=== PATIENT | female | born 1980 | race Caucasian/White ===

== ENCOUNTER 2017-03-26 21:59 | Emergency (ER) | payer BC ==
[2017-03-26] MEDS ORDERED: SODIUM CHLORIDE 0.9% 1,000 ML IV STA (22:18)
--- NOTE | 2017-03-26 22:37 | ED ---
Chest Pain HPI - General Chief Complaint: Chest Pain Stated Complaint: Chest Pain Time Seen by Provider: 03/26/17 22:15 Source: patient, RN notes reviewed Mode of arrival: ambulatory Limitations: no limitations - History of Present Illness Initial Comments: 36-year-old female presents emergency department with a chief complaint of chest pain or shortness of breath. Patient does admit to a history of DVT when she had a she states that she took them and in for 6 months following her had no problems. She developed this chest pain or shortness of breath today so she became concerned. Patient denies any fever chills. Patient does admit to a dry cough. Patient states she has had some chronic abdominal pain and headache but that is not what is concerning her at this time. Patient states she was concerned due to the continued chest pain or shortness breath with her history so she thought that she should be evaluated.Patient denies any recent fever, chills, back pain, abdominal pain, nausea vomiting, numbness or tingling, dysuria or hematuria, constipation or diarrhea, headaches or visual changes, or any other current symptoms. - Related Data Home Medications Medication Instructions Recorded Confirmed Albuterol Sulfate [Proventil Hfa] 1 - 2 puff INHALATION RT-Q6H PRN 03/26/1710/02 Allergies Allergy/AdvReac Type Severity Reaction Status Date / Time No Known Allergies Allergy Verified 03/26/17 22:22 Review of Systems ROS Statement: Those systems with pertinent positive or pertinent negative responses have been documented in the HPI. ROS Other: All systems not noted in ROS Statement are negative. 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 Eye: Pupils are equal, round. Ears, nose, mouth and throat: There are moist mucous membranes. Neck: The neck is supple, there is no tenderness. Cardiovascular: There is a regular rate and rhythm. No murmur, rub or gallop is appreciated. Respiratory: Lungs are clear to auscultation, respirations are non-labored, breath sounds are equal. No wheezes, stridor, rales, or rhonchi. Gastrointestinal: Soft, non-distended, non-tender abdomen without masses or organomegaly noted. There is no rebound or guarding present. No CVA tenderness. Bowel sounds are unremarkable. Back: There is no tenderness to palpation in the midline. There is no obvious deformity. No rashes noted. Musculoskeletal: Normal ROM, no tenderness, There is no pedal edema. There is no calf tenderness or swelling. Sensation intact. Pulses equal bilaterally 2+. Neurological: CN II-XII intact, There are no obvious motor or sensory deficits. Coordination appears grossly intact. Speech is normal. Skin: Skin is warm and dry and no rashes or lesions are noted. Psychiatric: Cooperative, appropriate mood & affect, normal judgment. Limitations: no limitations Course Vital Signs 03/26/17 03/26/17 03/26/17 22:04 22:52 23:09 Temperature 97.5 F L Pulse Rate 74 60 Pulse Rate [ 80 Chemistry Manager ] Respiratory 18 18 Rate Blood Pressure 123/68 119/79 O2 Sat by Pulse 98 98 Oximetry 03/27/17 00:23 Temperature Pulse Rate 75 Pulse Rate [ Chemistry Manager ] Respiratory 18 Rate Blood Pressure 115/77 O2 Sat by Pulse 98 Oximetry Chest Pain MDM - MDM 36-year-old female presents emergency Department chief complaint of chest pain and shortness of breath.at this time patient's CT angiogram is negative for PE. At this time we discussed patient's chest pain is most likely due to a pleuritic type pain due to the shortness of breath with tightness. We did discuss follow-up with Dr. marii villasenor. We discussed all the patient's questions. She states she understood the plan. She'll be discharged home. Disposition Clinical Impression: Pleuritic chest pain, Cough Disposition: HOME SELF-CARE Condition: Stable Instructions: Pleurisy (ED) Additional Instructions: Please use medication as discussed. Please follow up with family doctor if symptoms have not improved over the next two days. Please return to the emergency room if your symptoms increase or worsen or for any other concerns. Referrals: Holger Farmer MD [Primary Care Provider] - 1-2 days Time of Disposition: 01:24
[2017-03-26 23:06] LABS: Basophils # (A) 0.1 k/uL (0-0.2); Basophils % (A) 1 %; CH 32.9; CHCM 34.9; Eosinophils # (A) 0.3 k/uL (0-0.7); Eosinophils % (A) 5 %; HCT 38.5 % (34.0-46.0); HDW 2.12; HGB 13.3 gm/dL (11.4-16.0); Luc % (Auto) 3; Lymphocytes # (A) 2.4 k/uL (1.0-4.8); Lymphocytes % (A) 35 %; MCH 32.7 pg (25.0-35.0); MCHC 34.7 g/dL (31.0-37.0); MCV 94.4 fL (80.0-100.0); Mean Platelet Volume 7.1; Monocytes # (A) 0.5 k/uL (0-1.0); Monocytes % (A) 7 %; Neutrophils # (A) 3.4 k/uL (1.3-7.7); Neutrophils % (A) 50 %; RBC 4.07 m/uL (3.80-5.40); RDW 12.1 % (11.5-15.5); WBC 6.9 k/uL (3.8-10.6); WBC (Perox) 6.63
[2017-03-26 23:16] LABS: ALT 25 U/L (9-52); AST 23 U/L (14-36); Alkaline Phosphatase 57 U/L (38-126); Anion Gap 7 mmol/L; Blood Urea Nitrogen 19 mg/dL (7-17); Calcium 8.7 mg/dL (8.4-10.2); Carbon Dioxide 23 mmol/L (22-30); Chloride 106 mmol/L (98-107); Glucose 87 mg/dL (74-99); Non-African American GFR(MDRD) >60 (>60 ml/min/1.73 sqM); Potassium 4.1 mmol/L (3.5-5.1); Sodium 136 mmol/L (137-145); Total Bilirubin 0.7 mg/dL (0.2-1.3); Total Protein 6.6 g/dL (6.3-8.2)
[2017-03-26 23:18] LABS: INR 1.1 (<1.1); Partial Thromboplastin Time 25.4 sec (22.0-30.0)
[2017-03-26 23:28] LABS: Creatine Kinase 230 U/L (30-135)
[2017-03-26 23:41] LABS: Creatine Kinase MB 1.5 ng/mL (0.0-2.4); Troponin I <0.012 ng/mL (0.000-0.034)
--- NOTE | 2017-03-26 23:48 | XR ---
EXAM: XR Chest, 2 Views CLINICAL HISTORY: Chest pain. TECHNIQUE: Frontal and lateral views of the chest. COMPARISON: No relevant prior studies available. FINDINGS: Lungs: No focal consolidation. No evidence of pulmonary edema. Pleural space: No pleural effusion. No pneumothorax. Heart: Unremarkable. No cardiomegaly. Mediastinum: Unremarkable. Bones/joints: Unremarkable. IMPRESSION: No radiographic evidence of acute cardiopulmonary process.
[2017-03-27] MEDS ORDERED: RX INFO: IV CONTRAST WAS GIVEN 1 EACH MISC MISCELLANE PRN (00:17)
--- NOTE | 2017-03-27 01:21 | CT ---
EXAM: CT Angiography Chest With Intravenous Contrast CLINICAL HISTORY: Chest pain, tightness and pressure. TECHNIQUE: Axial computed tomographic angiography images of the chest with intravenous contrast using pulmonary embolism protocol. MIP reconstructed images were created and reviewed. Coronal and sagittal reformatted images were created and reviewed. DOSE INFORMATION: CTDI is 3.00, 47.90, 4.20 mGy and DLP is 165.40 mGy-cm. This CT exam was performed using one or more of the following dose reduction techniques: automated exposure control, adjustment of the mA and/or kV according to patient size, and/or use of iterative reconstruction technique. CONTRAST: 71 mL of Omnipaque 350 administered intravenously. COMPARISON: No prior CT available for comparison. FINDINGS: Pulmonary arteries: Unremarkable. No pulmonary embolism. Aorta: No acute findings. No thoracic aortic aneurysm or dissection. Lungs: No focal consolidation. No pulmonary edema. Triangular-shaped 3 mm nodular density at the left lung apex, possibly small pulmonary lymph node. Mild peripheral irregularity at the lung apices may represent mild scarring. Pleural space: No pleural effusion. No pneumothorax. Heart: Unremarkable. Normal cardiac size. No pericardial effusion. No evidence of RV dysfunction. Bones/joints: No acute fracture. No dislocation. Soft tissues: No significant soft tissue abnormality. Residual thymus in the anterosuperior mediastinum. Lymph nodes: Unremarkable. No enlarged lymph nodes. IMPRESSION: No evidence of pulmonary embolism or other acute chest abnormality to account for symptoms.
[2017-03-27 01:35] VITALS: BP 116/63; PULSE 76; RESP 16; TEMP 97.4
== END 2017-03-27 01:35 | disposition home or self-care (01) ==
LOC: EC 21:59
DX: R07.81 Pleurodynia (principal); R05 Cough; R51 Headache; R10.9 Unspecified abdominal pain; G89.29 Other chronic pain; Z87.891 Personal history of nicotine dependence
CPT/HCPCS: 36415; 93005; 85379; 80053; 82550; 82553; 83735; 84484; 85025; 85610; 85730; 71020; 71275; 99285; 96360; Q9967

== ENCOUNTER → 2017-12-29 | Outpatient (CLI) | payer BC ==
[2017-12-29 15:16] LABS: Basophils # (A) 0.1 k/uL (0-0.2); Basophils % (A) 1 %; Eosinophils # (A) 0.4 k/uL (0-0.7); Eosinophils % (A) 4 %; HCT 39.8 % (34.0-46.0); HGB 12.7 gm/dL (11.4-16.0); Lymphocytes # (A) 2.1 k/uL (1.0-4.8); Lymphocytes % (A) 26 %; MCH 31.3 pg (25.0-35.0); MCHC 31.8 g/dL (31.0-37.0); MCV 98.4 fL (80.0-100.0); Mean Platelet Volume 7.1; Monocytes # (A) 0.5 k/uL (0-1.0); Monocytes % (A) 6 %; Neutrophils % (A) 61 %; Platelet Count 257 k/uL (150-450); RBC 4.04 m/uL (3.80-5.40); WBC 8.1 k/uL (3.8-10.6)
== END | disposition home or self-care (01) ==
LOC: LABPAT 14:49
PROVIDERS: ATTEND Obstetrics & Gynecology
DX: Z01.812 Encounter for preprocedural laboratory examination (principal)
CPT/HCPCS: 36415; 85025

== ENCOUNTER 2018-01-18 07:36 | Day surgery (SDC) | payer BC ==
[2018-01-07 14:06] VITALS: BMI 25.0
--- NOTE | 2018-01-15 10:35 | HP ---
HISTORY AND PHYSICAL DATE OF PROCEDURE: 01/18/2018 HISTORY: This is a 37-year-old 1, para 0 woman who desires surgical sterility. She is going to be admitted for a laparoscopic bilateral tubal occlusion with Filshie clips. She also has a symptomatic abdominal wall diastasis and will be undergoing surgical repair at the same time. She and her partner desire no further pregnancies. She has been extensively counseled on options for contraception and she has considered these and decided to proceed with bilateral tubal ligation. Specifically, she did decline arrangements for vasectomy, intrauterine device or other hormonal contraception. ALLERGIES: None. MEDICATIONS: None. PAST MEDICAL HISTORY: Asthma, history of DVT postoperatively from section in 2014, rectus diastasis, HPV. PAST SURGICAL HISTORY: section x1 in 2014. SOCIAL HISTORY: She is . Negative for tobacco, alcohol, and drug use. FAMILY HISTORY: Maternal grandmother with blood clots and diabetes and hypertension. REVIEW OF SYSTEMS: Denies fevers, chills, recent weight gain or weight loss, nausea, vomiting, diarrhea, constipation, irregular vaginal bleeding, pelvic or abdominal pain, headaches or other neurologic signs. PHYSICAL EXAM: Blood pressure 122/68, height 5, 4. Weight 155 pounds. Pulse 68. HEENT exam is unremarkable with no palpable lymphadenopathy or thyromegaly. Lungs are clear to auscultation bilaterally and the heart is of regular rate and rhythm with no detectable murmur. On abdominal exam, she does have a notable rectus diastasis that is tender to deep palpation. The abdomen is otherwise slim and soft. On pelvic examination, she has normal female external genitalia without lesions or irritation. On bimanual examination, the uterus and adnexa are free of any gross abnormalities or masses. Neurologically, the patient is grossly intact and there are no obvious skin lesions or rashes. ASSESSMENT: This is a 37-year-old 1, para 1 woman who desires definitive surgical sterilization in the form of bilateral tubal ligation with Filshie clips. Medical history is significant for postoperative deep venous thromboses after section. Anticoagulation in the postoperative period is recommended. She will also be undergoing a rectus diastasis repair by Dr. Posadas at the same time. Please see his documentation for further details. The risks of this procedure have been reviewed with the patient in detail including bleeding, infection, laparotomy, damage to bowel, bladder, ureters and/or other pelvic or abdominal structures. She is at higher risk for postoperative deep venous thrombosis. She understands the possible risk of tubal failure which may result in ectopic or intrauterine . The patient understands all these risks and consent has been obtained and signed after all of her questions were answered. She is scheduled to undergo the above-named procedure on 01/18/2018. MMODL / IJN: [id number] /
[~2018-01-18 07:36] MED LIST: DEXAMETHASONE SOD PHOSPHATE 10 MG/ML 1 ML VIAL IV ONE; HEPARIN SODIUM,PORCINE 5,000 UNIT/ML 1 ML VIAL SQ ONE; LACTATED RINGERS 1,000 ML IV SCH; LIDOCAINE 1% 20 ML VIAL (10MG/ML) FOR IV START INTRADERMA PRN; MORPHINE SULFATE 2 MG/ML SYRINGE IV PRN; ONDANSETRON 4 MG/2 ML VIAL IVP ONE; SCOPOLAMINE 1.5MG/72HR PATCH TRANSDERM ONE; ceFAZolin IN SWFI 2 GM/20 ML SYRINGE IVP ONE; cefOXitin IN SWFI 2 GM/10 ML SYRINGE IVP ONE
[2018-01-18] MEDS ORDERED: HEPARIN SODIUM,PORCINE 5,000 UNIT/ML 1 ML VIAL SQ SCH (08:00)
[2018-01-18] MEDS ORDERED: LACTATED RINGERS 1,000 ML IV ONE ×4 (08:14→11:45)
[2018-01-18] MEDS ORDERED: ALBUTEROL INHALER 60 PUFF/8 GM INHALER INHALATION ONE (08:51)
[2018-01-18] MEDS ORDERED: ROCURONIUM BROMIDE 10 MG/ML 10 ML VIAL IV ONE (08:56)
[2018-01-18] MEDS ORDERED: LIDOCAINE 1% INJ 10MG/ML (20 ML MDV) ONE (08:56)
[2018-01-18] MEDS ORDERED: MIDAZOLAM 2 MG/2 ML VIAL ONE (08:56)
[2018-01-18] MEDS ORDERED: SUCCINYLCHOLINE CHLORIDE 100 MG/5 ML SYR IV ONE (08:56)
[2018-01-18] MEDS ORDERED: PROPOFOL 10 MG/ML 20 ML VIAL IV ONE (08:56)
[2018-01-18] MEDS ORDERED: fentaNYL (PF) 50 MCG/ML 2 ML AMP ONE (08:56)
[2018-01-18] MEDS ORDERED: BUPIVACAINE (PF) 0.5% 30 ML VIAL SQ ONE ×2 (09:40)
--- NOTE | 2018-01-18 09:41 | P.OP ---
Date of Procedure: 01/18/18 Preoperative Diagnosis: Desires surgical sterilization Postoperative Diagnosis: Same Procedure(s) Performed: Laparoscopic bilateral tubal occlusion with Filshie clips Anesthesia: AMANDA Surgeon: Marguerite Benson Control Clerk Auditing #1: Mari Posadas Estimated Blood Loss (ml): 0 Urine output (ml): 50 Pathology: none sent Condition: stable Indications for Procedure: Patient desires definitive contraception in the form of surgical tubal ligation. Operative Findings: Scarring of the lower uterine segment consistent with previous low transverse section. Normal-appearing bilateral fallopian tubes and ovaries. Umbilical hernia. Description of Procedure: After the patient and her family were met in the preoperative holding area and all questions were answered, she was taken to the operating room where anesthetic incident. She was in positioned, prepped and draped in the low lithotomy position. Bladder was drained for approximately 50 mL of clear urine. Speculum was placed in the vagina and an acorn uterine manipulator was placed. Attention was then turned to the abdomen. A 5 mm intraumbilical incision was made. The anterior abdominal wall was grasped and elevated and the Veress needle was inserted without difficulty. Saline drop test indicated intraperitoneal placement. The abdomen was insufflated to a total filling pressure of 12 mm of CO2 gas. The Veress needle was removed and the blade less optical trocar was utilized to introduce the 5 mm laparoscope. After abdominal placement was noted. The patient was placed in Trendelenburg. Under direct visualization and 8 mm suprapubic port was placed. Of note there was significant firm scarring of the anterior lower abdominal wall. Once this port was placed the bowel was swept out of the pelvis and the uterus was elevated. The right and left fallopian tubes were positively identified. The right fallopian tube was grasped in the mid ampullary portion and a Filshie clip applied completely transecting the fallopian tube. Similarly the left fallopian tube was grasped in the mid ampullary portion and a Filshie clip was applied completely transecting the tube. Bilateral ovaries appeared grossly normal. At this point the procedure was turned over to Dr. Posadas from general surgery for repair of the umbilical hernia. All counts were reported to me as correct at this point in the procedure. The instruments were removed from the vagina.
[2018-01-18 10:23] VITALS: TEMP 98.9
--- NOTE | 2018-01-18 10:27 | P.OP ---
Date of Procedure: 01/18/18 Preoperative Diagnosis: Umbilical hernia Postoperative Diagnosis: Umbilical hernia Procedure(s) Performed: Laparoscopic umbilical hernia repair with mesh Anesthesia: AMANDA Surgeon: Mari Posadas Pathology: none sent Condition: stable Disposition: floor Indications for Procedure: Umbilical hernia Operative Findings: Umbilical hernia approximately 2 cm Description of Procedure: This portion of the procedure was completed after tubal ligation was performed. The patient had a umbilical and suprapubic incision with ports in place. Additional ports were placed in the left upper quadrant and left lower quadrant. The umbilical hernia defect was clearly noted. No incarcerated material was noted. A [place] [employer] Ventralight mesh was placed within the abdomen. A Carson Guzman device was used to grab the catheter and elevate the mesh towards the abdominal wall. The balloon was then inflated. Tacking device was used and a 360 fashion to secure the mesh to the abdominal wall. Once the mesh was completely secured, the balloon was removed from the abdomen. The mesh was noted to remain in place. Pneumoperitoneum was then relieved. All incision sites were closed with 4-0 Vicryl subcuticular sutures. Skin glue was applied. The patient was awakened in the operating suite and taken to postanesthesia care unit in stable condition.
[2018-01-18] MEDS ORDERED: HYDROmorphone 0.5 MG/0.5 ML SYRINGE IVP ONE (10:33)
[2018-01-18] MEDS ORDERED: diphenhydrAMINE 50 MG/ML 1 ML VIAL IVP ONE (10:36)
[2018-01-18 11:03] VITALS: RESP 16
[2018-01-18] MEDS ORDERED: HYDROcodone/APAP 5-325MG 1 EACH TAB PO ONE ×2 (12:33→13:42)
[2018-01-18 12:58] VITALS: BP 102/65; PULSE 82
== END 2018-01-18 14:54 | disposition home or self-care (01) ==
LOC: OR 07:36
PROVIDERS: ATTEND Obstetrics & Gynecology
DX: Z30.2 Encounter for sterilization (principal); K42.9 Umbilical hernia without obstruction or gangrene; N85.8 Other specified noninflammatory disorders of uterus; J45.909 Unspecified asthma, uncomplicated; D68.51 Activated protein C resistance; Z79.899 Other long term (current) drug therapy; Z86.718 Personal history of other venous thrombosis and embolism; Z87.891 Personal history of nicotine dependence
CPT/HCPCS: 81025; 49652; 58671; C1781; J2250; J1200; J1644; J1100; J2405; J2001; J3010; J0330; J2704; J1170; J0690

== ENCOUNTER 2018-01-21 20:36 | Emergency (ER) | payer BC ==
[2018-01-21 20:43] VITALS: RESP 18
--- NOTE | 2018-01-21 21:00 | ED ---
General Adult HPI - General Chief complaint: Recheck/Abnormal Lab/Rx Stated complaint: head pain/cancer pt Time Seen by Provider: 01/21/18 20:47 Source: patient Mode of arrival: wheelchair Limitations: no limitations - History of Present Illness Initial comments: 37-year-old female with past medical history factor V Leiden, POD 3 tubal ligation and umbilical hernia repair, presenting after right arm burning and right facial paresthesias, both of which resolved. Patient states she had received an injection of Lovenox in the arm directly prior to the symptoms. Patient states her injected into her tricep area. She states she called her doctor's office and spoke with an BLANKET WINDER OPERATOR who instructed her to come to the ED to r/o RUE DVT and intracranial pathology. The symptoms resolved prior to arrival. Patient denies being on chronic anticoagulation prior to the surgeries. She states she has a history of multiple DVTs 3 years prior after the of her daughter. - Related Data Home Medications Medication Instructions Recorded Confirmed Albuterol Sulfate [Proventil Hfa] 1 - 2 puff INHALATION RT-Q6H PRN 03/26/1707/03 Previous Rx's Medication Instructions Recorded HYDROcodone/APAP 5-325MG [[place] 1 tab PO Q6HR PRN #14 tab 01/18/18 5-325] traMADol HCL/ACETAMINOPHEN 2 tab PO Q6HR PRN #30 tab 01/18/18 [Ultracet 37.5-325] Allergies Allergy/AdvReac Type Severity Reaction Status Date / Time No Known Allergies Allergy Verified 01/21/18 20:53 Review of Systems ROS Statement: Those systems with pertinent positive or pertinent negative responses have been documented in the HPI. Review of Systems Constitutional: Denies fever, chills Eyes: Denies change in vision, Denies pain Ears, nose, mouth, throat: Denies headaches, Denies sore throat Cardiovascular: Denies chest pain. Denies palpitations Respiratory: Denies shortness of breath, Denies cough Gastrointestinal: Denies abdominal pain. Denies nausea, vomiting, diarrhea. Genitourinary: Denies hematuria, Denies infections Musculoskeletal: Denies pain. Arm paresthesias. Integumentary: Denies rash Neurological: Denies headache, focal weakness. Positive facial paresthesias. Psychiatric: Denies anxiety, Denies depression Hematologic/Lymphatic: History of easy clotting ROS Other: All systems not noted in ROS Statement are negative. 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 Atraumatic Eyes: PERRL. EOMI. No scleral icterus. No injected conjunctiva Neck: Full ROM Chest/Lungs: Clear to auscultation bilaterally. No wheezing, rhonchi, or rales Cardiac: Regular rate, rhythm. No murmurs or rubs Abdomen/GI: Soft. Tender. Non-distended. Laprascopic surgical incisions C/D/I No rebound, guarding, or rigidity. Musculoskeletal: Full ROM Skin: Warm, dry, intact Neurologic: A/Ox3, no weakness, no sensory deficit, no abdnormal gait, no coordination deficit. Limitations: no limitations Course Vital Signs 01/21/18 20:38 Temperature 97.5 F L Pulse Rate 95 Respiratory 18 Rate Blood Pressure 122/74 O2 Sat by Pulse 98 Oximetry Medical Decision Making - Medical Decision Making 37 yoF presenting with concern for RUE DVT or intracranial pathology. On initial exam the patient is awake, alert, and in NAD. VSS. Spoke with patient regarding patient's giving her Lovenox injections in her arm versus her abdomen. They stated there was no contraindication to injecting in that area. Patient's CT head was negative for bleed. The patient was instructed to return if her symptoms return or she has new neurological symptoms as contrast was not used to evaluate for central venous thrombosis. Patient's sypmptoms most likely secondary to nerve irritation from where the injection was placed. Instructed patient how to give injections in the deltoid and gluteal areas. Instructed her to alternate sites as well. The patient verbalized understanding and was agreeable to follow up outpatient with her surgeon and PCP. No further emergent workup indicated. The patient was given return to ED instructions. They were instructed to follow up with their primary care provider. Stable for discharge at this time. Disposition Clinical Impression: Injection site reaction, Arm paresthesia, right, Facial paresthesia Disposition: HOME SELF-CARE Condition: Good Instructions: Enoxaparin (By injection) Additional Instructions: Return to ED if any focal weakness or numbness, headache that does not resolve with motrin or tylenol, inability to eat or drink secondary to nausea and vomiting, fever. Referrals: Holger Farmer MD [Primary Care Provider] - 1-2 days
--- NOTE | 2018-01-21 22:24 | CT ---
EXAMINATION TYPE: CT brain wo con DATE OF EXAM: 01/21/2018 COMPARISON: NONE HISTORY: Right side facial numbness CT DLP: 940.6 mGycm. Automated Exposure Control for Dose Reduction was Utilized. TECHNIQUE: CT scan of the head is performed without contrast. FINDINGS: Ventricles and sulci appear normal. There is no mass effect nor midline shift. There is n o sign of intracranial hemorrhage. The calvarium appears intact. CONCLUSION: Normal CT scan of the brain.
--- NOTE | 2018-01-21 22:34 | US ---
EXAMINATION TYPE: US venous doppler duplex UE RT DATE OF EXAM: 01/21/2018 COMPARISON: NONE CLINICAL HISTORY: Pain. Right arm pain SIDE PERFORMED: Right Right Arm: Negative for DVT No evidence of DVT right arm. IMPRESSION: There is no evidence of deep venous thrombosis in the right arm.
[2018-01-21 22:44] VITALS: BP 130/61; PULSE 71; TEMP 97.8
== END 2018-01-21 23:09 | disposition home or self-care (01) ==
LOC: EC 20:36
DX: R20.2 Paresthesia of skin (principal); Z87.891 Personal history of nicotine dependence
CPT/HCPCS: 70450; 99284

== ENCOUNTER 2018-01-24 15:58 | Emergency (ER) | payer BC ==
[2018-01-24 16:04] VITALS: BP 122/70; PULSE 102; RESP 18; TEMP 98.1
[2018-01-24] MEDS ORDERED: SODIUM CHLORIDE 0.9% 1,000 ML IV STA (16:15)
--- NOTE | 2018-01-24 16:26 | ED ---
General Adult HPI - General Chief complaint: Recheck/Abnormal Lab/Rx Stated complaint: muscle weakness/poss med reaction Time Seen by Provider: 01/24/18 16:07 Source: patient Mode of arrival: ambulatory Limitations: no limitations - History of Present Illness Initial comments: Patient presents with mild bilateral lower extremity weakness. Patient states symptoms are worse when she first stands up, after states walking and moving legs return to normal. Patient states she recently had surgery to repair umbilical hernia and tubal ligation. She denies competitions following surgery. Patient states she has a history of factor V Leiden, therefore her certified endoscopy technician placed her on Lovenox after the procedure. Patient states she had 3 DVTs after in past. Patient denies any pain or swelling of the legs at this time. Patient denies any back pain. Denies saddle anesthesia or numbness of the legs. Patient states she is still able to walk and ambulate, her legs just feel weak when she first stands up. Denies fevers, chills, nausea , vomiting. Patient denies any bleeding anywhere. Patient states she spoke with her certified endoscopy technician today regarding symptoms who told her to come to the ER to have her potassium level checked. - Related Data Home Medications Medication Instructions Recorded Confirmed Albuterol Sulfate [Proventil Hfa] 1 - 2 puff INHALATION RT-Q6H PRN 03/26/1710/03 Docusate [Colace] 100 mg PO DAILY PRN 01/24/18 01/24/18 Lovenox(Unknown Dose) 1 dose SQ DAILY 01/24/18 01/24/18 Simethicone [Gas-X] 125 mg PO DAILY PRN 01/24/18 01/24/18 Allergies Allergy/AdvReac Type Severity Reaction Status Date / Time No Known Allergies Allergy Verified 01/24/18 16:09 Review of Systems ROS Statement: Those systems with pertinent positive or pertinent negative responses have been documented in the HPI. ROS Other: All systems not noted in ROS Statement are negative. Constitutional: Reports: weakness (legs). Denies: fever, chills Eyes: Denies: vision change Respiratory: Denies: dyspnea Cardiovascular: Denies: chest pain, palpitations Endocrine: Denies: fatigue Gastrointestinal: Denies: abdominal pain, nausea, vomiting Genitourinary: Denies: urgency, dysuria, frequency, hematuria, discharge Musculoskeletal: Denies: back pain, joint swelling, arthralgia, myalgia Skin: Denies: rash, lesions, change in color Neurological: Reports: weakness. 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 No acute distress. Conversing normally. Calm, pleasant, well-appearing. Limitations: no limitations General appearance: alert, in no apparent distress Head exam: Present: atraumatic, normocephalic Eye exam: Present: normal appearance, PERRL, EOMI ENT exam: Present: mucous membranes moist Neck exam: Present: normal inspection Respiratory exam: Present: normal lung sounds bilaterally. Absent: respiratory distress, wheezes, rales, rhonchi Cardiovascular Exam: Present: regular rate, normal rhythm GI/Abdominal exam: Present: soft, distended (Mild distention), tenderness ( Appropriate TTP at surgicl port site. Port sites appear to be healing well, no erythema or drainage.), normal bowel sounds. Absent: guarding, rebound, rigid, hernia Extremities exam: Present: normal inspection, full ROM, normal capillary refill , other (Full range of motion extremities bilaterally. No edema lower extremities. Cap refill less than 2 seconds in all toes. Temperature equal Lotrimin bilaterally. DP pulses +2 out of 4 bilaterally. No deformities or bony tenderness of the lower extremities.). Absent: tenderness, pedal edema, joint swelling, calf tenderness Back exam: Present: normal inspection, full ROM. Absent: tenderness, paraspinal tenderness, vertebral tenderness Neurological exam: Present: alert, oriented X3, normal gait, other (Cranial nerves grossly intact. Muscle strength 5 out of 5 in lower extremities bilaterally. Sensation intact in lower extremities bilaterally. Patient ambulatory in the ER without difficulty.). Absent: motor sensory deficit Psychiatric exam: Present: normal affect, normal mood Skin exam: Present: warm, dry, intact, normal color. Absent: rash, cyanosis, diaphoretic, erythema Course Vital Signs 01/24/18 16:00 Temperature 98.1 F Pulse Rate 102 H Respiratory 18 Rate Blood Pressure 122/70 O2 Sat by Pulse 99 Oximetry Medical Decision Making - Medical Decision Making Patient with no focal neuro deficits on examination. US Doppler lower extremities negative for DVT bilaterally. No electrolyte other significant lab abnormalities appreciated. Patient and determine ER without difficulty. Patient updated with all results, patient sitting up in chair. Weakness of legs improved at this time. Patient feels comfortable being discharged home. Agrees to follow up with her primary care physician certified endoscopy technician tomorrow. Return to ER for new or worsening symptoms including groin numbness, increased weakness, urinary retention, loose bowel movements, back pain. All questions answered. We'll discharge home at this time. - Lab Data Result diagrams: 01/24/18 16:30 01/24/18 16:30 Lab Results 01/24/18 01/24/18 01/24/18 Range/Units 16:30 16:30 17:30 WBC 7.4 (3.8-10.6) k/uL RBC 4.34 (3.80-5.40) m/uL Hgb 13.8 (11.4-16.0) gm/dL Hct 40.9 (34.0-46.0) % MCV 94.2 (80.0-100.0) fL MCH 31.9 (25.0-35.0) pg MCHC 33.8 (31.0-37.0) g/dL RDW 12.2 (11.5-15.5) % Plt Count 309 (150-450) k/uL Neutrophils % 71 % Lymphocytes % 14 % Monocytes % 7 % Eosinophils % 6 % Basophils % 1 % Neutrophils # 5.2 (1.3-7.7) k/uL Lymphocytes # 1.1 (1.0-4.8) k/uL Monocytes # 0.6 (0-1.0) k/uL Eosinophils # 0.4 (0-0.7) k/uL Basophils # 0.0 (0-0.2) k/uL Sodium 141 (137-145) mmol/L Potassium 4.1 (3.5-5.1) mmol/L Chloride 102 (98-107) mmol/L Carbon Dioxide 27 (22-30) mmol/L Anion Gap 12 mmol/L BUN 14 (7-17) mg/dL Creatinine 0.75 (0.52-1.04) mg/dL Est GFR (CKD-EPI)AfAm >90 (>60 ml/min/1.73 sqM) Est GFR (CKD-EPI)NonAf >90 (>60 ml/min/1.73 sqM) Glucose 99 (74-99) mg/dL Calcium 8.9 (8.4-10.2) mg/dL Magnesium 2.1 (1.6-2.3) mg/dL Urine Color Yellow Urine Appearance Cloudy H (Clear) Urine pH 7.0 (5.0-8.0) Ur Specific [place] 1.021 (1.001-1.035) Urine Protein Trace H (Negative) Urine Glucose (UA) Negative (Negative) Urine Ketones Negative (Negative) Urine Blood Negative (Negative) Urine Nitrite Negative (Negative) Urine Bilirubin Negative (Negative) Urine Urobilinogen <2.0 (<2.0) mg/dL Ur Leukocyte Esterase Negative (Negative) Urine WBC 1 (0-5) /hpf Ur Squamous Epith Cells 10 H (0-4) /hpf Urine Bacteria Rare H (None) /hpf Urine Mucus Occasional H (None) /hpf Disposition Clinical Impression: Lower extremity weakness Disposition: HOME SELF-CARE Condition: Good Instructions: Weakness (ED) Additional Instructions: Called her primary care physician certified endoscopy technician tomorrow. Return to ER for new or worsening symptoms, including groin numbness, lower extremity numbness, urinary retention, bowel incontinence. Referrals: Holger Farmer MD [Primary Care Provider] - 1-2 days
[2018-01-24 16:49] LABS: Anion Gap 12 mmol/L; Blood Urea Nitrogen 14 mg/dL (7-17); Calcium 8.9 mg/dL (8.4-10.2); Carbon Dioxide 27 mmol/L (22-30); Chloride 102 mmol/L (98-107); Glucose 99 mg/dL (74-99); Magnesium 2.1 mg/dL (1.6-2.3); Potassium 4.1 mmol/L (3.5-5.1); Sodium 141 mmol/L (137-145)
[2018-01-24 16:53] LABS: Basophils % (A) 1 %; Eosinophils # (A) 0.4 k/uL (0-0.7); Eosinophils % (A) 6 %; HCT 40.9 % (34.0-46.0); HGB 13.8 gm/dL (11.4-16.0); Lymphocytes # (A) 1.1 k/uL (1.0-4.8); Lymphocytes % (A) 14 %; MCH 31.9 pg (25.0-35.0); MCHC 33.8 g/dL (31.0-37.0); MCV 94.2 fL (80.0-100.0); Mean Platelet Volume 7.3; Monocytes # (A) 0.6 k/uL (0-1.0); Monocytes % (A) 7 %; Neutrophils # (A) 5.2 k/uL (1.3-7.7); Neutrophils % (A) 71 %; Platelet Count 309 k/uL (150-450); RBC 4.34 m/uL (3.80-5.40); RDW 12.2 % (11.5-15.5); WBC 7.4 k/uL (3.8-10.6)
--- NOTE | 2018-01-24 17:46 | US ---
EXAMINATION TYPE: US venous doppler duplex LE DATE OF EXAM: 01/24/2018 5:37 PM COMPARISON: 01/31/2016 CLINICAL HISTORY: weakness, h/o DVTs. HX of bilateral dvt in legs. On blood thinners. No swelling o r redness. Leg weakness. SIDE PERFORMED: Bilateral TECHNIQUE: The lower extremity deep venous system is examined utilizing real time linear array sonog irais with graded compression, doppler sonography and color-flow sonography. VESSELS IMAGED: External Iliac Vein (EIV) Common Femoral Vein Deep Femoral Vein Greater Saphenous Vein * Femoral Vein Popliteal Vein Small Saphenous Vein * Proximal Calf Veins (* superficial vessels) Right Leg: Appears negative for DVT. CFV appears small. Left Leg: Appears negative for DVT. Internal echos and thready flow seen in GSV. IMPRESSION: 1. No evidence of deep venous thrombosis within the bilateral lower extremities. 2. Eccentric partially occlusive chronic thrombosis within the left greater saphenous vein.
[2018-01-24 17:53] LABS: Appearance,Urine Cloudy (Clear); Bacteria,Urine Rare /hpf; Bilirubin,Urine Negative (Negative); Blood,Urine Negative (Negative); Color,Urine Yellow; Glucose,Urine (UA) Negative (Negative); Ketones,Urine Negative (Negative); Leukocyte Esterase,Urine Negative (Negative); Mucus,Urine Occasional /hpf; Nitrite,Urine Negative (Negative); Protein,Urine Trace (Negative); Specific Gravity,Urine 1.021 (1.001-1.035); Squamous Epithelial Cell,Urine 10 /hpf (0-4); Urobilinogen,Urine <2.0 mg/dL (<2.0); WBC,Urine 1 /hpf (0-5)
== END 2018-01-24 19:10 | disposition home or self-care (01) ==
LOC: EC 15:58
DX: R29.898 Other symptoms and signs involving the musculoskeletal system (principal); D68.51 Activated protein C resistance; Z87.891 Personal history of nicotine dependence; Z86.718 Personal history of other venous thrombosis and embolism; Z79.01 Long term (current) use of anticoagulants
CPT/HCPCS: 36415; 80048; 81001; 83735; 85025; 93970; 96360; 99284

== ENCOUNTER → 2018-02-22 | Outpatient (CLI) | payer BC ==
[2018-02-22 11:32] LABS: Basophils % (A) 1 %; Eosinophils # (A) 0.4 k/uL (0-0.7); Eosinophils % (A) 6 %; HCT 42.6 % (34.0-46.0); HGB 14.1 gm/dL (11.4-16.0); Lymphocytes # (A) 2.1 k/uL (1.0-4.8); Lymphocytes % (A) 32 %; MCH 31.1 pg (25.0-35.0); MCHC 33.1 g/dL (31.0-37.0); MCV 93.8 fL (80.0-100.0); Mean Platelet Volume 7.4; Monocytes # (A) 0.5 k/uL (0-1.0); Monocytes % (A) 7 %; Neutrophils # (A) 3.4 k/uL (1.3-7.7); Neutrophils % (A) 52 %; Platelet Count 274 k/uL (150-450); RBC 4.54 m/uL (3.80-5.40); RDW 12.2 % (11.5-15.5); WBC 6.6 k/uL (3.8-10.6)
[2018-02-22 12:16] LABS: ALT 20 U/L (9-52); AST 16 U/L (14-36); Albumin 4.1 g/dL (3.5-5.0); Alkaline Phosphatase 59 U/L (38-126); Anion Gap 12 mmol/L; Blood Urea Nitrogen 16 mg/dL (7-17); Calcium 9.1 mg/dL (8.4-10.2); Carbon Dioxide 25 mmol/L (22-30); Chloride 103 mmol/L (98-107); Glucose 86 mg/dL (74-99); Potassium 4.3 mmol/L (3.5-5.1); Sodium 140 mmol/L (137-145); Total Bilirubin 0.6 mg/dL (0.2-1.3); Total Protein 6.5 g/dL (6.3-8.2)
== END | disposition home or self-care (01) ==
LOC: LABWHC1 10:50
PROVIDERS: ATTEND Surgery
DX: R10.9 Unspecified abdominal pain (principal)
CPT/HCPCS: 36415; 80053; 85025

== ENCOUNTER 2018-04-15 20:15 | Emergency (ER) | payer BC ==
[2018-04-15 21:02] VITALS: RESP 18; TEMP 98.2
[2018-04-15 22:27] LABS: Basophils % (A) 0 %; Eosinophils # (A) 0.5 k/uL (0-0.7); Eosinophils % (A) 5 %; HCT 41.8 % (34.0-46.0); Lymphocytes # (A) 2.2 k/uL (1.0-4.8); Lymphocytes % (A) 25 %; MCH 31.6 pg (25.0-35.0); MCHC 33.6 g/dL (31.0-37.0); Mean Platelet Volume 6.8; Monocytes # (A) 0.5 k/uL (0-1.0); Monocytes % (A) 5 %; Neutrophils # (A) 5.7 k/uL (1.3-7.7); Neutrophils % (A) 63 %; Platelet Count 284 k/uL (150-450); RBC 4.44 m/uL (3.80-5.40); RDW 12.7 % (11.5-15.5); WBC 9.1 k/uL (3.8-10.6)
[2018-04-15 22:35] LABS: Appearance,Urine Clear (Clear); Bacteria,Urine Rare /hpf; Bilirubin,Urine Negative (Negative); Blood,Urine Negative (Negative); Color,Urine Light Yellow; Glucose,Urine (UA) Negative (Negative); Ketones,Urine Negative (Negative); Leukocyte Esterase,Urine Trace (Negative); Mucus,Urine Rare /hpf; Nitrite,Urine Negative (Negative); PH, Urine 5.5 (5.0-8.0); Protein,Urine Negative (Negative); RBC,Urine 1 /hpf (0-5); Specific Gravity,Urine 1.018 (1.001-1.035); Squamous Epithelial Cell,Urine 1 /hpf (0-4); Urobilinogen,Urine <2.0 mg/dL (<2.0); WBC,Urine 3 /hpf (0-5)
[2018-04-15 22:44] LABS: ALT 29 U/L (9-52); AST 22 U/L (14-36); Albumin 4.1 g/dL (3.5-5.0); Alkaline Phosphatase 58 U/L (38-126); Amylase 41 U/L (30-110); Anion Gap 13 mmol/L; Blood Urea Nitrogen 17 mg/dL (7-17); Calcium 8.9 mg/dL (8.4-10.2); Carbon Dioxide 21 mmol/L (22-30); Chloride 105 mmol/L (98-107); Glucose 89 mg/dL (74-99); Lipase 111 U/L (23-300); Potassium 4.1 mmol/L (3.5-5.1); Sodium 139 mmol/L (137-145); Total Bilirubin 0.4 mg/dL (0.2-1.3); Total Protein 6.3 g/dL (6.3-8.2)
--- NOTE | 2018-04-16 00:30 | XR ---
EXAMINATION TYPE: XR chest 2V DATE OF EXAM: 04/16/2018 COMPARISON: 03/26/2017 HISTORY: Chest pain TECHNIQUE: Frontal and lateral views of the chest are obtained. FINDINGS: Heart and mediastinum are normal. Lungs are clear. Diaphragm is normal. Bony thorax is int act. IMPRESSION: Normal chest. No change.
--- NOTE | 2018-04-16 00:31 | XR ---
EXAMINATION TYPE: XR KUB DATE OF EXAM: 04/16/2018 COMPARISON: NONE HISTORY: Left side pain TECHNIQUE: 2 views FINDINGS: There is no sign of intestinal obstruction or pneumoperitoneum. Fecal pattern is normal. Th ere are clips from tubal ligation. There are no pathologic calcifications over the kidneys. Lung base s are clear. IMPRESSION: Nonacute abdomen.
--- NOTE | 2018-04-16 01:27 | ED ---
Abdominal Pain HPI - General Chief Complaint: Abdominal Pain Stated Complaint: abdominal & chest pain Time Seen by Provider: 04/15/18 22:45 Source: patient, RN notes reviewed, old records reviewed Mode of arrival: ambulatory Limitations: no limitations - History of Present Illness Initial Comments: This patient is a 38 year old female with CC of abdominal pain and chest pain for one day. She has had mesh placed for umbilical hernia on january 18, but has been having problems with abdominal pain since that time. Patient is supposed to have mesh removed on April 22. Patient reports that her pain is located on the left. She has a history of factor 5, and she is also concerned about blood clots. l - Related Data Home Medications Medication Instructions Recorded Confirmed Albuterol Sulfate [Proventil Hfa] 1 - 2 puff INHALATION RT-Q6H PRN 03/26/17 [id number]-Cpol [id number] 1 tab PO Q4HR PRN 04/15/18 04/15/18 [Excedrin] Previous Rx's Medication Instructions Recorded Acetaminophen with Codeine 1 tab PO Q6H PRN 3 Days #10 tab 04/16/18 [Tylenol w/codeine #3] Allergies Allergy/AdvReac Type Severity Reaction Status Date / Time No Known Allergies Allergy Verified 04/15/18 22:54 Review of Systems ROS Statement: Those systems with pertinent positive or pertinent negative responses have been documented in the HPI. ROS Other: All systems not noted in ROS Statement are negative. 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 Limitations: no limitations General appearance: alert, in no apparent distress Head exam: Present: atraumatic, normocephalic, normal inspection Eye exam: Present: normal appearance, PERRL, EOMI. Absent: scleral icterus, conjunctival injection, periorbital swelling ENT exam: Present: normal exam, mucous membranes moist Neck exam: Present: normal inspection. Absent: tenderness, meningismus, lymphadenopathy Respiratory exam: Present: normal lung sounds bilaterally. Absent: respiratory distress, wheezes, rales, rhonchi, stridor GI/Abdominal exam: Present: soft, tenderness (left sided and epigastric tenderness), normal bowel sounds. Absent: distended, guarding, rebound, rigid Extremities exam: Present: normal inspection, full ROM, normal capillary refill. Absent: tenderness, pedal edema, joint swelling, calf tenderness Back exam: Present: normal inspection Course Vital Signs 04/15/18 04/16/18 20:59 01:35 Temperature 98.2 F 98.2 F Pulse Rate 81 66 Respiratory 18 18 Rate Blood Pressure 127/85 111/68 O2 Sat by Pulse 100 100 Oximetry Medical Decision Making - Medical Decision Making Patient is a 38 year old female with chest and abdominal pain for one day. She is concerned for issue with hernia mesh which is scheduled for removal in one week. She has had no fever or chills, no cough or shortness of breath. Patient also concerned of blood clot due to blood disorder. She has minimal tenderness, incision sites appear well. No erythema or drainage from abdomen. Lungs are clear. At this time discussed labs are unremarkable, and negative DDimer. Do not want to proceed with CT as patient has had many cT scans. Discussed she can follow up with her surgeon. REturn parameters discussed. - Lab Data Result diagrams: 04/15/18 22:13 04/15/18 22:13 Lab Results 04/15/18 04/15/18 04/15/18 Range/Units 22:13 22:13 22:13 WBC 9.1 (3.8-10.6) k/uL RBC 4.44 (3.80-5.40) m/uL Hgb 14.0 (11.4-16.0) gm/dL Hct 41.8 (34.0-46.0) % MCV 94.0 (80.0-100.0) fL MCH 31.6 (25.0-35.0) pg MCHC 33.6 (31.0-37.0) g/dL RDW 12.7 (11.5-15.5) % Plt Count 284 (150-450) k/uL Neutrophils % 63 % Lymphocytes % 25 % Monocytes % 5 % Eosinophils % 5 % Basophils % 0 % Neutrophils # 5.7 (1.3-7.7) k/uL Lymphocytes # 2.2 (1.0-4.8) k/uL Monocytes # 0.5 (0-1.0) k/uL Eosinophils # 0.5 (0-0.7) k/uL Basophils # 0.0 (0-0.2) k/uL D-Dimer (<0.60) mg/L FEU Sodium 139 (137-145) mmol/L Potassium 4.1 (3.5-5.1) mmol/L Chloride 105 (98-107) mmol/L Carbon Dioxide 21 L (22-30) mmol/L Anion Gap 13 mmol/L BUN 17 (7-17) mg/dL Creatinine 0.70 (0.52-1.04) mg/dL Est GFR (CKD-EPI)AfAm >90 (>60 ml/min/1.73 sqM) Est GFR (CKD-EPI)NonAf >90 (>60 ml/min/1.73 sqM) Glucose 89 (74-99) mg/dL Calcium 8.9 (8.4-10.2) mg/dL Total Bilirubin 0.4 (0.2-1.3) mg/dL AST 22 (14-36) U/L ALT 29 (9-52) U/L Alkaline Phosphatase 58 (38-126) U/L Total Protein 6.3 (6.3-8.2) g/dL Albumin 4.1 (3.5-5.0) g/dL Amylase 41 (30-110) U/L Lipase 111 (23-300) U/L Urine Color Light Yellow Urine Appearance Clear (Clear) Urine pH 5.5 (5.0-8.0) Ur Specific [place] 1.018 (1.001-1.035) Urine Protein Negative (Negative) Urine Glucose (UA) Negative (Negative) Urine Ketones Negative (Negative) Urine Blood Negative (Negative) Urine Nitrite Negative (Negative) Urine Bilirubin Negative (Negative) Urine Urobilinogen <2.0 (<2.0) mg/dL Ur Leukocyte Esterase Trace H (Negative) Urine RBC 1 (0-5) /hpf Urine WBC 3 (0-5) /hpf Ur Squamous Epith Cells 1 (0-4) /hpf Urine Bacteria Rare H (None) /hpf Urine Mucus Rare H (None) /hpf Urine HCG, Qual (Not Detectd) 04/15/18 04/15/18 Range/Units 22:13 22:13 WBC (3.8-10.6) k/uL RBC (3.80-5.40) m/uL Hgb (11.4-16.0) gm/dL Hct (34.0-46.0) % MCV (80.0-100.0) fL MCH (25.0-35.0) pg MCHC (31.0-37.0) g/dL RDW (11.5-15.5) % Plt Count (150-450) k/uL Neutrophils % % Lymphocytes % % Monocytes % % Eosinophils % % Basophils % % Neutrophils # (1.3-7.7) k/uL Lymphocytes # (1.0-4.8) k/uL Monocytes # (0-1.0) k/uL Eosinophils # (0-0.7) k/uL Basophils # (0-0.2) k/uL D-Dimer 0.24 (<0.60) mg/L FEU Sodium (137-145) mmol/L Potassium (3.5-5.1) mmol/L Chloride (98-107) mmol/L Carbon Dioxide (22-30) mmol/L Anion Gap mmol/L BUN (7-17) mg/dL Creatinine (0.52-1.04) mg/dL Est GFR (CKD-EPI)AfAm (>60 ml/min/1.73 sqM) Est GFR (CKD-EPI)NonAf (>60 ml/min/1.73 sqM) Glucose (74-99) mg/dL Calcium (8.4-10.2) mg/dL Total Bilirubin (0.2-1.3) mg/dL AST (14-36) U/L ALT (9-52) U/L Alkaline Phosphatase (38-126) U/L Total Protein (6.3-8.2) g/dL Albumin (3.5-5.0) g/dL Amylase (30-110) U/L Lipase (23-300) U/L Urine Color Urine Appearance (Clear) Urine pH (5.0-8.0) Ur Specific [place] (1.001-1.035) Urine Protein (Negative) Urine Glucose (UA) (Negative) Urine Ketones (Negative) Urine Blood (Negative) Urine Nitrite (Negative) Urine Bilirubin (Negative) Urine Urobilinogen (<2.0) mg/dL Ur Leukocyte Esterase (Negative) Urine RBC (0-5) /hpf Urine WBC (0-5) /hpf Ur Squamous Epith Cells (0-4) /hpf Urine Bacteria (None) /hpf Urine Mucus (None) /hpf Urine HCG, Qual Not Detected (Not Detectd) When compared to previous EKG there are: no significant change Interpretation: no acute changes, normal EKG - Radiology Data Radiology results: report reviewed CXR and KUB are negative for any acute process. Disposition Clinical Impression: Intermittent abdominal pain, Breast tenderness in female Disposition: HOME SELF-CARE Condition: Good Instructions: Abdominal Pain (ED) Additional Instructions: Does follow up with her surgeon on . Return to emergency department if any alarming signs or symptoms occur. Take a stool softener to taking the pain medicine. Prescriptions: Acetaminophen with Codeine [Tylenol w/codeine #3] 1 tab PO Q6H PRN 3 Days #10 tab PRN Reason: Pain Is patient prescribed a controlled substance at d/c from ED?: Yes When asked, does pt state using other controlled substances?: No If prescribed controlled substance>3 days was MAPS reviewed?: Prescribed <3 Days If opioid is for acute pain is fill amount 7 days or less?: No If Rx opioid, was Start Talking consent form obtained?: No Referrals: Holger Farmer MD [Primary Care Provider] - 1-2 days Time of Disposition: 01:26
[2018-04-16 01:37] VITALS: BP 111/68; PULSE 66
== END 2018-04-16 01:37 | disposition home or self-care (01) ==
LOC: EC 20:15
DX: R10.9 Unspecified abdominal pain (principal); N64.59 Other signs and symptoms in breast; R07.9 Chest pain, unspecified; Z98.890 Other specified postprocedural states; Z87.891 Personal history of nicotine dependence
CPT/HCPCS: 36415; 71046; 74018; 80053; 81001; 81025; 82150; 83690; 85025; 85379; 93005; 99284

== ENCOUNTER 2019-01-21 11:20 | Day surgery (SDC) | payer BC ==
[2019-01-20 11:18] VITALS: BMI 25.0
[~2019-01-21 11:20] MED LIST changes: -DEXAMETHASONE SOD PHOSPHATE 10 MG/ML 1 ML VIAL IV ONE; -HEPARIN SODIUM,PORCINE 5,000 UNIT/ML 1 ML VIAL SQ ONE; -LIDOCAINE 1% 20 ML VIAL (10MG/ML) FOR IV START INTRADERMA PRN; -MORPHINE SULFATE 2 MG/ML SYRINGE IV PRN; -ONDANSETRON 4 MG/2 ML VIAL IVP ONE; -SCOPOLAMINE 1.5MG/72HR PATCH TRANSDERM ONE; -ceFAZolin IN SWFI 2 GM/20 ML SYRINGE IVP ONE; -cefOXitin IN SWFI 2 GM/10 ML SYRINGE IVP ONE
[2019-01-21 12:01] VITALS: RESP 16; TEMP 97.3
[2019-01-21] MEDS ORDERED: LIDOCAINE 1% 20 ML VIAL (10MG/ML) FOR IV START INTRADERMA ONE (12:08)
[2019-01-21] MEDS ORDERED: PROPOFOL 10 MG/ML 20 ML VIAL IV ONE (13:01)
[2019-01-21] MEDS ORDERED: LIDOCAINE 1% INJ 10MG/ML (20 ML MDV) ONE (13:01)
--- NOTE | 2019-01-21 13:10 | P.PCN ---
Date of Procedure: 01/21/19 Procedure(s) Performed: BRIEF HISTORY: Patient is a 38-year-old, pleasant, female, scheduled for an upper endoscopy as a part of evaluation of epigastric pain and abdominal bloating for the last 1 week duration. His abdominal x-rays done and was told that showed a distended stomach. She denies any recent NSAID use other than occasional Excedrin. Does have prior history of peptic ulcer disease diagnosed 30 years ago. PROCEDURE PERFORMED: Esophagogastroduodenoscopy with biopsy. PREOPERATIVE DIAGNOSIS: Epigastric pain, nausea and vomiting with abdominal distention for 1 week duration. IV sedation per anesthesia. PROCEDURE: After informed consent was obtained, the patient was brought into the endoscopy unit. IV sedation was administered by Anesthesia under continuous monitoring. Initially the Olympus GIF-140 video endoscope was inserted into the mouth. Esophagus intubated without any difficulty. It was gradually advanced into the stomach and duodenum and carefully examined. The second part of the duodenum appeared normal. Biopsies were done in the duodenum to rule out celiac disease. In the duodenal bulb there was a 1 cm clean-based duodenal ulcer identified with no active bleeding. The scope at this time was withdrawn to the stomach, adequately insufflated with air, and upon careful examination, mucosa of the antrum, body, cardia and the fundus appeared normal. Labs were done from the antrum to rule out H. pylori infection. The scope was then withdrawn into the esophagus. The GE junction was located at 39 cm from the incisors. The esophagus appeared normal. There were no erosions or ulcerations seen and the patient tolerated the procedure well. IMPRESSION: 1. 1 cm clean based duodenal bulbar ulcer with no evidence of active bleeding.. 2. No evidence of gastric outlet obstruction. RECOMMENDATIONS: The findings of this examination were discussed with the zelalem ent as well as a family. She was advised to follow with the biopsy results. In the meantime she was given a Prilosec 20 mg daily for 12 weeks. She was advised to avoid NSAIDs..
[2019-01-21 13:25] VITALS: BP 109/69; PULSE 87
== END 2019-01-21 13:50 | disposition home or self-care (01) ==
LOC: ORWHC2ENDO 11:20
PROVIDERS: ATTEND Internal Medicine Gastroenterology
DX: K29.50 Unspecified chronic gastritis without bleeding (principal); K26.9 Duodenal ulcer, unspecified as acute or chronic, without hemorrhage or perforation; J45.909 Unspecified asthma, uncomplicated; Z87.11 Personal history of peptic ulcer disease; Z79.899 Other long term (current) drug therapy
CPT/HCPCS: 81025; 88305; 43239; J2001; J2704

== ENCOUNTER 2019-02-26 07:39 | Emergency (ER) | payer BC ==
[2019-02-26 07:44] VITALS: BP 124/68; PULSE 82; RESP 18; TEMP 97.9
--- NOTE | 2019-02-26 08:59 | US ---
EXAMINATION TYPE: US venous doppler duplex LE RT DATE OF EXAM: 02/26/2019 8:29 AM COMPARISON: Previous study dated 01/24/2018 CLINICAL HISTORY: Pain. mild right calf swelling and pain, no injury, Factor 5 disorder, h/o dvt bila terally, not on thinners now SIDE PERFORMED: right TECHNIQUE: The lower extremity deep venous system is examined utilizing real time linear array sonog irais with graded compression, doppler sonography and color-flow sonography. VESSELS IMAGED: External Iliac Vein (EIV) Common Femoral Vein Deep Femoral Vein Greater Saphenous Vein * Femoral Vein Popliteal Vein Small Saphenous Vein * Proximal Calf Veins (* superficial vessels) Right Leg: Probable chronic process seen within mid and dist femoral vein, internal echoes with thre claudia flow and vein was mostly compressible. Calf vein and popiteal veins appear negative for any acute process. No popliteal fossa lesion is seen. IMPRESSION: 1. NO ACUTE OCCLUSIVE THROMBUS. 2. EVIDENCE OF CHRONIC THROMBUS WITHIN THE DEEP VENOUS SYSTEM OF THE RIGHT LEG.
--- NOTE | 2019-02-26 09:06 | ED ---
General Adult HPI - General Chief complaint: Extremity Problem,Nontraumatic Stated complaint: Leg pain Time Seen by Provider: 02/26/19 07:40 Source: patient, RN notes reviewed Mode of arrival: ambulatory Limitations: no limitations - History of Present Illness Initial comments: This is a 38-year-old female who presents emergency Department complaining of pain in her right calf and his been ongoing for a few days now. Patient states she has a clotting disorder and has had a DVT in the past. 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 Patient denies any swelling or redness to light. Patient denies any injury to light. Patient states it hurts when she walks. Patient states the last time she had a DVT and her thigh today she has no thigh pain. Patient denies any difficulty breathing or chest pain. Patient denies any fever chills. - Related Data Home Medications Medication Instructions Recorded Confirmed Albuterol Sulfate [Proventil Hfa] 1 - 2 puff INHALATION RT-Q6H PRN 03/26/17 01/21/19 Allergies Allergy/AdvReac Type Severity Reaction Status Date / Time No Known Allergies Allergy Verified 02/26/19 07:44 Review of Systems ROS Statement: Those systems with pertinent positive or pertinent negative responses have been documented in the HPI. ROS Other: All systems not noted in ROS Statement are negative. 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 Patient is in no acute distress. EYES Patient's pupils are equal and round. Extraocular motion is intact SKIN Unremarkable NEURO The patient is alert and oriented 3 PYSCH Patient has normal interpersonal interactions. MUSCULOSKELETAL Calf is mildly tender to palpation there is no redness or swelling. Limitations: no limitations Course Vital Signs 02/26/19 07:40 Temperature 97.9 F Pulse Rate 82 Respiratory 18 Rate Blood Pressure 124/68 O2 Sat by Pulse 100 Oximetry Medical Decision Making - Medical Decision Making Ultrasound showed no DVT. Disposition Clinical Impression: Strain of calf muscle Disposition: HOME SELF-CARE Instructions (If sedation given, give patient instructions): Muscle Strain (ED) Is patient prescribed a controlled substance at d/c from ED?: No Referrals: Holger Farmer MD [Primary Care Provider] - 1-2 days Time of Disposition: 09:07
== END 2019-02-26 09:19 | disposition home or self-care (01) ==
LOC: EC 07:39
DX: S86.911A Strain of unspecified muscle(s) and tendon(s) at lower leg level, right leg, initial encounter (principal); Z87.891 Personal history of nicotine dependence; Z86.718 Personal history of other venous thrombosis and embolism; X58.XXXA Exposure to other specified factors, initial encounter
CPT/HCPCS: 99283

== ENCOUNTER 2019-03-01 23:56 | Inpatient (IN) | payer BC ==
[2019-03-02] MEDS ORDERED: SODIUM CHLORIDE 0.9% 500 ML 500 ML IV STA (00:40)
[2019-03-02] MEDS ORDERED: KETOROLAC 30 MG/ML 1 ML VIAL IVP STA (00:42)
[2019-03-02 00:55] LABS: Basophils % (A) 0 %; Eosinophils # (A) 0.4 k/uL (0-0.7); Eosinophils % (A) 4 %; HCT 40.6 % (34.0-46.0); HGB 13.2 gm/dL (11.4-16.0); Lymphocytes # (A) 1.8 k/uL (1.0-4.8); Lymphocytes % (A) 17 %; MCH 30.5 pg (25.0-35.0); MCHC 32.4 g/dL (31.0-37.0); Mean Platelet Volume 6.9; Monocytes # (A) 0.5 k/uL (0-1.0); Monocytes % (A) 5 %; Neutrophils # (A) 7.5 k/uL (1.3-7.7); Neutrophils % (A) 72 %; Platelet Count 253 k/uL (150-450); RBC 4.32 m/uL (3.80-5.40); RDW 12.2 % (11.5-15.5); WBC 10.5 k/uL (3.8-10.6)
[2019-03-02 01:08] LABS: Prothrombin Time 10.4 sec (9.0-12.0)
[2019-03-02 01:10] LABS: ALT 17 U/L (9-52); AST 15 U/L (14-36); Albumin 4.1 g/dL (3.5-5.0); Alkaline Phosphatase 63 U/L (38-126); Anion Gap 8 mmol/L; Blood Urea Nitrogen 13 mg/dL (7-17); Calcium 9.1 mg/dL (8.4-10.2); Carbon Dioxide 26 mmol/L (22-30); Chloride 105 mmol/L (98-107); Glucose 110 mg/dL (74-99); Magnesium 1.9 mg/dL (1.6-2.3); Potassium 3.9 mmol/L (3.5-5.1); Sodium 139 mmol/L (137-145); Total Bilirubin 0.5 mg/dL (0.2-1.3); Total Protein 6.4 g/dL (6.3-8.2)
[2019-03-02 01:35] LABS: D-Dimer 2.03 mg/L FEU (<0.60)
--- NOTE | 2019-03-02 02:01 | ED ---
Chest Pain HPI - General Chief Complaint: Chest Pain Stated Complaint: Chest Pain ARIE Hx Blood clots Time Seen by Provider: 03/02/19 00:23 Source: patient Mode of arrival: wheelchair Limitations: no limitations - History of Present Illness Initial Comments: 38-year-old female patient with past medical history significant for factor V leiden and multiple DVTs, presents to the emergency department today for evaluation of chest pain and shortness of breath. She states symptoms started this afternoon with mild shortness of breath and chest discomfort. Patient states that as the day progressed her pain and shortness of breath worsened. States the pain is located in the left side of her chest and radiates through to her back. She states it hurts worse and she takes of breath. Patient denies any cough or hemoptysis. Denies any history of similar pain. Denies any fever or chills with this. She is not currently taking any anticoagulants or ant iplatelet medications. Patient denies any recent rash, abdominal pain, nausea, vomiting, diarrhea, constipation, back pain, numbness, tingling, dizziness, weakness, hematuria, dysuria, urinary urgency, urinary frequency, headache, visual changes, or any other complaints. Denies leg pain, redness, or swelling. - Related Data Home Medications Medication Instructions Recorded Confirmed Albuterol Sulfate [Proventil Hfa] 1 - 2 puff INHALATION RT-Q6H PRN 03/26/17 03/02/19 Allergies Allergy/AdvReac Type Severity Reaction Status Date / Time No Known Allergies Allergy Verified 02/26/19 07:44 Review of Systems ROS Statement: Those systems with pertinent positive or pertinent negative responses have been documented in the HPI. ROS Other: All systems not noted in ROS Statement are negative. EKG Findings - EKG Comments: EKG Findings:: EKG obtained at 00 28 shows normal sinus rhythm with an incomplete right bundle branch block. Ventricular rate is 89, TN interval 142, QRS duration 92, QT 372, QTc 452. No evidence of ST elevation or depression. 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, factor 5 Leiden blood disorder, Ulcer History of Any Multi-Drug Resistant Organisms: None Reported Past Surgical History: Breast Surgery, Section, Hernia Repair, Tonsillectomy Additional Past Surgical History / Comment(s): umbilical hernia with mesh, and then mesh removed, D&C; Lasik, benign breast lumpectomy Past Anesthesia/Blood Transfusion Reactions: Postoperative Nausea & Vomiting (PONV) Past Psychological History: No Psychological Hx Reported Smoking Status: Former smoker General Exam Limitations: no limitations General appearance: alert, in no apparent distress, other (This is a well- developed, well-nourished adult female patient in no acute distress. Vital signs upon presentation are temperature 98.2F, pulse 84, respirations 22, blood pressure 112/74, pulse ox 100% on room air.) Eye exam: Present: normal appearance, PERRL, EOMI. Absent: scleral icterus, conjunctival injection, periorbital swelling ENT exam: Present: normal exam, normal oropharynx, mucous membranes moist Respiratory exam: Present: normal lung sounds bilaterally. Absent: respiratory distress, wheezes, rales, rhonchi, stridor, chest wall tenderness Cardiovascular Exam: Present: regular rate, normal rhythm, normal heart sounds. Absent: systolic murmur, diastolic murmur, rubs, gallop, clicks GI/Abdominal exam: Present: soft, normal bowel sounds. Absent: distended, tenderness, guarding, rebound, rigid Neurological exam: Present: alert, oriented X3, CN II-XII intact Psychiatric exam: Present: normal affect, normal mood Skin exam: Present: warm, dry, intact, normal color. Absent: rash Course Vital Signs 03/02/19 03/02/19 00:17 01:41 Temperature 98.2 F Pulse Rate 84 100 Respiratory 22 16 Rate Blood Pressure 112/74 105/67 O2 Sat by Pulse 100 97 Oximetry Chest Pain MDM - [facility]:CT angiography of the chest with IV contrast was obtained. Report was reviewed in its entirety. Impression by Dr. Dong stated shows bilateral segmental and subsegmental pulmonary emboli. No saddle embolus. No right heart strain. MDM: 38 year-old female patient with past medical history significant for factor V deficiency and DVT presented to the emergency department today for evaluation of shortness of breath or chest pain. Physical exam does reveal clear equal lung sounds. Pain was not reproducible upon palpation. Labs reviewed and did reveal elevated d-dimer at 2.0. CT angiography of the chest was obtained and did show bilateral segmental and subsegmental pulmonary emboli. Patient was started on high-dose heparin. She will be admitted to the hospital for further evaluation of the clavicular. Discussed findings, results, and plan with the patient, she is agreeable. Disposition Clinical Impression: Bilateral pulmonary embolism Disposition: ADMITTED IP TO THIS [facility] Condition: Serious Referrals: Joe Farmer MD [Primary Care Provider] - 1-2 days Decision to Admit Reason: Admit from EC Decision Date: 03/02/19 Decision Time: 02:40
--- NOTE | 2019-03-02 02:20 | CT ---
EXAM: CT Angiography Chest With Intravenous Contrast CLINICAL HISTORY: Pain TECHNIQUE: Axial computed tomographic angiography images of the chest with intravenous contrast using pulmonary embolism protocol. CTDI is 0.085, 0. 085, 1.5, 1.5, 1.5, 5.1 mGy and DLP is 221.6 mGy-cm. This CT exam was performed using one or more of the following dose reduction techniques: automated exposure control, adjustment of the mA and/or kV according to patient size, and/or use of iterative reconstruction technique. MIP reconstructed images were created and reviewed. COMPARISON: No relevant prior studies available. FINDINGS: Pulmonary arteries: Bilateral segmental and subsegmental pulmonary emboli. No saddle embolus. Aorta: No acute findings. No thoracic aortic aneurysm. Lungs: Biapical pleural-parenchymal scarring. No mass. Pleural space: Unremarkable. No significant effusion. No pneumothorax. Heart: Unremarkable. No cardiomegaly. No significant pericardial effusion. Bones/joints: No acute fracture. No dislocation. Soft tissues: Unremarkable. Lymph nodes: Unremarkable. No enlarged lymph nodes. IMPRESSION: Bilateral segmental and subsegmental pulmonary emboli. No saddle embolus. No right heart strain. <MYCVCSECTION> [employer] 03/02/19 02:22 Call Doctor Regarding Above results, called DELORIS Brooks on 03/02 02:21 (-04:00)
[2019-03-02] MEDS ORDERED: HEPARIN SODIUM,PORCINE 5,000 UNIT/ML 1 ML VIAL IV PRN (02:32)
[2019-03-02] MEDS ORDERED: HEPARIN SODIUM,PORCINE 10,000 UNIT/ML 1 ML VIAL IV ONE (02:32)
[2019-03-02] MEDS ORDERED: ONDANSETRON 4 MG/2 ML VIAL IVP PRN (02:34)
[2019-03-02] MEDS ORDERED: MORPHINE SULFATE 4 MG/ML SYRINGE IV PRN (02:34)
[2019-03-02] MEDS ORDERED: NALOXONE 0.4 MG/ML 1 ML VIAL IV PRN (02:34)
[2019-03-02] MEDS: HEPARIN SOD,PORK IN 0.45% NACL 25,000 UNIT in 0.45% NACL 1 250ML.BAG IV SCH (02:58)
[2019-03-02 04:34] VITALS: BMI 25.0
[2019-03-02] MEDS: SODIUM CHLORIDE 0.9% 1,000 ML IV SCH (04:54)
[2019-03-02] MEDS: KETOROLAC 30 MG/ML 1 ML VIAL IVP SCH ×3 (06:22→17:47)
[2019-03-02 09:16] LABS: Anion Gap 8 mmol/L; Blood Urea Nitrogen 11 mg/dL (7-17); Calcium 8.6 mg/dL (8.4-10.2); Carbon Dioxide 24 mmol/L (22-30); Chloride 108 mmol/L (98-107); Glucose 84 mg/dL (74-99); Potassium 3.9 mmol/L (3.5-5.1); Sodium 140 mmol/L (137-145)
--- NOTE | 2019-03-02 09:25 | US ---
EXAMINATION TYPE: US venous doppler duplex LE DATE OF EXAM: 03/02/2019 8:45 AM COMPARISON: NONE CLINICAL HISTORY: Pulmonary Embolism. current PE's, Factor 5 disorder, mild right leg swelling, h/o b ilateral leg DVT's SIDE PERFORMED: bilateral TECHNIQUE: The lower extremity deep venous system is examined utilizing real time linear array sonog irais with graded compression, doppler sonography and color-flow sonography. VESSELS IMAGED: External Iliac Vein (EIV) Common Femoral Vein Deep Femoral Vein Greater Saphenous Vein * Femoral Vein Popliteal Vein Small Saphenous Vein * Proximal Calf Veins (* superficial vessels) Right Leg: Thready flow with echogenic debris still seen within dist femoral vein. When compared to venous study done 4 days ago, possible increase in debris noted within vein which may mean acute proc ess had developed within dist femoral vein. Vein does not fully compress either. No other evidence of chronic or acute thrombus seen throughout the rest of the leg. Left Leg: Appears negative for DVT IMPRESSION: 1. Right lower extremity deep venous thrombosis.
[2019-03-02] MEDS: PANTOPRAZOLE 40 MG TABLET PO SCH (09:30)
[2019-03-02] MEDS: HYDROmorphone 0.5 MG/0.5 ML SYRINGE IVP PRN (10:57)
--- NOTE | 2019-03-02 14:18 | P.HPIM ---
History of Present Illness H&P Date: 03/02/19 This is a 38-year-old female patient of Dr. Holger Farmer with past history of factor V Leyden and history of bilateral DVTs during 4 years ago. She was followed by Dr. Ravi at this time and was treated with Coumadin for 6 months course and then this was discontinued. Patient came into [facility] emergency center complaining of left-sided chest pain that was severe with some mild shortness of breath. Pain and shortness of breath continued to worsen. She denies having any cough, fever, chills. She denies having history of miscarriages. She is not on control and no recent travel. She is active at work as well as at home. CTA of the chest revealed bi lateral segmental and subsegmental pulmonary emboli. No saddle embolus. No right heart strain. Venous Doppler study was positive on the right lower extremity. Patient was started on heparin drip and admitted to the selective care unit and consult requested with oncology. Echocardiogram has been ordered to evaluate right heart strain. Patient also has history of a duodenal ulcer as she had endoscopy done in January of this year with Dr. Scott. Review of Systems All systems: negative Constitutional: Denies chills, Denies fatigue, Denies fever, Denies malaise, Denies poor appetite, Denies weakness, Denies weight loss Eyes: denies blurred vision, denies pain Ears, nose, mouth and throat: Denies headache, Denies nasal congestion, Denies nasal discharge, Denies sore throat Cardiovascular: Reports chest pain, Reports shortness of breath, Denies decrea sed exercise tolerance, Denies dyspnea on exertion, Denies edema, Denies leg edema, Denies lightheadedness, Denies syncope Respiratory: Reports dyspnea, Denies cough, Denies excessive sputum, Denies hemoptysis, Denies home oxygen, Denies respiratory infections, Denies wheezing Gastrointestinal: Denies abdominal pain, Denies diarrhea, Denies loss of appetite, Denies nausea, Denies vomiting Genitourinary: Denies dysuria, Denies hematuria, Denies urgency Musculoskeletal: Denies frequent falls, Denies gait dysfunction, Denies muscle weakness, Denies myalgias Integumentary: Denies color changes, Denies pruritus, Denies rash, Denies wounds Neurological: Denies aphasia, Denies change in mentation, Denies change in speech, Denies confusion, Denies gait dysfunction, Denies numbness, Denies seizures, Denies weakness Psychiatric: Denies anxiety, Denies depression Endocrine: Denies fatigue, Denies weight change 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 She works for [employer]. No recent travel. - Past Family History Father Family Medical History: Cancer Additional Family Medical History / Comment(s): The patient does not know any medical history on her father's side. Mother Additional Family Medical History / Comment(s): hip/knee replacement Medications and Allergies Home Medications Medication Instructions Recorded Confirmed Type Albuterol Sulfate [Proventil Hfa] 1 - 2 puff INHALATION RT-Q6H PRN 03/26/17 03/02/19 History Omeprazole 20 mg PO AC-BRKFST 03/02/19 03/02/19 History Allergies Allergy/AdvReac Type Severity Reaction Status Date / Time No Known Allergies Allergy Verified 03/02/19 07:56 Physical Exam Vitals: Vital Signs Temp Pulse Pulse Resp BP BP Pulse Ox 03/02/19 04:28 98.3 F 72 17 119/71 99 03/02/19 04:00 72 17 03/02/19 03:00 86 20 111/76 97 03/02/19 01:41 100 16 105/67 97 03/02/19 00:17 98.2 F 84 22 112/74 100 Intake and Output 03/01/19 03/02/19 03/02/19 22:59 06:59 14:59 Intake Total 400 Balance 400 Intake: Oral 400 Other: Voiding Method Toilet Bedpan # Voids 1 Weight 68.1 kg Gen: This is a 38-year-old female. She is in bed and appears to be uncomfortable secondary to left-sided chest pain. No respiratory distress is noted. HEENT: Head is atraumatic, normocephalic. Pupils equal, round. Sclerae is anicteric. NECK: Supple. No JVD. No lymphadenopathy. No thyromegaly. LUNGS: Clear to auscultation. No wheezes or rhonchi. No intercostal retractions. Positive tenderness to left chest wall. No rashes noted. HEART: Regular rate and rhythm. No murmur. ABDOMEN: Soft. Bowel sounds are present. No masses. No tenderness. EXTREMITIES: No pedal edema. No calf tenderness. Dorsalis pedis +2 bilaterally. NEUROLOGICAL: Patient is awake, alert and oriented x3. Cranial nerves 2 through 12 are grossly intact. Results CBC & Chem 7: 03/02/19 00:40 03/02/19 07:43 Labs: Abnormal Lab Results - Last 24 Hours (Table) 03/02/19 03/02/19 03/02/19 Range/Units 00:40 00:40 07:43 APTT 160.0 H* (22.0-30.0) sec D-Dimer 2.03 H (<0.60) mg/L FEU Chloride (98-107) mmol/L Glucose 110 H (74-99) mg/dL 03/02/19 Range/Units 07:43 APTT (22.0-30.0) sec D-Dimer (<0.60) mg/L FEU Chloride 108 H (98-107) mmol/L Glucose (74-99) mg/dL Thrombosis Risk Factor Assmnt - DVT/VTE Prophylaxis DVT/VTE Prophylaxis: Pharmacologic Prophylaxis ordered - Choose All That Apply Any of the Below Risk Factors Present?: No Each Risk Factor Represents 3 Points: Positive Factor V Leiden Other congenital or acquired thrombophilia - If yes, enter type in comment: No Thrombosis Risk Factor Assessment Total Risk Factor Score: 3 Thrombosis Risk Factor Assessment Level: Moderate Risk Assessment and Plan Plan: 1. Bilateral pulmonary embolism and right lower extremity DVT with history of factor V bleeding with previous DVTs in the past. Patient was previously under the care of Dr. Atwood. Patient is on heparin drip. Consult with oncology. Echocardiogram ordered to evaluate for right heart strain. 2. Duodenal ulcer. Continue Protonix. Patient will be admitted to the hospital for a minimum of 2 night stay. Discharge plan: Return home. Impression and plan of care have been directed as dictated by the signing physician. Heather Marinelli nurse practitioner acting as scribe for signing physician.
--- NOTE | 2019-03-02 15:41 | P.CONS ---
History of Present Illness - Reason for Consult Consult date: 03/02/19 Hx: Thrombus, Now with Bilateral PE Requesting physician: Sarah Brooks - Chief Complaint Chest Pain - History of Present Illness This is a very nice lady who developed swollen legs a week after a C- section,first ,venous doppler done 02/15/2015 revealed evidence of bilateral lower extremities DVT,above the knees. No prior history of DVT/PE,no miscarriage She was anticoagulated with warfarin since until early ,after she went for a second opinion at [facility] and they agreed with stopping it. Hypercoaguability work up revealed that she is heterzygous for factor V leiden mutation. Patient also has history of a duodenal ulcer as she had endoscopy done in January of this year with Dr. Scott. Since the initial thrombosis was considered provoked with she was taken off anticoagulation. She presented with complaints of left-sided chest pain that was severe with some mild shortness of breath. She is not on control and no recent travel. She is active at work as well as at home. CTA of the chest revealed bilateral segmental and subsegmental pulmonary emboli. No saddle embolus. No right heart strain. Venous Doppler study was positive on the right lower extremity DVT. Patient was started on heparin drip and admitted to the selective care unit and consult requested with hematology. Echocardiogram completed. 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 She works for [employer] services. No recent travel. - Past Family History Father Family Medical History: Cancer Additional Family Medical History / Comment(s): The patient does not know any medical history on her father's side. Mother Additional Family Medical History / Comment(s): hip/knee replacement Medications and Allergies Home Medications Medication Instructions Recorded Confirmed Type Albuterol Sulfate [Proventil Hfa] 1 - 2 puff INHALATION RT-Q6H PRN 03/26/17 03/02/19 History Omeprazole 20 mg PO AC-BRKFST 03/02/19 03/02/19 History Rivaroxaban [Xarelto Starter Pack] 1 each PO DIRECTED #1 pack 03/03/19 Rx Allergies Allergy/AdvReac Type Severity Reaction Status Date / Time No Known Allergies Allergy Verified 03/02/19 07:56 Physical Exam Vitals: Vital Signs Temp Pulse Pulse Resp BP BP Pulse Ox 03/02/19 12:00 98.1 F 71 22 109/69 96 03/02/19 08:00 98.5 F 86 18 120/65 98 03/02/19 04:28 98.3 F 72 17 119/71 99 03/02/19 04:00 72 17 03/02/19 03:00 86 20 111/76 97 03/02/19 01:41 100 16 105/67 97 03/02/19 00:17 98.2 F 84 22 112/74 100 Intake and Output 03/02/19 03/02/19 03/02/19 06:59 14:59 22:59 Intake Total 400 97.075 Balance 400 97.075 Intake: Intake, IV Titration 97.075 Amount Heparin Sod,Pork in 0.45% 97.075 NaCl 25,000 unit In 0.45 % NaCl 1 250ml.bag @ 18 UNITS/KG/HR 12.084 mls/hr IV [id number] Rx#: [id number] Oral 400 Other: Voiding Method Toilet Bedpan # Voids 1 Weight 68.1 kg Gen: ALert and Oriented Head: NCNT Neck: Supple Lungs: DIminished, no increased effort Heart: RRR, S1, S2 Abdomen: S/ND/NT Ext: RLE>LLE, No rash or discolorization Neuro: No motor or sensory deficits Results CBC & Chem 7: 03/03/19 06:31 03/03/19 06:31 Labs: Abnormal Lab Results - Last 24 Hours (Table) 03/02/19 03/02/19 03/02/19 Range/Units 00:40 00:40 07:43 APTT 160.0 H* (22.0-30.0) sec D-Dimer 2.03 H (<0.60) mg/L FEU Chloride (98-107) mmol/L Glucose 110 H (74-99) mg/dL 03/02/19 Range/Units 07:43 APTT (22.0-30.0) sec D-Dimer (<0.60) mg/L FEU Chloride 108 H (98-107) mmol/L Glucose (74-99) mg/dL CT scan - chest: report reviewed Assessment and Plan Plan: Assessment and Recommendations: Recurrent Thrombolic Event: - Life Long Anticoagulation - Continue on Heparin Drip 24-48 hours, will check for coverage of PO DOAC in am - Discussed in detail with patient and she will follow back with Dr. Atwood at discharge Physician Attest: I have completed the full history and physical and agree with above dictation dictated as ascribe.
[2019-03-03] MEDS: HEPARIN SOD,PORK IN 0.45% NACL 25,000 UNIT in 0.45% NACL 1 250ML.BAG IV SCH (00:25)
[2019-03-03] MEDS: KETOROLAC 30 MG/ML 1 ML VIAL IVP SCH ×6 (00:26→23:58)
[2019-03-03] MEDS: SODIUM CHLORIDE 0.9% 1,000 ML IV SCH (03:25)
[2019-03-03] MEDS: PANTOPRAZOLE 40 MG TABLET PO SCH (06:43)
--- NOTE | 2019-03-03 07:09 | ECHOF ---
Referral Reason:rt heart strain MEASUREMENTS -------- HEIGHT: 165.1 cm WEIGHT: 68.0 kg BP: RVIDd: 2.4 cm (< 3.3) IVSd: 1.1 cm (0.6 - 1.1) LVIDd: 3.6 cm (3.9 - 5.3) LVPWd: 1.2 cm (0.6 - 1.1) IVSs: 1.1 cm LVIDs: 3.2 cm LVPWs: 1.3 cm LA Diam: 2.5 cm (2.7 - 3.8) Ao Diam: 2.6 cm (2.0 - 3.7) AV Cusp: 1.6 cm (1.5 - 2.6) LA Diam: 2.6 cm (2.7 - 3.8) MV EXCURSION: 17.614 mm (> 18.000) MV EF SLOPE: 119 mm/s (70 - 150) EPSS: 0.2 cm MV E Ulises: 0.69 m/s MV DecT: 161 ms MV A Ulises: 0.63 m/s MV E/A Ratio: 1.09 RAP: 5.00 mmHg RVSP: 14.88 mmHg FINDINGS -------- Sinus rhythm. This was a technically adequate study. LV size, wall thickness and systolic function are normal, with an EF greater than 55%. The left [place] tricular size is normal. The right ventricle is normal in size. The left atrial size is normal. The right atrial size is normal. The aortic valve is trileaflet, and appears structurally normal. No aortic stenosis or regurgitation. Mild mitral annular calcification present. Mild mitral regurgitation is present. Mild tricuspid regurgitation present. There is no evidence of pulmonary hypertension. The right v entricular systolic pressure, as measured by Doppler, is 14.88mmHg. There is no pulmonic regurgitation present. The aortic root size is normal. Echo free space represents a pericardial fat pad. CONCLUSIONS -------- 1. LV size, wall thickness and systolic function are normal, with an EF greater than 55%. 2. The left ventricular size is normal. 3. The right ventricle is normal in size. 4. The left atrial size is normal. 5. The right atrial size is normal. 6. The aortic valve is trileaflet, and appears structurally normal. No aortic stenosis or regurgitati on. 7. Mild mitral annular calcification present. 8. Mild mitral regurgitation is present. 9. Mild tricuspid regurgitation present. 10. There is no evidence of pulmonary hypertension. 11. The right ventricular systolic pressure, as measured by Doppler, is 14.88mmHg. 12. There is no pulmonic regurgitation present. 13. The aortic root size is normal. 14. Echo free space represents a pericardial fat pad. CASE PACKER: Tara Mata RDCS
[2019-03-03 07:14] LABS: Basophils % (A) 1 %; Eosinophils # (A) 0.3 k/uL (0-0.7); Eosinophils % (A) 5 %; HCT 37.8 % (34.0-46.0); HGB 12.4 gm/dL (11.4-16.0); Lymphocytes # (A) 1.6 k/uL (1.0-4.8); Lymphocytes % (A) 28 %; MCH 30.8 pg (25.0-35.0); MCHC 32.7 g/dL (31.0-37.0); Mean Platelet Volume 6.9; Monocytes # (A) 0.4 k/uL (0-1.0); Monocytes % (A) 7 %; Neutrophils # (A) 3.3 k/uL (1.3-7.7); Neutrophils % (A) 59 %; Platelet Count 270 k/uL (150-450); RBC 4.02 m/uL (3.80-5.40); RDW 12.2 % (11.5-15.5); WBC 5.6 k/uL (3.8-10.6)
[2019-03-03 07:36] LABS: Anion Gap 5 mmol/L; Blood Urea Nitrogen 8 mg/dL (7-17); Calcium 8.3 mg/dL (8.4-10.2); Carbon Dioxide 26 mmol/L (22-30); Chloride 107 mmol/L (98-107); Glucose 85 mg/dL (74-99); Potassium 4.1 mmol/L (3.5-5.1); Sodium 138 mmol/L (137-145)
--- NOTE | 2019-03-03 14:39 | P.PN ---
Subjective Progress Note Date: 03/03/19 This is a 38-year-old female patient of Dr. Holger Farmer with past history of factor V Leyden and history of bilateral DVTs during 4 years ago. She was followed by Dr. Ravi at this time and was treated with Coumadin for 6 months course and then this was discontinued. Patient came into [facility] emergency center complaining of left-sided chest pain that was severe with some mild shortness of breath. Pain and shortness of breath continued to worsen. She denies having any cough, fever, chills. She denies having history of miscarriages. She is not on control and no recent travel. She is active at work as well as at home. CTA of the chest revealed bilateral segmental and subsegmental pulmonary emboli. No saddle embolus. No right heart strain. Venous Doppler study was positive on the right lower extremity. Patient was started on heparin drip and admitted to the selective care unit and consult requested with oncology. Echocardiogram has been ordered to evaluate right heart strain. Patient also has history of a duodenal ulcer as she had endoscopy done in January of this year with Dr. Scott. 03/03: Left-sided chest pain is much improved today. She denies any shortness of breath. She did have a two-minute nosebleed this morning and PTT was the rapeutic at that time. She remains on heparin drip. Echocardiogram did not show any right-sided heart strain. EF is 55%, mild mitral regurgitation and mild tricuspid regurgitation. Patient has been seen by oncology with recommendations for heparin drip 24-48 hours and then dose back. Patient to follow-up with Dr. Ravi as an outpatient. Case management has evaluated coverage for Xarelto and patient will be provided 1 month free and copious then $10 per month. Xarelto will be started this afternoon and heparin drip discontinued. Patient will be discharged home tomorrow pending progress. Review of Systems Constitutional: Denies chills, Denies fatigue, Denies fever, Denies malaise, Denies poor appetite, Denies weakness, Denies weight loss Ears, nose, mouth and throat: Denies headache, Denies nasal congestion, Denies nasal discharge, Denies sore throat Cardiovascular: Reports chest pain, Reports shortness of breath, Denies decreased exercise tolerance, Denies dyspnea on exertion, Denies edema, Denies leg edema, Denies lightheadedness, Denies syncope Respiratory: Reports dyspnea, Denies cough, Denies excessive sputum, Denies hemoptysis, Denies home oxygen, Denies respiratory infections, Denies wheezing Gastrointestinal: Denies abdominal pain, Denies diarrhea, Denies loss of appetite, Denies nausea, Denies vomiting Genitourinary: Denies dysuria, Denies hematuria, Denies urgency Musculoskeletal: Denies frequent falls, Denies gait dysfunction, Denies muscle weakness, Denies myalgias Integumentary: Denies color changes, Denies pruritus, Denies rash, Denies wounds Neurological: Denies aphasia, Denies change in mentation, Denies change in speech, Denies confusion, Denies gait dysfunction, Denies numbness, Denies seizures, Denies weakness Psychiatric: Denies anxiety, Denies depression Endocrine: Denies fatigue, Denies weight change Objective - Vital Signs Vital signs: Vital Signs Temp 98 F 03/03/19 04:00 Pulse 75 03/03/19 04:00 Resp 18 03/03/19 04:00 BP 98/60 03/03/19 04:00 Pulse Ox 95 03/03/19 04:00 Intake & Output 03/02/19 03/03/19 03/03/19 18:59 06:59 18:59 Intake Total 689.057 2869.365 0 Output Total 600 Balance 978.295 4531.365 0 Weight 66.6 kg Intake: Intake, IV Titration 97.075 416.365 0 Amount Heparin Sod,Pork in 0.45% 97.075 196.365 0 NaCl 25,000 unit In 0.45 % NaCl 1 250ml.bag @ 18 UNITS/KG/HR 12.084 mls/hr IV .[id number] MICAELA Rx#: [id number] Sodium Chloride 0.9% 1, 220 000 ml @ 20 mls/hr IV . Q24H MICAELA Rx#:[id number] Oral 720 900 Output: Urine 600 Other: Voiding Method Toilet Bedpan # Voids 1 - Exam Gen: This is a 38-year-old female. She is in bed and appears to be comfortable and in no acute distress. No respiratory distress is noted. HEENT: Head is atraumatic, normocephalic. Pupils equal, round. Sclerae is anicteric. NECK: Supple. No JVD. No lymphadenopathy. No thyromegaly. LUNGS: Clear to auscultation. No wheezes or rhonchi. No intercostal retractions. HEART: Regular rate and rhythm. No murmur. ABDOMEN: Soft. Bowel sounds are present. No masses. No tenderness. EXTREMITIES: No pedal edema. No calf tenderness. Dorsalis pedis +2 bilaterally. NEUROLOGICAL: Patient is awake, alert and oriented x3. Cranial nerves 2 through 12 are grossly intact. - Labs CBC & Chem 7: 03/03/19 06:31 03/03/19 06:31 Labs: Abnormal Lab Results - Last 24 Hours (Table) 03/02/19 03/02/19 03/02/19 Range/Units 07:43 07:43 16:32 APTT 160.0 H* 63.0 H (22.0-30.0) sec Chloride 108 H (98-107) mmol/L Calcium (8.4-10.2) mg/dL 03/03/19 03/03/19 Range/Units 06:31 06:31 APTT 67.2 H (22.0-30.0) sec Chloride (98-107) mmol/L Calcium 8.3 L (8.4-10.2) mg/dL Assessment and Plan Plan: 1. Bilateral pulmonary embolism and right lower extremity DVT with history of factor V bleeding with previous DVTs in the past. Patient was previously under the care of Dr. Atwood. Patient is on heparin drip which will be discontinued this afternoon and patient started on Xarelto. Prescription has been provided and patient will have one month free and $10 co-pay. Oncology consult appreciated. Patient will follow-up with Dr. Atwood. Echocardiogram as above. No right heart strain noted on echocardiogram. 2. Duodenal ulcer. Continue Protonix. Discharge plan: Return home tomorrow. Impression and plan of care have been directed as dictated by the signing physician. Heather Marinelli nurse practitioner acting as scribe for signing physician.
[2019-03-03] MEDS: HYDROmorphone 0.5 MG/0.5 ML SYRINGE IVP PRN (14:57)
[2019-03-03] MEDS: RIVAROXABAN 15 MG TAB PO SCH (17:02)
[2019-03-03] MEDS ORDERED: POLYETHYLENE GLYCOL 3350 17 GM POWD.PACK PO PRN (17:05)
[2019-03-03] MEDS: DOCUSATE 100 MG CAP PO SCH (21:27)
--- NOTE | 2019-03-03 22:42 | P.PN ---
Subjective Progress Note Date: 03/03/19 Principal diagnosis: Pulmonary Embolism and DVT Cecy is having significant chest pain still in her left chest wall and side, this is improved with pain medication. She was started on Xarelto tonght, she did have episode of epistaxis that did resolve this am. She also recently underwent EGD and treated for ulcer. Will need to monitor closely for s/s bleeding. CBC in am and re-evaluate pain Objective - Vital Signs Vital signs: Vital Signs Temp 98.0 F 03/03/19 20:09 Pulse 71 03/03/19 20:09 Resp 18 03/03/19 20:09 BP 105/67 03/03/19 20:09 Pulse Ox 97 03/03/19 20:09 Intake & Output 03/03/19 03/03/19 03/04/19 06:59 18:59 06:59 Intake Total 9423.828 0220 Balance 8932.945 9432 Weight 66.6 kg Intake: Intake, IV Titration 416.365 0 Amount Heparin Sod,Pork in 0.45% 196.365 0 NaCl 25,000 unit In 0.45 % NaCl 1 250ml.bag @ 18 UNITS/KG/HR 12.084 mls/hr IV .[id number] MICAELA Rx#: [id number] Sodium Chloride 0.9% 1, 220 000 ml @ 20 mls/hr IV . Q24H MICAELA Rx#:[id number] Oral 900 1080 Other: Voiding Method Toilet Toilet Bedpan # Voids 1 2 - Exam Gen" Alert and oriented no acute distress Head: NCNT NEck: Supple No adenopathy Lungs: RLL diminished otherwise noted difficult to take deep breath Heart: Tachy reg Abdomen: Soft, Evidence of hernia Ext: RLE Edema mild Neuro: No sensory or motor deficits - Labs CBC & Chem 7: 03/03/19 06:31 03/03/19 06:31 Labs: Abnormal Lab Results - Last 24 Hours (Table) 03/03/19 03/03/19 03/03/19 Range/Units 06:31 06:31 13:59 APTT 67.2 H 47.2 H (22.0-30.0) sec Calcium 8.3 L (8.4-10.2) mg/dL Assessment and Plan Plan: Assessment and Recommendations: Recurrent Thrombolic Event: - Life Long Anticoagulation - Continue on Heparin Drip 24-48 hours, will check for coverage of PO DOAC in am - Discussed in detail with patient and she will follow back with Dr. Atwood at discharge Left Wall Chest Pain, inability to take full inspiration: - Not improving without pain medication - Re-evaluate in am and would confirm improvement prior to discharge, - Initiated Bowel regimen with pain meds PLan: - CBC in am - Re-evaluate pain in am - If pain improved and no recurrent episodes of bleeding and cbc stable ok to discharge and follow-up in office within 3 weeks Physician Attest: I have completed the full history and physical and agree with above dictation dictated as ascribe.
[2019-03-04] MEDS: PANTOPRAZOLE 40 MG TABLET PO SCH (06:37)
[2019-03-04] MEDS: KETOROLAC 30 MG/ML 1 ML VIAL IVP SCH (07:14)
[2019-03-04] MEDS: RIVAROXABAN 15 MG TAB PO SCH (07:16)
[2019-03-04 07:35] LABS: Basophils % (A) 1 %; Eosinophils # (A) 0.3 k/uL (0-0.7); Eosinophils % (A) 7 %; HCT 36.8 % (34.0-46.0); Lymphocytes # (A) 1.3 k/uL (1.0-4.8); Lymphocytes % (A) 27 %; MCH 30.8 pg (25.0-35.0); MCHC 32.7 g/dL (31.0-37.0); MCV 94.1 fL (80.0-100.0); Mean Platelet Volume 7.3; Monocytes # (A) 0.3 k/uL (0-1.0); Monocytes % (A) 6 %; Neutrophils # (A) 2.6 k/uL (1.3-7.7); Neutrophils % (A) 56 %; Platelet Count 299 k/uL (150-450); RBC 3.91 m/uL (3.80-5.40); RDW 12.5 % (11.5-15.5); WBC 4.6 k/uL (3.8-10.6)
[2019-03-04 08:11] VITALS: BP 106/65; PULSE 70; RESP 16; TEMP 98.1
[2019-03-04] MEDS: DOCUSATE 100 MG CAP PO SCH (08:23)
--- NOTE | 2019-03-04 10:09 | P.DS ---
Providers Date of admission: 03/02/19 03:25 Expected date of discharge: 03/04/19 Attending physician: Ara Vega Consults: 03/02/19 04:02 Consult Physician Routine Consulting Provider: Ovidio Ball Consult Reason/Comments: Factor V deficiency; PE Do you want consulting provider notified?: Yes Primary care physician: Holger Farmer [facility] Course: This is a 38-year-old female patient of Dr. Holger Farmer with past history of factor V Leyden and history of bilateral DVTs during 4 years ago. She was followed by Dr. Ravi at this time and was treated with Coumadin for 6 months course and then this was discontinued. Patient came into [facility] emergency center complaining of left-sided chest pain that was severe with some mild shortness of breath. Pain and shortness of breath continued to worsen. She denies having any cough, fever, chills. She denies having history of miscarriages. She is not on control and no recent travel. She is active at work as well as at home. CTA of the chest revealed bilateral segmental and subsegmental pulmonary emboli. No saddle embolus. No right heart strain. Venous Doppler study was positive on the right lower extremity. Patient was started on heparin drip and admitted to the selective care unit and consult requested with oncology. Echocardiogram has been ordered to evaluate right heart strain. Patient also has history of a duodenal ulcer as she had endoscopy done in January of this year with Dr. Scott. 03/03: Left-sided chest pain is much improved today. She denies any shortness of breath. She did have a two-minute nosebleed this morning and PTT was therapeutic at that time. She remains on heparin drip. Echocardiogram did not show any right-sided heart strain. EF is 55%, mild mitral regurgitation and mild tricuspid regurgitation. Patient has been seen by oncology with recommendations for heparin drip 24-48 hours and then dose back. Patient to follow-up with Dr. Ravi as an outpatient. Case management has evaluated coverage for Xarelto and patient will be provided 1 month free and copious then $10 per month. Xarelto will be started this afternoon and heparin drip discontinued. Patient will be discharged home tomorrow pending progress. 03/04: Patient continues to have some discomfort in her chest but it is tremendously better from admission. We will plan to send her home on tramadol for pain control. The patient will be provided a 3 day course. Patient has been tolerating Xarelto and prescription is Tyrone been sent to her pharmacy. Patient will be discharged home today in stable condition. Discharge diagnoses: 1. Acute bilateral pulmonary embolism and right lower extremity DVT in the distal femoral vein with history of factor V bleeding with previous DVTs in the past. 2. Duodenal ulcer. Discharge plan: Return home Impression and plan of care have been directed as dictated by the signing physician. Heather Marinelli nurse practitioner acting as scribe for signing physician. Patient Condition at Discharge: Good Plan - Discharge Summary Discharge Rx Participant: No New Discharge Prescriptions: New Rivaroxaban [Xarelto Starter Pack] 1 each PO DIRECTED #1 pack traMADol HCL [Ultram] 50 mg PO Q4HR PRN 3 Days #18 tab PRN Reason: Pain Continue Albuterol Sulfate [Proventil Hfa] 1 - 2 puff INHALATION RT-Q6H PRN PRN Reason: Shortness Of Breath Omeprazole 20 mg PO AC-BRKFST Discharge Medication List Albuterol Sulfate [Proventil Hfa] 1 - 2 puff INHALATION RT-Q6H PRN 03/26/17 [History] Omeprazole 20 mg PO AC-BRKFST 03/02/19 [History] Rivaroxaban [Xarelto Starter Pack] 1 each PO DIRECTED #1 pack 03/03/19 [Rx] traMADol HCL [Ultram] 50 mg PO Q4HR PRN 3 Days #18 tab 03/04/19 [Rx] Follow up Appointment(s)/Referral(s): Meghan Amaral NPC [Nurse Practitioner] - 03/08/19 2:45 pm (Thursday) Holger Farmer MD [Primary Care Provider] - 03/10/19 9:00 am () Patient Instructions/Handouts: Pulmonary Embolism (DC), Safe Use of Anticoagulants (DC) Activity/Diet/Wound Care/Special Instructions: IS at home. Off work until 03/14. Discharge Disposition: HOME WITH HOME HEALTH SERVICES
== END 2019-03-04 11:46 | disposition home or self-care (01) | DRG 176 ==
LOC: EC 23:56 → 3SCARD 03-02 03:25
PROVIDERS: ADMIT Internal Medicine; ATTEND Internal Medicine
DX: I26.99 Other pulmonary embolism without acute cor pulmonale (principal); D68.51 Activated protein C resistance; I82.401 Acute embolism and thrombosis of unspecified deep veins of right lower extremity; I08.1 Rheumatic disorders of both mitral and tricuspid valves; R04.0 Epistaxis; Z79.899 Other long term (current) drug therapy; Z86.718 Personal history of other venous thrombosis and embolism; Z87.11 Personal history of peptic ulcer disease; Z98.891 History of uterine scar from previous surgery; Z87.891 Personal history of nicotine dependence; Z80.9 Family history of malignant neoplasm, unspecified; Z84.89 Family history of other specified conditions
CPT/HCPCS: 36415; 71275; 80048; 80053; 83735; 84484; 85025; 85379; 85610; 85730; 93005; 93306; 93970; 96361; 96365; 96375; 96376; 99285

== ENCOUNTER 2019-03-06 02:33 | Emergency (ER) | payer BC ==
--- NOTE | 2019-03-06 03:49 | ED ---
SOB HPI - General Source: EMS Mode of arrival: EMS Limitations: no limitations <Sarah Brooks - Last Filed: 03/06/19 06:11> <Valentina Coburn - Last Filed: 03/07/19 01:51> - General Chief Complaint: Shortness of Breath Stated Complaint: ARIE Time Seen by Provider: 03/06/19 02:45 - History of Present Illness Initial Comments: 38 year-old female patient presents to the emergency department today for evaluation of shortness of breath. Patient was discharged on 03/04/19 for bilateral pulmonary embolisms and right leg DVT. Patient states that she was started on Xarelto, and has been taking it as directed. Patient states today she started developing worsening shortness of breath. Patient states she is chavez ving sharp chest pain with deep breathing which she has had since symptom onset before her previous admission. Patient denies any cough or congestion. Denies any fever or chills. Denies any swelling to the lower extremities. Patient denies any recent rash, abdominal pain, nausea, vomiting, diarrhea, constipation, back pain, numbness, tingling, dizziness, weakness, hematuria, dysuria, urinary urgency, urinary frequency, headache, visual changes, or any other complaints. (Sarah Brooks) - Related Data Home Medications Medication Instructions Recorded Confirmed Albuterol Sulfate [Proventil Hfa] 1 - 2 puff INHALATION RT-Q6H PRN 03/26/17 03/06/19 Omeprazole 20 mg PO AC-BRKFST 03/02/19 03/06/19 Previous Rx's Medication Instructions Recorded Rivaroxaban [Xarelto Starter Pack] 1 each PO DIRECTED #1 pack 03/03/19 traMADol HCL [Ultram] 50 mg PO Q4HR PRN 3 Days #18 tab 03/04/19 Allergies Allergy/AdvReac Type Severity Reaction Status Date / Time No Known Allergies Allergy Verified 03/06/19 03:03 Review of Systems ROS Other: All systems not noted in ROS Statement are negative. <Sarah Brooks - Last Filed: 03/06/19 06:11> ROS Other: All systems not noted in ROS Statement are negative. <Valentina Coburn - Last Filed: 03/07/19 01:51> ROS Statement: Those systems with pertinent positive or pertinent negative responses have been documented in the HPI. 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, factor 5 Leiden blood disorder, Ulcer History of Any Multi-Drug Resistant Organisms: None Reported Past Surgical History: Breast Surgery, Section, Hernia Repair, Tonsillectomy Additional Past Surgical History / Comment(s): umbilical hernia with mesh, and then mesh removed, D&C; Lasik, benign breast lumpectomy Past Anesthesia/Blood Transfusion Reactions: Postoperative Nausea & Vomiting (PONV) Past Psychological History: No Psychological Hx Reported Smoking Status: Former smoker Past Alcohol Use History: None Reported Past Drug Use History: None Reported - Past Family History Father Family Medical History: Cancer Additional Family Medical History / Comment(s): The patient does not know any medical history on her father's side. Mother Additional Family Medical History / Comment(s): hip/knee replacement <Sarah Brooks M - Last Filed: 03/06/19 06:11> General Exam Limitations: no limitations General appearance: alert, in no apparent distress, other (Physical well- developed, well-nourished adult female patient in no acute distress. Vital signs upon presentation are temperature 97.7F, pulse 76, respirations 16, blood pressure 115/78, pulse ox 98% on room air.) Eye exam: Present: normal appearance, PERRL, EOMI. Absent: scleral icterus, conjunctival injection, periorbital swelling ENT exam: Present: normal exam, normal oropharynx, mucous membranes moist Respiratory exam: Present: normal lung sounds bilaterally. Absent: respiratory distress, wheezes, rales, rhonchi, stridor Cardiovascular Exam: Present: regular rate, normal rhythm, normal heart sounds. Absent: systolic murmur, diastolic murmur, rubs, gallop, clicks GI/Abdominal exam: Present: soft, normal bowel sounds. Absent: distended, tenderness, guarding, rebound, rigid Neurological exam: Present: alert, oriented X3, CN II-XII intact Psychiatric exam: Present: normal affect, normal mood Skin exam: Present: warm, dry, intact, normal color. Absent: rash <Sarah Brooks - Last Filed: 03/06/19 06:11> Course Vital Signs 03/06/19 03/06/19 03/06/19 02:59 05:37 05:59 Temperature 97.7 F 97.8 F Pulse Rate 76 73 70 Respiratory 16 15 15 Rate Blood Pressure 115/78 99/63 103/69 O2 Sat by Pulse 98 98 100 Oximetry Medical Decision Making - Lab Data Result diagrams: 03/06/19 04:00 03/06/19 04:00 - EKG Data -: EKG Interpreted by Me - Radiology Data Radiology results: report reviewed, image reviewed <Sarah Brooks - Last Filed: 03/06/19 06:11> - Lab Data Result diagrams: 03/06/19 04:00 03/06/19 04:00 <Valentina Coburn - Last Filed: 03/07/19 01:51> - Medical Decision Making 38-year-old female patient presents to the emergency department today for evaluation of shortness of breath. Patient was discharged from the hospital on 03/04/2019 after being admitted for bilateral pulmonary embolisms and evidence of right lower extremity DVT. Patient states over the last 24 hours she has had worsening shortness of breath. She denies any cough congestion or fever. Physical examination reveals clear equal lung sounds. She is not tachypneic and exhibits no accessory muscle use. Vital signs are stable with good oxygen saturation. Chest x-ray shows no acute cardio pulmonary process. Labs reviewed and are unremarkable. Normal BNP. Did discuss findings and results with the patient. She did discuss symptoms of anxiety however does not want any medication for this currently. She will be discharged at this time she is ins tructed to follow-up with her primary care physician for recheck in 1-2 days. She does have an appointment with her train braker on Thursday. Return parameters were discussed in detail. She verbalizes understanding and agrees with this plan. (Sarah Brooks) I was available for consultation in the emergency department. The history and physical exam were done by the midlevel provider. I was consulted for this patient's care. I reviewed the case with the midlevel provider and based on their presentation of the patient, I agree with the assessment, medical decision making and plan of care as documented. (Valentina Coburn) - Lab Data Lab Results 04/21/19 04/21/19 04/21/19 Range/Units 04:00 04:00 04:00 WBC 5.2 (3.8-10.6) k/uL RBC 4.04 (3.80-5.40) m/uL Hgb 12.7 (11.4-16.0) gm/dL Hct 38.0 (34.0-46.0) % MCV 94.1 (80.0-100.0) fL MCH 31.3 (25.0-35.0) pg MCHC 33.3 (31.0-37.0) g/dL RDW 12.0 (11.5-15.5) % Plt Count 348 (150-450) k/uL Neutrophils % 57 % Lymphocytes % 29 % Monocytes % 6 % Eosinophils % 6 % Basophils % 1 % Neutrophils # 2.9 (1.3-7.7) k/uL Lymphocytes # 1.5 (1.0-4.8) k/uL Monocytes # 0.3 (0-1.0) k/uL Eosinophils # 0.3 (0-0.7) k/uL Basophils # 0.0 (0-0.2) k/uL PT (9.0-12.0) sec INR (<1.2) APTT (22.0-30.0) sec Sodium 140 (137-145) mmol/L Potassium 3.7 (3.5-5.1) mmol/L Chloride 103 (98-107) mmol/L Carbon Dioxide 29 (22-30) mmol/L Anion Gap 8 mmol/L BUN 13 (7-17) mg/dL Creatinine 0.79 (0.52-1.04) mg/dL Est GFR (CKD-EPI)AfAm >90 (>60 ml/min/1.73 sqM) Est GFR (CKD-EPI)NonAf >90 (>60 ml/min/1.73 sqM) Glucose 92 (74-99) mg/dL Calcium 9.0 (8.4-10.2) mg/dL Magnesium 2.0 (1.6-2.3) mg/dL Total Bilirubin 0.5 (0.2-1.3) mg/dL AST 26 (14-36) U/L ALT 22 (9-52) U/L Alkaline Phosphatase 65 (38-126) U/L Troponin I (0.000-0.034) ng/mL NT-Pro-B Natriuret Pep 108 pg/mL Total Protein 6.9 (6.3-8.2) g/dL Albumin 4.3 (3.5-5.0) g/dL 03/06/19 03/06/19 Range/Units 04:00 04:00 WBC (3.8-10.6) k/uL RBC (3.80-5.40) m/uL Hgb (11.4-16.0) gm/dL Hct (34.0-46.0) % MCV (80.0-100.0) fL MCH (25.0-35.0) pg MCHC (31.0-37.0) g/dL RDW (11.5-15.5) % Plt Count (150-450) k/uL Neutrophils % % Lymphocytes % % Monocytes % % Eosinophils % % Basophils % % Neutrophils # (1.3-7.7) k/uL Lymphocytes # (1.0-4.8) k/uL Monocytes # (0-1.0) k/uL Eosinophils # (0-0.7) k/uL Basophils # (0-0.2) k/uL PT 11.4 (9.0-12.0) sec INR 1.1 (<1.2) APTT 31.3 H (22.0-30.0) sec Sodium (137-145) mmol/L Potassium (3.5-5.1) mmol/L Chloride (98-107) mmol/L Carbon Dioxide (22-30) mmol/L Anion Gap mmol/L BUN (7-17) mg/dL Creatinine (0.52-1.04) mg/dL Est GFR (CKD-EPI)AfAm (>60 ml/min/1.73 sqM) Est GFR (CKD-EPI)NonAf (>60 ml/min/1.73 sqM) Glucose (74-99) mg/dL Calcium (8.4-10.2) mg/dL Magnesium (1.6-2.3) mg/dL Total Bilirubin (0.2-1.3) mg/dL AST (14-36) U/L ALT (9-52) U/L Alkaline Phosphatase (38-126) U/L Troponin I <0.012 (0.000-0.034) ng/mL NT-Pro-B Natriuret Pep pg/mL Total Protein (6.3-8.2) g/dL Albumin (3.5-5.0) g/dL - EKG Data EKG Comments: EKG obtained at 16 shows normal sinus rhythm with a ventricular rate of 66, FL interval 152, QRS duration 92, QT 418, QTC 438. No evidence of ST elevation or depression. (Sarah Brooks) - Radiology Data Two-view x-ray of the chest is obtained. Report was reviewed in its entirety. Impression by Dr. Pascal shows normal chest x-ray. (Sarah Brooks) Disposition Is patient prescribed a controlled substance at d/c from ED?: No Time of Disposition: 05:44 <Sarah Brooks - Last Filed: 03/06/19 06:11> <Valentina Coburn - Last Filed: 03/07/19 01:51> Clinical Impression: Shortness of breath, Pulmonary embolism Disposition: HOME SELF-CARE Condition: Good Instructions (If sedation given, give patient instructions): Pulmonary Embolism (ED), Shortness of Breath (ED) Additional Instructions: Follow-up with your primary care physician Thursday for recheck. Return to the em ergency department immediately for any new, worsening, or concerning symptoms. Referrals: Holger Farmer MD [Primary Care Provider] - 1-2 days
[2019-03-06 04:16] LABS: Basophils % (A) 1 %; Eosinophils # (A) 0.3 k/uL (0-0.7); Eosinophils % (A) 6 %; HGB 12.7 gm/dL (11.4-16.0); Lymphocytes # (A) 1.5 k/uL (1.0-4.8); Lymphocytes % (A) 29 %; MCH 31.3 pg (25.0-35.0); MCHC 33.3 g/dL (31.0-37.0); MCV 94.1 fL (80.0-100.0); Mean Platelet Volume 6.9; Monocytes # (A) 0.3 k/uL (0-1.0); Monocytes % (A) 6 %; Neutrophils # (A) 2.9 k/uL (1.3-7.7); Neutrophils % (A) 57 %; Platelet Count 348 k/uL (150-450); RBC 4.04 m/uL (3.80-5.40); WBC 5.2 k/uL (3.8-10.6)
[2019-03-06 04:24] LABS: Potassium 3.7 mmol/L (3.5-5.1)
[2019-03-06 04:27] LABS: ALT 22 U/L (9-52); AST 26 U/L (14-36); Albumin 4.3 g/dL (3.5-5.0); Alkaline Phosphatase 65 U/L (38-126); Anion Gap 8 mmol/L; Blood Urea Nitrogen 13 mg/dL (7-17); Carbon Dioxide 29 mmol/L (22-30); Chloride 103 mmol/L (98-107); Glucose 92 mg/dL (74-99); Sodium 140 mmol/L (137-145); Total Bilirubin 0.5 mg/dL (0.2-1.3); Total Protein 6.9 g/dL (6.3-8.2)
[2019-03-06 04:33] LABS: INR 1.1 (<1.2); Partial Thromboplastin Time 31.3 sec (22.0-30.0); Prothrombin Time 11.4 sec (9.0-12.0)
--- NOTE | 2019-03-06 05:08 | XR ---
EXAM: XR Chest, 2 Views CLINICAL HISTORY: difficulty breathing TECHNIQUE: Frontal and lateral views of the chest. COMPARISON: No relevant prior studies available. FINDINGS: Lungs: Unremarkable. No consolidation. Pleural space: Unremarkable. No pneumothorax. Heart: Unremarkable. No cardiomegaly. Mediastinum: Unremarkable. Bones/joints: Unremarkable. IMPRESSION: Normal chest x-rays.
[2019-03-06 05:38] VITALS: RESP 15
[2019-03-06 06:00] VITALS: BP 103/69; PULSE 70; TEMP 97.8
== END 2019-03-06 05:55 | disposition home or self-care (01) ==
LOC: EC 02:33
DX: I26.99 Other pulmonary embolism without acute cor pulmonale (principal); Z79.01 Long term (current) use of anticoagulants; Z79.899 Other long term (current) drug therapy; Z86.718 Personal history of other venous thrombosis and embolism; Z87.891 Personal history of nicotine dependence
CPT/HCPCS: 36415; 71046; 80053; 83735; 83880; 84484; 85025; 85610; 85730; 93005; 99285

== ENCOUNTER 2019-09-15 11:37 | Day surgery (SDC) | payer BC ==
[2019-09-12 15:22] VITALS: BMI 23.9
[2019-09-15 12:32] VITALS: TEMP 97.9
[2019-09-15] MEDS ORDERED: LACTATED RINGERS 1,000 ML IV ONE (12:41)
[2019-09-15] MEDS ORDERED: LIDOCAINE 1% INJ 10MG/ML (20 ML MDV) ONE (13:12)
[2019-09-15] MEDS ORDERED: PROPOFOL 10 MG/ML 20 ML VIAL IV ONE (13:12)
--- NOTE | 2019-09-15 13:23 | P.PCN ---
Date of Procedure: 09/15/19 Procedure(s) Performed: BRIEF HISTORY: Patient is a 39-year-old, pleasant, white female, scheduled for an upper endoscopy as a part of evaluation of epigastric pain for the last 3 weeks' duration. She was diagnosed with duodenal ulcer in November of this year and was treated with the as well as it for 3 months and did well. She denies any NSAID use. Because of the persistent epigastric pain she is scheduled for an upper endoscopy to rule out recurrent peptic ulcer disease PROCEDURE PERFORMED: Esophagogastroduodenoscopy with biopsy. PREOPERATIVE DIAGNOSIS: Epigastric pain of 3 weeks' duration. IV sedation per anesthesia. PROCEDURE: After informed consent was obtained, the patient was brought into the endoscopy unit. IV sedation was administered by Anesthesia under continuous monitoring. Initially the Olympus GIF-140 video endoscope was inserted into the mouth. Esophagus intubated without any difficulty. It was gradually advanced into the stomach and duodenum and carefully examined. The bulb and the second part of the duodenum appeared normal. The scope at this time was withdrawn to t he stomach, adequately insufflated with air, and upon careful examination, mucosa of the antrum, body, cardia and the fundus appeared normal. Small gastric polyps were noted in the proximal body the stomach which were biopsied. The scope was then withdrawn into the esophagus. The GE junction was located at 39 cm from the incisors. There were 2 separate erosions at the GE junction consistent with LA grade B reflux esophagitis. The rest of the esophagus appeared normal. There were no erosions or ulcerations seen and the patient tolerated the procedure well. IMPRESSION: 1. No evidence of peptic ulcer disease. 2. Small gastric polyps status post biopsy. 3. LA grade B reflux esophagitis RECOMMENDATIONS: The findings of this examination were discussed with the patient as well as her family. Her symptoms are most suggestive of gastroesophageal reflux disease. She was advised to start on Pepcid 20 mg twice daily and follow antireflux measures..
[2019-09-15] MEDS ORDERED: LACTATED RINGERS 1,000 ML IV SCH (13:32)
[2019-09-15 14:18] VITALS: BP 116/76; PULSE 67; RESP 18
== END 2019-09-15 14:18 | disposition home or self-care (01) ==
LOC: ORWHC2ENDO 11:37
PROVIDERS: ATTEND Internal Medicine Gastroenterology
DX: K21.0 Gastro-esophageal reflux disease with esophagitis (principal); K31.7 Polyp of stomach and duodenum; Z86.718 Personal history of other venous thrombosis and embolism; Z79.01 Long term (current) use of anticoagulants; Z86.711 Personal history of pulmonary embolism
CPT/HCPCS: 81025; 88305; 43239; J2001; J2704

== ENCOUNTER → 2020-03-23 | Outpatient (CLI) | payer BC ==
[2020-03-23 12:43] LABS: INR 1.1 (<1.2); Partial Thromboplastin Time 23.3 sec (22.0-30.0); Prothrombin Time 10.8 sec (9.0-12.0)
[2020-03-23 19:01] LABS: % Iron Saturation 44.03 (12.00-45.00); ALT 19 U/L (8-44); AST 22 U/L (13-35); African American GFR (CKD) 94.7 (60.0-200.0); Albumin/Globulin Ratio 2.04 (1.60-3.17); Alkaline Phosphatase 64 U/L (41-126); BUN/Creat Ratio 15.56 Ratio (12.00-20.00); Calcium 9.4 mg/dL (8.7-10.3); Carbon Dioxide 24.3 mmol/L (21.6-31.8); Chloride 106 mmol/L (96-109); Globulin 2.3 g/dL (1.6-3.3); Glucose 107 mg/dL (70-110); Iron 140 ug/dL (50-170); Non-African American GFR(CKD) 81.7 (60.0-200.0); Potassium 4.5 mmol/L (3.5-5.5); Sodium 144 mmol/L (135-145); Total Bilirubin 0.7 mg/dL (0.3-1.2); Total Iron Binding Capacity 318 ug/dL (228-460)
[2020-03-23 19:10] LABS: Ferritin 75.4 ng/mL (10.0-291.0)
[2020-03-23 19:36] LABS: HCG,Quantitative Serum <2.0 mIU/mL
== END | disposition home or self-care (01) ==
LOC: LABWHC1 12:04
PROVIDERS: ATTEND Nurse Practitioner Adult Health
DX: D68.8 Other specified coagulation defects (principal); K27.9 Peptic ulcer, site unspecified, unspecified as acute or chronic, without hemorrhage or perforation; O87.1 Deep phlebothrombosis in the puerperium; I26.99 Other pulmonary embolism without acute cor pulmonale
CPT/HCPCS: 36415; 80053; 82728; 83540; 83550; 84702; 85610; 85730

== ENCOUNTER 2020-04-27 20:46 | Inpatient (IN) | payer BC ==
[2020-04-27 21:41] LABS: Basophils # (A) 0.1 k/uL (0-0.2); Basophils % (A) 1 %; Eosinophils # (A) 0.3 k/uL (0-0.7); Eosinophils % (A) 4 %; HCT 42.5 % (34.0-46.0); HGB 13.9 gm/dL (11.4-16.0); Lymphocytes % (A) 24 %; MCHC 32.6 g/dL (31.0-37.0); MCV 95.1 fL (80.0-100.0); Mean Platelet Volume 7.3; Monocytes # (A) 0.5 k/uL (0-1.0); Monocytes % (A) 5 %; Neutrophils # (A) 5.3 k/uL (1.3-7.7); Neutrophils % (A) 64 %; Platelet Count 303 k/uL (150-450); RBC 4.47 m/uL (3.80-5.40); RDW 12.6 % (11.5-15.5); WBC 8.4 k/uL (3.8-10.6)
[2020-04-27 21:57] LABS: African American GFR (CKD) >90 (>60 ml/min/1.73 sqM); Anion Gap 8 mmol/L; Blood Urea Nitrogen 14 mg/dL (7-17); Calcium 8.8 mg/dL (8.4-10.2); Carbon Dioxide 26 mmol/L (22-30); Chloride 102 mmol/L (98-107); Glucose 138 mg/dL (74-99); Non-African American GFR(CKD) >90 (>60 ml/min/1.73 sqM); Potassium 3.8 mmol/L (3.5-5.1); Sodium 136 mmol/L (137-145)
--- NOTE | 2020-04-27 22:33 | US ---
EXAMINATION TYPE: US venous doppler duplex LE RT DATE OF EXAM: 04/27/2020 9:59 PM COMPARISON: NONE CLINICAL HISTORY: pain, hx of clots. Pain right leg, history of DVT, patient currently on Xarelto SIDE PERFORMED: Right TECHNIQUE: The lower extremity deep venous system is examined utilizing real time linear array sonog irais with graded compression, doppler sonography and color-flow sonography. VESSELS IMAGED: External Iliac Vein (EIV) Common Femoral Vein Deep Femoral Vein Greater Saphenous Vein * Femoral Vein Popliteal Vein Small Saphenous Vein * Proximal Calf Veins (* superficial vessels) Right Leg: *Positive for DVT right femoral vein distal IMPRESSION: There is evidence of acute deep vein thrombosis in the right femoral vein.
--- NOTE | 2020-04-27 23:07 | ED ---
Extremity Problem HPI - General Source: patient Mode of arrival: ambulatory Limitations: no limitations <Darling Guajardo - Last Filed: 04/27/20 23:20> <Brad Izaguirre - Last Filed: 04/27/20 23:30> - General Chief complaint: Extremity Problem,Nontraumatic Stated complaint: Rt leg pain Time Seen by Provider: 04/27/20 21:13 - History of Present Illness Initial comments: Patient is a 40-year-old female, with history of factor V Leiden, DVT, PEs, presenting to the emergency Department with complaints of right upper leg pain since yesterday. Patient denies any trauma or injury to the area. She states she called her doctor today who recommended she come into the ER for evaluation. She denies any chest pain, shortness of breath, cough, fever, chills. She denies any other complaints at this time. Upon arrival to the ER, her vitals are stable. (Darling Guajardo) - Related Data Home Medications Medication Instructions Recorded Confirmed Rivaroxaban [Xarelto] 20 mg PO DAILY 09/12/19 09/15/19 Allergies Allergy/AdvReac Type Severity Reaction Status Date / Time No Known Allergies Allergy Verified 04/27/20 20:55 Review of Systems ROS Other: All systems not noted in ROS Statement are negative. <Darling Guajardo - Last Filed: 04/27/20 23:20> ROS Other: All systems not noted in ROS Statement are negative. <Brad Izaguirre - Last Filed: 04/27/20 23:30> ROS Statement: Those systems with pertinent positive or pertinent negative responses have been documented in the HPI. Past Medical History Past Medical History: Blood Disorder, Deep Vein Thrombosis (DVT), Pulmonary Embolus (PE) Additional Past Medical History / Comment(s): factor 5 Leiden blood disorder,Stomach Ulcer History of Any Multi-Drug Resistant Organisms: None Reported Past Surgical History: Breast Surgery, Section, Hernia Repair, Tonsillectomy, Tubal Ligation Additional Past Surgical History / Comment(s): umbilical hernia with mesh, and then mesh removed, D&C, Lasik, benign breast lumpectomy Past Anesthesia/Blood Transfusion Reactions: Postoperative Nausea & Vomiting (PONV) Past Psychological History: No Psychological Hx Reported Smoking Status: Never smoker Past Alcohol Use History: None Reported Past Drug Use History: None Reported - Past Family History Father Family Medical History: Cancer Additional Family Medical History / Comment(s): The patient does not know any medical history on her father's side. Mother Family Medical History: No Reported History Additional Family Medical History / Comment(s): hip/knee replacement <Darling Guajardo - Last Filed: 04/27/20 23:20> General Exam Limitations: no limitations <Darling Guajardo - Last Filed: 04/27/20 23:20> - General Exam Comments Initial Comments: GENERAL: Well-appearing, well-nourished and in no acute distress. HEAD: Atraumatic, normocephalic. EYES: Pupils equal round and reactive to light, extraocular movements intact, sclera anicteric, conjunctiva are normal. ENT: TMs normal, nares patent, oropharynx clear without exudates. Moist mucous membranes. NECK: Normal range of motion, supple without lymphadenopathy or JVD. LUNGS: Breath sounds clear to auscultation bilaterally and equal. No wheezes rales or rhonchi. HEART: Regular rate and rhythm without murmurs, rubs or gallops. ABDOMEN: Soft, nontender, normoactive bowel sounds. No guarding, no rebound. No masses appreciated. : Deferred EXTREMITIES: Normal range of motion, no pitting or edema. No clubbing or cyanosis. No overlying erythema. NEUROLOGICAL: Normal speech, normal gait. PSYCH: Normal mood, normal affect. SKIN: Warm, Dry, normal turgor, no rashes or lesions noted. (Darling Guajardo) Course <Brda Izaguirre - Last Filed: 04/27/20 23:30> Vital Signs 04/27/20 20:50 Temperature 97.8 F Pulse Rate 64 Respiratory 18 Rate Blood Pressure 114/77 O2 Sat by Pulse 98 Oximetry - Reevaluation(s) Reevaluation #1: 04/27/20 23:30 PA supervision: Patient present with a history of PE and evidence of new DVT. Patient will be admitted this and IV heparin. I do agree with the assessment and plan (Brad Izaguirre) Medical Decision Making - Lab Data Result diagrams: 04/27/20 21:30 04/27/20 21:30 <Darling Gaujardo - Last Filed: 04/27/20 23:20> - Lab Data Result diagrams: 04/27/20 21:30 04/27/20 21:30 <Brad Izaguirre - Last Filed: 04/27/20 23:30> - Medical Decision Making Patient is a 40-year-old female presenting for pain in her upper right leg. She does have history of factor V Leiden, DVT, PE, is Xarelto. Patient denies any respiratory complaints. Her vitals are stable. Her exam is unremarkable. Her d-dimer today is negative, however her ultrasound of the right lower extremity reveals an acute DVT of the distal end of the femoral vein. I did discuss the case with Dr. Morgan and Dr. Dougherty who did recommend admission and started on high-dose heparin. Patient is agreement with this plan of care. Case discussed with Dr. Izaguirre. (Darling Guajardo) - Lab Data Lab Results 04/27/20 04/27/20 04/27/20 Range/Units 21:30 21:30 21:30 WBC 8.4 (3.8-10.6) k/uL RBC 4.47 (3.80-5.40) m/uL Hgb 13.9 (11.4-16.0) gm/dL Hct 42.5 (34.0-46.0) % MCV 95.1 (80.0-100.0) fL MCH 31.0 (25.0-35.0) pg MCHC 32.6 (31.0-37.0) g/dL RDW 12.6 (11.5-15.5) % Plt Count 303 (150-450) k/uL Neutrophils % 64 % Lymphocytes % 24 % Monocytes % 5 % Eosinophils % 4 % Basophils % 1 % Neutrophils # 5.3 (1.3-7.7) k/uL Lymphocytes # 2.0 (1.0-4.8) k/uL Monocytes # 0.5 (0-1.0) k/uL Eosinophils # 0.3 (0-0.7) k/uL Basophils # 0.1 (0-0.2) k/uL D-Dimer <0.17 (<0.60) mg/L FEU Sodium 136 L (137-145) mmol/L Potassium 3.8 (3.5-5.1) mmol/L Chloride 102 (98-107) mmol/L Carbon Dioxide 26 (22-30) mmol/L Anion Gap 8 mmol/L BUN 14 (7-17) mg/dL Creatinine 0.77 (0.52-1.04) mg/dL Est GFR (CKD-EPI)AfAm >90 (>60 ml/min/1.73 sqM) Est GFR (CKD-EPI)NonAf >90 (>60 ml/min/1.73 sqM) Glucose 138 H (74-99) mg/dL Calcium 8.8 (8.4-10.2) mg/dL Disposition Decision Date: 04/27/20 Decision Time: 23:16 <Darling Guajardo - Last Filed: 04/27/20 23:20> <Brad Izaguirre - Last Filed: 04/27/20 23:30> Clinical Impression: Acute deep vein thrombosis (DVT) of femoral vein of right lower extremity, Factor V Leiden Disposition: ADMITTED IP TO THIS HOSP Condition: Stable Referrals: Holger Farmer MD [Primary Care Provider] - 1-2 days
[2020-04-27] MEDS ORDERED: NALOXONE 0.4 MG/ML 1 ML VIAL IV PRN (23:12)
[2020-04-27] MEDS ORDERED: ONDANSETRON 4 MG/2 ML VIAL IVP PRN (23:12)
[2020-04-27] MEDS ORDERED: ACETAMINOPHEN TAB 325 MG TAB PO PRN (23:12)
[2020-04-27] MEDS ORDERED: HEPARIN SODIUM,PORCINE 5,000 UNIT/ML 1 ML VIAL IV PRN (23:14)
[2020-04-27] MEDS ORDERED: HEPARIN SODIUM,PORCINE 10,000 UNIT/ML 1 ML VIAL IV ONE (23:14)
[2020-04-27] MEDS: HEPARIN SOD,PORK IN 0.45% NACL 25,000 UNIT in 0.45% NACL 1 250ML.BAG IV SCH (23:36)
[2020-04-28 01:45] LABS: INR 1.1 (<1.2); Prothrombin Time 11.3 sec (9.0-12.0)
[2020-04-28 01:49] LABS: Partial Thromboplastin Time >200.0 sec (22.0-30.0)
[2020-04-28 06:29] LABS: Basophils % (A) 1 %; Eosinophils # (A) 0.3 k/uL (0-0.7); Eosinophils % (A) 4 %; HCT 40.1 % (34.0-46.0); Lymphocytes % (A) 29 %; MCH 31.2 pg (25.0-35.0); MCHC 32.4 g/dL (31.0-37.0); MCV 96.3 fL (80.0-100.0); Mean Platelet Volume 7.1; Monocytes # (A) 0.4 k/uL (0-1.0); Monocytes % (A) 6 %; Neutrophils # (A) 4.1 k/uL (1.3-7.7); Neutrophils % (A) 59 %; Platelet Count 272 k/uL (150-450); RBC 4.16 m/uL (3.80-5.40); RDW 12.4 % (11.5-15.5); WBC 6.9 k/uL (3.8-10.6)
--- NOTE | 2020-04-28 09:18 | US ---
EXAMINATION TYPE: US venous doppler duplex LE LT DATE OF EXAM: 04/28/2020 9:10 AM COMPARISON: NONE CLINICAL HISTORY: assess for DVT in left leg . SIDE PERFORMED: Left TECHNIQUE: The lower extremity deep venous system is examined utilizing real time linear array sonog irais with graded compression, doppler sonography and color-flow sonography. VESSELS IMAGED: External Iliac Vein (EIV) Common Femoral Vein Deep Femoral Vein Greater Saphenous Vein * Femoral Vein Popliteal Vein Small Saphenous Vein * Proximal Calf Veins (* superficial vessels) Left Leg: Negative for DVT No popliteal fossa lesion is seen. IMPRESSION: THIS EXAMINATION IS NEGATIVE FOR DVT WITHIN THE LEFT LEG.
--- NOTE | 2020-04-28 09:22 | P.CONS ---
History of Present Illness - Reason for Consult Consult date: 04/28/20 Recurrent DVT on Xarelto Requesting physician: Darling Guajardo - Chief Complaint Right leg pain - History of Present Illness This is a very nice lady who developed swollen legs a week after a C- section,first ,venous doppler done 02/15/2015 revealed evidence of bilateral lower extremities DVT,above the knees. No prior history of DVT/PE,no miscarriage She was anticoagulated with warfarin since until early ,after she went for a second opinion at [facility] and they agreed with stopping it. Hypercoaguability work up revealed that she is heterzygous for factor V leiden mutation. Patient also has history of a duodenal ulcer as she had endoscopy done in January of this year with Dr. Scott. Since the initial thrombosis was considered provoked with she was taken off anticoagulation. She presented with complaints of left-sided chest pain that was severe with some mild shortness of breath. She is not on control and no recent travel. She is active at work as well as at home. CTA of the chest revealed bilateral segmental and subsegmental pulmonary emboli. She was started on Xarelto and did well for a while until our recent COVID pandemic. Prior to COVID she was decreased to 10mg Xarelto (from the normal therapeutic dose of 20mg daily). Unfortunetly with working from home, not moving around, combined with lower dose she now presents with a new Right femoral DVT. She denies any Shortness of breath, CHest pain or any symptoms to suggest Pulmonary embolism. Her only symptom was Right leg pain, patient denies noticing swelling. She will need lifelong full dose anticoagulation. We will ask Case management to check into coverage. She DOES NOT meet criteria for IVC Filter. Review of Systems A 14 point review of systems assessed and completed and all negative except HPI Past Medical History Past Medical History: Blood Disorder, Deep Vein Thrombosis (DVT), Pulmonary Embolus (PE) Additional Past Medical History / Comment(s): factor 5 Leiden blood disorder,Stomach Ulcer History of Any Multi-Drug Resistant Organisms: None Reported Past Surgical History: Breast Surgery, Section, Hernia Repair, Tonsillectomy, Tubal Ligation Additional Past Surgical History / Comment(s): umbilical hernia with mesh, and then mesh removed, D&C, Lasik, benign breast lumpectomy Past Anesthesia/Blood Transfusion Reactions: Postoperative Nausea & Vomiting (PONV) Past Psychological History: No Psychological Hx Reported Smoking Status: Former smoker Past Alcohol Use History: None Reported Additional Past Alcohol Use History / Comment(s): Patient is a nonsmoker, she denies any marijuana, illicit drug use or alcohol use. She works for [employer] services. No recent travel. Past Drug Use History: None Reported - Past Family History Father Family Medical History: Cancer Additional Family Medical History / Comment(s): The patient does not know any medical history on her father's side. Mother Family Medical History: No Reported History Additional Family Medical History / Comment(s): hip/knee replacement Medications and Allergies Home Medications Medication Instructions Recorded Confirmed Type Dabigatran [Pradaxa] 150 mg PO BID #60 capsule 04/28/20 Rx Allergies Allergy/AdvReac Type Severity Reaction Status Date / Time No Known Allergies Allergy Verified 04/28/20 09:38 Physical Exam Vitals: Vital Signs Temp Pulse Pulse Resp BP BP Pulse Ox 04/28/20 05:12 97.9 F 75 16 135/79 97 04/28/20 00:52 97.5 F L 80 17 128/83 97 04/27/20 23:39 98.6 F 74 17 130/80 98 04/27/20 20:50 97.8 F 64 18 114/77 98 Intake and Output 04/27/20 04/28/20 04/28/20 22:59 06:59 14:59 Intake Total 478.78 Balance 478.78 Intake: Intake, IV Titration 28.78 Amount Heparin Sod,Pork in 0.45% 28.78 NaCl 25,000 unit In 0.45 % NaCl 1 250ml.bag @ 18 UNITS/KG/HR 12.247 mls/hr IV .[id number] [facility] Rx#: [id number] Oral 450 Other: Weight 68.039 kg 68.039 kg Right leg edema - Constitutional General appearance: average body habitus, cooperative, no acute distress - EENT Eyes: EOMI, PERRLA, dentition normal ENT: hearing grossly normal, NA/AT, normal oropharynx Ears: negative: other - Neck Neck: normal ROM - Respiratory Respiratory: bilateral: CTA - Cardiovascular Rhythm: regular Heart sounds: normal: S1, S2 - Gastrointestinal General gastrointestinal: normal bowel sounds, soft - Integumentary Integumentary: normal - Neurologic Neurologic: CNII-XII intact - Musculoskeletal Musculoskeletal: gait normal, strength equal bilaterally - Psychiatric Psychiatric: A&O x's 3, appropriate affect, intact judgment & insight Results CBC & Chem 7: 04/28/20 06:06 04/27/20 21:30 Labs: Abnormal Lab Results - Last 24 Hours (Table) 04/27/20 04/28/20 04/28/20 Range/Units 21:30 00:55 06:06 APTT >200.0 H* 69.1 H (22.0-30.0) sec Sodium 136 L (137-145) mmol/L Glucose 138 H (74-99) mg/dL Venous US: image reviewed Assessment and Plan (1) Acute deep vein thrombosis (DVT) of femoral vein of right lower extremity Current Visit: Yes Status: Acute Code(s): I82.411 - ACUTE EMBOLISM AND THROMBOSIS OF RIGHT FEMORAL VEIN SNOMED Code(s): 605065455493610 (2) Factor V Leiden Current Visit: Yes Status: Acute Code(s): D68.51 - ACTIVATED PROTEIN C RESISTANCE SNOMED Code(s): 060827002 Plan: Assessment and Recommendations: 1. Recurrent DVT: Fourth Lifelong Event: - Her prior events have been considered provoked, although with increased risk from genetic predisoposition and 4th lifelong event she will requir lifelong FULL DOSE anticoagulation. - Recently she was lowered to Xarelto 10mg daily. with the recent pandemic and working from home she was not as active as normal. - Ok for heparin drip at this time until we can determine choice of lifelong anticoagulation. - Pradaxa 150mg po BID sent to case management. - We do NOT recommend IVC filter as she does not meet criteria. Overall difficult to say she has failed xarelto since provoked with immobility and decreased dosage. To confirm coverage pradaxa is planned and will see Dr. griffin 05/28 in office. Ok for discharge as long as no s/s PE and pradaxa's first pill given in hospital. Pain in leg keeping her from moving around, norco prn discussed in detail for severe only and stool softeners ordered Thank you for consultation
--- NOTE | 2020-04-28 10:10 | P.HPIM ---
History of Present Illness H&P Date: 04/28/20 This is a 38-year-old female patient of Dr. Holger Farmer with past history of heterozygous factor V Leyden mutation and history of bilateral DVTs 2014 followed by bilateral segmental and subsegmental pulmonary emboli with DVT in the right lower extremity in 2018. Patient's initial coagulation was considered to be provoked with and was taken off anticoagulation but since patient's pulmonary embolism and repeat DVT patient was on xarelto. Patient follows Dr. Atwood regularly and will switch to 10 mg of xarelto recently. Patient's come into the emergency room with the pain in the right upper leg for the past 2 day. She called her physician and was asked to come to the ER. Patient denies having history of miscarriages, not on control and no recent travel. Patient has been working from home over it and has not been as active patient denies any shortness of breath cough or chest pain. Vitals suggestive of 97.9 heart rate 75 blood pressure 135/79 and saturating at 97% on room air. Labs this is a WBC of 6.9 hemoglobin hemoglobin 13 platelet 272 normal d-dimer. CMP was normal with a glucose of 138. Venous Doppler was positive for right femoral vein distal DVT. Patient was started on heparin drip and admitted to the selective care unit and consult requested with oncology. Patient also has history of a duodenal ulcer as she had endoscopy done in January of this year with Dr. Scott. Review of Systems Constitutional: Denies chills, Denies fever, Denies lethargy, Denies malaise, Denies poor appetite, Denies weakness, Denies weight loss Eyes: denies decreased vision, denies diplopia, denies discharge, denies pain Ears: deny: decreased hearing Ears, nose, mouth and throat: Denies dental pain, Denies headache, Denies nasal discharge, Denies nose pain Cardiovascular: Denies chest pain, Denies decreased exercise tolerance, Denies edema, Denies high blood pressure, Denies irregular heart beat, Denies palpitations, Denies paroxysmal nocturnal dyspnea, Denies rapid heart beat, Denies shortness of breath Respiratory: Denies congestion, Denies cough, Denies cough with sputum, Denies dyspnea, Denies home oxygen, Denies wheezing Gastrointestinal: Denies abdominal pain, Denies change in bowel habits, Denies coffee ground emesis, Denies early satiety, Denies excessive gas, Denies heartburn, Denies hematemesis, Denies hematochezia, Denies loss of appetite, Denies nausea, Denies vomiting Genitourinary: Denies dysuria, Denies flank pain, Denies kidney stones, Denies menorrhagia, Denies urgency, Denies urinary frequency Musculoskeletal: Right leg pain and swelling Integumentary: Denies rash, Denies wounds, Denies brittle nails, Denies change in hair/nails, Denies darkening of skin Neurological: Denies balance difficulties, Denies change in speech, Denies double vision, Denies gait dysfunction, Denies loss of vision, Denies motor disturbance, Denies numbness, Denies paralysis, Denies paresthesias, Denies seiz ures Psychiatric: Denies anxiety, Denies depression Endocrine: Denies excessive sweating, Denies excessive thirst, Denies high blood sugars, Denies palpitations Hematologic/Lymphatic: Denies easy bruising, Denies lymphadenopathy Past Medical History Past Medical History: Blood Disorder, Deep Vein Thrombosis (DVT), Pulmonary Embolus (PE) Additional Past Medical History / Comment(s): factor 5 Leiden blood disorder,Stomach Ulcer History of Any Multi-Drug Resistant Organisms: None Reported Past Surgical History: Breast Surgery, Section, Hernia Repair, Tonsillectomy, Tubal Ligation Additional Past Surgical History / Comment(s): umbilical hernia with mesh, and then mesh removed, D&C, Lasik, benign breast lumpectomy Past Anesthesia/Blood Transfusion Reactions: Postoperative Nausea & Vomiting (PONV) Past Psychological History: No Psychological Hx Reported Smoking Status: Former smoker Past Alcohol Use History: None Reported Additional Past Alcohol Use History / Comment(s): Patient is a nonsmoker, she denies any marijuana, illicit drug use or alcohol use. 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 No recent travel. Past Drug Use History: None Reported - Past Family History Father Family Medical History: Cancer Additional Family Medical History / Comment(s): The patient does not know any medical history on her father's side. Mother Family Medical History: No Reported History Additional Family Medical History / Comment(s): hip/knee replacement Medications and Allergies Home Medications Medication Instructions Recorded Confirmed Type Rivaroxaban [Xarelto] 10 mg PO DAILY@1200 04/28/20 04/28/20 History Allergies Allergy/AdvReac Type Severity Reaction Status Date / Time No Known Allergies Allergy Verified 04/28/20 09:38 Physical Exam Vitals: Vital Signs Temp Pulse Pulse Resp BP BP Pulse Ox 04/28/20 05:12 97.9 F 75 16 135/79 97 04/28/20 00:52 97.5 F L 80 17 128/83 97 04/27/20 23:39 98.6 F 74 17 130/80 98 04/27/20 20:50 97.8 F 64 18 114/77 98 Intake and Output 04/27/20 04/28/20 04/28/20 22:59 06:59 14:59 Intake Total 478.78 Balance 478.78 Intake: Intake, IV Titration 28.78 Amount Heparin Sod,Pork in 0.45% 28.78 NaCl 25,000 unit In 0.45 % NaCl 1 250ml.bag @ 18 UNITS/KG/HR 12.247 mls/hr IV .[id number] [facility] Rx#: [id number] Oral 450 Other: Weight 68.039 kg 68.039 kg - Constitutional General appearance: cooperative, no acute distress, obese - EENT Eyes: anicteric sclerae, PERRLA, normal appearance ENT: hearing grossly normal - Neck Neck: no lymphadenopathy, normal ROM, no other, no rigidity, no stridor, no thyromegaly - Respiratory Respiratory: bilateral: CTA, negative: diminished, dullness, rales, rhonchi - Cardiovascular Rhythm: regular Heart sounds: normal: S1, S2 Abnormal Heart Sounds: no systolic murmur, no diastolic murmur, no rub, no S3 Gallop, no S4 Gallop, no click, no other - Gastrointestinal General gastrointestinal: normal bowel sounds, soft - Integumentary Integumentary: no rash - Neurologic Neurologic: CNII-XII intact - Musculoskeletal Musculoskeletal: gait normal, strength equal bilaterally - Psychiatric Psychiatric: A&O x's 3, appropriate affect Results CBC & Chem 7: 04/28/20 06:06 04/27/20 21:30 Labs: Abnormal Lab Results - Last 24 Hours (Table) 04/27/20 04/28/20 04/28/20 Range/Units 21:30 00:55 06:06 APTT >200.0 H* 69.1 H (22.0-30.0) sec Sodium 136 L (137-145) mmol/L Glucose 138 H (74-99) mg/dL Thrombosis Risk Factor Assmnt - DVT/VTE Prophylaxis DVT/VTE Prophylaxis: Pharmacologic Prophylaxis ordered - Choose All That Apply Each Risk Factor Represents 3 Points: Positive Factor V Leiden, History of DVT/PE Thrombosis Risk Factor Assessment Total Risk Factor Score: 6 Thrombosis Risk Factor Assessment Level: High Risk Assessment and Plan Plan: #1 Recurrent DVT in the right lower extremity with history of hypercoagulability secondary to heterozygous factor V Leyden mutation venous Doppler positive for distal femoral acute DVT. Initiated on heparin drip. Oncology consult placed. Patient is currently off xarelto, venous Doppler of the left lower extremity also ordered. We'll discuss with oncology for treatment of plan. #2 history of duodenal ulcer continue Pepcid 20 mg by mouth daily #3 discharge plan patient needs one to 2 days for stabilization with plan to switch anticoagulation #4 CODE STATUS full code
[2020-04-28] MEDS ORDERED: HYDROcodone/APAP 7.5-325MG 1 EACH TAB PO ONE (15:16)
[2020-04-28] MEDS ORDERED: HYDROcodone/APAP 7.5-325MG 1 EACH TAB PO PRN (15:58)
[2020-04-28] MEDS: SENNOSIDES-DOCUSATE SODIUM 1 EACH TAB PO SCH (20:49)
[2020-04-28] MEDS: HEPARIN SOD,PORK IN 0.45% NACL 25,000 UNIT in 0.45% NACL 1 250ML.BAG IV SCH (22:15)
[2020-04-29 06:47] LABS: Basophils % (A) 1 %; Eosinophils # (A) 0.3 k/uL (0-0.7); Eosinophils % (A) 5 %; HCT 39.3 % (34.0-46.0); HGB 13.1 gm/dL (11.4-16.0); Lymphocytes # (A) 2.5 k/uL (1.0-4.8); Lymphocytes % (A) 45 %; MCH 32.6 pg (25.0-35.0); MCHC 33.3 g/dL (31.0-37.0); MCV 97.8 fL (80.0-100.0); Mean Platelet Volume 7.4; Monocytes # (A) 0.4 k/uL (0-1.0); Monocytes % (A) 7 %; Neutrophils # (A) 2.3 k/uL (1.3-7.7); Neutrophils % (A) 41 %; Platelet Count 266 k/uL (150-450); RBC 4.02 m/uL (3.80-5.40); RDW 12.6 % (11.5-15.5); WBC 5.6 k/uL (3.8-10.6)
[2020-04-29] MEDS: SENNOSIDES-DOCUSATE SODIUM 1 EACH TAB PO SCH (07:41)
[2020-04-29] MEDS ORDERED: DABIGATRAN 150 MG CAP PO STA (08:04)
--- NOTE | 2020-04-29 08:06 | P.DS ---
Providers Date of admission: 04/27/20 23:29 Attending physician: Ishmael Morgan MD Consults: 04/27/20 23:12 Consult Physician Stat Consulting Provider: David Dougherty Consult Reason/Comments: Acute DVT Do you want consulting provider notified?: Already Contacted Primary care physician: Holger Farmer [facility] Course: This is a 38-year-old female patient of Dr. Holger Farmer with past history of heterozygous factor V Leyden mutation and history of bilateral DVTs 2014 followed by bilateral segmental and subsegmental pulmonary emboli with DVT in the right lower extremity in 2018. Patient's initial coagulation was considered to be provoked with and was taken off anticoagulation but since patient's pulmonary embolism and repeat DVT patient was on xarelto. Patient follows Dr. Atwood regularly and will switch to 10 mg of xarelto recently. Patient's come into the emergency room with the pain in the right upper leg for the past 2 day. She called her physician and was asked to come to the ER. Patient denies having history of miscarriages, not on control and no recent travel. Patient has been working from home over it and has not been as active patient denies any shortness of breath cough or chest pain. Vitals suggestive of 97.9 heart rate 75 blood pressure 135/79 and saturating at 97% on room air. Labs this is a WBC of 6.9 hemoglobin hemoglobin 13 platelet 272 normal d-dimer. CMP was normal with a glucose of 138. Venous Doppler was positive for right femoral vein distal DVT. Patient was started on heparin drip and admitted to the selective care unit and consult requested with oncology. Patient also has history of a duodenal ulcer as she had endoscopy done in January of this year with Dr. Scott. patient doing well today denies any symptoms. Will switch to Pradaxa 150 mg twice a day. Heparin will be discontinued and Pradaxa one dose given in the hospital before discharge. Patient has a follow-up appointment on 05/[address] Cordova 9 the clinic. It is unclear if patient feels around as patient had decreased mobility and was on the lower dose of xarelto when she had a blood clot. - Constitutional General appearance: cooperative, no acute distress, obese - Neck Neck: no lymphadenopathy, normal ROM, no other, no rigidity, no stridor, no thyromegaly - Respiratory Respiratory: bilateral: CTA, negative: diminished, dullness, rales, rhonchi - Cardiovascular Rhythm: regular Heart sounds: normal: S1, S2 Abnormal Heart Sounds: no systolic murmur, no diastolic murmur, no rub, no S3 Gallop, no S4 Gallop, no click, no other - Gastrointestinal General gastrointestinal: normal bowel sounds, soft - Integumentary Integumentary: no rash - Musculoskeletal Musculoskeletal: gait normal, strength equal bilaterally - Psychiatric Psychiatric: A&O x's 3, appropriate affect Discharge diagnosis #1 Acute DVT distal femoral vein on the right with h/o 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 Osuna Patient Condition at Discharge: Stable Plan - Discharge Summary New Discharge Prescriptions: New Dabigatran [Pradaxa] 150 mg PO BID #60 capsule Discontinued Rivaroxaban [Xarelto] 10 mg PO DAILY@1200 Discharge Medication List Dabigatran [Pradaxa] 150 mg PO BID #60 capsule 04/28/20 [Rx] Follow up Appointment(s)/Referral(s): Holger Farmer MD [Primary Care Provider] - 1-2 days Patient Instructions/Handouts: Deep Vein Thrombosis (DC) Activity/Diet/Wound Care/Special Instructions: pts pradaxa prescription is filled at [facility] on [address] her copay is $30/mo, pt was provided a discount coupon Discharge Disposition: HOME SELF-CARE
[2020-04-29 11:48] VITALS: BP 110/74; PULSE 63; RESP 16; TEMP 97.4
--- NOTE | 2020-04-29 21:55 | P.PN ---
Subjective Progress Note Date: 04/29/20 Principal diagnosis: Recurrent DVT Pressure in RLE no pain just pressure which is causing her some anxiety to be discharged. Objective - Vital Signs Vital signs: Vital Signs Temp 97.4 F L 04/29/20 11:34 Pulse 63 04/29/20 11:34 Resp 16 04/29/20 11:34 BP 110/74 04/29/20 11:34 Pulse Ox 100 04/29/20 11:34 Intake & Output 04/28/20 04/29/20 04/29/20 18:59 06:59 18:59 Intake Total 1167.108 3369.711 83.438 Balance 5268.766 0804.711 83.438 Intake: IV 160 NS @20 160 Intake, IV Titration 138.664 50.711 83.438 Amount Heparin Sod,Pork in 0.45% 138.664 50.711 83.438 NaCl 25,000 unit In 0.45 % NaCl 1 250ml.bag @ 18 UNITS/KG/HR 12.247 mls/hr IV .[id number] [facility] Rx#: [id number] Oral 1200 1200 Other: Voiding Method Toilet Toilet # Voids 2 1 # Bowel Movements 2 - Exam Right leg edema - Constitutional General appearance: average body habitus, cooperative, no acute distress - EENT Eyes: EOMI, PERRLA, dentition normal ENT: hearing grossly normal, NA/AT, normal oropharynx Ears: negative: other - Neck Neck: normal ROM - Respiratory Respiratory: bilateral: CTA - Cardiovascular Rhythm: regular Heart sounds: normal: S1, S2 - Gastrointestinal General gastrointestinal: normal bowel sounds, soft - Integumentary Integumentary: normal - Neurologic Neurologic: CNII-XII intact - Musculoskeletal Musculoskeletal: gait normal, strength equal bilaterally - Psychiatric Psychiatric: A&O x's 3, appropriate affect, intact judgment & insight - Labs CBC & Chem 7: 04/29/20 06:02 04/27/20 21:30 Labs: Abnormal Lab Results - Last 24 Hours (Table) 04/28/20 04/29/20 Range/Units 15:33 06:02 APTT 51.8 H 54.5 H (22.0-30.0) sec Assessment and Plan (1) Acute deep vein thrombosis (DVT) of femoral vein of right lower extremity Status: Acute Code(s): I82.411 - ACUTE EMBOLISM AND THROMBOSIS OF RIGHT FEMORAL VEIN SNOMED Code(s): 538079293133830 (2) Factor V Leiden Status: Acute Code(s): D68.51 - ACTIVATED PROTEIN C RESISTANCE SNOMED Code(s): 119446270 Plan: Assessment and Recommendations: 1. Recurrent DVT: Fourth Lifelong Event: - Her prior events have been considered provoked, although with increased risk from genetic predisoposition and 4th lifelong event she will requir lifelong FULL DOSE anticoagulation. - Recently she was lowered to Xarelto 10mg daily. with the recent pandemic and working from home she was not as active as normal. - Ok for heparin drip at this time until we can determine choice of lifelong anticoagulation. - Pradaxa 150mg po BID sent to case management. - We do NOT recommend IVC filter as she does not meet criteria. Overall difficult to say she has failed xarelto since provoked with immobility and decreased dosage. To confirm coverage pradaxa is planned and will see Dr. griffin 05/28 in office. Ok for discharge as long as no s/s PE and pradaxa's first pill given in hospital. Ok to be discharged from oncology standpoint we will see her in office in 2-3 weeks for follow-up
== END 2020-04-29 14:30 | disposition home or self-care (01) | DRG 300 ==
LOC: EC 20:46 → 5NMEDONC 23:29
PROVIDERS: ADMIT Internal Medicine; ATTEND Internal Medicine
DX: I82.411 Acute embolism and thrombosis of right femoral vein (principal); D68.51 Activated protein C resistance; Z11.59 Encounter for screening for other viral diseases; E66.9 Obesity, unspecified; Z68.25 Body mass index [BMI] 25.0-25.9, adult; Z79.01 Long term (current) use of anticoagulants; Z86.718 Personal history of other venous thrombosis and embolism; Z86.711 Personal history of pulmonary embolism; Z87.11 Personal history of peptic ulcer disease; Z98.890 Other specified postprocedural states; Z87.891 Personal history of nicotine dependence; Z80.9 Family history of malignant neoplasm, unspecified
CPT/HCPCS: 36415; 80048; 82272; 85025; 85379; 85610; 85730; 96365; 96376; 99284

== ENCOUNTER → 2020-05-02 | Outpatient (CLI) | payer BC ==
--- NOTE | 2020-05-02 16:05 | US ---
EXAMINATION TYPE: US venous doppler duplex LE LT DATE OF EXAM: 05/02/2020 3:55 PM COMPARISON: 04/28/2020 CLINICAL HISTORY: 40-year-old female M79.662,MR22.42 PAIN AND SWELLING LT LOWER LEG. Pt states pain l eft leg, previous DVTs, pt currently on blood thinners SIDE PERFORMED: Left TECHNIQUE: The lower extremity deep venous system is examined utilizing real time linear array sonog irais with graded compression, doppler sonography and color-flow sonography. FINDINGS: VESSELS IMAGED: External Iliac Vein (EIV) Common Femoral Vein Deep Femoral Vein Greater Saphenous Vein * Femoral Vein Popliteal Vein Small Saphenous Vein * Proximal Calf Veins (* superficial vessels) Left Leg: Negative for DVT Results called to Marci at 's office at time of exam IMPRESSION: No evidence for DVT within the left lower extremity imaged from the groin to the upper calf.
== END | disposition home or self-care (01) ==
LOC: RADUSWWP 15:19
PROVIDERS: ATTEND Internal Medicine Hematology & Oncology
DX: M79.662 Pain in left lower leg (principal); R22.42 Localized swelling, mass and lump, left lower limb

== ENCOUNTER 2020-08-15 13:56 | Emergency (ER) | payer BC ==
[2020-08-15] MEDS ORDERED: SODIUM CHLORIDE 0.9% 1,000 ML IV STA ×2 (14:39)
[2020-08-15] MEDS ORDERED: ONDANSETRON 4 MG/2 ML VIAL IVP STA (14:39)
[2020-08-15] MEDS ORDERED: KETOROLAC 15 MG/ML 1 ML VIAL IVP STA (14:39)
[2020-08-15 15:07] LABS: Basophils % (A) 0 %; Eosinophils # (A) 0.5 k/uL (0-0.7); Eosinophils % (A) 6 %; HCT 44.6 % (34.0-46.0); HGB 14.2 gm/dL (11.4-16.0); Lymphocytes # (A) 1.5 k/uL (1.0-4.8); Lymphocytes % (A) 18 %; MCH 30.3 pg (25.0-35.0); MCHC 31.9 g/dL (31.0-37.0); MCV 95.2 fL (80.0-100.0); Mean Platelet Volume 7.4; Monocytes # (A) 0.4 k/uL (0-1.0); Monocytes % (A) 5 %; Neutrophils % (A) 70 %; Platelet Count 332 k/uL (150-450); RBC 4.69 m/uL (3.80-5.40); RDW 12.1 % (11.5-15.5); WBC 8.6 k/uL (3.8-10.6)
--- NOTE | 2020-08-15 15:08 | ED ---
Abdominal Pain HPI - General Source: patient, RN notes reviewed, old records reviewed Mode of arrival: ambulatory Limitations: no limitations <Adrienne Ponce - Last Filed: 08/15/20 16:51> <Stephanie Cristobal - Last Filed: 08/16/20 00:05> - General Chief Complaint: Abdominal Pain Stated Complaint: Abdominal Pain Time Seen by Provider: 08/15/20 14:16 - History of Present Illness Initial Comments: Patient is a 32-year-old female presents emergency with lower abdominal pain on the right side worse today. She reports that she's told that she has been told she has had her uterus removed. Patient denies any other complaints. Patient states she's been having this pain really for the past 2 months. Patient denies any recent nausea or vomiting. She was change in stools or urination. Surgical history includes tube ligation. (Adrienne Ponce) - Related Data Previous Rx's Medication Instructions Recorded Dabigatran [Pradaxa] 150 mg PO BID #60 capsule 04/28/20 Allergies Allergy/AdvReac Type Severity Reaction Status Date / Time No Known Allergies Allergy Verified 08/15/20 14:05 Review of Systems ROS Other: All systems not noted in ROS Statement are negative. <Adrienne Ponce - Last Filed: 08/15/20 16:51> ROS Other: All systems not noted in ROS Statement are negative. <Stephanie Cristobal - Last Filed: 08/16/20 00:05> ROS Statement: Those systems with pertinent positive or pertinent negative responses have been documented in the HPI. Past Medical History Past Medical History: Blood Disorder, Deep Vein Thrombosis (DVT), Pulmonary Embolus (PE) Additional Past Medical History / Comment(s): factor 5 Leiden blood disorder ,Stomach Ulcer History of Any Multi-Drug Resistant Organisms: None Reported Past Surgical History: Breast Surgery, Section, Hernia Repair, To nsillectomy, Tubal Ligation Additional Past Surgical History / Comment(s): umbilical hernia with mesh, and then mesh removed, D&C, Lasik, benign breast lumpectomy Past Anesthesia/Blood Transfusion Reactions: Postoperative Nausea & Vomiting (PONV) Past Psychological History: No Psychological Hx Reported Smoking Status: Former smoker Past Alcohol Use History: Occasional Past Drug Use History: None Reported - Past Family History Father Family Medical History: Cancer Additional Family Medical History / Comment(s): The patient does not know any medical history on her father's side. Mother Family Medical History: No Reported History Additional Family Medical History / Comment(s): hip/knee replacement <Isha Ponceily - Last Filed: 08/15/20 16:51> General Exam Limitations: no limitations General appearance: alert, in no apparent distress Head exam: Present: atraumatic, normocephalic, normal inspection Eye exam: Present: normal appearance, PERRL, EOMI. Absent: scleral icterus, conjunctival injection, periorbital swelling ENT exam: Present: normal exam, mucous membranes moist Neck exam: Present: normal inspection. Absent: tenderness, meningismus, lymphadenopathy Respiratory exam: Present: normal lung sounds bilaterally. Absent: respiratory distress, wheezes, rales, rhonchi, stridor Cardiovascular Exam: Present: regular rate, normal rhythm, normal heart sounds. Absent: systolic murmur, diastolic murmur, rubs, gallop, clicks GI/Abdominal exam: Present: soft, tenderness (Right lower quadrant tenderness), normal bowel sounds. Absent: distended, guarding, rebound, rigid Back exam: Present: normal inspection Neurological exam: Present: alert, oriented X3, CN II-XII intact Psychiatric exam: Present: normal affect, normal mood Skin exam: Present: warm, dry, intact, normal color. Absent: rash <MirellalorijodyAdrienne - Last Filed: 08/15/20 16:51> - General Exam Comments Initial Comments: 40-year-old female. No distress. (Adrienne Ponce) Course Vital Signs 08/15/20 08/15/20 14:03 17:00 Temperature 99.1 F 98.5 F Pulse Rate 85 78 Respiratory 16 18 Rate Blood Pressure 112/72 122/76 O2 Sat by Pulse 99 99 Oximetry Medical Decision Making - Lab Data Result diagrams: 08/15/20 14:53 08/15/20 14:53 - Radiology Data Radiology results: report reviewed <Adrienne Ponce - Last Filed: 08/15/20 16:51> - Lab Data Result diagrams: 08/15/20 14:53 08/15/20 14:53 <Stephanie Cristobal - Last Filed: 08/16/20 00:05> - Medical Decision Making Patient is a 40-year-old female presents with lower abdominal pain is been intermittent for the past few months. She states that she was sent here today for further evaluation after talking to BUSINESS CONSULTANT. She is told that she likely will have to have her uterus removed may have endometriosis. Patient states that she has no nausea or vomiting. She is given IV Toradol does report some improvement of pain. Patient's labs reviewed and negative for any acute process. She was reevaluated and continued to complain of pain. Patient had computed tomography scan today which shows no evidence of any acute normality. Patient reported these results. Discussed the may be endometriosis but she's had recent ultrasound of her pelvis and had 2 weeks ago she stated that was normal. I discussed the Patient can follow-up with primary care doctor and BUSINESS CONSULTANT. Temperature medicine for pain. (Adrienne Ponce) I was available for consultation in the emergency department. The history and physical exam were done by the midlevel provider. I was not consulted for this patients care. Chart was dictated using [employer] dictation software. Attempts were made to correct any dictation errors however some typographical errors may persist. Patient was seen during a national state of emergency due to the Covid-19 pandemic. (Stephanie Cristobal) - Lab Data Lab Results 08/15/20 08/15/20 08/15/20 Range/Units 14:53 14:53 14:53 WBC 8.6 (3.8-10.6) k/uL RBC 4.69 (3.80-5.40) m/uL Hgb 14.2 (11.4-16.0) gm/dL Hct 44.6 (34.0-46.0) % MCV 95.2 (80.0-100.0) fL MCH 30.3 (25.0-35.0) pg MCHC 31.9 (31.0-37.0) g/dL RDW 12.1 (11.5-15.5) % Plt Count 332 (150-450) k/uL Neutrophils % 70 % Lymphocytes % 18 % Monocytes % 5 % Eosinophils % 6 % Basophils % 0 % Neutrophils # 6.0 (1.3-7.7) k/uL Lymphocytes # 1.5 (1.0-4.8) k/uL Monocytes # 0.4 (0-1.0) k/uL Eosinophils # 0.5 (0-0.7) k/uL Basophils # 0.0 (0-0.2) k/uL PT 13.1 H (9.0-12.0) sec INR 1.3 H (<1.2) APTT 43.0 H (22.0-30.0) sec Sodium 136 L (137-145) mmol/L Potassium 4.1 (3.5-5.1) mmol/L Chloride 104 (98-107) mmol/L Carbon Dioxide 25 (22-30) mmol/L Anion Gap 7 mmol/L BUN 10 (7-17) mg/dL Creatinine 0.88 (0.52-1.04) mg/dL Est GFR (CKD-EPI)AfAm >90 (>60 ml/min/1.73 sqM) Est GFR (CKD-EPI)NonAf 84 (>60 ml/min/1.73 sqM) Glucose 131 H (74-99) mg/dL Calcium 9.1 (8.4-10.2) mg/dL Total Bilirubin 0.5 (0.2-1.3) mg/dL AST 25 (14-36) U/L ALT 14 (4-34) U/L Alkaline Phosphatase 57 (38-126) U/L Total Protein 7.0 (6.3-8.2) g/dL Albumin 4.5 (3.5-5.0) g/dL Amylase 41 (30-110) U/L Lipase 89 (23-300) U/L Urine Color Urine Appearance (Clear) Urine pH (5.0-8.0) Ur Specific [place] (1.001-1.035) Urine Protein (Negative) Urine Glucose (UA) (Negative) Urine Ketones (Negative) Urine Blood (Negative) Urine Nitrite (Negative) Urine Bilirubin (Negative) Urine Urobilinogen (<2.0) mg/dL Ur Leukocyte Esterase (Negative) Urine HCG, Qual (Not Detectd) 08/15/20 08/15/20 Range/Units 14:54 14:54 WBC (3.8-10.6) k/uL RBC (3.80-5.40) m/uL Hgb (11.4-16.0) gm/dL Hct (34.0-46.0) % MCV (80.0-100.0) fL MCH (25.0-35.0) pg MCHC (31.0-37.0) g/dL RDW (11.5-15.5) % Plt Count (150-450) k/uL Neutrophils % % Lymphocytes % % Monocytes % % Eosinophils % % Basophils % % Neutrophils # (1.3-7.7) k/uL Lymphocytes # (1.0-4.8) k/uL Monocytes # (0-1.0) k/uL Eosinophils # (0-0.7) k/uL Basophils # (0-0.2) k/uL PT (9.0-12.0) sec INR (<1.2) APTT (22.0-30.0) sec Sodium (137-145) mmol/L Potassium (3.5-5.1) mmol/L Chloride (98-107) mmol/L Carbon Dioxide (22-30) mmol/L Anion Gap mmol/L BUN (7-17) mg/dL Creatinine (0.52-1.04) mg/dL Est GFR (CKD-EPI)AfAm (>60 ml/min/1.73 sqM) Est GFR (CKD-EPI)NonAf (>60 ml/min/1.73 sqM) Glucose (74-99) mg/dL Calcium (8.4-10.2) mg/dL Total Bilirubin (0.2-1.3) mg/dL AST (14-36) U/L ALT (4-34) U/L Alkaline Phosphatase (38-126) U/L Total Protein (6.3-8.2) g/dL Albumin (3.5-5.0) g/dL Amylase (30-110) U/L Lipase (23-300) U/L Urine Color Light Yellow Urine Appearance Clear (Clear) Urine pH 6.5 (5.0-8.0) Ur Specific [place] 1.013 (1.001-1.035) Urine Protein Negative (Negative) Urine Glucose (UA) Negative (Negative) Urine Ketones Negative (Negative) Urine Blood Negative (Negative) Urine Nitrite Negative (Negative) Urine Bilirubin Negative (Negative) Urine Urobilinogen <2.0 (<2.0) mg/dL Ur Leukocyte Esterase Negative (Negative) Urine HCG, Qual Not Detected (Not Detectd) - Radiology Data No CT evidence for acute appendicitis. No significant acute finding for patient's symptoms. (Adrienne Ponce) Disposition Is patient prescribed a controlled substance at d/c from ED?: No Time of Disposition: 16:54 <Adrienne Ponce - Last Filed: 08/15/20 16:51> <Stephanie Cristobal - Last Filed: 08/16/20 00:05> Clinical Impression: Lower abdominal pain Disposition: HOME SELF-CARE Condition: Good Instructions (If sedation given, give patient instructions): Abdominal Pain (ED) Additional Instructions: Please use medication as discussed with antiinflammatory medication. Please follow up with family doctor if symptoms have not improved over the next two days. Please return to the emergency room if your symptoms increase or worsen or for any other concerns. Referrals: Holger Farmer MD [Primary Care Provider] - 1-2 days
[2020-08-15 15:12] LABS: Appearance,Urine Clear (Clear); Bilirubin,Urine Negative (Negative); Blood,Urine Negative (Negative); Color,Urine Light Yellow; Glucose,Urine (UA) Negative (Negative); Ketones,Urine Negative (Negative); Leukocyte Esterase,Urine Negative (Negative); Nitrite,Urine Negative (Negative); PH, Urine 6.5 (5.0-8.0); Protein,Urine Negative (Negative); Specific Gravity,Urine 1.013 (1.001-1.035); Urobilinogen,Urine <2.0 mg/dL (<2.0)
[2020-08-15 15:15] LABS: ALT 14 U/L (4-34); AST 25 U/L (14-36); African American GFR (CKD) >90 (>60 ml/min/1.73 sqM); Albumin 4.5 g/dL (3.5-5.0); Alkaline Phosphatase 57 U/L (38-126); Amylase 41 U/L (30-110); Anion Gap 7 mmol/L; Blood Urea Nitrogen 10 mg/dL (7-17); Calcium 9.1 mg/dL (8.4-10.2); Carbon Dioxide 25 mmol/L (22-30); Chloride 104 mmol/L (98-107); Glucose 131 mg/dL (74-99); Non-African American GFR(CKD) 84 (>60 ml/min/1.73 sqM); Potassium 4.1 mmol/L (3.5-5.1); Sodium 136 mmol/L (137-145); Total Bilirubin 0.5 mg/dL (0.2-1.3)
[2020-08-15 15:23] LABS: INR 1.3 (<1.2); Prothrombin Time 13.1 sec (9.0-12.0)
--- NOTE | 2020-08-15 16:35 | CT ---
EXAMINATION TYPE: CT abdomen pelvis w con DATE OF EXAM: 08/15/2020 HISTORY: Right lower quadrant pain CT DLP: 670.5mGycm Automated Exposure Control for Dose Reduction was Utilized. CONTRAST: CT scan of the abdomen and pelvis is performed without oral but with IV Contrast, patient injected wi th 100 mL of Isovue 300. COMPARISON: None FINDINGS: LUNG BASES: No significant abnormality is appreciated. LIVER/GB: No significant abnormality is appreciated. PANCREAS: No significant abnormality is seen. SPLEEN: There is 1.0 cm thin-walled cyst anteriorly in the spleen.. ADRENALS: No significant abnormality is seen. KIDNEYS: Symmetric cortical medullary uptake and excretion without hydronephrosis seen bilaterally. BOWEL: Debris-filled stomach suggests recent meal ingestion. No suspicious small or large bowel dilat ation. Normal gas filled appendix seen ascending from base of cecum in the right abdomen. UTERUS/ADNEXA: Anteverted uterus. Tubal ligation clips along the periphery. Trace free fluid in left pelvis axial image 60, nonspecific. No suspicious adnexal masses. LYMPH NODES: No greater than 1cm abdominal or pelvic lymph nodes are appreciated. OSSEOUS STRUCTURES: No significant abnormality is seen. OTHER: No significant additional abnormality is seen. IMPRESSION: No CT evidence for acute appendicitis. No significant acute finding is seen to account fo r patient's clinical symptoms.
[2020-08-15 17:22] VITALS: BP 122/76; PULSE 78; RESP 18; TEMP 98.5
== END 2020-08-15 17:24 | disposition home or self-care (01) ==
LOC: EC 13:56
DX: R10.31 Right lower quadrant pain (principal); Z98.51 Tubal ligation status; Z86.718 Personal history of other venous thrombosis and embolism; Z86.711 Personal history of pulmonary embolism; Z87.891 Personal history of nicotine dependence; Z87.11 Personal history of peptic ulcer disease
CPT/HCPCS: 36415; 80053; 82150; 83690; 85025; 85610; 85730; 81003; 81025; 74177; 99284; 96374; 96375; 96361 ×2; J2405; J1885; Q9967

== ENCOUNTER 2020-09-07 22:23 | Emergency (ER) | payer BC ==
[2020-09-07 22:40] VITALS: TEMP 98
[2020-09-07] MEDS ORDERED: SODIUM CHLORIDE 0.9% 1,000 ML IV STA ×2 (22:42)
[2020-09-07] MEDS ORDERED: ONDANSETRON 4 MG/2 ML VIAL IVP STA (22:42)
[2020-09-07] MEDS ORDERED: SODIUM CHLORIDE 0.9% 500 ML 500 ML IV STA (22:42)
[2020-09-07] MEDS ORDERED: PANTOPRAZOLE 40 MG/10 ML VIAL IVP STA (22:43)
--- NOTE | 2020-09-07 22:43 | ED ---
Nausea/Vomiting/Diarrhea HPI - General Chief complaint: Nausea/Vomiting/Diarrhea Stated complaint: chills,diarrhea,possible reaction to new med Time Seen by Provider: 09/07/20 22:42 Source: patient, RN notes reviewed, old records reviewed Mode of arrival: ambulatory Limitations: no limitations - History of Present Illness Initial comments: This is a 40-year-old female DF for evaluation patient Dese for evaluation regarding possible medication reaction. Mild nausea no vomiting no specific diarrhea. No recent travel history sick contacts. No fever cough or congestion patient took Prilosec for the first time tonight and had always is are symptoms which she had never had before. Patient presents for evaluation making sure that she is concerned something else may not be going on. First time patient never taken Flexeril Again medical history including DVT PE history of factor V, patient is on blood thinners. Patient has no chest pain or shortness of breath MD complaint: nausea, diarrhea, abdominal pain -: hour(s) Description of Vomiting: food contents Description of Diarrhea: water Associated Abdominal Pain: Yes Location: periumbilical Severity: mild Severity scale (1-10): 3 Quality: aching Improves with: none Worsens with: none Context: anticoagulant use Associated Symptoms: denies other symptoms - Related Data Home Medications Medication Instructions Recorded Confirmed Albuterol Sulfate [Ventolin HFA] 1 - 2 puff INHALATION RT-Q4H PRN 09/07/20 09/07/20 Cyclobenzaprine [Flexeril] 5 mg PO BID PRN 09/07/20 09/07/20 Previous Rx's Medication Instructions Recorded Dabigatran [Pradaxa] 150 mg PO BID #60 capsule 04/28/20 Allergies Allergy/AdvReac Type Severity Reaction Status Date / Time No Known Allergies Allergy Verified 09/07/20 23:31 Review of Systems ROS Statement: Those systems with pertinent positive or pertinent negative responses have been documented in the HPI. ROS Other: All systems not noted in ROS Statement are negative. Past Medical History Past Medical History: Blood Disorder, Deep Vein Thrombosis (DVT), Pulmonary Embolus (PE) Additional Past Medical History / Comment(s): factor 5 Leiden blood disorder,Stomach Ulcer History of Any Multi-Drug Resistant Organisms: None Reported Past Surgical History: Breast Surgery, Section, Hernia Repair, Tonsillectomy, Tubal Ligation Additional Past Surgical History / Comment(s): umbilical hernia with mesh, and then mesh removed, D&C, Lasik, benign breast lumpectomy Past Anesthesia/Blood Transfusion Reactions: Postoperative Nausea & Vomiting (PONV) Past Psychological History: No Psychological Hx Reported Smoking Status: Former smoker Past Alcohol Use History: Occasional Past Drug Use History: None Reported - Past Family History Father Family Medical History: Cancer Additional Family Medical History / Comment(s): The patient does not know any medical history on her father's side. Mother Family Medical History: No Reported History Additional Family Medical History / Comment(s): hip/knee replacement General Exam Limitations: no limitations General appearance: alert, in no apparent distress Head exam: Present: atraumatic, normocephalic, normal inspection Eye exam: Present: normal appearance, PERRL, EOMI. Absent: scleral icterus, conjunctival injection, periorbital swelling ENT exam: Present: normal exam, mucous membranes moist Neck exam: Present: normal inspection. Absent: tenderness, meningismus, lymphadenopathy Respiratory exam: Present: normal lung sounds bilaterally. Absent: respiratory distress, wheezes, rales, rhonchi, stridor Cardiovascular Exam: Present: regular rate, normal rhythm, normal heart sounds. Absent: systolic murmur, diastolic murmur, rubs, gallop, clicks GI/Abdominal exam: Present: soft, normal bowel sounds. Absent: distended, tenderness, guarding, rebound, rigid Extremities exam: Present: normal inspection, full ROM, normal capillary refill. Absent: tenderness, pedal edema, joint swelling, calf tenderness Back exam: Present: normal inspection Neurological exam: Present: alert, oriented X3, CN II-XII intact Psychiatric exam: Present: normal affect, normal mood Skin exam: Present: warm, dry, intact, normal color. Absent: rash Course Vital Signs 09/07/20 22:37 Temperature 98.0 F Pulse Rate 104 H Respiratory 20 Rate Blood Pressure 126/76 O2 Sat by Pulse 98 Oximetry - Reevaluation(s) Reevaluation #1: 09/08/20 00:11 Medical record is reviewed Reevaluation #2: 09/08/20 00:12 Side effects profile of Flexeril is done with the patient gone over with Reevaluation #3: 09/08/20 00:12 Patient admits to feeling well here in the ER can be discharged Reevaluation #4: 09/08/20 00:12 Patient informed results and questions answered Medical Decision Making - Medical Decision Making 32 female nonspecific symptoms nausea vomiting, patient is in no distress and can be discharged home - Lab Data Result diagrams: 09/07/20 23:08 09/07/20 23:08 Lab Results 09/07/20 09/07/20 09/07/20 Range/Units 23:08 23:08 23:08 WBC 9.2 (3.8-10.6) k/uL RBC 4.43 (3.80-5.40) m/uL Hgb 13.9 (11.4-16.0) gm/dL Hct 42.8 (34.0-46.0) % MCV 96.5 (80.0-100.0) fL MCH 31.3 (25.0-35.0) pg MCHC 32.5 (31.0-37.0) g/dL RDW 12.1 (11.5-15.5) % Plt Count 325 (150-450) k/uL Neutrophils % 73 % Lymphocytes % 16 % Monocytes % 5 % Eosinophils % 4 % Basophils % 1 % Neutrophils # 6.7 (1.3-7.7) k/uL Lymphocytes # 1.5 (1.0-4.8) k/uL Monocytes # 0.4 (0-1.0) k/uL Eosinophils # 0.3 (0-0.7) k/uL Basophils # 0.1 (0-0.2) k/uL Sodium 137 (137-145) mmol/L Potassium 4.1 (3.5-5.1) mmol/L Chloride 105 (98-107) mmol/L Carbon Dioxide 23 (22-30) mmol/L Anion Gap 9 mmol/L BUN 15 (7-17) mg/dL Creatinine 0.86 (0.52-1.04) mg/dL Est GFR (CKD-EPI)AfAm >90 (>60 ml/min/1.73 sqM) Est GFR (CKD-EPI)NonAf 87 (>60 ml/min/1.73 sqM) Glucose 133 H (74-99) mg/dL Plasma Lactic Acid Dave (0.7-2.0) mmol/L Calcium 9.0 (8.4-10.2) mg/dL Phosphorus 3.8 (2.5-4.5) mg/dL Magnesium 2.1 (1.6-2.3) mg/dL Total Bilirubin 0.3 (0.2-1.3) mg/dL AST 26 (14-36) U/L ALT 16 (4-34) U/L Alkaline Phosphatase 62 (38-126) U/L Creatine Kinase 143 H (30-135) U/L Total Protein 7.0 (6.3-8.2) g/dL Albumin 4.4 (3.5-5.0) g/dL Urine Color Colorless Urine Appearance Clear (Clear) Urine pH 5.5 (5.0-8.0) Ur Specific Whitman 1.001 (1.001-1.035) Urine Protein Negative (Negative) Urine Glucose (UA) Negative (Negative) Urine Ketones Negative (Negative) Urine Blood Negative (Negative) Urine Nitrite Negative (Negative) Urine Bilirubin Negative (Negative) Urine Urobilinogen <2.0 (<2.0) mg/dL Ur Leukocyte Esterase Negative (Negative) 09/07/20 Range/Units 23:08 WBC (3.8-10.6) k/uL RBC (3.80-5.40) m/uL Hgb (11.4-16.0) gm/dL Hct (34.0-46.0) % MCV (80.0-100.0) fL MCH (25.0-35.0) pg MCHC (31.0-37.0) g/dL RDW (11.5-15.5) % Plt Count (150-450) k/uL Neutrophils % % Lymphocytes % % Monocytes % % Eosinophils % % Basophils % % Neutrophils # (1.3-7.7) k/uL Lymphocytes # (1.0-4.8) k/uL Monocytes # (0-1.0) k/uL Eosinophils # (0-0.7) k/uL Basophils # (0-0.2) k/uL Sodium (137-145) mmol/L Potassium (3.5-5.1) mmol/L Chloride (98-107) mmol/L Carbon Dioxide (22-30) mmol/L Anion Gap mmol/L BUN (7-17) mg/dL Creatinine (0.52-1.04) mg/dL Est GFR (CKD-EPI)AfAm (>60 ml/min/1.73 sqM) Est GFR (CKD-EPI)NonAf (>60 ml/min/1.73 sqM) Glucose (74-99) mg/dL Plasma Lactic Acid Dave 1.4 (0.7-2.0) mmol/L Calcium (8.4-10.2) mg/dL Phosphorus (2.5-4.5) mg/dL Magnesium (1.6-2.3) mg/dL Total Bilirubin (0.2-1.3) mg/dL AST (14-36) U/L ALT (4-34) U/L Alkaline Phosphatase (38-126) U/L Creatine Kinase (30-135) U/L Total Protein (6.3-8.2) g/dL Albumin (3.5-5.0) g/dL Urine Color Urine Appearance (Clear) Urine pH (5.0-8.0) Ur Specific Whitman (1.001-1.035) Urine Protein (Negative) Urine Glucose (UA) (Negative) Urine Ketones (Negative) Urine Blood (Negative) Urine Nitrite (Negative) Urine Bilirubin (Negative) Urine Urobilinogen (<2.0) mg/dL Ur Leukocyte Esterase (Negative) - EKG Data -: EKG Interpreted by Me (EKG is sinus 75, MS 136 QRS 88 QTc 442) Disposition Clinical Impression: Medication reaction Disposition: HOME SELF-CARE Condition: Good Instructions (If sedation given, give patient instructions): Cyclobenzaprine (By mouth) Is patient prescribed a controlled substance at d/c from ED?: No Referrals: Holger Farmer MD [Primary Care Provider] - 1-2 days
[2020-09-07 23:16] LABS: Appearance,Urine Clear (Clear); Bilirubin,Urine Negative (Negative); Blood,Urine Negative (Negative); Color,Urine Colorless; Glucose,Urine (UA) Negative (Negative); Ketones,Urine Negative (Negative); Leukocyte Esterase,Urine Negative (Negative); Nitrite,Urine Negative (Negative); PH, Urine 5.5 (5.0-8.0); Protein,Urine Negative (Negative); Specific Gravity,Urine 1.001 (1.001-1.035); Urobilinogen,Urine <2.0 mg/dL (<2.0)
[2020-09-07 23:18] LABS: Basophils # (A) 0.1 k/uL (0-0.2); Basophils % (A) 1 %; Eosinophils # (A) 0.3 k/uL (0-0.7); Eosinophils % (A) 4 %; HCT 42.8 % (34.0-46.0); HGB 13.9 gm/dL (11.4-16.0); Lymphocytes # (A) 1.5 k/uL (1.0-4.8); Lymphocytes % (A) 16 %; MCH 31.3 pg (25.0-35.0); MCHC 32.5 g/dL (31.0-37.0); MCV 96.5 fL (80.0-100.0); Mean Platelet Volume 6.8; Monocytes # (A) 0.4 k/uL (0-1.0); Monocytes % (A) 5 %; Neutrophils # (A) 6.7 k/uL (1.3-7.7); Neutrophils % (A) 73 %; Platelet Count 325 k/uL (150-450); RBC 4.43 m/uL (3.80-5.40); RDW 12.1 % (11.5-15.5); WBC 9.2 k/uL (3.8-10.6)
[2020-09-07 23:42] LABS: ALT 16 U/L (4-34); AST 26 U/L (14-36); African American GFR (CKD) >90 (>60 ml/min/1.73 sqM); Albumin 4.4 g/dL (3.5-5.0); Alkaline Phosphatase 62 U/L (38-126); Anion Gap 9 mmol/L; Blood Urea Nitrogen 15 mg/dL (7-17); Carbon Dioxide 23 mmol/L (22-30); Chloride 105 mmol/L (98-107); Creatine Kinase 143 U/L (30-135); Glucose 133 mg/dL (74-99); Magnesium 2.1 mg/dL (1.6-2.3); Non-African American GFR(CKD) 87 (>60 ml/min/1.73 sqM); Phosphorus 3.8 mg/dL (2.5-4.5); Potassium 4.1 mmol/L (3.5-5.1); Sodium 137 mmol/L (137-145); Total Bilirubin 0.3 mg/dL (0.2-1.3)
[2020-09-08 00:39] VITALS: BP 108/71; PULSE 83; RESP 18
== END 2020-09-08 00:36 | disposition home or self-care (01) ==
LOC: EC 22:23
DX: R11.2 Nausea with vomiting, unspecified (principal); T50.905A Adverse effect of unspecified drugs, medicaments and biological substances, initial encounter; Z87.891 Personal history of nicotine dependence; Z86.718 Personal history of other venous thrombosis and embolism; Z86.711 Personal history of pulmonary embolism
CPT/HCPCS: 36415; 93005; 80053; 82550; 83605; 83735; 84100; 85025; 81003; 99284; 96374; 96375; 96361 ×2; J2405; C9113

== ENCOUNTER 2020-09-12 22:14 | Inpatient (IN) | payer BC ==
--- NOTE | 2020-09-12 22:44 | ED ---
Extremity Problem HPI - General Chief complaint: Extremity Problem,Nontraumatic Stated complaint: Left leg pain Time Seen by Provider: 09/12/20 22:21 Source: patient Mode of arrival: wheelchair Limitations: no limitations - History of Present Illness Initial comments: Shouldn't is 40-year-old woman with history of DVT and PE who presents with left leg pain that she states is similar to previous DVT pain though it was previously in the right leg. The patient states that she is taking part accident as prescribed. She has history of factor V Leiden. Patient states the symptoms had come on yesterday, when they did not resolve she felt she should be seen today. No associated symptoms. No swelling noted. No chest pain, cough, hemoptysis, dyspnea or palpitations. MD Complaint: extremity pain Onset/Timin -: hour(s) Location: left History of Same: Yes Radiation: none Quality: aching Consistency: constant Improves with: nothing Worsens with: nothing Associated Symptoms: denies other symptoms - Related Data Home Medications Medication Instructions Recorded Confirmed Albuterol Sulfate [Ventolin HFA] 1 - 2 puff INHALATION RT-Q4H PRN 09/07/20 09/12/20 Previous Rx's Medication Instructions Recorded Dabigatran [Pradaxa] 150 mg PO BID #60 capsule 04/28/20 Allergies Allergy/AdvReac Type Severity Reaction Status Date / Time cyclobenzaprine AdvReac Nausea & Verified 09/12/20 23:31 [From Flexeril] Vomiting & Diarrhea Review of Systems ROS Statement: Those systems with pertinent positive or pertinent negative responses have been documented in the HPI. ROS Other: All systems not noted in ROS Statement are negative. Constitutional: Denies: fever, chills Respiratory: Denies: cough, dyspnea, hemoptysis Cardiovascular: Denies: chest pain, palpitations, edema, syncope Gastrointestinal: Denies: abdominal pain, nausea, vomiting Musculoskeletal: Denies: back pain Skin: Denies: rash Neurological: Denies: headache, weakness, numbness Hematological/Lymphatic: Denies: easy bleeding Past Medical History Past Medical History: Blood Disorder, Deep Vein Thrombosis (DVT), Pulmonary Embolus (PE) Additional Past Medical History / Comment(s): factor 5 Leiden blood disorder,Stomach Ulcer History of Any Multi-Drug Resistant Organisms: None Reported Past Surgical History: Breast Surgery, Section, Hernia Repair, Tonsillectomy, Tubal Ligation Additional Past Surgical History / Comment(s): umbilical hernia with mesh, and then mesh removed, D&C, Lasik, benign breast lumpectomy Past Anesthesia/Blood Transfusion Reactions: Postoperative Nausea & Vomiting (PONV) Past Psychological History: No Psychological Hx Reported Smoking Status: Former smoker Past Alcohol Use History: Occasional Past Drug Use History: None Reported - Past Family History Father Family Medical History: Cancer Additional Family Medical History / Comment(s): The patient does not know any medical history on her father's side. Mother Family Medical History: No Reported History Additional Family Medical History / Comment(s): hip/knee replacement General Exam Limitations: no limitations General appearance: alert, in no apparent distress Head exam: Present: atraumatic, normocephalic Neck exam: Present: normal inspection Respiratory exam: Present: normal lung sounds bilaterally. Absent: respiratory distress, wheezes, rales, rhonchi, stridor Cardiovascular Exam: Present: regular rate, normal rhythm, normal heart sounds. Absent: systolic murmur, diastolic murmur, rubs, gallop GI/Abdominal exam: Present: soft. Absent: distended, tenderness, guarding, rebound, rigid, mass Extremities exam: Present: normal inspection, normal capillary refill. Absent: pedal edema, calf tenderness Back exam: Present: normal inspection. Absent: CVA tenderness (R), CVA ten derness (L) Neurological exam: Present: alert. Absent: motor sensory deficit Skin exam: Present: warm, dry, intact, normal color. Absent: rash Course Vital Signs 09/12/20 22:16 Temperature 98.9 F Pulse Rate 77 Respiratory 18 Rate Blood Pressure 125/78 O2 Sat by Pulse 99 Oximetry Medical Decision Making - Lab Data Result diagrams: 09/12/20 22:46 Lab Results 09/12/20 09/12/20 Range/Units 22:46 22:46 WBC 7.5 (3.8-10.6) k/uL RBC 4.16 (3.80-5.40) m/uL Hgb 13.4 (11.4-16.0) gm/dL Hct 40.3 (34.0-46.0) % MCV 96.8 (80.0-100.0) fL MCH 32.3 (25.0-35.0) pg MCHC 33.3 (31.0-37.0) g/dL RDW 12.2 (11.5-15.5) % Plt Count 296 (150-450) k/uL Neutrophils % 52 % Lymphocytes % 32 % Monocytes % 7 % Eosinophils % 6 % Basophils % 1 % Neutrophils # 3.9 (1.3-7.7) k/uL Lymphocytes # 2.4 (1.0-4.8) k/uL Monocytes # 0.5 (0-1.0) k/uL Eosinophils # 0.4 (0-0.7) k/uL Basophils # 0.1 (0-0.2) k/uL D-Dimer <0.17 (<0.60) mg/L FEU Disposition Clinical Impression: Factor V Leiden, Thrombosis of left saphenous vein Disposition: ADMITTED IP TO THIS HOSP Condition: Good Referrals: Holger Farmer MD [Primary Care Provider] - 1-2 days
[2020-09-12 23:07] LABS: Basophils # (A) 0.1 k/uL (0-0.2); Basophils % (A) 1 %; Eosinophils # (A) 0.4 k/uL (0-0.7); Eosinophils % (A) 6 %; HCT 40.3 % (34.0-46.0); HGB 13.4 gm/dL (11.4-16.0); Lymphocytes # (A) 2.4 k/uL (1.0-4.8); Lymphocytes % (A) 32 %; MCH 32.3 pg (25.0-35.0); MCHC 33.3 g/dL (31.0-37.0); MCV 96.8 fL (80.0-100.0); Mean Platelet Volume 7.1; Monocytes # (A) 0.5 k/uL (0-1.0); Monocytes % (A) 7 %; Neutrophils # (A) 3.9 k/uL (1.3-7.7); Neutrophils % (A) 52 %; Platelet Count 296 k/uL (150-450); RBC 4.16 m/uL (3.80-5.40); RDW 12.2 % (11.5-15.5); WBC 7.5 k/uL (3.8-10.6)
--- NOTE | 2020-09-12 23:42 | US ---
EXAMINATION TYPE: US venous doppler duplex LE LT DATE OF EXAM: 09/12/2020 11:26 PM COMPARISON: US CLINICAL HISTORY: leg pain, possible DVT. Left leg pain x 2 days. Hx DVT and PE. Patient has Factor 5 Leiden blood disorder. Patient takes a blood thinner. SIDE PERFORMED: Left TECHNIQUE: The lower extremity deep venous system is examined utilizing real time linear array sonog irais with graded compression, doppler sonography and color-flow sonography. VESSELS IMAGED: External Iliac Vein (EIV) Common Femoral Vein Deep Femoral Vein Greater Saphenous Vein * Femoral Vein Popliteal Vein Small Saphenous Vein * Proximal Calf Veins (* superficial vessels) Left Leg: There appear to be internal echoes within the GSV from the groin at the saphenofemoral aniyah ction down to just above the knee. This vessel compresses incompletely in the groin area. Color defec t seen in GSV from in the groin down to through the distal thigh. No evidence of DVT in veins imaged at this time from prox calf veins to EIV. IMPRESSION: There is superficial vein thrombus in the long saphenous vein. No evidence of deep vein thrombosis.
[2020-09-13] MEDS ORDERED: HEPARIN SODIUM,PORCINE 5,000 UNIT/ML 1 ML VIAL IV PRN (00:07)
[2020-09-13] MEDS ORDERED: HEPARIN SODIUM,PORCINE 10,000 UNIT/ML 1 ML VIAL IV ONE (00:07)
[2020-09-13] MEDS ORDERED: ACETAMINOPHEN TAB 325 MG TAB PO PRN (00:07)
[2020-09-13] MEDS ORDERED: HYDROcodone/APAP 5-325MG 1 EACH TAB PO PRN (00:07)
[2020-09-13] MEDS ORDERED: NALOXONE 0.4 MG/ML 1 ML VIAL IV PRN (00:07)
[2020-09-13] MEDS ORDERED: HEPARIN SOD,PORK IN 0.45% NACL 25,000 UNIT in 0.45% NACL 1 250ML.BAG IV SCH (00:15)
[2020-09-13 00:28] LABS: Basophils # (A) 0.1 k/uL (0-0.2); Basophils % (A) 1 %; Eosinophils # (A) 0.5 k/uL (0-0.7); Eosinophils % (A) 6 %; HCT 39.4 % (34.0-46.0); HGB 13.2 gm/dL (11.4-16.0); Lymphocytes # (A) 2.4 k/uL (1.0-4.8); Lymphocytes % (A) 30 %; MCH 32.6 pg (25.0-35.0); MCHC 33.6 g/dL (31.0-37.0); Monocytes # (A) 0.5 k/uL (0-1.0); Monocytes % (A) 6 %; Neutrophils # (A) 4.5 k/uL (1.3-7.7); Neutrophils % (A) 55 %; Platelet Count 307 k/uL (150-450); RBC 4.06 m/uL (3.80-5.40); RDW 12.1 % (11.5-15.5); WBC 8.2 k/uL (3.8-10.6)
[2020-09-13] MEDS: SODIUM CHLORIDE 0.9% 1,000 ML IV SCH ×2 (00:32→22:51)
[2020-09-13 00:42] LABS: INR 1.3 (<1.2); Partial Thromboplastin Time 49.3 sec (22.0-30.0); Prothrombin Time 13.5 sec (9.0-12.0)
[2020-09-13] MEDS: FAMOTIDINE 20 MG TAB PO SCH ×2 (08:09→20:31)
--- NOTE | 2020-09-13 12:19 | P.HPIM ---
History of Present Illness H&P Date: 09/13/20 HISTORY OF PRESENT ILLNESS This is a 40-year-old female patient of Dr. Holger Farmer with past medical history of heterzygous for factor V leiden mutation under the care of Dr. Atwood with initial bilateral DVT in 2014 after having . That was followed by a right lower extremity DVT and bilateral PE in 2019. She was last admitted in April 2020 for right lower extremity DVT. She was seen by oncology at that time and was on Xarelto 10 mg daily and was considered a failed Xarelto, subsequently started on Pradaxa. Patient complains of pressure pain in the left leg in the pretibial area and proximal calf area. She denies having any significant edema or erythema. She is currently maintained on Pradaxa 150 mg twice daily. Patient has had one and one live via . No miscarriages. Patient came into [facility] emergency center for evaluation. She was afebrile, heart rate 77, blood pressure 125/78, pulse ox 99% on room air. CBC was normal. D-dimer less than 0.17. INR 1.3. Ultrasound revealed superficial vein thrombus in the long saphenous vein. No evidence of DVT. Patient was started on heparin and placed on the MedSurg floor. REVIEW OF SYSTEMS Constitutional: No fever, no chills, no night sweats. No weight change. No weakness, fatigue or lethargy. No daytime sleepiness. EENT: No headache. No blurred vision or double vision, no loss of vision. No loss of Hearing, no ringing in the ears, no dizziness. No nasal drainage or congestion. No epistaxis. No sore throat. Lungs: No shortness of breath, cough, no sputum production. No wheezing. Cardiovascular: No chest pain, no lower extremity edema. No palpitations. No paroxysmal nocturnal dyspnea. No orthopnea. No lightheadedness or dizziness. No syncopal episodes. Abdominal: No abdominal pain. No nausea, vomiting. No diarrhea. No constipation. No bloody or tarry stools.. No loss of appetite. Genitourinary: No dysuria, increased frequency, urgency. No urinary retention. Musculoskeletal: No myalgias. No muscle weakness, no gait dysfunction, no frequent falls. No back pain. No neck pain. Pain left calf. Integumentary: No wounds, no lesions. No rash or pruritus. No unusual bruising. No change in hair or nails. Neurologic: No aphasia. No facial droop. No change in mentation. No head injury. No headache. No paralysis. No paresthesia. Psychiatric: No depression. No anxiety. No mood swings. Endocrine: No abnormal blood sugars. No weight change. No excessive sweating or thirst. No cold intolerance. SOCIAL HISTORY She is a lifelong nonsmoker. No marijuana, illicit drug use or alcohol use. 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 No recent travel. FAMILY HISTORY Father of cancer, unclear type. Mother is alive her 60s.she has one brother with no major medical problems. Patient has one child. PHYSICAL EXAMINATION Gen: This is a 40-year-old female. Patient is resting in bed and appears to be comfortable and in no acute distress. HEENT: Head is atraumatic, normocephalic. Pupils equal, round. Sclerae is anicteric. NECK: Supple. No JVD. No lymphadenopathy. No thyromegaly. LUNGS: Clear to auscultation. No wheezes or rhonchi. No intercostal retractions. HEART: Regular rate and rhythm. No murmur. ABDOMEN: Soft. Bowel sounds are present. No masses. No tenderness. EXTREMITIES: No pedal edema. No calf tenderness.No significant edema to the left lower extremity. Mild tenderness to the left proximal calf. NEUROLOGICAL: Patient is awake, alert and oriented x3. Cranial nerves 2 through 12 are grossly intact. ASSESSMENT AND PLAN 1 Superficial vein thrombus in the long saphenous vein left leg. Patient was placed on heparin. She has been taking Pradaxa as ordered. Await input from oncology. 2. Previous episodes of DVT including pulmonary embolism. Continue anticoagulation. Patient is under the care of oncology. 3. History of heterzygous for factor V leiden mutation. 4. GI prophylaxis. Pepcid. 5 DVT prophylaxis. Patient is on heparin drip. Patient will be admitted to the hospital for a minimum of 2 night stay. Discharge plan: home. Impression and plan of care have been directed as dictated by the signing physi cian. Heather Marinelli nurse practitioner acting as scribe for signing physician. Past Medical History Past Medical History: Blood Disorder, Deep Vein Thrombosis (DVT), Pulmonary Embolus (PE) Additional Past Medical History / Comment(s): Factor 5 Leiden blood disorder,Stomach Ulcer, hernia, History of Any Multi-Drug Resistant Organisms: None Reported Past Surgical History: Breast Surgery, Section, Hernia Repair, Tonsillectomy, Tubal Ligation Additional Past Surgical History / Comment(s): umbilical hernia with mesh, and then mesh removed, D&C, Lasik, benign breast lumpectomy Past Anesthesia/Blood Transfusion Reactions: Postoperative Nausea & Vomiting (PONV) Past Psychological History: No Psychological Hx Reported Smoking Status: Former smoker Past Alcohol Use History: None Reported Additional Past Alcohol Use History / Comment(s): Patient is a nonsmoker, she denies any marijuana, illicit drug use or alcohol use. 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 No recent travel. Past Drug Use History: None Reported - Past Family History Father Family Medical History: Cancer Additional Family Medical History / Comment(s): Father from cancer. Do not know other any other families history. Mother Family Medical History: No Reported History Additional Family Medical History / Comment(s): hip/knee replacement Medications and Allergies Home Medications Medication Instructions Recorded Confirmed Type Dabigatran [Pradaxa] 150 mg PO BID #60 capsule 04/28/20 09/12/20 Rx Albuterol Sulfate [Ventolin HFA] 1 - 2 puff INHALATION RT-Q4H PRN 09/07/20 09/12/20 History Allergies Allergy/AdvReac Type Severity Reaction Status Date / Time cyclobenzaprine AdvReac Nausea & Verified 09/12/20 23:31 [From Flexeril] Vomiting & Diarrhea Physical Exam Vitals: Vital Signs Temp Pulse Pulse Resp BP BP Pulse Ox 09/13/20 05:00 98.1 F 83 16 110/76 97 09/13/20 01:07 98.1 F 78 17 117/80 96 09/12/20 22:16 98.9 F 77 18 125/78 99 Intake and Output 09/12/20 09/13/20 09/13/20 22:59 06:59 14:59 Intake Total 750 87.529 Balance 750 87.529 Intake: Intake, IV Titration 160 87.529 Amount Heparin Sod,Pork in 0.45% 87.529 NaCl 25,000 unit In 0.45 % NaCl 1 250ml.bag @ 18 UNITS/KG/HR 13.064 mls/hr IV .[id number] MICAELA Rx#: [id number] Sodium Chloride 0.9% 1, 160 000 ml @ 20 mls/hr IV . Q24H MICAELA Rx#:[id number] Oral 590 Other: Voiding Method Toilet # Voids 3 Weight 72.575 kg 72.575 kg Results CBC & Chem 7: 09/13/20 00:18 Labs: Abnormal Lab Results - Last 24 Hours (Table) 09/13/20 09/13/20 Range/Units 00:18 05:28 PT 13.5 H (9.0-12.0) sec INR 1.3 H (<1.2) APTT 49.3 H >200.0 H* (22.0-30.0) sec Thrombosis Risk Factor Assmnt - Choose All That Apply Each Factor Represents 1 point: Obesity (BMI >25), Swollen legs (current) Each Risk Factor Represents 3 Points: Positive Factor V Leiden, History of DVT/PE Other congenital or acquired thrombophilia - If yes, enter type in comment: No Thrombosis Risk Factor Assessment Total Risk Factor Score: 8 Thrombosis Risk Factor Assessment Level: High Risk
[2020-09-13] MEDS: RIVAROXABAN 15 MG TAB PO SCH (16:58)
[2020-09-13] MEDS: ASPIRIN 81 MG PO SCH (20:31)
[2020-09-14 05:40] LABS: Basophils # (A) 0.1 k/uL (0-0.2); Basophils % (A) 1 %; Eosinophils # (A) 0.4 k/uL (0-0.7); Eosinophils % (A) 7 %; HCT 40.4 % (34.0-46.0); HGB 13.3 gm/dL (11.4-16.0); Lymphocytes # (A) 2.1 k/uL (1.0-4.8); Lymphocytes % (A) 36 %; MCHC 32.9 g/dL (31.0-37.0); MCV 97.2 fL (80.0-100.0); Mean Platelet Volume 6.9; Monocytes # (A) 0.4 k/uL (0-1.0); Monocytes % (A) 7 %; Neutrophils # (A) 2.8 k/uL (1.3-7.7); Neutrophils % (A) 47 %; Platelet Count 269 k/uL (150-450); RBC 4.15 m/uL (3.80-5.40); RDW 12.1 % (11.5-15.5)
[2020-09-14] MEDS: ASPIRIN 81 MG PO SCH (07:45)
[2020-09-14] MEDS: FAMOTIDINE 20 MG TAB PO SCH (07:45)
[2020-09-14] MEDS: RIVAROXABAN 15 MG TAB PO SCH (07:45)
[2020-09-14 08:46] VITALS: BP 104/66; PULSE 79; RESP 16; TEMP 98.4
--- NOTE | 2020-09-14 11:28 | P.DS ---
Providers Date of admission: 09/13/20 00:11 Expected date of discharge: 09/14/20 Attending physician: Yeison Atwood Primary care physician: Holger Farmer [facility] Course: HISTORY OF PRESENT ILLNESS This is a 40-year-old female patient of Dr. Holger Farmer with past medical history of heterzygous for factor V leiden mutation under the care of Dr. Atwood with initial bilateral DVT in 2014 after having . That was followed by a right lower extremity DVT and bilateral PE in 2018. She was last admitted in April 2020 for right lower extremity DVT. She was seen by oncology at that time and was on Xarelto 10 mg daily and was considered a failed Xarelto, subsequently started on Pradaxa. Patient complains of pressure pain in the left leg in the pretibial area and proximal calf area. She denies having any significant edema or erythema. She is currently maintained on Pradaxa 150 mg twice daily. Patient has had one and one live via . No miscarriages. Patient came into [facility] emergency center for evaluation. She was afebrile, heart rate 77, blood pressure 125/78, pulse ox 99% on room air. CBC was normal. D-dimer less than 0.17. INR 1.3. Ultrasound revealed superficial vein thrombus in the long saphenous vein. No evidence of DVT. Patient was started on heparin and placed on the [facility] floor. 09/14: Patient has been seen by oncology and started on Xarelto at 15 mg twice daily for 21 days and then reduce dose to 20 mg daily as well as aspirin 81 mg daily. Heparin drip was discontinued yesterday. Patient has been afebrile, heart rate 81, blood pressure 124/73, pulse ox 95% on room air. CBC was normal. Patient denies any new complaints. No shortness of breath, chest pain, lightheadedness or dizziness. Pain in her lower extremity is controlled. Patient will be discharged home today in stable condition. ASSESSMENT AND PLAN 1 Superficial vein thrombus in the long saphenous vein left leg. 2. Previous episodes of DVT including pulmonary embolism. 3. History of heterzygous for factor V leiden mutation. Discharge plan: home. Impression and plan of care have been directed as dictated by the signing physician. Heather Marinelli nurse practitioner acting as scribe for signing physician. Patient Condition at Discharge: Good Plan - Discharge Summary Discharge Rx Participant: No New Discharge Prescriptions: New Rivaroxaban [Xarelto] 15 mg PO DAILY #42 tab Aspirin 81 mg PO DAILY chew Famotidine [Pepcid] 20 mg PO DAILY tab Continue Albuterol Sulfate [Ventolin HFA] 1 - 2 puff INHALATION RT-Q4H PRN PRN Reason: Shortness Of Breath Discontinued Dabigatran [Pradaxa] 150 mg PO BID #60 capsule Discharge Medication List Albuterol Sulfate [Ventolin HFA] 1 - 2 puff INHALATION RT-Q4H PRN 09/07/20 [H istory] Rivaroxaban [Xarelto] 15 mg PO DAILY #42 tab 09/13/20 [Rx] Aspirin 81 mg PO DAILY chew 09/14/20 [Rx] Famotidine [Pepcid] 20 mg PO DAILY tab 09/14/20 [Rx] Follow up Appointment(s)/Referral(s): Holger Farmer MD [Primary Care Provider] - 09/21/20 1:00 pm Yeison Atwood MD [STAFF PHYSICIAN] - 2 Weeks (OFFICE WILL CALL YOU FOR APPOINTMENT DATE/TIME.) Patient Instructions/Handouts: Hypercoagulation (ED) Discharge Disposition: HOME SELF-CARE
== END 2020-09-14 10:21 | disposition home or self-care (01) | DRG 300 ==
LOC: EC 22:14 → 6NMEDSUR 09-13 00:11
PROVIDERS: ADMIT Internal Medicine Hematology & Oncology; ATTEND Internal Medicine Hematology & Oncology
DX: I82.812 Embolism and thrombosis of superficial veins of left lower extremity (principal); D68.51 Activated protein C resistance; Z79.01 Long term (current) use of anticoagulants; Z87.11 Personal history of peptic ulcer disease; Z98.890 Other specified postprocedural states; Z86.711 Personal history of pulmonary embolism; Z98.51 Tubal ligation status; Z86.718 Personal history of other venous thrombosis and embolism; Z87.891 Personal history of nicotine dependence; Z88.8 Allergy status to other drugs, medicaments and biological substances; Z80.9 Family history of malignant neoplasm, unspecified
CPT/HCPCS: 36415; 85025; 85379; 85610; 85730; 96374; 99284

== ENCOUNTER → 2020-10-08 | Outpatient (CLI) | payer BC ==
--- NOTE | 2020-10-08 10:53 | US ---
EXAMINATION TYPE: US venous doppler duplex LE LT DATE OF EXAM: 10/08/2020 9:22 AM COMPARISON: NONE CLINICAL HISTORY: M79.662 Pain in Left Lower Limb. Previous clot GSV on blood thinners. SIDE PERFORMED: Left TECHNIQUE: The lower extremity deep venous system is examined utilizing real time linear array sonog irais with graded compression, doppler sonography and color-flow sonography. VESSELS IMAGED: Common Femoral Vein Deep Femoral Vein Greater Saphenous Vein * Femoral Vein Popliteal Vein Small Saphenous Vein * Proximal Calf Veins (* superficial vessels) Left Leg: Negative for DVT. GSV is compressing and color flow visualized. IMPRESSION: 1. Left lower extremity ultrasound negative for deep venous thrombosis. 2. Previous left greater saphenous vein thrombosis is not identified.
== END | disposition home or self-care (01) ==
LOC: RADUSWWP 08:54
PROVIDERS: ATTEND Internal Medicine Hematology & Oncology
DX: M79.662 Pain in left lower leg (principal)

== ENCOUNTER 2020-10-22 14:11 | Emergency (ER) | payer BC ==
[2020-10-22 14:21] VITALS: BP 116/76; PULSE 79; RESP 18; TEMP 98.5
== END 2020-10-22 16:00 | disposition left against medical advice (07) ==
LOC: EC 14:11
DX: N93.9 Abnormal uterine and vaginal bleeding, unspecified (principal); Z53.9 Procedure and treatment not carried out, unspecified reason
CPT/HCPCS: 99499

== ENCOUNTER 2020-11-01 14:10 | Emergency (ER) | payer BC ==
[2020-11-01 14:18] VITALS: TEMP 98
--- NOTE | 2020-11-01 14:42 | ED ---
General Adult HPI - General Chief complaint: Extremity Problem,Nontraumatic Stated complaint: R Arm Pain Time Seen by Provider: 11/01/20 14:20 Source: patient, RN notes reviewed Limitations: no limitations - History of Present Illness Initial comments: Patient is a pleasant 40-year-old male presenting to the emergency Department with right upper extremity discomfort. Onset of symptoms was this morning when she woke. Symptoms have been persistent since that time. Patient states discomfort is somewhat worse with upright position. Discomfort is mostly right upper arm. There is some mild discomfort of her forearm. There is also some mild discomfort near the axillary region. No history of similar symptoms previously. No difficulty in breathing. Patient does have history of pulmonary embolism twice previously. At that time patient did have chest discomfort that she does not have at this time. Patient did have pulmonary embolisms while she was on Xarelto originally and was switched to pradaxa. Patient then had another pulmonary embolism and was switched back to Xarelto with aspirin in addition. - Related Data Home Medications Medication Instructions Recorded Confirmed Albuterol Sulfate [Ventolin HFA] 1 - 2 puff INHALATION RT-Q4H PRN 09/07/20 11/01/20 Omeprazole 20 mg PO HS 11/01/20 11/01/20 Rivaroxaban [Xarelto] 20 mg PO DAILY 11/01/20 11/01/20 Previous Rx's Medication Instructions Recorded Aspirin 81 mg PO DAILY chew 09/14/20 Allergies Allergy/AdvReac Type Severity Reaction Status Date / Time cyclobenzaprine AdvReac Nausea & Verified 11/01/20 15:11 [From Flexeril] Vomiting & Diarrhea Review of Systems ROS Statement: Those systems with pertinent positive or pertinent negative responses have been documented in the HPI. ROS Other: All systems not noted in ROS Statement are negative. Constitutional: Denies: fever Eyes: Denies: eye pain ENT: Denies: ear pain Respiratory: Denies: cough, dyspnea Cardiovascular: Reports: as per HPI. Denies: palpitations Endocrine: Denies: fatigue Gastrointestinal: Denies: vomiting Genitourinary: Denies: dysuria Musculoskeletal: Reports: as per HPI Skin: Denies: rash Neurological: Reports: paresthesias (Patient has had paresthesias bilateral face for the last several weeks). Denies: weakness Past Medical History Past Medical History: Blood Disorder, Deep Vein Thrombosis (DVT), Pulmonary Embolus (PE) Additional Past Medical History / Comment(s): Factor 5 Leiden blood disor nehal,Stomach Ulcer, hernia, History of Any Multi-Drug Resistant Organisms: None Reported Past Surgical History: Breast Surgery, Section, Hernia Repair, Tonsillectomy, Tubal Ligation Additional Past Surgical History / Comment(s): umbilical hernia with mesh, and then mesh removed, D&C, Lasik, benign breast lumpectomy Past Anesthesia/Blood Transfusion Reactions: Postoperative Nausea & Vomiting (PONV) Past Psychological History: No Psychological Hx Reported Smoking Status: Former smoker Past Alcohol Use History: None Reported Past Drug Use History: None Reported - Past Family History Father Family Medical History: Cancer Additional Family Medical History / Comment(s): Father from cancer. Do not know other any other families history. Mother Family Medical History: No Reported History Additional Family Medical History / Comment(s): hip/knee replacement General Exam Limitations: no limitations General appearance: alert, in no apparent distress Head exam: Present: normocephalic Eye exam: Present: normal appearance, PERRL, EOMI. Absent: nystagmus ENT exam: Present: normal oropharynx Neck exam: Present: normal inspection Respiratory exam: Present: normal lung sounds bilaterally Cardiovascular Exam: Present: regular rate, normal rhythm Expanded Peripheral pulses: 2+: Radial (R), Radial (L) GI/Abdominal exam: Present: soft. Absent: tenderness Extremities exam: Present: normal inspection, full ROM, tenderness (Mild tenderness right upper arm without swelling or color change) Neurological exam: Present: alert, CN II-XII intact. Absent: motor sensory deficit Expanded Neurological exam: Present: protecting the airway Speech: Present: fluid speech Cranial nerves: EOM's Intact: Normal, Facial Sensation: Normal Sensory exam: Upper Extremity Light Touch: Normal, Lower Extremity Light Touch: Normal Motor strength exam: RUE: 5, LUE: 5, RLE: 5, LLE: 5 Eye Response: (4) open spontaneously Motor Response: (6) obeys commands Verbal Response: (5) oriented Psychiatric exam: Present: normal affect, normal mood Skin exam: Present: normal color Course Vital Signs 11/01/20 11/01/20 11/01/20 14:16 14:18 15:18 Temperature 98 F Pulse Rate 81 90 91 Respiratory 16 18 18 Rate Blood Pressure 123/80 115/74 O2 Sat by Pulse 99 97 100 Oximetry 11/01/20 16:10 Temperature Pulse Rate 86 Respiratory 18 Rate Blood Pressure O2 Sat by Pulse 100 Oximetry EKG Findings - EKG Comments: EKG Findings:: Normal sinus rhythm 72. LA 154. QRS 96. QT 378. QTC 413. Normal axis. Normal QRS. No acute ST change. Medical Decision Making - Medical Decision Making Patient reevaluated and resting comfortably in bed. Patient complains of nausea. Patient updated on results and need for follow-up. - Lab Data Result diagrams: 11/01/20 14:53 11/01/20 14:53 Lab Results 11/01/20 11/01/20 11/01/20 Range/Units 14:53 14:53 14:53 WBC 6.6 (3.8-10.6) k/uL RBC 4.13 (3.80-5.40) m/uL Hgb 13.3 (11.4-16.0) gm/dL Hct 38.6 (34.0-46.0) % MCV 93.5 (80.0-100.0) fL MCH 32.3 (25.0-35.0) pg MCHC 34.5 (31.0-37.0) g/dL RDW 11.9 (11.5-15.5) % Plt Count 302 (150-450) k/uL MPV 7.1 Neutrophils % 62 % Lymphocytes % 25 % Monocytes % 5 % Eosinophils % 5 % Basophils % 1 % Neutrophils # 4.1 (1.3-7.7) k/uL Lymphocytes # 1.6 (1.0-4.8) k/uL Monocytes # 0.3 (0-1.0) k/uL Eosinophils # 0.3 (0-0.7) k/uL Basophils # 0.1 (0-0.2) k/uL PT 11.6 (9.0-12.0) sec INR 1.1 (<1.2) APTT 30.0 (22.0-30.0) sec Sodium 138 (137-145) mmol/L Potassium 4.0 (3.5-5.1) mmol/L Chloride 104 (98-107) mmol/L Carbon Dioxide 27 (22-30) mmol/L Anion Gap 7 mmol/L BUN 11 (7-17) mg/dL Creatinine 0.93 (0.52-1.04) mg/dL Est GFR (CKD-EPI)AfAm >90 (>60 ml/min/1.73 sqM) Est GFR (CKD-EPI)NonAf 79 (>60 ml/min/1.73 sqM) Glucose 95 (74-99) mg/dL Calcium 9.0 (8.4-10.2) mg/dL Magnesium 2.1 (1.6-2.3) mg/dL Total Bilirubin 0.5 (0.2-1.3) mg/dL AST 21 (14-36) U/L ALT 13 (4-34) U/L Alkaline Phosphatase 57 (38-126) U/L Creatine Kinase 150 H (30-135) U/L Troponin I (0.000-0.034) ng/mL Total Protein 6.9 (6.3-8.2) g/dL Albumin 4.3 (3.5-5.0) g/dL 11/01/20 Range/Units 14:53 WBC (3.8-10.6) k/uL RBC (3.80-5.40) m/uL Hgb (11.4-16.0) gm/dL Hct (34.0-46.0) % MCV (80.0-100.0) fL MCH (25.0-35.0) pg MCHC (31.0-37.0) g/dL RDW (11.5-15.5) % Plt Count (150-450) k/uL MPV Neutrophils % % Lymphocytes % % Monocytes % % Eosinophils % % Basophils % % Neutrophils # (1.3-7.7) k/uL Lymphocytes # (1.0-4.8) k/uL Monocytes # (0-1.0) k/uL Eosinophils # (0-0.7) k/uL Basophils # (0-0.2) k/uL PT (9.0-12.0) sec INR (<1.2) APTT (22.0-30.0) sec Sodium (137-145) mmol/L Potassium (3.5-5.1) mmol/L Chloride (98-107) mmol/L Carbon Dioxide (22-30) mmol/L Anion Gap mmol/L BUN (7-17) mg/dL Creatinine (0.52-1.04) mg/dL Est GFR (CKD-EPI)AfAm (>60 ml/min/1.73 sqM) Est GFR (CKD-EPI)NonAf (>60 ml/min/1.73 sqM) Glucose (74-99) mg/dL Calcium (8.4-10.2) mg/dL Magnesium (1.6-2.3) mg/dL Total Bilirubin (0.2-1.3) mg/dL AST (14-36) U/L ALT (4-34) U/L Alkaline Phosphatase (38-126) U/L Creatine Kinase (30-135) U/L Troponin I <0.012 (0.000-0.034) ng/mL Total Protein (6.3-8.2) g/dL Albumin (3.5-5.0) g/dL - Radiology Data Radiology results: report reviewed (Ultrasound negative for DVT. Computed tomography scan chest and right upper extremity negative for clot or acute abnormality.) Disposition Clinical Impression: Upper extremity pain Disposition: HOME SELF-CARE Condition: Stable Instructions (If sedation given, give patient instructions): Arm Pain (ED) Additional Instructions: Please follow-up with primary care physician in the next day or 2 for recheck. Return for increased pain, weakness, redness or swelling, chest pain or shortness of breath, worsening symptoms or other concerns. Is patient prescribed a controlled substance at d/c from ED?: No Referrals: Holger Farmer MD [Primary Care Provider] - 1-2 days Time of Disposition: 16:22
[2020-11-01 14:57] LABS: Basophils # (A) 0.1 k/uL (0-0.2); Basophils % (A) 1 %; Eosinophils # (A) 0.3 k/uL (0-0.7); Eosinophils % (A) 5 %; HCT 38.6 % (34.0-46.0); HGB 13.3 gm/dL (11.4-16.0); Lymphocytes # (A) 1.6 k/uL (1.0-4.8); Lymphocytes % (A) 25 %; MCH 32.3 pg (25.0-35.0); MCHC 34.5 g/dL (31.0-37.0); MCV 93.5 fL (80.0-100.0); Mean Platelet Volume 7.1; Monocytes # (A) 0.3 k/uL (0-1.0); Monocytes % (A) 5 %; Neutrophils # (A) 4.1 k/uL (1.3-7.7); Neutrophils % (A) 62 %; Platelet Count 302 k/uL (150-450); RBC 4.13 m/uL (3.80-5.40); RDW 11.9 % (11.5-15.5); WBC 6.6 k/uL (3.8-10.6)
[2020-11-01 15:06] LABS: INR 1.1 (<1.2); Prothrombin Time 11.6 sec (9.0-12.0)
[2020-11-01 15:17] LABS: ALT 13 U/L (4-34); AST 21 U/L (14-36); African American GFR (CKD) >90 (>60 ml/min/1.73 sqM); Albumin 4.3 g/dL (3.5-5.0); Alkaline Phosphatase 57 U/L (38-126); Anion Gap 7 mmol/L; Blood Urea Nitrogen 11 mg/dL (7-17); Carbon Dioxide 27 mmol/L (22-30); Chloride 104 mmol/L (98-107); Creatine Kinase 150 U/L (30-135); Glucose 95 mg/dL (74-99); Magnesium 2.1 mg/dL (1.6-2.3); Non-African American GFR(CKD) 79 (>60 ml/min/1.73 sqM); Sodium 138 mmol/L (137-145); Total Bilirubin 0.5 mg/dL (0.2-1.3); Total Protein 6.9 g/dL (6.3-8.2)
--- NOTE | 2020-11-01 15:56 | CT ---
CT CHEST FOR PULMONARY EMBOLISM. EXAMINATION TYPE: CT angio chest DATE OF EXAM: 11/01/2020 INDICATION: Right arm pain radiating to chest. History of PE. CT DLP: 670.4 mGycm, Automated exposure control for dose reduction was used. CONTRAST: Patient injected with 100 mL of Isovue 370. COMPARISON: 03/27/2017 TECHNIQUE: CT of the chest is performed on a spiral scan at 2 mm thick sections. Study is performed with intravenous contrast timed for evaluation for pulmonary embolism. This will limit additional po rtions of the evaluation. 3-D MIP images reconstructed by the technologist are reviewed on the compu ter in the coronal and sagittal planes. FINDINGS: No persistent filling defects are evident to suggest an acute pulmonary embolism. No mediastinal or hilar adenopathy enlarged by CT criteria is evident. The ascending aorta diameter at the level of the main pulmonary artery is 3.2 cm. The main pulmonary artery diameter at the bifur cation is 2.8 cm. Lung windows are clear. Limited CT section through the upper abdomen are unremarkable. IMPRESSIONS: 1. No acute pulmonary embolism. 2. No acute pulmonary process
--- NOTE | 2020-11-01 16:00 | CT ---
EXAMINATION TYPE: CT angio upper extremity RT DATE OF EXAM: 11/01/2020 HISTORY: Right arm pain radiating to chest. History of PE. COMPARISON: CT a chest same date CT DLP: 6554 mGycm. Automated Exposure Control for Dose Reduction was Utilized. TECHNIQUE: CTA scan of the right upper extremity is performed with IV Contrast, patient injected wit h 100 mL of Isovue 370, axial images are obtained, coronal and sagittal reformatted images are review ed. Three-D reconstructed images are created on an independent workstation and reviewed. Source imag es are reviewed. FINDINGS: Subclavian artery and axillary artery and brachial artery and more distal branches appear p atent. No mass effect or masses are evident. The axillary region appears clear. Contrast is within th e arterial system. The venous system is nondilated unopacified. IMPRESSION: 1. No arterial abnormality within the right upper extremity CTA.
--- NOTE | 2020-11-01 16:08 | US ---
EXAMINATION TYPE: US venous doppler duplex UE RT DATE OF EXAM: 11/01/2020 COMPARISON: NONE CLINICAL HISTORY: pain. Pt states pain right arm SIDE PERFORMED: Right Right Arm: Negative for DVT IMPRESSION: 1. Right upper extremity ultrasound negative for deep venous thrombosis.
[2020-11-01 16:10] VITALS: BP 115/74; RESP 18
[2020-11-01 16:12] VITALS: PULSE 86
[2020-11-01] MEDS ORDERED: ONDANSETRON 4 MG/2 ML VIAL IVP STA (16:22)
== END 2020-11-01 16:50 | disposition home or self-care (01) ==
LOC: EC 14:10
DX: M79.601 Pain in right arm (principal); R11.0 Nausea; Z79.01 Long term (current) use of anticoagulants; Z79.899 Other long term (current) drug therapy; Z88.8 Allergy status to other drugs, medicaments and biological substances; Z86.718 Personal history of other venous thrombosis and embolism; Z86.711 Personal history of pulmonary embolism; Z87.891 Personal history of nicotine dependence
CPT/HCPCS: 36415; 93005; 80053; 82550; 83735; 84484; 85025; 85610; 85730; 93971; 71275; 73206; 99284; 96374; J2405; Q9967

== ENCOUNTER 2020-11-02 09:34 | Emergency (ER) | payer BC ==
[2020-11-02 09:40] VITALS: RESP 18
[2020-11-02] MEDS ORDERED: SODIUM CHLORIDE 0.9% 1,000 ML IV STA ×2 (09:44)
[2020-11-02 10:03] LABS: Basophils % (A) 0 %; Eosinophils # (A) 0.2 k/uL (0-0.7); Eosinophils % (A) 2 %; HCT 40.7 % (34.0-46.0); Lymphocytes % (A) 11 %; MCHC 34.3 g/dL (31.0-37.0); MCV 93.5 fL (80.0-100.0); Mean Platelet Volume 6.9; Monocytes # (A) 0.3 k/uL (0-1.0); Monocytes % (A) 4 %; Neutrophils # (A) 7.2 k/uL (1.3-7.7); Neutrophils % (A) 82 %; Platelet Count 307 k/uL (150-450); RBC 4.36 m/uL (3.80-5.40); RDW 11.9 % (11.5-15.5); WBC 8.8 k/uL (3.8-10.6)
--- NOTE | 2020-11-02 10:05 | ED ---
Nausea/Vomiting/Diarrhea HPI - General Chief complaint: Nausea/Vomiting/Diarrhea Stated complaint: nausea Time Seen by Provider: 11/02/20 09:34 Source: patient, EMS, RN notes reviewed, old records reviewed Limitations: no limitations - History of Present Illness Initial comments: This is a 40-year-old female with a history of clotting disorder who had a CAT scan done yesterday which apparently was negative who presents with complaints of nausea and decreased intake since yesterday. She also complains some dizziness. She believes she may have had a reaction to the contrast so nothing quite like this before. No fevers chills sweats to some vague abdominal discomfort and persistent nausea she was brought in by EMS. Other complaints or modifying factors at this time MD complaint: nausea - Related Data Home Medications Medication Instructions Recorded Confirmed Albuterol Sulfate [Ventolin HFA] 1 - 2 puff INHALATION RT-Q4H PRN 09/07/20 11/02/20 Omeprazole 20 mg PO HS 11/01/20 11/02/20 Rivaroxaban [Xarelto] 20 mg PO DAILY 11/01/20 11/02/20 Previous Rx's Medication Instructions Recorded Aspirin 81 mg PO DAILY chew 09/14/20 Ondansetron Odt [Zofran Odt] 4 mg PO Q8HR PRN #12 tab 11/02/20 Allergies Allergy/AdvReac Type Severity Reaction Status Date / Time cyclobenzaprine AdvReac Nausea & Verified 11/02/20 10:23 [From Flexeril] Vomiting & Diarrhea Iodinated Contrast Media AdvReac Nausea & Verified 11/02/20 10:23 lightheaded Review of Systems ROS Statement: Those systems with pertinent positive or pertinent negative responses have been documented in the HPI. ROS Other: All systems not noted in ROS Statement are negative. Past Medical History Past Medical History: Blood Disorder, Deep Vein Thrombosis (DVT), Pulmonary Embolus (PE) Additional Past Medical History / Comment(s): Factor 5 Leiden blood disorder,Stomach Ulcer, hernia, History of Any Multi-Drug Resistant Organisms: None Reported Past Surgical History: Breast Surgery, Section, Hernia Repair, Tonsillectomy, Tubal Ligation Additional Past Surgical History / Comment(s): umbilical hernia with mesh, and then mesh removed, D&C, Lasik, benign breast lumpectomy Past Anesthesia/Blood Transfusion Reactions: Postoperative Nausea & Vomiting (PONV) Past Psychological History: No Psychological Hx Reported Smoking Status: Former smoker Past Alcohol Use History: None Reported Past Drug Use History: None Reported - Past Family History Father Family Medical History: Cancer Additional Family Medical History / Comment(s): Father from cancer. Do not know other any other families history. Mother Family Medical History: No Reported History Additional Family Medical History / Comment(s): hip/knee replacement General Exam - General Exam Comments Initial Comments: This is a well-developed well-nourished awake alert oriented 3 female Limitations: no limitations General appearance: alert, anxious Head exam: Present: atraumatic, normocephalic, normal inspection Eye exam: Present: normal appearance, PERRL, EOMI. Absent: scleral icterus, conjunctival injection, periorbital swelling ENT exam: Present: mucous membranes dry Neck exam: Present: normal inspection. Absent: tenderness, meningismus, lymphadenopathy Respiratory exam: Present: normal lung sounds bilaterally. Absent: respiratory distress, wheezes, rales, rhonchi, stridor Cardiovascular Exam: Present: normal rhythm, tachycardia, normal heart sounds. Absent: systolic murmur, diastolic murmur, rubs, gallop, clicks GI/Abdominal exam: Present: soft, normal bowel sounds. Absent: distended, tenderness, guarding, rebound, rigid Extremities exam: Present: normal inspection, full ROM, normal capillary refill. Absent: tenderness, pedal edema, joint swelling, calf tenderness Back exam: Present: normal inspection Neurological exam: Present: alert, oriented X3, CN II-XII intact Psychiatric exam: Present: normal affect, normal mood Skin exam: Present: warm, dry, intact, normal color. Absent: rash Course Vital Signs 11/02/20 11/02/20 11/02/20 09:36 10:34 11:26 Temperature 98.2 F 98.3 F Pulse Rate 103 H 84 87 Respiratory 18 18 18 Rate Blood Pressure 122/84 117/81 113/75 O2 Sat by Pulse 98 96 97 Oximetry - Reevaluation(s) Reevaluation #1: 11/02/20 10:31 Reevaluation patient states she is feeling better though still somewhat nauseated. Medical Decision Making - Medical Decision Making Reevaluation patient reveals she is feeling much improved no more nausea. She will be discharged the symptoms did start after injection so this could be a delayed reaction however the patient is in satisfactory condition for discharge at this time. No other evidence of problems. - Lab Data Result diagrams: 11/02/20 09:52 11/02/20 09:52 Lab Results 11/02/20 11/02/20 11/02/20 Range/Units 09:52 09:52 09:52 WBC 8.8 (3.8-10.6) k/uL RBC 4.36 (3.80-5.40) m/uL Hgb 14.0 (11.4-16.0) gm/dL Hct 40.7 (34.0-46.0) % MCV 93.5 (80.0-100.0) fL MCH 32.0 (25.0-35.0) pg MCHC 34.3 (31.0-37.0) g/dL RDW 11.9 (11.5-15.5) % Plt Count 307 (150-450) k/uL MPV 6.9 Neutrophils % 82 % Lymphocytes % 11 % Monocytes % 4 % Eosinophils % 2 % Basophils % 0 % Neutrophils # 7.2 (1.3-7.7) k/uL Lymphocytes # 1.0 (1.0-4.8) k/uL Monocytes # 0.3 (0-1.0) k/uL Eosinophils # 0.2 (0-0.7) k/uL Basophils # 0.0 (0-0.2) k/uL Sodium 138 (137-145) mmol/L Potassium 3.9 (3.5-5.1) mmol/L Chloride 110 H (98-107) mmol/L Carbon Dioxide 22 (22-30) mmol/L Anion Gap 6 mmol/L BUN 8 (7-17) mg/dL Creatinine 0.94 (0.52-1.04) mg/dL Est GFR (CKD-EPI)AfAm 89 (>60 ml/min/1.73 sqM) Est GFR (CKD-EPI)NonAf 77 (>60 ml/min/1.73 sqM) Glucose 106 H (74-99) mg/dL Calcium 8.2 L (8.4-10.2) mg/dL Magnesium 2.0 (1.6-2.3) mg/dL Total Bilirubin 0.7 (0.2-1.3) mg/dL AST 22 (14-36) U/L ALT 14 (4-34) U/L Alkaline Phosphatase 64 (38-126) U/L Creatine Kinase 151 H (30-135) U/L Troponin I (0.000-0.034) ng/mL Total Protein 6.7 (6.3-8.2) g/dL Albumin 4.1 (3.5-5.0) g/dL Lipase 91 (23-300) U/L Urine Color Colorless Urine Appearance Clear (Clear) Urine pH 7.0 (5.0-8.0) Ur Specific [place] 1.002 (1.001-1.035) Urine Protein Negative (Negative) Urine Glucose (UA) Negative (Negative) Urine Ketones Negative (Negative) Urine Blood Negative (Negative) Urine Nitrite Negative (Negative) Urine Bilirubin Negative (Negative) Urine Urobilinogen <2.0 (<2.0) mg/dL Ur Leukocyte Esterase Negative (Negative) 11/02/20 Range/Units 09:52 WBC (3.8-10.6) k/uL RBC (3.80-5.40) m/uL Hgb (11.4-16.0) gm/dL Hct (34.0-46.0) % MCV (80.0-100.0) fL MCH (25.0-35.0) pg MCHC (31.0-37.0) g/dL RDW (11.5-15.5) % Plt Count (150-450) k/uL MPV Neutrophils % % Lymphocytes % % Monocytes % % Eosinophils % % Basophils % % Neutrophils # (1.3-7.7) k/uL Lymphocytes # (1.0-4.8) k/uL Monocytes # (0-1.0) k/uL Eosinophils # (0-0.7) k/uL Basophils # (0-0.2) k/uL Sodium (137-145) mmol/L Potassium (3.5-5.1) mmol/L Chloride (98-107) mmol/L Carbon Dioxide (22-30) mmol/L Anion Gap mmol/L BUN (7-17) mg/dL Creatinine (0.52-1.04) mg/dL Est GFR (CKD-EPI)AfAm (>60 ml/min/1.73 sqM) Est GFR (CKD-EPI)NonAf (>60 ml/min/1.73 sqM) Glucose (74-99) mg/dL Calcium (8.4-10.2) mg/dL Magnesium (1.6-2.3) mg/dL Total Bilirubin (0.2-1.3) mg/dL AST (14-36) U/L ALT (4-34) U/L Alkaline Phosphatase (38-126) U/L Creatine Kinase (30-135) U/L Troponin I <0.012 (0.000-0.034) ng/mL Total Protein (6.3-8.2) g/dL Albumin (3.5-5.0) g/dL Lipase (23-300) U/L Urine Color Urine Appearance (Clear) Urine pH (5.0-8.0) Ur Specific [place] (1.001-1.035) Urine Protein (Negative) Urine Glucose (UA) (Negative) Urine Ketones (Negative) Urine Blood (Negative) Urine Nitrite (Negative) Urine Bilirubin (Negative) Urine Urobilinogen (<2.0) mg/dL Ur Leukocyte Esterase (Negative) - EKG Data -: EKG Interpreted by Mo EKG shows normal: sinus rhythm, axis, intervals, QRS complexes, ST-T waves Rate: normal EKG Comments: Neuro sinus rhythm 88. Interval 146 QRS duration 94 QT since QTC 376/[address]-T wave changes Disposition Clinical Impression: Dehydration, Nausea Disposition: HOME SELF-CARE Condition: Good Instructions (If sedation given, give patient instructions): Acute Nausea and Vomiting (ED), Dehydration (ED) Prescriptions: Ondansetron Odt [Zofran Odt] 4 mg PO Q8HR PRN #12 tab PRN Reason: Nausea Is patient prescribed a controlled substance at d/c from ED?: No Referrals: Holger Farmer MD [Primary Care Provider] - 1-2 days
[2020-11-02 10:13] LABS: Appearance,Urine Clear (Clear); Bilirubin,Urine Negative (Negative); Blood,Urine Negative (Negative); Color,Urine Colorless; Glucose,Urine (UA) Negative (Negative); Ketones,Urine Negative (Negative); Leukocyte Esterase,Urine Negative (Negative); Nitrite,Urine Negative (Negative); Protein,Urine Negative (Negative); Specific Gravity,Urine 1.002 (1.001-1.035); Urobilinogen,Urine <2.0 mg/dL (<2.0)
[2020-11-02 10:26] LABS: Albumin 4.1 g/dL (3.5-5.0); Calcium 8.2 mg/dL (8.4-10.2); Potassium 3.9 mmol/L (3.5-5.1); Total Bilirubin 0.7 mg/dL (0.2-1.3); Total Protein 6.7 g/dL (6.3-8.2)
[2020-11-02] MEDS ORDERED: PROCHLORPERAZINE INJ 10 MG/2 ML VIAL IVP STA (10:31)
[2020-11-02 11:27] VITALS: BP 113/75; PULSE 87; TEMP 98.3
== END 2020-11-02 11:39 | disposition home or self-care (01) ==
LOC: EC 09:34
DX: E86.0 Dehydration (principal); R11.0 Nausea; Z79.01 Long term (current) use of anticoagulants; Z79.899 Other long term (current) drug therapy; Z88.8 Allergy status to other drugs, medicaments and biological substances; Z91.041 Radiographic dye allergy status; Z87.891 Personal history of nicotine dependence; Z86.711 Personal history of pulmonary embolism; Z86.718 Personal history of other venous thrombosis and embolism
CPT/HCPCS: 36415; 93005; 80053; 82550; 83690; 83735; 84484; 85025; 81003; 99284; 96374; 96361 ×2; J0780

== ENCOUNTER 2020-11-18 07:51 | Emergency (ER) | payer BC ==
[2020-11-18 08:14] VITALS: TEMP 97
[2020-11-18 08:27] LABS: Basophils # (A) 0.1 k/uL (0-0.2); Basophils % (A) 1 %; Eosinophils # (A) 0.3 k/uL (0-0.7); Eosinophils % (A) 4 %; HCT 40.3 % (34.0-46.0); HGB 13.5 gm/dL (11.4-16.0); Lymphocytes # (A) 1.3 k/uL (1.0-4.8); Lymphocytes % (A) 15 %; MCH 31.8 pg (25.0-35.0); MCHC 33.6 g/dL (31.0-37.0); MCV 94.5 fL (80.0-100.0); Mean Platelet Volume 7.2; Monocytes # (A) 0.4 k/uL (0-1.0); Monocytes % (A) 5 %; Neutrophils # (A) 6.5 k/uL (1.3-7.7); Neutrophils % (A) 74 %; Platelet Count 303 k/uL (150-450); RBC 4.26 m/uL (3.80-5.40); RDW 12.2 % (11.5-15.5); WBC 8.7 k/uL (3.8-10.6)
--- NOTE | 2020-11-18 08:29 | ED ---
General Adult HPI - General Chief complaint: Shortness of Breath Stated complaint: SOB Time Seen by Provider: 11/18/20 08:05 Source: patient, EMS, RN notes reviewed, old records reviewed Mode of arrival: EMS Limitations: no limitations - History of Present Illness Initial comments: This is a 40-year-old female who has a clotting disorder. Patient is currently on aspirin on Xarelto. Patient has had a history of DVTs as well as PEs. Patient comes in today because this morning when she woke up she had palpitations. Patient states it lasted until EMS arrived. Per EMS her heart rate was about 120 when they got there and shortly thereafter came down within normal range. Patient never experienced any difficulty breathing or shortness of breath. Patient denies any chest pain. Patient does complain of a little bit of left arm pain over the last few days. Patient denies any leg pain or calf pain. Patient denies any back pain. Patient states currently her symptoms have resolved but she states she still doesn't feel quite right. Patient did not take her morning dose of Xarelto and aspirin. I allow the patient to take both of those in the emergency department - Related Data Home Medications Medication Instructions Recorded Confirmed Rivaroxaban [Xarelto] 20 mg PO DAILY 11/01/20 11/18/20 Famotidine [Pepcid] 20 mg PO DAILY 11/18/20 11/18/20 Previous Rx's Medication Instructions Recorded Aspirin 81 mg PO DAILY chew 09/14/20 Ondansetron Odt [Zofran Odt] 4 mg PO Q8HR PRN #12 tab 11/02/20 Allergies Allergy/AdvReac Type Severity Reaction Status Date / Time cyclobenzaprine AdvReac Nausea & Verified 11/18/20 09:10 [From Flexeril] Vomiting & Diarrhea Iodinated Contrast Media AdvReac Nausea & Verified 11/18/20 09:10 lightheaded Review of Systems ROS Statement: Those systems with pertinent positive or pertinent negative responses have been documented in the HPI. ROS Other: All systems not noted in ROS Statement are negative. Past Medical History Past Medical History: Blood Disorder, Deep Vein Thrombosis (DVT), Pulmonary Embolus (PE) Additional Past Medical History / Comment(s): Factor 5 Leiden blood disorder,Stomach Ulcer, hernia, History of Any Multi-Drug Resistant Organisms: None Reported Past Surgical History: Breast Surgery, Section, Hernia Repair, Tonsillectomy, Tubal Ligation Additional Past Surgical History / Comment(s): umbilical hernia with mesh, and then mesh removed, D&C, Lasik, benign breast lumpectomy Past Anesthesia/Blood Transfusion Reactions: Postoperative Nausea & Vomiting (PONV) Past Psychological History: No Psychological Hx Reported Smoking Status: Former smoker Past Alcohol Use History: None Reported Past Drug Use History: None Reported - Past Family History Father Family Medical History: Cancer Additional Family Medical History / Comment(s): Father from cancer. Do not know other any other families history. Mother Family Medical History: No Reported History Additional Family Medical History / Comment(s): hip/knee replacement General Exam - General Exam Comments Initial Comments: GENERAL: Patient is well-developed and well-nourished. Patient is nontoxic and well- hydrated and is in mild distress. ENT: Neck is soft and supple. No significant lymphadenopathy is noted. Oropharynx is clear. Moist mucous membranes. Neck has full range of motion without eliciting any pain. EYES: The sclera were anicteric and conjunctiva were pink and moist. Extraocular movements were intact and pupils were equal round and reactive to light. Eyelids were unremarkable. PULMONARY: Unlabored respirations. Good breath sounds bilaterally. No audible rales rhonchi or wheezing was noted. CARDIOVASCULAR: There is a regular rate and rhythm without any murmurs gallops or rubs. ABDOMEN: Soft and nontender with normal bowel sounds. SKIN: Skin is clear with no lesions or rashes and otherwise unremarkable. NEUROLOGIC: Patient is alert and oriented x3. Cranial nerves II through XII are grossly intact. Motor and sensory are also intact. Normal speech, volume and content. Symmetrical smile. MUSCULOSKELETAL: Normal extremities with adequate strength and full range of motion. No lower extremity swelling or edema. No calf tenderness. LYMPHATICS: No significant lymphadenopathy is noted PSYCHIATRIC: Normal psychiatric evaluation. Limitations: no limitations Course Vital Signs 11/18/20 08:06 Temperature 97 F L Pulse Rate 84 Respiratory 17 Rate Blood Pressure 113/76 O2 Sat by Pulse 100 Oximetry Medical Decision Making - Medical Decision Making EKG shows normal sinus rhythm at 84 bpm GA interval is 140 QRS is 92 QT interval 370 QTC is 446 per patient's EKG shows no ST segment elevation or depression. Patient's chest x-ray shows no acute normalities. Patient's ultrasound of left upper extremity shows no DVT. I went back in and spoke with the patient she was asymptomatic and I indicated to her the next step would be to get a CT angiogram to rule out PE she was not comfortable with this. Patient states last time she reaction to the dye and she just had a CAT scan in October she did not want another CAT scan. 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 - Lab Data Result diagrams: 11/18/20 08:18 11/18/20 08:18 Lab Results 11/18/20 11/18/20 11/18/20 Range/Units 08:18 08:18 08:18 WBC 8.7 (3.8-10.6) k/uL RBC 4.26 (3.80-5.40) m/uL Hgb 13.5 (11.4-16.0) gm/dL Hct 40.3 (34.0-46.0) % MCV 94.5 (80.0-100.0) fL MCH 31.8 (25.0-35.0) pg MCHC 33.6 (31.0-37.0) g/dL RDW 12.2 (11.5-15.5) % Plt Count 303 (150-450) k/uL MPV 7.2 Neutrophils % 74 % Lymphocytes % 15 % Monocytes % 5 % Eosinophils % 4 % Basophils % 1 % Neutrophils # 6.5 (1.3-7.7) k/uL Lymphocytes # 1.3 (1.0-4.8) k/uL Monocytes # 0.4 (0-1.0) k/uL Eosinophils # 0.3 (0-0.7) k/uL Basophils # 0.1 (0-0.2) k/uL PT 10.8 (9.0-12.0) sec INR 1.0 (<1.2) APTT 25.8 (22.0-30.0) sec D-Dimer 0.20 (<0.60) mg/L FEU Sodium 137 (137-145) mmol/L Potassium 4.0 (3.5-5.1) mmol/L Chloride 109 H (98-107) mmol/L Carbon Dioxide 24 (22-30) mmol/L Anion Gap 4 mmol/L BUN 11 (7-17) mg/dL Creatinine 0.79 (0.52-1.04) mg/dL Est GFR (CKD-EPI)AfAm >90 (>60 ml/min/1.73 sqM) Est GFR (CKD-EPI)NonAf >90 (>60 ml/min/1.73 sqM) Glucose 96 (74-99) mg/dL Calcium 8.6 (8.4-10.2) mg/dL Magnesium 1.9 (1.6-2.3) mg/dL Total Bilirubin 0.6 (0.2-1.3) mg/dL AST 20 (14-36) U/L ALT 13 (4-34) U/L Alkaline Phosphatase 58 (38-126) U/L Troponin I (0.000-0.034) ng/mL Total Protein 6.8 (6.3-8.2) g/dL Albumin 4.2 (3.5-5.0) g/dL 11/18/20 Range/Units 08:18 WBC (3.8-10.6) k/uL RBC (3.80-5.40) m/uL Hgb (11.4-16.0) gm/dL Hct (34.0-46.0) % MCV (80.0-100.0) fL MCH (25.0-35.0) pg MCHC (31.0-37.0) g/dL RDW (11.5-15.5) % Plt Count (150-450) k/uL MPV Neutrophils % % Lymphocytes % % Monocytes % % Eosinophils % % Basophils % % Neutrophils # (1.3-7.7) k/uL Lymphocytes # (1.0-4.8) k/uL Monocytes # (0-1.0) k/uL Eosinophils # (0-0.7) k/uL Basophils # (0-0.2) k/uL PT (9.0-12.0) sec INR (<1.2) APTT (22.0-30.0) sec D-Dimer (<0.60) mg/L FEU Sodium (137-145) mmol/L Potassium (3.5-5.1) mmol/L Chloride (98-107) mmol/L Carbon Dioxide (22-30) mmol/L Anion Gap mmol/L BUN (7-17) mg/dL Creatinine (0.52-1.04) mg/dL Est GFR (CKD-EPI)AfAm (>60 ml/min/1.73 sqM) Est GFR (CKD-EPI)NonAf (>60 ml/min/1.73 sqM) Glucose (74-99) mg/dL Calcium (8.4-10.2) mg/dL Magnesium (1.6-2.3) mg/dL Total Bilirubin (0.2-1.3) mg/dL AST (14-36) U/L ALT (4-34) U/L Alkaline Phosphatase (38-126) U/L Troponin I <0.012 (0.000-0.034) ng/mL Total Protein (6.3-8.2) g/dL Albumin (3.5-5.0) g/dL Disposition Clinical Impression: Palpitations Disposition: HOME SELF-CARE Instructions (If sedation given, give patient instructions): Heart Palpitations (ED) Is patient prescribed a controlled substance at d/c from ED?: No Referrals: Holger Farmer MD [Primary Care Provider] - 1-2 days Time of Disposition: 10:05
[2020-11-18 08:36] LABS: ALT 13 U/L (4-34); AST 20 U/L (14-36); African American GFR (CKD) >90 (>60 ml/min/1.73 sqM); Albumin 4.2 g/dL (3.5-5.0); Alkaline Phosphatase 58 U/L (38-126); Anion Gap 4 mmol/L; Blood Urea Nitrogen 11 mg/dL (7-17); Calcium 8.6 mg/dL (8.4-10.2); Carbon Dioxide 24 mmol/L (22-30); Chloride 109 mmol/L (98-107); Glucose 96 mg/dL (74-99); Magnesium 1.9 mg/dL (1.6-2.3); Non-African American GFR(CKD) >90 (>60 ml/min/1.73 sqM); Sodium 137 mmol/L (137-145); Total Bilirubin 0.6 mg/dL (0.2-1.3); Total Protein 6.8 g/dL (6.3-8.2)
[2020-11-18 08:41] LABS: Partial Thromboplastin Time 25.8 sec (22.0-30.0); Prothrombin Time 10.8 sec (9.0-12.0)
--- NOTE | 2020-11-18 08:55 | XR ---
EXAMINATION TYPE: XR chest 2V DATE OF EXAM: 11/18/2020 COMPARISON: Chest x-ray March 06, 2019. CTA chest November 01, 2020 HISTORY: Difficulty in breathing. TECHNIQUE: Frontal and lateral views of the chest are obtained. FINDINGS: There is no suspicious new focal air space opacity, pleural effusion, or pneumothorax seen . The cardiac silhouette size remains within normal limits. Overlying EKG leads currently. The osse ous structures are intact. IMPRESSION: No new acute pulmonary process.
--- NOTE | 2020-11-18 09:35 | US ---
EXAMINATION TYPE: US venous doppler duplex UE LT DATE OF EXAM: 11/18/2020 COMPARISON: US right upper extremity November 01, 2020 CLINICAL HISTORY: History of DVTs and PEs with left arm pain. Left arm pain and numbness x 2 days wit h history of blood clotting disorder; EC physician state D Dimer was normal; patient taking blood thi nner, no swelling left arm per patient; IV in left arm today by EMT SIDE PERFORMED: left arm Left Arm: Negative for DVT, Negative for SVT. Grayscale, color doppler, spectral doppler imaging performed of the deep veins of the left upper extr emity. There is normal flow, compressibility and vascular waveforms. IMPRESSION: No ultrasound evidence for acute deep or superficial venous thrombosis in the left upper extremity.
[2020-11-18 10:28] VITALS: BP 118/78; PULSE 86; RESP 19
== END 2020-11-18 11:10 | disposition home or self-care (01) ==
LOC: EC 07:51
DX: R00.2 Palpitations (principal); Z79.01 Long term (current) use of anticoagulants; Z79.899 Other long term (current) drug therapy; Z88.8 Allergy status to other drugs, medicaments and biological substances; Z91.041 Radiographic dye allergy status; Z86.718 Personal history of other venous thrombosis and embolism; Z86.711 Personal history of pulmonary embolism; Z87.891 Personal history of nicotine dependence
CPT/HCPCS: 36415; 71046; 80053; 83735; 84484; 85025; 85379; 85610; 85730; 93005; 99285

== ENCOUNTER → 2020-11-21 | Outpatient (CLI) | payer BC | END | disposition home or self-care (01) | LOC: LABWHC1 14:44 | PROVIDERS: ATTEND Family Medicine | DX: Z20.828 Contact with and (suspected) exposure to other viral communicable diseases (principal) | CPT/HCPCS: U0003; C9803 ==

== ENCOUNTER 2020-11-24 21:13 | Emergency (ER) | payer BC ==
[2020-11-24 21:23] VITALS: PULSE 84
[2020-11-24] MEDS ORDERED: ONDANSETRON 4 MG/2 ML VIAL IVP STA (21:33)
--- NOTE | 2020-11-24 21:35 | ED ---
General Adult HPI - General Chief complaint: Neuro Symptoms/Deficit Stated complaint: face/neck numbness Time Seen by Provider: 11/24/20 21:26 Source: patient, RN notes reviewed Mode of arrival: ambulatory - History of Present Illness Initial comments: 40-year-old female presents to the emergency room for a chief complaint of face numbness 2 months. Patient states that for the past 2 months intermittently she has had numbness to the bilateral lower face and neck. States that she does not have any weakness, difficulty speaking, or changes in smiling during this time. States she can feel when someone touches her face. States that she has seen several different doctors for this and finally has a neurologist appointment in 2 weeks however wants to "get to the bottom of it" today. Patient denies any weakness of the extremities, or difficulty walking. She admits to nausea, denies any other associated symptoms. Denies chest pain or shortness of breath. Denies visual changes. Patient has not had headaches. Patient has no other complaints at this time including shortness of breath, chest pain, abdominal pain, nausea or vomiting, headache, or visual changes. - Related Data Home Medications Medication Instructions Recorded Confirmed Rivaroxaban [Xarelto] 20 mg PO DAILY 11/01/20 11/24/20 Famotidine [Pepcid] 20 mg PO DAILY 11/18/20 11/24/20 Albuterol Inhaler [Ventolin Hfa 2 puff INHALATION RT-QID PRN 11/24/20 11/24/20 Inhaler] Previous Rx's Medication Instructions Recorded Aspirin 81 mg PO DAILY chew 09/14/20 Allergies Allergy/AdvReac Type Severity Reaction Status Date / Time cyclobenzaprine AdvReac Nausea & Verified 11/24/20 22:18 [From Flexeril] Vomiting & Diarrhea Iodinated Contrast Media AdvReac Nausea & Verified 11/24/20 22:18 lightheaded Review of Systems ROS Statement: Those systems with pertinent positive or pertinent negative responses have been documented in the HPI. ROS Other: All systems not noted in ROS Statement are negative. Past Medical History Past Medical History: Blood Disorder, Deep Vein Thrombosis (DVT), Pulmonary Embolus (PE) Additional Past Medical History / Comment(s): Factor 5 Leiden blood disorder,Stomach Ulcer, hernia, History of Any Multi-Drug Resistant Organisms: None Reported Past Surgical History: Breast Surgery, Section, Hernia Repair, Tonsillectomy, Tubal Ligation Additional Past Surgical History / Comment(s): umbilical hernia with mesh, and then mesh removed, D&C, Lasik, benign breast lumpectomy Past Anesthesia/Blood Transfusion Reactions: Postoperative Nausea & Vomiting (PONV) Past Psychological History: No Psychological Hx Reported Smoking Status: Former smoker Past Alcohol Use History: None Reported Past Drug Use History: None Reported - Past Family History Father Family Medical History: Cancer Additional Family Medical History / Comment(s): Father from cancer. Do not know other any other families history. Mother Family Medical History: No Reported History Additional Family Medical History / Comment(s): hip/knee replacement General Exam General appearance: alert Head exam: Present: atraumatic Eye exam: Present: normal appearance, PERRL, EOMI. Absent: scleral icterus, c onjunctival injection ENT exam: Present: normal exam, mucous membranes moist Neck exam: Present: normal inspection, full ROM. Absent: tenderness, men ingismus, lymphadenopathy Respiratory exam: Present: normal lung sounds bilaterally. Absent: respiratory distress, wheezes, rales, rhonchi, stridor Cardiovascular Exam: Present: regular rate, normal rhythm, normal heart sounds. Absent: systolic murmur, diastolic murmur, rubs, gallop, clicks GI/Abdominal exam: Present: soft, normal bowel sounds. Absent: distended, tenderness, guarding, rebound, rigid Neurological exam: Present: alert, oriented X3, normal gait, other (GCS 15) Expanded Patient oriented to: Present: person, place, time Speech: Present: fluid speech Cranial nerves: EOM's Intact: Normal, Nystagmus: Normal, Facial Sensation: Normal Sensory exam: Upper Extremity Light Touch: Normal, Upper Extremity Pin Prick: Normal, Lower Extremity Light Touch: Normal, Lower Extremity Pin Prick: Normal Motor strength exam: RUE: 5, LUE: 5, RLE: 5, LLE: 5 Course Vital Signs 11/24/20 21:19 Temperature 97.7 F Pulse Rate 84 Respiratory 19 Rate Blood Pressure 132/86 O2 Sat by Pulse 97 Oximetry Medical Decision Making - Medical Decision Making Vitals are stable. No focal neurologic deficits. Patient states her lower face bilaterally is numb as well as her neck however patient does have sensation. CBC CMP magnesium normal. CT brain was negative. At this time patient is stable for discharge to follow up with neurology. She does have an appointment scheduled in less than 2 weeks. She will call Thursday to see if they can see her earlier. She will return here if there are any worsening symptoms. - Lab Data Result diagrams: 11/24/20 21:47 11/24/20 21:47 Lab Results 11/24/20 11/24/20 Range/Units 21:47 21:47 WBC 7.9 (3.8-10.6) k/uL RBC 4.31 (3.80-5.40) m/uL Hgb 13.6 (11.4-16.0) gm/dL Hct 40.3 (34.0-46.0) % MCV 93.5 (80.0-100.0) fL MCH 31.6 (25.0-35.0) pg MCHC 33.8 (31.0-37.0) g/dL RDW 12.3 (11.5-15.5) % Plt Count 314 (150-450) k/uL MPV 7.0 Neutrophils % 57 % Lymphocytes % 29 % Monocytes % 7 % Eosinophils % 4 % Basophils % 1 % Neutrophils # 4.5 (1.3-7.7) k/uL Lymphocytes # 2.3 (1.0-4.8) k/uL Monocytes # 0.6 (0-1.0) k/uL Eosinophils # 0.4 (0-0.7) k/uL Basophils # 0.0 (0-0.2) k/uL Sodium 137 (137-145) mmol/L Potassium 3.7 (3.5-5.1) mmol/L Chloride 106 (98-107) mmol/L Carbon Dioxide 23 (22-30) mmol/L Anion Gap 8 mmol/L BUN 11 (7-17) mg/dL Creatinine 0.81 (0.52-1.04) mg/dL Est GFR (CKD-EPI)AfAm >90 (>60 ml/min/1.73 sqM) Est GFR (CKD-EPI)NonAf >90 (>60 ml/min/1.73 sqM) Glucose 115 H (74-99) mg/dL Calcium 9.0 (8.4-10.2) mg/dL Magnesium 2.1 (1.6-2.3) mg/dL Total Bilirubin 0.4 (0.2-1.3) mg/dL AST 21 (14-36) U/L ALT 14 (4-34) U/L Alkaline Phosphatase 51 (38-126) U/L Total Protein 6.9 (6.3-8.2) g/dL Albumin 4.2 (3.5-5.0) g/dL Disposition Clinical Impression: Paresthesia Disposition: HOME SELF-CARE Condition: Good Instructions (If sedation given, give patient instructions): Paresthesia (ED) Additional Instructions: Please follow up with neurology at your scheduled appointment if not sooner. Return to the emergency room for any worsening symptoms. Is patient prescribed a controlled substance at d/c from ED?: No Referrals: Holger Farmer MD [Primary Care Provider] - 1-2 days Time of Disposition: 22:43
[2020-11-24 22:04] LABS: Basophils % (A) 1 %; Eosinophils # (A) 0.4 k/uL (0-0.7); Eosinophils % (A) 4 %; HCT 40.3 % (34.0-46.0); HGB 13.6 gm/dL (11.4-16.0); Lymphocytes # (A) 2.3 k/uL (1.0-4.8); Lymphocytes % (A) 29 %; MCH 31.6 pg (25.0-35.0); MCHC 33.8 g/dL (31.0-37.0); MCV 93.5 fL (80.0-100.0); Monocytes # (A) 0.6 k/uL (0-1.0); Monocytes % (A) 7 %; Neutrophils # (A) 4.5 k/uL (1.3-7.7); Neutrophils % (A) 57 %; Platelet Count 314 k/uL (150-450); RBC 4.31 m/uL (3.80-5.40); RDW 12.3 % (11.5-15.5); WBC 7.9 k/uL (3.8-10.6)
--- NOTE | 2020-11-24 22:09 | CT ---
EXAMINATION TYPE: CT brain wo con DATE OF EXAM: 11/24/2020 COMPARISON: 01/21/2018 HISTORY: Facial numbness and dizziness CT DLP: 1111.4 mGycm Automated exposure control for dose reduction was used. Ventricles and sulci appear normal. There is no mass effect nor midline shift. There is no sign of in tracranial hemorrhage. The calvarium is intact. Skull base is intact. IMPRESSION: Negative unenhanced head CT scan. No change.
[2020-11-24 22:15] LABS: ALT 14 U/L (4-34); AST 21 U/L (14-36); African American GFR (CKD) >90 (>60 ml/min/1.73 sqM); Albumin 4.2 g/dL (3.5-5.0); Alkaline Phosphatase 51 U/L (38-126); Anion Gap 8 mmol/L; Blood Urea Nitrogen 11 mg/dL (7-17); Carbon Dioxide 23 mmol/L (22-30); Chloride 106 mmol/L (98-107); Glucose 115 mg/dL (74-99); Magnesium 2.1 mg/dL (1.6-2.3); Non-African American GFR(CKD) >90 (>60 ml/min/1.73 sqM); Potassium 3.7 mmol/L (3.5-5.1); Sodium 137 mmol/L (137-145); Total Bilirubin 0.4 mg/dL (0.2-1.3); Total Protein 6.9 g/dL (6.3-8.2)
[2020-11-24 23:19] VITALS: BP 127/90; RESP 18; TEMP 98
== END 2020-11-24 23:20 | disposition home or self-care (01) ==
LOC: EC 21:13
DX: R20.2 Paresthesia of skin (principal); R20.0 Anesthesia of skin; Z79.01 Long term (current) use of anticoagulants; Z79.899 Other long term (current) drug therapy; Z88.8 Allergy status to other drugs, medicaments and biological substances; Z91.041 Radiographic dye allergy status; Z86.718 Personal history of other venous thrombosis and embolism; Z87.891 Personal history of nicotine dependence; Z86.711 Personal history of pulmonary embolism
CPT/HCPCS: 36415; 93005; 80053; 83735; 85025; 70450; 99284; 96374; J2405

== ENCOUNTER → 2020-12-10 | Outpatient (CLI) | payer BC ==
--- NOTE | 2020-12-10 15:40 | US ---
EXAMINATION TYPE: US venous doppler duplex LE BI DATE OF EXAM: 12/10/2020 2:57 PM COMPARISON: 11/18/2020 CLINICAL HISTORY: 40-year-old female Acute pain M79.661; M79.662 Pain Rt Lt Lower. Factor 5 clotting disorder. Leg pain. On Xarelto and baby aspirin. Hx clots. SIDE PERFORMED: Bilateral TECHNIQUE: The lower extremity deep venous system is examined utilizing real time linear array sonog irais with graded compression, doppler sonography and color-flow sonography. FINDINGS: VESSELS IMAGED: Common Femoral Vein Deep Femoral Vein Greater Saphenous Vein * Femoral Vein Popliteal Vein Small Saphenous Vein * Proximal Calf Veins (* superficial vessels) Right Leg: Positive for DVT in lower Femoral vein, internal echoes seen, nonoccluding. Femoral vein appears small in size. Left Leg: Positive for SVT in GSV, internal echoes visualized, nonoccluding. IMPRESSION: 1. Exam positive for nonocclusive right lower extremity DVT involving the lower femoral vein, likely chronic. 2. Exam positive for nonocclusive SVT in the left greater saphenous vein, likely chronic. 3. No occlusive DVT seen on either side.
== END | disposition home or self-care (01) ==
LOC: RADUSWWP 14:18
PROVIDERS: ATTEND Internal Medicine Hematology & Oncology
DX: I82.812 Embolism and thrombosis of superficial veins of left lower extremity (principal); I82.411 Acute embolism and thrombosis of right femoral vein
CPT/HCPCS: 93970

== ENCOUNTER 2020-12-24 07:41 | Inpatient (IN) | payer BC ==
--- NOTE | 2020-12-24 08:12 | ED ---
Extremity Problem HPI - General Chief complaint: Extremity Problem,Nontraumatic Stated complaint: leg pain/poss blood clot Time Seen by Provider: 12/24/20 07:55 Source: patient, RN notes reviewed Mode of arrival: ambulatory Limitations: no limitations - History of Present Illness Initial comments: Patient is a 40-year-old female presented to the emergency room today with a chief complaint of pain to the right leg. Patient does admit to history of blood clots. States that she she's currently on a blood thinner Xeralto. She does not that she had a clot passage, blood thinner. She states that she began having some discomfort yesterday in the right upper thigh. Patient denies any other complaints or any other symptoms. Patient denies any recent fever, chills, shortness of breath, chest pain, back pain, abdominal pain, nausea or vomiting, constipation or diarrhea, headaches or visual changes, or any other complaints. - Related Data Home Medications Medication Instructions Recorded Confirmed Rivaroxaban [Xarelto] 20 mg PO DAILY 11/01/20 12/24/20 Famotidine [Pepcid] 20 mg PO HS 11/18/20 12/24/20 Albuterol Sulfate [Proventil Hfa] 1 puff INHALATION RT-Q4H PRN 12/24/20 12/24/20 Ergocalciferol [Vitamin D2 (1250 1,250 mcg PO [place] 12/24/20 12/24/20 Mcg = [id number] Iu)] Previous Rx's Medication Instructions Recorded Aspirin 81 mg PO DAILY chew 09/14/20 Allergies Allergy/AdvReac Type Severity Reaction Status Date / Time cyclobenzaprine AdvReac Nausea & Verified 12/24/20 08:24 [From Flexeril] Vomiting & Diarrhea Iodinated Contrast Media AdvReac Nausea & Verified 12/24/20 08:24 lightheaded Review of Systems ROS Statement: Those systems with pertinent positive or pertinent negative responses have been documented in the HPI. ROS Other: All systems not noted in ROS Statement are negative. Past Medical History Past Medical History: Blood Disorder, Deep Vein Thrombosis (DVT), Pulmonary Embolus (PE) Additional Past Medical History / Comment(s): Factor 5 Leiden blood disorder,Stomach Ulcer, hernia, History of Any Multi-Drug Resistant Organisms: None Reported Past Surgical History: Breast Surgery, Section, Hernia Repair, Tonsillectomy, Tubal Ligation Additional Past Surgical History / Comment(s): umbilical hernia with mesh, and then mesh removed, D&C, Lasik, benign breast lumpectomy Past Anesthesia/Blood Transfusion Reactions: Postoperative Nausea & Vomiting (PONV) Past Psychological History: No Psychological Hx Reported Smoking Status: Former smoker Past Alcohol Use History: None Reported Past Drug Use History: None Reported - Past Family History Father Family Medical History: Cancer Additional Family Medical History / Comment(s): Father from cancer. Do not know other any other families history. Mother Family Medical History: No Reported History Additional Family Medical History / Comment(s): hip/knee replacement General Exam - General Exam Comments Initial Comments: General: The patient is awake and alert, in no distress, and does not appear acutely ill. Eye: There is normal conjunctiva bilaterally. No signs of icterus. Ears, nose, mouth and throat: There are moist mucous membranes and no oral lesions. Neck: The neck is supple, there is no tenderness or JVD. Cardiovascular: There is a regular rate and rhythm. No murmur, rub or gallop is appreciated. Respiratory: Lungs are clear to auscultation, respirations are non-labored, breath sounds are equal. No wheezes, stridor, rales, or rhonchi. Gastrointestinal: Musculoskeletal: Normal ROM, no tenderness. Strength 5/5. Sensation intact. Neurological: A&O x 3. CN II-XII intact, There are no obvious motor or sensory deficits. Coordination appears grossly intact. Speech is normal. Skin: Skin is warm and dry and no rashes or lesions are noted. Psychiatric: Cooperative, appropriate mood & affect, normal judgment. Limitations: no limitations Course Vital Signs 12/24/20 07:47 Pulse Rate 86 Respiratory 18 Rate Blood Pressure 132/88 O2 Sat by Pulse 99 Oximetry Medical Decision Making - Medical Decision Making Patient's ultrasound reviewed and does show evidence of acute thrombosis. I case was discussed with nurse practitioner from Dr. Atwood's office who recommends admission placing patient on high-dose heparin. Patient started on heparin here in emergency room. Will be admitted to the hospital. Disposition Clinical Impression: Deep vein thrombosis (DVT) of lower extremity Disposition: ADMITTED IP TO THIS HOSP Condition: Stable Is patient prescribed a controlled substance at d/c from ED?: No Referrals: Holger Farmer MD [Primary Care Provider] - 1-2 days Time of Disposition: 10:26
--- NOTE | 2020-12-24 09:07 | US ---
EXAMINATION TYPE: US venous doppler duplex LE RT DATE OF EXAM: 12/24/2020 8:46 AM COMPARISON: NONE CLINICAL HISTORY: 40-year-old female pain. Factor 5 patient, multiple prior DVTs per patient with PE' s, on Xarelto, pain in right leg/groin today SIDE PERFORMED: Right TECHNIQUE: The lower extremity deep venous system is examined utilizing real time linear array sonog irais with graded compression, doppler sonography and color-flow sonography. VESSELS IMAGED: Common Femoral Vein Deep Femoral Vein Greater Saphenous Vein * Femoral Vein Popliteal Vein Small Saphenous Vein * Proximal Calf Veins (* superficial vessels) Right Leg: Unable to get flow within distal femoral vein and this area did not compress. Exterior Work Helper notes: Past ultrasounds have produced the same appearance, unable to determine if this is chronic ve rsus acute. IMPRESSION: Redemonstrated DVT within the lower right femoral vein. As compared to 12/10/2020, partial color flow is no longer demonstrated. Unable to exclude acute on chronic thrombosis. Further clinical correlatio n recommended.
[2020-12-24] MEDS ORDERED: HEPARIN SODIUM,PORCINE 5,000 UNIT/ML 1 ML VIAL IV PRN (10:14)
[2020-12-24] MEDS ORDERED: HEPARIN SODIUM,PORCINE 10,000 UNIT/ML 1 ML VIAL IV ONE (10:14)
[2020-12-24] MEDS ORDERED: NALOXONE 0.4 MG/ML 1 ML VIAL IV PRN (10:26)
[2020-12-24] MEDS ORDERED: ACETAMINOPHEN TAB 325 MG TAB PO PRN (10:26)
[2020-12-24] MEDS: HEPARIN SOD,PORK IN 0.45% NACL 25,000 UNIT in 0.45% NACL 1 250ML.BAG IV SCH (10:33)
[2020-12-24 10:37] VITALS: RESP 16
[2020-12-24 10:54] LABS: Basophils % (A) 0 %; Eosinophils # (A) 0.2 k/uL (0-0.7); Eosinophils % (A) 2 %; HCT 41.9 % (34.0-46.0); HGB 14.2 gm/dL (11.4-16.0); Lymphocytes # (A) 1.3 k/uL (1.0-4.8); Lymphocytes % (A) 16 %; MCH 31.9 pg (25.0-35.0); MCHC 33.9 g/dL (31.0-37.0); MCV 94.3 fL (80.0-100.0); Mean Platelet Volume 7.7; Monocytes # (A) 0.4 k/uL (0-1.0); Monocytes % (A) 5 %; Neutrophils # (A) 5.9 k/uL (1.3-7.7); Neutrophils % (A) 75 %; Platelet Count 270 k/uL (150-450); RBC 4.44 m/uL (3.80-5.40); RDW 12.3 % (11.5-15.5); WBC 7.8 k/uL (3.8-10.6)
[2020-12-24 10:59] LABS: African American GFR (CKD) >90 (>60 ml/min/1.73 sqM); Anion Gap 9 mmol/L; Blood Urea Nitrogen 9 mg/dL (7-17); Carbon Dioxide 21 mmol/L (22-30); Chloride 106 mmol/L (98-107); Glucose 103 mg/dL (74-99); Non-African American GFR(CKD) 85 (>60 ml/min/1.73 sqM); Potassium 4.1 mmol/L (3.5-5.1); Sodium 136 mmol/L (137-145)
[2020-12-24 11:32] LABS: INR 1.4 (<1.2); Prothrombin Time 14.3 sec (9.0-12.0)
[2020-12-24 12:22] LABS: Partial Thromboplastin Time >200.0 sec (22.0-30.0)
[2020-12-24] MEDS ORDERED: ALBUTEROL NEBULIZED 2.5 MG/3 ML INHALATION PRN (13:28)
--- NOTE | 2020-12-24 16:40 | P.HPIM ---
History of Present Illness H&P Date: 12/24/20 This is a 40-year-old female patient of Dr. Holger Farmer with past medical history of heterzygous for factor V leiden mutation under the care of Dr. Atwood with initial bilateral DVT in 2014 after having . That was followed by a right lower extremity DVT and bilateral PE in 2019. She was last admitted in April 2020 for right lower extremity DVT. She was seen by oncology at that time and was on Xarelto 10 mg daily and was considered a failed Xarelto, subsequently started on Pradaxa. Patient complains of pressure pain in the left leg in the pretibial area and proximal calf area. She denies having any significant edema or erythema. She is currently maintained on Pradaxa 150 mg twice daily. Patient has had one and one live via . No miscarriages. Patient was seen mentions from secondary to increasing swelling in bilateral legs, pain in the right upper thigh, she is currently on Xarelto. and in the emergency room, Dopplers were done, that shows right femoral vein thrombosis, unable to determine whether this is acute or chronic, however it was recommended by oncology for her to be admitted with IV heparin. Review of Systems Constitutional: Reports as per HPI, Denies anorexia, Denies chills, Denies chronic headaches, Denies chronic pain, Denies daytime sleepiness, Denies fatigue, Denies fever, Denies lethargy, Denies malaise, Denies night sweats, Denies poor appetite, Denies sweats, Denies weakness, Denies weight gain, Denies weight loss Ears, nose, mouth and throat: Reports as per HPI, Denies ant. neck pain, Denies bleeding gums, Denies dental pain, Denies dysphagia, Denies epistaxis, Denies headache, Denies hoarseness, Denies mouth pain, Denies nasal congestion, Denies nasal discharge, Denies neck fullness/pressure, Denies neck lump, Denies nose pain, Denies odynophagia, Denies post-nasal drip, Denies sinus pain, Denies sinus pressure, Denies swelling in mouth, Denies swelling in throat, Denies sore throat, Denies vertigo, Denies voice changes Cardiovascular: Reports as per HPI, Denies chest pain, Denies claudication, Denies decreased exercise tolerance, Denies dyspnea on exertion, Denies edema, Denies high blood pressure, Denies irregular heart beat, Denies leg edema, Denies lightheadedness, Denies orthopnea, Denies palpitations, Denies paroxysmal nocturnal dyspnea, Denies phlebitis, Denies rapid heart beat, Denies shortness of breath, Denies syncope Respiratory: Reports as per HPI, Denies congestion, Denies cough, Denies cough with sputum, Denies dyspnea, Denies excessive sputum, Denies hemoptysis, Denies home oxygen, Denies pain, Denies pain on inspiration, Denies pleurisy, Denies respiratory infections, Denies sleep apnea, Denies snoring, Denies wheezing Gastrointestinal: Reports as per HPI, Denies abdominal pain, Denies belching, Denies bloating, Denies BRBPR, Denies change in bowel habits, Denies coffee ground emesis, Denies constipation, Denies diarrhea, Denies dyspepsia, Denies early satiety, Denies excessive gas, Denies heartburn, Denies hematemesis, Denies hematochezia, Denies indigestion, Denies jaundice, Denies lactose intolerance, Denies loss of appetite, Denies melena, Denies nausea, Denies vomiting Genitourinary: Reports as per HPI Menstruation: Reports as per HPI, Reports period heavy Musculoskeletal: Reports as per HPI Integumentary: Reports as per HPI, Denies acne, Denies boils, Denies brittle nails, Denies change in hair/nails, Denies color changes, Denies darkening of skin, Denies depigmentation, Denies dryness, Denies foot/leg ulcers, Denies growths, Denies hirsutism, Denies lesions, Denies onychomycosis, Denies pruritus, Denies rash, Denies sores, Denies striae, Denies unusual bruising, Denies wounds Neurological: Reports as per HPI Psychiatric: Reports as per HPI Endocrine: Reports as per HPI Hematologic/Lymphatic: Reports as per HPI Allergic/Immunologic: Reports as per HPI Past Medical History Past Medical History: Asthma, Blood Disorder, Deep Vein Thrombosis (DVT), Pulmonary Embolus (PE) Additional Past Medical History / Comment(s): 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 History of Any Multi-Drug Resistant Organisms: None Reported Past Surgical History: Breast Surgery, Section, Hernia Repair, Tons illectomy, Tubal Ligation Additional Past Surgical History / Comment(s): EGDs, umbilical hernia with mesh/then mesh removed, benign breast lumpectomy-pt cannot recall laterallity, hysteroscopy/D&C, bilateral eye lasik surgery for vision correction. Past Anesthesia/Blood Transfusion Reactions: Postoperative Nausea & Vomiting (PONV) Additional Past Anesthesia/Blood Transfusion Reaction / Comment(s): Pt has clausterphobia. Smoking Status: Former smoker - Past Family History Father Family Medical History: Cancer Additional Family Medical History / Comment(s): Father from cancer at the age of 54yrs, pt believes it was an endocrine type cancer. Mother Family Medical History: Osteoarthritis (OA) Additional Family Medical History / Comment(s): Mother has had multiple joint replacements. Medications and Allergies Home Medications Medication Instructions Recorded Confirmed Type Aspirin 81 mg PO DAILY chew 09/14/20 12/24/20 Rx Rivaroxaban [Xarelto] 20 mg PO DAILY 11/01/20 12/24/20 History Famotidine [Pepcid] 20 mg PO HS 11/18/20 12/24/20 History Albuterol Sulfate [Proventil Hfa] 1 puff INHALATION RT-Q4H PRN 12/24/20 12/24/20 History Ergocalciferol [Vitamin D2 (1250 1,250 mcg PO WHITT[place] 12/24/20 12/24/20 History Mcg = 96550 Iu)] Allergies Allergy/AdvReac Type Severity Reaction Status Date / Time cyclobenzaprine AdvReac Nausea & Verified 12/24/20 08:24 [From Flexeril] Vomiting & Diarrhea Iodinated Contrast Media AdvReac Nausea & Verified 12/24/20 08:24 lightheaded Physical Exam Vitals: Vital Signs Temp Pulse Pulse Resp BP BP Pulse Ox 12/24/20 15:08 98.2 F 91 16 110/72 97 12/24/20 12:25 98.2 F 76 16 115/75 100 12/24/20 10:37 85 16 115/74 98 12/24/20 07:47 86 18 132/88 99 Intake and Output 12/24/20 12/24/20 12/24/20 06:59 14:59 22:59 Intake Total 22.453 Balance 22.453 Intake: Intake, IV Titration 22.453 Amount Heparin Sod,Pork in 0.45% 22.453 NaCl 25,000 unit In 0.45 % NaCl 1 250ml.bag @ 18 UNITS/KG/HR 12.247 mls/hr IV .[id number] MICAELA Rx#: [id number] Other: Weight 68.039 kg - Constitutional General appearance: average body habitus, cooperative - Neck Neck: normal ROM Thyroid: bilateral: normal size - Respiratory Respiratory: negative: CTA, diminished, dullness, rales, rhonchi - Cardiovascular Rhythm: regular Abnormal Heart Sounds: no systolic murmur, no diastolic murmur, no rub, no S3 Gallop, no S4 Gallop, no click, no other - Gastrointestinal General gastrointestinal: normal bowel sounds, soft - Integumentary Integumentary: normal - Neurologic Neurologic: CNII-XII intact - Musculoskeletal Musculoskeletal: gait normal, strength equal bilaterally - Psychiatric Psychiatric: A&O x's 3, appropriate affect, intact judgment & insight Results CBC & Chem 7: 12/24/20 10:38 12/24/20 10:17 Labs: Abnormal Lab Results - Last 24 Hours (Table) 12/24/20 12/24/20 Range/Units 10:17 10:38 PT 14.3 H (9.0-12.0) sec INR 1.4 H (<1.2) APTT >200.0 H* (22.0-30.0) sec Sodium 136 L (137-145) mmol/L Carbon Dioxide 21 L (22-30) mmol/L Glucose 103 H (74-99) mg/dL Laboratory Results WBC 7.8 k/uL (3.8-10.6) 12/24/20 10:38 RBC 4.44 m/uL (3.80-5.40) 12/24/20 10:38 Hgb 14.2 gm/dL (11.4-16.0) 12/24/20 10:38 Hct 41.9 % (34.0-46.0) 12/24/20 10:38 MCV 94.3 fL (80.0-100.0) 12/24/20 10:38 MCH 31.9 pg (25.0-35.0) 12/24/20 10:38 MCHC 33.9 g/dL (31.0-37.0) 12/24/20 10:38 RDW 12.3 % (11.5-15.5) 12/24/20 10:38 Plt Count 270 k/uL (150-450) 12/24/20 10:38 MPV 7.7 12/24/20 10:38 Neutrophils % 75 % 12/24/20 10:38 Lymphocytes % 16 % 12/24/20 10:38 Monocytes % 5 % 12/24/20 10:38 Eosinophils % 2 % 12/24/20 10:38 Basophils % 0 % 12/24/20 10:38 Neutrophils # 5.9 k/uL (1.3-7.7) 12/24/20 10:38 Lymphocytes # 1.3 k/uL (1.0-4.8) 12/24/20 10:38 Monocytes # 0.4 k/uL (0-1.0) 12/24/20 10:38 Eosinophils # 0.2 k/uL (0-0.7) 12/24/20 10:38 Basophils # 0.0 k/uL (0-0.2) 12/24/20 10:38 PT 14.3 sec (9.0-12.0) H 12/24/20 10:38 INR 1.4 (<1.2) H 12/24/20 10:38 APTT >200.0 sec (22.0-30.0) H* 12/24/20 10:38 Sodium 136 mmol/L (137-145) L 12/24/20 10:17 Potassium 4.1 mmol/L (3.5-5.1) 12/24/20 10:17 Chloride 106 mmol/L (98-107) 12/24/20 10:17 Carbon Dioxide 21 mmol/L (22-30) L 12/24/20 10:17 Anion Gap 9 mmol/L 12/24/20 10:17 BUN 9 mg/dL (7-17) 12/24/20 10:17 Creatinine 0.87 mg/dL (0.52-1.04) 12/24/20 10:17 Est GFR (CKD-EPI)AfAm >90 (>60 ml/min/1.73 sqM) 12/24/20 10:17 Est GFR (CKD-EPI)NonAf 85 (>60 ml/min/1.73 sqM) 12/24/20 10:17 Glucose 103 mg/dL (74-99) H 12/24/20 10:17 Calcium 9.0 mg/dL (8.4-10.2) 12/24/20 10:17 Coronavirus (PCR) Not Detected (Not Detectd) 12/24/20 10:38 Thrombosis Risk Factor Assmnt - Choose All That Apply Any of the Below Risk Factors Present?: Yes Each Risk Factor Represents 3 Points: Positive Factor V Leiden, History of DVT/PE Other congenital or acquired thrombophilia - If yes, enter type in comment: No Thrombosis Risk Factor Assessment Total Risk Factor Score: 6 Thrombosis Risk Factor Assessment Level: High Risk Assessment and Plan Plan: ASSESSMENT AND PLAN 1 DVT, right femoral vein chronic unknow with acute component, right thigh pain, with the current DVT PE in past Patient was placed on heparin. She has been taking xarelto as ordered. 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 Previous episodes of DVT including pulmonary embolism. Continue anticoagulation. Patient is under the care of oncology. 3. History of heterzygous for factor V leiden mutation. 4. GI prophylaxis. Pepcid. 5 DVT prophylaxis. Patient is on heparin drip.
[2020-12-24] MEDS ORDERED: ONDANSETRON 4 MG/2 ML VIAL IVP PRN (20:56)
[2020-12-24] MEDS ORDERED: FAMOTIDINE 20 MG TAB PO SCH (21:00)
[2020-12-24 21:33] VITALS: PULSE 80
[2020-12-24] MEDS ORDERED: BARIUM SULFATE 450 ML ORAL.SUSP BOTTLE PO PRN (22:33)
[2020-12-24] MEDS ORDERED: HYDROcodone/APAP 5-325MG 1 EACH TAB PO PRN (22:40)
[2020-12-25 00:59] LABS: Appearance,Urine Clear (Clear); Bilirubin,Urine Negative (Negative); Blood,Urine Negative (Negative); Color,Urine Light Yellow; Glucose,Urine (UA) Negative (Negative); Ketones,Urine Trace (Negative); Leukocyte Esterase,Urine Negative (Negative); Nitrite,Urine Negative (Negative); PH, Urine 5.5 (5.0-8.0); Protein,Urine Negative (Negative); Specific Gravity,Urine 1.008 (1.001-1.035); Urobilinogen,Urine <2.0 mg/dL (<2.0)
--- NOTE | 2020-12-25 03:38 | CT ---
EXAM: CT Abdomen and Pelvis Without Intravenous Contrast CLINICAL HISTORY: ITS.REASON CT Reason: pain TECHNIQUE: Axial computed tomography images of the abdomen and pelvis without intravenous contrast. CTDI is 6.10 mGy and DLP is 317.80 mGy-cm. This CT exam was performed using one or more of the following dose reduction techniques: automated exposure control, adjustment of the mA and/or kV according to patient size, and/or use of iterative reconstruction technique. COMPARISON: 08/15/2020 FINDINGS: Lung bases: No mass. No consolidation. ABDOMEN: Liver: Unremarkable. Gallbladder and bile ducts: Unremarkable. Pancreas: No ductal dilation. Spleen: Unremarkable. Adrenals: Unremarkable. Kidneys and ureters: No obstructing stones. No hydronephrosis. Stomach and bowel: No bowel obstruction. No bowel wall thickening. PELVIS: Appendix: No evidence of appendicitis. Bladder: No stones. Reproductive: Unremarkable. Bilateral tubal ligations. ABDOMEN and PELVIS: Intraperitoneal space: Unremarkable. Bones/joints: No acute fractures. Soft tissues: Unchanged wide neck anterior abdominal wall hernia. Vasculature: No abdominal aortic aneurysm. Lymph nodes: No enlarged lymph nodes. IMPRESSION: No acute findings.
[2020-12-25 05:02] VITALS: BP 115/72; TEMP 97.7
[2020-12-25] MEDS: HEPARIN SOD,PORK IN 0.45% NACL 25,000 UNIT in 0.45% NACL 1 250ML.BAG IV SCH (08:46)
[2020-12-25] MEDS ORDERED: ASPIRIN 81 MG PO SCH (09:00)
[2020-12-25 09:35] LABS: Basophils # (A) 0.04 X 10*3/uL (0.00-0.10); Basophils % (A) 0.6 %; Eosinophils # (A) 0.27 X 10*3/uL (0.04-0.35); Eosinophils % (A) 4.1 %; HGB 12.7 g/dL (12.0-15.0); Lymphocytes # (A) 2.44 X 10*3/uL (0.90-5.00); Lymphocytes % (A) 36.9 %; MCH 31.1 pg (27.0-32.0); MCHC 32.6 g/dL (32.0-37.0); MCV 95.4 fL (80.0-97.0); Mean Platelet Volume 10.8 fL (9.5-12.2); Monocytes # (A) 0.56 X 10*3/uL (0.20-1.00); Monocytes % (A) 8.5 %; Neutrophils # (A) 3.29 X 10*3/uL (1.80-7.70); Neutrophils % (A) 49.6 %; Platelet Count 306 X 10*3/uL (140-440); RBC 4.09 X 10*6/uL (4.10-5.20); RDW 12.6 % (11.5-14.5); WBC 6.62 X 10*3/uL (4.50-10.00)
[2020-12-25] MEDS ORDERED: ENOXAPARIN 80 MG/0.8 ML SYRINGE SQ STA (11:46)
--- NOTE | 2020-12-26 07:55 | P.DS ---
Providers Date of admission: 12/24/20 10:26 Expected date of discharge: 12/25/20 Attending physician: Diana Starks Consults: 12/24/20 10:26 Consult Physician Stat Consulting Provider: Yeison Atwood Consult Reason/Comments: DVT Do you want consulting provider notified?: Yes 12/24/20 16:50 Consult Physician Routine Consulting Provider: Miguel Castillo Consult Reason/Comments: dvt chronic poss acute vx postphlebitis syndrome Do you want consulting provider notified?: Already Contacted Primary care physician: Holger Farmer [facility] Course: This is a 40-year-old female patient of Dr. Holger Farmer with past medical history of heterzygous for factor V leiden mutation under the care of Dr. Atwood with initial bilateral DVT in 2014 after having . That was followed by a right lower extremity DVT and bilateral PE in 2018. She was last admitted in April 2020 for right lower extremity DVT. She was seen by oncology at that time and was on Xarelto 10 mg daily and was considered a failed Xarelto, subsequently started on Pradaxa. Patient complains of pressure pain in the left leg in the pretibial area and proximal calf area. She denies having any significant edema or erythema. She is currently maintained on Pradaxa 150 mg twice daily. Patient has had one and one live via . No miscarriages. Patient was seen mentions from secondary to increasing swelling in bilateral legs, pain in the right upper thigh, she is currently on Xarelto. and in the emergency room, Dopplers were done, that shows right femoral vein thrombosis, unable to determine whether this is acute or chronic, however it was recommended by oncology for her to be admitted with IV heparin. 12/25: Patient has been seen by oncology with recommendations for Lovenox 70 mg subcu every 12 hours. Patient will hold Xarelto. Plan is for patient to follow-up with Dr. Castillo in the next week for further evaluation of acute versus chronicity of the DVT. Patient has a febrile, heart rate 80, blood pressure 115/72, pulse ox 99% on room air. CBC is unremarkable. Urinalysis negative for infection. Patient will be discharged home today in stable cond ition. Discharge diagnoses: 1 DVT, right femoral vein chronic unknow with acute component, right thigh pain, with the current DVT PE in past 2. Previous episodes of DVT including pulmonary embolism. 3. History of heterzygous for factor V leiden mutation. Discharge plan: Home Impression and plan of care have been directed as dictated by the signing physician. Heather Marinelli nurse practitioner acting as scribe for signing physician. Patient Condition at Discharge: Good Plan - Discharge Summary Discharge Rx Participant: No New Discharge Prescriptions: New Enoxaparin [Lovenox] 70 mg SQ Q12H #60 syringe Continue Aspirin 81 mg PO DAILY chew Famotidine [Pepcid] 20 mg PO HS Albuterol Sulfate [Proventil Hfa] 1 puff INHALATION RT-Q4H PRN PRN Reason: Wheezing Ergocalciferol [Vitamin D2 (1250 Mcg = 28237 Iu)] 1,250 mcg PO WHITTINGTON Discontinued Rivaroxaban [Xarelto] 20 mg PO DAILY Discharge Medication List Aspirin 81 mg PO DAILY chew 09/14/20 [Rx] Famotidine [Pepcid] 20 mg PO HS 11/18/20 [History] Albuterol Sulfate [Proventil Hfa] 1 puff INHALATION RT-Q4H PRN 12/24/20 [History] Ergocalciferol [Vitamin D2 (1250 Mcg = 31803 Iu)] 1,250 mcg PO [place] 12/24/20 [History] Enoxaparin [Lovenox] 70 mg SQ Q12H #60 syringe 12/25/20 [Rx] Follow up Appointment(s)/Referral(s): Miguel Castillo MD [STAFF PHYSICIAN] - 01/02/21 12:30 pm Holger Farmer MD [Primary Care Provider] - 01/01/21 10:00 am Yeison Atwood MD [Family Provider] - 01/14/21 8:00 am Patient Instructions/Handouts: Enoxaparin (By injection), Deep Vein Thrombosis (DC), How to Give a Subcutaneous Injection (DC) Activity/Diet/Wound Care/Special Instructions: pt lovenox is at the [facility] waiting to be picked up - the pt has a $10 co-pay Discharge Disposition: HOME SELF-CARE
== END 2020-12-25 13:57 | disposition home or self-care (01) | DRG 300 ==
LOC: EC 07:41 → 5NMEDONC 10:26
PROVIDERS: ADMIT Family Medicine; ATTEND Family Medicine
DX: I82.411 Acute embolism and thrombosis of right femoral vein (principal); D68.51 Activated protein C resistance; J45.909 Unspecified asthma, uncomplicated; F40.240 Claustrophobia; Z90.89 Acquired absence of other organs; Z82.61 Family history of arthritis; Z80.9 Family history of malignant neoplasm, unspecified; Z79.01 Long term (current) use of anticoagulants; Z79.899 Other long term (current) drug therapy; Z88.8 Allergy status to other drugs, medicaments and biological substances; Z91.040 Latex allergy status; Z79.82 Long term (current) use of aspirin; Z86.711 Personal history of pulmonary embolism; Z86.718 Personal history of other venous thrombosis and embolism; Z87.11 Personal history of peptic ulcer disease; Z87.891 Personal history of nicotine dependence; Z86.010 Personal history of colon polyps
CPT/HCPCS: 36415; 74176; 80048; 81003; 85025; 85610; 85730; 87635; 96365; 96376; 99284

== ENCOUNTER 2020-12-26 11:46 | Emergency (ER) | payer BC ==
--- NOTE | 2020-12-26 12:21 | ED ---
General Adult HPI - General Chief complaint: Extremity Problem,Nontraumatic Stated complaint: pain in both legs-revisit Time Seen by Provider: 12/26/20 12:07 Source: patient, RN notes reviewed, old records reviewed Mode of arrival: ambulatory Limitations: no limitations - History of Present Illness Initial comments: 40-year-old female presenting for evaluation of bilateral leg pain and swelling. Patient was diagnosed with acute on chronic DVT within the past one week in her right leg. She was started on Lovenox and had been discharged and received 3 doses of Lovenox since the time of discharge. She states that her pain in her right thigh as well as left thigh has worsened. She has a history of factor V Leiden and has had multiple DVTs as well as PEs. She denies chest pain or dyspnea. She denies fever. Denies cough. Denies abdominal pain or nausea. - Related Data Home Medications Medication Instructions Recorded Confirmed Famotidine [Pepcid] 20 mg PO HS 11/18/20 12/26/20 Albuterol Sulfate [Proventil Hfa] 1 puff INHALATION RT-Q4H PRN 12/24/20 12/26/20 Ergocalciferol [Vitamin D2 (1250 1,250 mcg PO [place] 12/24/20 12/26/20 Mcg = 77377 Iu)] Acetaminophen Tab [Tylenol Tab] 1,000 mg PO Q6H PRN 12/26/20 12/26/20 Previous Rx's Medication Instructions Recorded Aspirin 81 mg PO DAILY chew 09/14/20 Enoxaparin [Lovenox] 70 mg SQ Q12H #60 syringe 12/25/20 Allergies Allergy/AdvReac Type Severity Reaction Status Date / Time cyclobenzaprine AdvReac Nausea & Verified 12/26/20 13:46 [From Flexeril] Vomiting & Diarrhea Iodinated Contrast Media AdvReac Nausea & Verified 12/26/20 13:46 lightheaded Review of Systems ROS Statement: Those systems with pertinent positive or pertinent negative responses have been documented in the HPI. ROS Other: All systems not noted in ROS Statement are negative. 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 History of Any Multi-Drug Resistant Organisms: None Reported Past Surgical History: Breast Surgery, Section, Hernia Repair, Tonsillectomy, Tubal Ligation Additional Past Surgical History / Comment(s): EGDs, umbilical hernia with mesh/then mesh removed, benign breast lumpectomy-pt cannot recall laterallity, hysteroscopy/D&C, bilateral eye lasik surgery for vision correction. Past Anesthesia/Blood Transfusion Reactions: Postoperative Nausea & Vomiting (PONV) Additional Past Anesthesia/Blood Transfusion Reaction / Comment(s): Pt has clausterphobia. Past Psychological History: Anxiety Smoking Status: Former smoker Past Alcohol Use History: None Reported Past Drug Use History: None Reported - Past Family History Father Family Medical History: Cancer Additional Family Medical History / Comment(s): Father from cancer at the age of 54yrs, pt believes it was an endocrine type cancer. Mother Family Medical History: Osteoarthritis (OA) Additional Family Medical History / Comment(s): Mother has had multiple joint replacements. General Exam Limitations: no limitations General appearance: alert, in no apparent distress Head exam: Present: atraumatic, normocephalic Eye exam: Present: normal appearance, PERRL, EOMI ENT exam: Present: normal exam Neck exam: Present: normal inspection. Absent: tenderness, meningismus Respiratory exam: Present: normal lung sounds bilaterally. Absent: respiratory distress, wheezes, rales Cardiovascular Exam: Present: regular rate, normal rhythm GI/Abdominal exam: Present: soft. Absent: distended, tenderness, guarding Extremities exam: Present: other (21, normal cap refill, distal pulses intact, minimal diffuse swelling, no erythema.) Neurological exam: Present: alert, oriented X3, CN II-XII intact. Absent: motor sensory deficit Psychiatric exam: Present: normal affect, normal mood Skin exam: Present: warm, dry, intact. Absent: cyanosis, diaphoretic Course Vital Signs 12/26/20 12/26/20 11:52 13:18 Temperature 98.1 F Pulse Rate 93 79 Respiratory 18 18 Rate Blood Pressure 111/71 109/69 O2 Sat by Pulse 97 100 Oximetry Medical Decision Making - Medical Decision Making 40-year-old female with Dr. Laquita Flores presenting with bilateral leg pain. Patient has good distal pulses, lungs are warm, with normal cap refill. Ultrasound was repeated of both legs, showing a redemonstration of the great saphenous vein superficial thrombus on the left and a DVT in the right femoral vein. This has had interval improvement, knowing no extension of clot. These both are redemonstrated compared to previous exams. The patient is on Lovenox. I discussed case with Dr. Yamil calvo for vascular surgery who does not gurpreet mmend anything further from a vascular standpoint. I discussed the case with Soumya calvo for hematology who recommends continuing Lovenox, [place] for pain and if the patient requires admission for symptom control she can be admitted with hematology oncology. She does not need to be admitted due to her DVT unknown. The patient states she has been taking her Lovenox as prescribed. I discussed case with Dr. Starks who had admitted the patient on the past admission states she had arranged for an outpatient Doppler at Dr. Castillo office. The patient states this is scheduled. Ultimately the patient decides to go home with continued Lovenox. Disposition Clinical Impression: Factor V Leiden, Thrombosis of left saphenous vein, Deep vein thrombosis (DVT) of lower extremity Disposition: HOME SELF-CARE Condition: Good Instructions (If sedation given, give patient instructions): Deep Vein Thrombosis (ED) Is patient prescribed a controlled substance at d/c from ED?: No Referrals: Holger Farmer MD [Primary Care Provider] - 1-2 days Yeison Atwood MD [STAFF PHYSICIAN] - 1-2 days Miguel Castillo MD [STAFF PHYSICIAN] - 1-2 days Time of Disposition: 15:01
--- NOTE | 2020-12-26 13:08 | US ---
EXAMINATION TYPE: US venous doppler duplex LE BI DATE OF EXAM: 12/26/2020 12:51 PM COMPARISON: 12/24/2020 and 12/10/2020 CLINICAL HISTORY: 40-year-old female with history of DVT. Factor 5 clotting disorder. On blood thin ners. Patient states she was in the hospital and was given Heparin. SIDE PERFORMED: Bilateral TECHNIQUE: The lower extremity deep venous system is examined utilizing real time linear array sonog irais with graded compression, doppler sonography and color-flow sonography. FINDINGS: VESSELS IMAGED: Common Femoral Vein Deep Femoral Vein Greater Saphenous Vein * Femoral Vein Popliteal Vein Small Saphenous Vein * Proximal Calf Veins (* superficial vessels) Right Leg: Positive for DVT in lower Femoral vein, internal echoes seen, nonoccluding. Femoral vein appears small in size. Left Leg: Positive for SVT in GSV, internal echoes visualized, nonoccluding. IMPRESSION: 1. Redemonstrated DVT lower right femoral vein with some interval recanalization as compared to the r ecent 12/24/2020 exam. No extension of clot identified. 2. Redemonstrated nonocclusive, chronic SVT of the left greater saphenous vein.
[2020-12-26 15:16] VITALS: BP 113/84; PULSE 84; RESP 16; TEMP 97.9
== END 2020-12-26 15:14 | disposition home or self-care (01) ==
LOC: EC 11:46
DX: I82.812 Embolism and thrombosis of superficial veins of left lower extremity (principal); I82.411 Acute embolism and thrombosis of right femoral vein; D68.51 Activated protein C resistance; J45.909 Unspecified asthma, uncomplicated; Z79.899 Other long term (current) drug therapy; Z88.8 Allergy status to other drugs, medicaments and biological substances; Z91.041 Radiographic dye allergy status; Z87.891 Personal history of nicotine dependence; Z86.718 Personal history of other venous thrombosis and embolism; Z86.711 Personal history of pulmonary embolism
CPT/HCPCS: 93970; 99284

== ENCOUNTER 2020-12-28 09:12 | Inpatient (IN) | payer BC ==
[2020-12-28] MEDS ORDERED: ONDANSETRON 4 MG/2 ML VIAL IVP STA (09:25)
--- NOTE | 2020-12-28 09:28 | ED ---
Recheck HPI <Brad Izaguirre - Last Filed: 12/28/20 11:08> - General Source: patient Mode of arrival: ambulatory Limitations: no limitations <Darling Guajardo - Last Filed: 12/28/20 11:27> - General Chief Complaint: Recheck/Abnormal Lab/Rx Stated Complaint: Medication Reaction Time Seen by Provider: 12/28/20 09:18 - History of Present Illness Initial Comments: Patient is a 40-year-old female, history factor 5 Leiden, PEs and DVTs, presenting to the emergency department with referral from her production truck driver. Patient states that she was recently started on Lovenox for DVTs in both her legs, she states she has been feeling very fatigued, nauseous since being on this medication. She called her production truck driver office, Dr. Atwood's today and they recommended her coming in to be bridged off the Lovenox to Coumadin. She denies any chest pain, no shortness of breath. She states her appetite has been low and she's been very nauseous over the past 4 days. She states the pain in her legs have decreased. She denies any fever or chills. She has no further complaints at this time. Upon arrival to the ER, her vitals are stable. (Darling Guajardo) - Related Data Home Medications Medication Instructions Recorded Confirmed Famotidine [Pepcid] 20 mg PO HS 11/18/20 12/28/20 Albuterol Sulfate [Proventil Hfa] 1 puff INHALATION RT-Q4H PRN 12/24/20 12/28/20 Ergocalciferol [Vitamin D2 (1250 1,250 mcg PO [place] 12/24/20 12/28/20 Mcg = 93944 Iu)] Acetaminophen Tab [Tylenol Tab] 1,000 mg PO Q6H PRN 12/26/20 12/28/20 Previous Rx's Medication Instructions Recorded Aspirin 81 mg PO DAILY chew 09/14/20 Enoxaparin [Lovenox] 70 mg SQ Q12H #60 syringe 12/25/20 HYDROcodone/APAP 5-325MG [[place] 1 tab PO Q6HR PRN #12 tab 12/26/20 5-325] Allergies Allergy/AdvReac Type Severity Reaction Status Date / Time cyclobenzaprine AdvReac Nausea & Verified 12/28/20 10:09 [From Flexeril] Vomiting & Diarrhea Iodinated Contrast Media AdvReac Nausea & Verified 12/28/20 10:09 lightheaded Review of Systems ROS Other: All systems not noted in ROS Statement are negative. <Brad Izaguirre - Last Filed: 12/28/20 11:08> ROS Other: All systems not noted in ROS Statement are negative. <Darling Guajardo - Last Filed: 12/28/20 11:27> ROS Statement: Those systems with pertinent positive or pertinent negative responses have been documented in the HPI. 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 History of Any Multi-Drug Resistant Organisms: None Reported Past Surgical History: Breast Surgery, Section, Hernia Repair, Tonsillectomy, Tubal Ligation Additional Past Surgical History / Comment(s): EGDs, umbilical hernia with mesh/then mesh removed, benign breast lumpectomy-pt cannot recall laterallity, hysteroscopy/D&C, bilateral eye lasik surgery for vision correction. Past Anesthesia/Blood Transfusion Reactions: Postoperative Nausea & Vomiting (PONV) Additional Past Anesthesia/Blood Transfusion Reaction / Comment(s): Pt has clausterphobia. Past Psychological History: Anxiety Smoking Status: Former smoker Past Alcohol Use History: None Reported Past Drug Use History: None Reported - Past Family History Father Family Medical History: Cancer Additional Family Medical History / Comment(s): Father from cancer at the age of 54yrs, pt believes it was an endocrine type cancer. Mother Family Medical History: Osteoarthritis (OA) Additional Family Medical History / Comment(s): Mother has had multiple joint replacements. <Darling Guajardo - Last Filed: 12/28/20 11:27> General Exam Limitations: no limitations <Darling Guajardo - Last Filed: 12/28/20 11:27> - General Exam Comments Initial Comments: GENERAL: Patient is well-developed and well-nourished. Patient is nontoxic and in no acute distress. HEAD: Atraumatic, normocephalic. EYES: Pupils equal round and reactive to light, extraocular movements intact, sclera anicteric, conjunctiva are normal. Eyelids were unremarkable. ENT: TMs normal, nares patent, oropharynx clear without exudates. Moist mucous membranes. NECK: Normal range of motion, supple without lymphadenopathy or JVD. LUNGS: Unlabored respirations. Breath sounds clear to auscultation bilaterally and equal. No wheezes rales or rhonchi. HEART: Regular rate and rhythm without murmurs, rubs or gallops. ABDOMEN: Soft, nontender, normoactive bowel sounds. No guarding, no rebound. No masses appreciated. : Deferred MUSCULOSKELETAL: Normal extremities with adequate strength and normal range of motion, no pitting or edema. No clubbing or cyanosis. NEUROLOGICAL: Patient is alert and oriented x 3. Motor and sensory are also intact. Cranial nerves II through XII grossly intact. Symmetrical smile. Normal speech, normal gait. PSYCH: Normal mood, normal affect. SKIN: Warm, Dry, normal turgor, no rashes or lesions noted. (Darling Guajardo) Course <Brad Izaguirre - Last Filed: 12/28/20 11:08> Vital Signs 12/28/20 12/28/20 09:13 10:16 Temperature 97.9 F 97.6 F Pulse Rate 88 79 Respiratory 18 18 Rate Blood Pressure 117/74 118/79 O2 Sat by Pulse 98 99 Oximetry - Reevaluation(s) Reevaluation #1: 12/28/20 11:08 PG supervision: The patient will be admitted for anticoagulation therapy. Dr. Starks did come the emergency department to see the patient. (rBad Izaguirre) Medical Decision Making - Lab Data Result diagrams: 12/28/20 09:40 12/28/20 09:40 <Brad Izaguirre - Last Filed: 12/28/20 11:08> - Lab Data Result diagrams: 12/28/20 09:40 12/28/20 09:40 <Darling Guajardo - Last Filed: 12/28/20 11:27> - Medical Decision Making Patient is a 40-year-old female with history of factor V Leiden, PEs and recurrent bilateral DVTs, presenting from Dr. Gracia's office for bridging between Lovenox and onto Coumadin. She has been feeling very fatigue, nausea since be ing on Lovenox the past few days. Her vital signs are stable, her exam is unremarkable, no chest pain or shortness of breath. Patient's labs show stable hemoglobin at 13.9, INR is 1.1, APTT is 32.4. The patient did take her Lovenox today. Patient was accepted by Dr. Starks, we will start her on low-dose heparin to transition to Coumadin. I will put Dr. Atwood on consult. Patient is in agreement with this. Rapid Covid is not detected. Is discussed with Dr. Izaguirre. (Darling Guajardo) - Lab Data Lab Results 12/28/20 12/28/20 12/28/20 Range/Units 09:40 09:40 09:40 WBC 5.6 (3.8-10.6) k/uL RBC 4.39 (3.80-5.40) m/uL Hgb 13.9 (11.4-16.0) gm/dL Hct 41.4 (34.0-46.0) % MCV 94.3 (80.0-100.0) fL MCH 31.6 (25.0-35.0) pg MCHC 33.5 (31.0-37.0) g/dL RDW 12.2 (11.5-15.5) % Plt Count 308 (150-450) k/uL MPV 7.1 Neutrophils % 64 % Lymphocytes % 25 % Monocytes % 6 % Eosinophils % 3 % Basophils % 1 % Neutrophils # 3.5 (1.3-7.7) k/uL Lymphocytes # 1.4 (1.0-4.8) k/uL Monocytes # 0.3 (0-1.0) k/uL Eosinophils # 0.2 (0-0.7) k/uL Basophils # 0.0 (0-0.2) k/uL PT 11.4 (9.0-12.0) sec INR 1.1 (<1.2) APTT 32.4 H (22.0-30.0) sec Sodium 139 (137-145) mmol/L Potassium 4.0 (3.5-5.1) mmol/L Chloride 103 (98-107) mmol/L Carbon Dioxide 26 (22-30) mmol/L Anion Gap 10 mmol/L BUN 12 (7-17) mg/dL Creatinine 0.90 (0.52-1.04) mg/dL Est GFR (CKD-EPI)AfAm >90 (>60 ml/min/1.73 sqM) Est GFR (CKD-EPI)NonAf 82 (>60 ml/min/1.73 sqM) Glucose 102 H (74-99) mg/dL Calcium 8.9 (8.4-10.2) mg/dL Total Bilirubin 0.8 (0.2-1.3) mg/dL AST 58 H (14-36) U/L ALT 51 H (4-34) U/L Alkaline Phosphatase 61 (38-126) U/L Total Protein 7.3 (6.3-8.2) g/dL Albumin 4.6 (3.5-5.0) g/dL Coronavirus (PCR) (Not Detectd) 12/28/20 Range/Units 09:40 WBC (3.8-10.6) k/uL RBC (3.80-5.40) m/uL Hgb (11.4-16.0) gm/dL Hct (34.0-46.0) % MCV (80.0-100.0) fL MCH (25.0-35.0) pg MCHC (31.0-37.0) g/dL RDW (11.5-15.5) % Plt Count (150-450) k/uL MPV Neutrophils % % Lymphocytes % % Monocytes % % Eosinophils % % Basophils % % Neutrophils # (1.3-7.7) k/uL Lymphocytes # (1.0-4.8) k/uL Monocytes # (0-1.0) k/uL Eosinophils # (0-0.7) k/uL Basophils # (0-0.2) k/uL PT (9.0-12.0) sec INR (<1.2) APTT (22.0-30.0) sec Sodium (137-145) mmol/L Potassium (3.5-5.1) mmol/L Chloride (98-107) mmol/L Carbon Dioxide (22-30) mmol/L Anion Gap mmol/L BUN (7-17) mg/dL Creatinine (0.52-1.04) mg/dL Est GFR (CKD-EPI)AfAm (>60 ml/min/1.73 sqM) Est GFR (CKD-EPI)NonAf (>60 ml/min/1.73 sqM) Glucose (74-99) mg/dL Calcium (8.4-10.2) mg/dL Total Bilirubin (0.2-1.3) mg/dL AST (14-36) U/L ALT (4-34) U/L Alkaline Phosphatase (38-126) U/L Total Protein (6.3-8.2) g/dL Albumin (3.5-5.0) g/dL Coronavirus (PCR) Not Detected (Not Detectd) Disposition <Brad Izaguirre - Last Filed: 12/28/20 11:08> Decision Date: 12/28/20 Decision Time: 11:12 <Darling Guajardo - Last Filed: 12/28/20 11:27> Clinical Impression: Factor V Leiden, Acute deep vein thrombosis (DVT) of femoral vein of right lower extremity Disposition: ADMITTED IP TO THIS HOSP Condition: Stable Referrals: Holger Farmer MD [Primary Care Provider] - 1-2 days
[2020-12-28 09:50] LABS: Basophils % (A) 1 %; Eosinophils # (A) 0.2 k/uL (0-0.7); Eosinophils % (A) 3 %; HCT 41.4 % (34.0-46.0); HGB 13.9 gm/dL (11.4-16.0); Lymphocytes # (A) 1.4 k/uL (1.0-4.8); Lymphocytes % (A) 25 %; MCH 31.6 pg (25.0-35.0); MCHC 33.5 g/dL (31.0-37.0); MCV 94.3 fL (80.0-100.0); Mean Platelet Volume 7.1; Monocytes # (A) 0.3 k/uL (0-1.0); Monocytes % (A) 6 %; Neutrophils # (A) 3.5 k/uL (1.3-7.7); Neutrophils % (A) 64 %; Platelet Count 308 k/uL (150-450); RBC 4.39 m/uL (3.80-5.40); RDW 12.2 % (11.5-15.5); WBC 5.6 k/uL (3.8-10.6)
[2020-12-28 10:00] LABS: ALT 51 U/L (4-34); AST 58 U/L (14-36); African American GFR (CKD) >90 (>60 ml/min/1.73 sqM); Albumin 4.6 g/dL (3.5-5.0); Alkaline Phosphatase 61 U/L (38-126); Anion Gap 10 mmol/L; Blood Urea Nitrogen 12 mg/dL (7-17); Calcium 8.9 mg/dL (8.4-10.2); Carbon Dioxide 26 mmol/L (22-30); Chloride 103 mmol/L (98-107); Glucose 102 mg/dL (74-99); Non-African American GFR(CKD) 82 (>60 ml/min/1.73 sqM); Sodium 139 mmol/L (137-145); Total Bilirubin 0.8 mg/dL (0.2-1.3); Total Protein 7.3 g/dL (6.3-8.2)
[2020-12-28 10:31] LABS: INR 1.1 (<1.2); Partial Thromboplastin Time 32.4 sec (22.0-30.0); Prothrombin Time 11.4 sec (9.0-12.0)
[2020-12-28] MEDS ORDERED: NALOXONE 0.4 MG/ML 1 ML VIAL IV PRN (11:06)
[2020-12-28] MEDS ORDERED: ONDANSETRON 4 MG/2 ML VIAL IVP PRN (11:06)
[2020-12-28] MEDS ORDERED: HEPARIN SODIUM,PORCINE 5,000 UNIT/ML 1 ML VIAL IV PRN (11:09)
[2020-12-28] MEDS: HEPARIN SOD,PORK IN 0.45% NACL 25,000 UNIT in 0.45% NACL 1 250ML.BAG IV SCH (11:52)
--- NOTE | 2020-12-28 12:05 | P.HPIM ---
History of Present Illness H&P Date: 12/28/20 Chief Complaint: Nausea intolerance to Lovenox This is a 40-year-old female patient of Dr. Holger Farmer with past medical history of heterzygous for factor V leiden mutation under the care of Dr. Atwood with initial bilateral DVT in 2014 after having . That was followed by a right lower extremity DVT and bilateral PE in 2018. She was last admitted in April 2020 for right lower extremity DVT. She was seen by oncology at that time and was on Xarelto 10 mg daily and was considered a failed Xarelto, subsequently started on Pradaxa 150. Patient complains of pressure pain in the left leg in the pretibial area and proximal calf area fall of 2019. She denies having any significant edema or erythema. Last 12/24/2020 with right thigh pain in her groin She is currently on Xarelto 10 mg daily for which she was hospitalized December 24 Patient has had one and one live via . No miscarriages.. 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 Was seen by oncology, for which she was advised to be on long-term anticoagulation with Lovenox, and discontinue factor X a inhibition. Dr. Ball thinks that this is more advantageous than Coumadin, and was discharged on Lovenox at 1 mg/kg every 12 hours. Patient now comes in the emergency room secondary to nausea, foggy brain, has difficulty in focusing, denies any significant upper abdominal pain, no blood in stool, no hematuria, patient does not have any unusual anxiety, she has spoken to the nurse practitioner at Dr. Ravi's office, and recommended that she be bridged to Coumadin and discontinue Lovenox, IV heparin, rather than the bridge as an outpatient. Patient's also agreeable and workup of the nausea, with gallbladder test, HIDA scan, lipase she is still to keep the appointment with Dr. Castillo as scheduled from last week, her appointments coming up this coming week consult with oncology while here, vascular surgeon for eval as an outpatient Review of Systems Constitutional: Reports as per HPI, Denies anorexia, Denies chills, Denies chronic headaches, Denies chronic pain, Denies daytime sleepiness, Denies fatigue, Denies fever, Denies lethargy, Denies malaise, Denies night sweats, Denies poor appetite, Denies sweats, Denies weakness, Denies weight gain, Denies weight loss Ears, nose, mouth and throat: Reports as per HPI, Denies ant. neck pain, Denies bleeding gums, Denies dental pain, Denies dysphagia, Denies epistaxis, Denies headache, Denies hoarseness, Denies mouth pain, Denies nasal congestion, Denies nasal discharge, Denies neck fullness/pressure, Denies neck lump, Denies nose pain, Denies odynophagia, Denies post-nasal drip, Denies sinus pain, Denies sinus pressure, Denies swelling in mouth, Denies swelling in throat, Denies sore throat, Denies vertigo, Denies voice changes Breasts: Reports as per HPI Cardiovascular: Reports as per HPI, Denies chest pain, Denies claudication, Denies decreased exercise tolerance, Denies dyspnea on exertion, Denies edema, Denies high blood pressure, Denies irregular heart beat, Denies leg edema, Denies lightheadedness, Denies orthopnea, Denies palpitations, Denies paroxysmal nocturnal dyspnea, Denies phlebitis, Denies rapid heart beat, Denies shortness of breath, Denies syncope Respiratory: Reports as per HPI Genitourinary: Reports as per HPI, Denies abnormal vaginal bleeding, Denies decreased libido, Denies difficulty conceiving, Denies difficulty voiding, Denies dysmenorrhea, Denies dyspareunia, Denies dysuria, Denies flank pain, Denies genital sores, Denies hematuria, Denies hot flashes, Denies incomplete emptying, Denies kidney stones, Denies menorrhagia, Denies mixed incontinence, Denies nocturia, Denies pelvic pain, Denies post void dribbling, Denies , Denies prolapse symptoms, Denies stress incontinence, Denies urge incontinence, Denies urgency, Denies urinary frequency, Denies vaginal discharge, Denies vaginal dryness, Denies vaginal itching, Denies vaginal odor Menstruation: Reports as per HPI, Denies amenorrhea, Denies amenorrhea on BC, Denies currently menstrual, Denies cycle < 21 days, Denies cycle > 35 days, Denies cycle variable, Denies menses 1-7 days, Denies menses 8 or > days, Denies menses variable, Denies period heavy, Denies period light, Denies period normal, Denies period spotting, Denies post hysterectomy, Denies postmenopausal, Denies premenarcheal Musculoskeletal: Reports as per HPI, Denies arm numbness/tingling, Denies atro phy, Denies fractures, Denies frequent falls, Denies gait dysfunction, Denies hot joints, Denies leg numbness/tingling, Denies limitation of motion, Denies loss of height, Denies low back pain, Denies morning stiffness, Denies muscle cramps, Denies muscle weakness, Denies myalgias, Denies neck pain, Denies neck stiffness, Denies prior amputations, Denies redness of joints, Denies shooting arm pain, Denies shooting leg pain Integumentary: Reports as per HPI Neurological: Reports as per HPI, Reports gait dysfunction Psychiatric: Denies as per HPI, Denies anhedonia, Denies anxiety, Denies anxiety attacks, Denies change in appetite, Denies change in libido, Denies change in sleep habits, Denies confusion, Denies depression, Denies difficulty concentrating, Denies disorientation, Denies hallucinations, Denies hopelessn ess, Denies hypersomnia, Denies insomnia, Denies irritability, Denies memory loss, Denies mood swings, Denies paranoia, Denies sadness/tearfulness, Denies sleep disturbances, Denies suicidal ideation Endocrine: Reports as per HPI, Denies cold intolerance, Denies deepening of the voice, Denies excessive sweating, Denies excessive thirst, Denies fatigue, Denies flushing, Denies heat intolerance, Denies high blood sugars, Denies increase in ring/shoe/hat size, Denies low blood sugars, Denies nocturia, Denies palpitations, Denies polydipsia, Denies polyphagia, Denies polyuria, Denies proptosis, Denies recent glucocorticoid use, Denies thyroid mass, Denies weight change Hematologic/Lymphatic: Reports as per HPI, Denies easy bleeding, Denies easy bruising, Denies lymphadenopathy, Denies lymphedema, Denies thrombophilia Allergic/Immunologic: Reports as per HPI, Denies allergic rhinitis, Denies anaphylaxis, Denies angioedema, Denies gluten intolerance, Denies persistent infections, Denies seasonal allergies, Denies urticaria, Denies wheezing Past Medical History Past Medical History: Asthma, Blood Disorder, Deep Vein Thrombosis (DVT), Pulmonary Embolus (PE) Additional Past Medical History / Comment(s): 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 History of Any Multi-Drug Resistant Organisms: None Reported Past Surgical History: Breast Surgery, Section, Hernia Repair, Tonsillectomy, Tubal Ligation Additional Past Surgical History / Comment(s): EGDs, umbilical hernia with mesh/then mesh removed, benign breast lumpectomy-pt cannot recall laterallity, hysteroscopy/D&C, bilateral eye lasik surgery for vision correction. Past Anesthesia/Blood Transfusion Reactions: Postoperative Nausea & Vomiting (PONV) Additional Past Anesthesia/Blood Transfusion Reaction / Comment(s): Pt has clausterphobia. Past Psychological History: Anxiety Smoking Status: Former smoker Past Alcohol Use History: None Reported Past Drug Use History: None Reported - Past Family History Father Family Medical History: Cancer Additional Family Medical History / Comment(s): Father from cancer at the age of 54yrs, pt believes it was an endocrine type cancer. Mother Family Medical History: Osteoarthritis (OA) Additional Family Medical History / Comment(s): Mother has had multiple joint replacements. Medications and Allergies Home Medications Medication Instructions Recorded Confirmed Type Aspirin 81 mg PO DAILY chew 09/14/20 12/28/20 Rx Famotidine [Pepcid] 20 mg PO HS 11/18/20 12/28/20 History Albuterol Sulfate [Proventil Hfa] 1 puff INHALATION RT-Q4H PRN 12/24/20 12/28/20 History Ergocalciferol [Vitamin D2 (1250 1,250 mcg PO [place] 12/24/20 12/28/20 History Mcg = 20720 Iu)] Enoxaparin [Lovenox] 70 mg SQ Q12H #60 syringe 12/25/20 12/28/20 Rx Acetaminophen Tab [Tylenol Tab] 1,000 mg PO Q6H PRN 12/26/20 12/28/20 History HYDROcodone/APAP 5-325MG [[place] 1 tab PO Q6HR PRN #12 tab 12/26/20 12/28/20 Rx 5-325] Allergies Allergy/AdvReac Type Severity Reaction Status Date / Time cyclobenzaprine AdvReac Nausea & Verified 12/28/20 10:09 [From Flexeril] Vomiting & Diarrhea Iodinated Contrast Media AdvReac Nausea & Verified 12/28/20 10:09 lightheaded Physical Exam Vitals: Vital Signs Temp Pulse Resp BP Pulse Ox 12/28/20 10:16 97.6 F 79 18 118/79 99 12/28/20 09:13 97.9 F 88 18 117/74 98 Intake and Output 12/27/20 12/28/20 12/28/20 22:59 06:59 14:59 Other: Weight 66.224 kg - Constitutional General appearance: cooperative, no acute distress - EENT Eyes: EOMI, PERRLA, dentition normal ENT: NA/AT, normal oropharynx - Neck Neck: normal ROM - Respiratory Respiratory: bilateral: CTA, negative: diminished, dullness - Cardiovascular Rhythm: regular Heart sounds: normal: S1, S2 Abnormal Heart Sounds: no systolic murmur, no diastolic murmur, no rub, no S3 Gallop, no S4 Gallop, no click, no other - Gastrointestinal General gastrointestinal: normal bowel sounds, soft - Integumentary Integumentary: decreased turgor, normal - Neurologic Neurologic: CNII-XII intact - Musculoskeletal Musculoskeletal: gait normal, no generalized weakness, strength equal bilaterall y, no right sided weakness, no left sided weakness - Psychiatric Psychiatric: A&O x's 3, appropriate affect, intact judgment & insight Results CBC & Chem 7: 12/28/20 09:40 12/28/20 09:40 Labs: Abnormal Lab Results - Last 24 Hours (Table) 12/28/20 12/28/20 Range/Units 09:40 09:40 APTT 32.4 H (22.0-30.0) sec Glucose 102 H (74-99) mg/dL AST 58 H (14-36) U/L ALT 51 H (4-34) U/L Laboratory Results WBC 5.6 k/uL (3.8-10.6) 12/28/20 09:40 RBC 4.39 m/uL (3.80-5.40) 12/28/20 09:40 Hgb 13.9 gm/dL (11.4-16.0) 12/28/20 09:40 Hct 41.4 % (34.0-46.0) 12/28/20 09:40 MCV 94.3 fL (80.0-100.0) 12/28/20 09:40 MCH 31.6 pg (25.0-35.0) 12/28/20 09:40 MCHC 33.5 g/dL (31.0-37.0) 12/28/20 09:40 RDW 12.2 % (11.5-15.5) 12/28/20 09:40 Plt Count 308 k/uL (150-450) 12/28/20 09:40 MPV 7.1 12/28/20 09:40 Neutrophils % 64 % 12/28/20 09:40 Lymphocytes % 25 % 12/28/20 09:40 Monocytes % 6 % 12/28/20 09:40 Eosinophils % 3 % 12/28/20 09:40 Basophils % 1 % 12/28/20 09:40 Neutrophils # 3.5 k/uL (1.3-7.7) 12/28/20 09:40 Lymphocytes # 1.4 k/uL (1.0-4.8) 12/28/20 09:40 Monocytes # 0.3 k/uL (0-1.0) 12/28/20 09:40 Eosinophils # 0.2 k/uL (0-0.7) 12/28/20 09:40 Basophils # 0.0 k/uL (0-0.2) 12/28/20 09:40 PT 11.4 sec (9.0-12.0) 12/28/20 09:40 INR 1.1 (<1.2) 12/28/20 09:40 APTT 32.4 sec (22.0-30.0) H 12/28/20 09:40 Sodium 139 mmol/L (137-145) 12/28/20 09:40 Potassium 4.0 mmol/L (3.5-5.1) 12/28/20 09:40 Chloride 103 mmol/L (98-107) 12/28/20 09:40 Carbon Dioxide 26 mmol/L (22-30) 12/28/20 09:40 Anion Gap 10 mmol/L 12/28/20 09:40 BUN 12 mg/dL (7-17) 12/28/20 09:40 Creatinine 0.90 mg/dL (0.52-1.04) 12/28/20 09:40 Est GFR (CKD-EPI)AfAm >90 (>60 ml/min/1.73 sqM) 12/28/20 09:40 Est GFR (CKD-EPI)NonAf 82 (>60 ml/min/1.73 sqM) 12/28/20 09:40 Glucose 102 mg/dL (74-99) H 12/28/20 09:40 Calcium 8.9 mg/dL (8.4-10.2) 12/28/20 09:40 Total Bilirubin 0.8 mg/dL (0.2-1.3) 12/28/20 09:40 AST 58 U/L (14-36) H 12/28/20 09:40 ALT 51 U/L (4-34) H 12/28/20 09:40 Alkaline Phosphatase 61 U/L (38-126) 12/28/20 09:40 Total Protein 7.3 g/dL (6.3-8.2) 12/28/20 09:40 Albumin 4.6 g/dL (3.5-5.0) 12/28/20 09:40 Coronavirus (PCR) Not Detected (Not Detectd) 12/28/20 09:40 Thrombosis Risk Factor Assmnt - DVT/VTE Prophylaxis DVT/VTE Prophylaxis: Pharmacologic Prophylaxis ordered - Choose All That Apply Each Risk Factor Represents 3 Points: Positive Factor V Leiden, History of DVT/PE Thrombosis Risk Factor Assessment Total Risk Factor Score: 6 Thrombosis Risk Factor Assessment Level: High Risk Assessment and Plan Plan: ASSESSMENT AND PLAN 1. Nausea, episodic with right upper quadrant pain, patient thinks it is related to Lovenox, however with the treatment of her DVT, per the oncology office, Lovenox would need to be discontinued, and would transition and bridged to Coumadin, check for HIDA scan, CCK, last CT was done of the abdomen that was negative. IV heparin for now, Coumadin 7.5 mg tonight,, PTT -55-65, Coumadin titration, dietitian to see for Coumadin diet Inr goal 2-3 1 DVT, right femoral vein chronic unknown whether with acute component, right thigh pain, also with chronic nonocclusive Ssuperficial VT in the greater saphenous vein nonoccluding with the current DVT PE in past Patient was placed on heparin now. tried pradaxa and xarelto in past with failures Dr. Castillo to see over the next week for Dopplers in the leg, to see whether this is acute or chronic, discussed with Dr. Castillo during her last admission. 2. Previous episodes of DVT including pulmonary embolism. Continue anticoagulation. Patient is under the care of oncology. 3. History of heterzygous for factor V leiden mutation. 4. History of IV contrast ALLERGY 5. GI prophylaxis. Pepcid. 6 DVT prophylaxis. Patient is on heparin drip.
--- NOTE | 2020-12-28 12:12 | US ---
EXAMINATION TYPE: US abdomen complete DATE OF EXAM: 12/28/2020 COMPARISON: Recent CT CLINICAL HISTORY: nausea, right upper flank pain. Pt states nausea EXAM MEASUREMENTS: Liver Length: 15.4 cm Gallbladder Wall: 0.2 cm CBD: 0.2 cm Spleen: 9.6 cm Right Kidney: 10.4 x 4.3 x 4.7 cm Left Kidney: 10.3 x 4.5 x 4.3 cm Pancreas: wnl Liver: wnl Gallbladder: wnl Evidence for sonographic Boyd's sign: No CBD: wnl Spleen: wnl Right Kidney: wnl Left Kidney: wnl Upper IVC: wnl Abd Aorta: wnl No abnormality visualized to account for pt's symptoms The liver is homogenous. The intrahepatic portion of the IVC and proximal abdominal aorta are within normal limits. There is no evidence of cholelithiasis. Common bile duct is unremarkable. The visu alized portions of the pancreas are homogenous. The spleen is unremarkable. Kidneys are symmetric a nd free of hydronephrosis. No renal lesions are seen. IMPRESSION: No distinct abnormality seen.
[2020-12-28] MEDS: ACETAMINOPHEN TAB 325 MG TAB PO PRN ×2 (12:41→18:26)
--- NOTE | 2020-12-28 14:03 | P.CONS ---
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 History of Any Multi-Drug Resistant Organisms: None Reported Past Surgical History: Breast Surgery, Section, Hernia Repair, Tonsillectomy, Tubal Ligation Additional Past Surgical History / Comment(s): EGDs, umbilical hernia with mesh/then mesh removed, benign breast lumpectomy-pt cannot recall laterallity, hysteroscopy/D&C, bilateral eye lasik surgery for vision correction. Past Anesthesia/Blood Transfusion Reactions: Postoperative Nausea & Vomiting (PONV) Additional Past Anesthesia/Blood Transfusion Reaction / Comm: Pt has clausterphobia. Past Psychological History: Anxiety Smoking Status: Former smoker Past Alcohol Use History: None Reported Past Drug Use History: None Reported - Past Family History Father Family Medical History: Cancer Additional Family Medical History / Comment(s): Father from cancer at the age of 54yrs, pt believes it was an endocrine type cancer. Mother Family Medical History: Osteoarthritis (OA) Additional Family Medical History / Comment(s): Mother has had multiple joint replacements. Medications and Allergies Home Medications Medication Instructions Recorded Confirmed Type Aspirin 81 mg PO DAILY chew 09/14/20 12/28/20 Rx Famotidine [Pepcid] 20 mg PO HS 11/18/20 12/28/20 History Albuterol Sulfate [Proventil Hfa] 1 puff INHALATION RT-Q4H PRN 12/24/20 12/28/20 History Ergocalciferol [Vitamin D2 (1250 1,250 mcg PO [place] 12/24/20 12/28/20 History Mcg = [id number] Iu)] Enoxaparin [Lovenox] 70 mg SQ Q12H #60 syringe 12/25/20 12/28/20 Rx Acetaminophen Tab [Tylenol Tab] 1,000 mg PO Q6H PRN 12/26/20 12/28/20 History HYDROcodone/APAP 5-325MG [Ralph 1 tab PO Q6HR PRN #12 tab 12/26/20 12/28/20 Rx 5-325] Allergies Allergy/AdvReac Type Severity Reaction Status Date / Time cyclobenzaprine AdvReac Nausea & Verified 12/28/20 10:09 [From Flexeril] Vomiting & Diarrhea Iodinated Contrast Media AdvReac Nausea & Verified 12/28/20 10:09 lightheaded Physical Exam Vitals: Vital Signs Temp Pulse Pulse Resp BP BP Pulse Ox 12/28/20 12:43 97.8 F 81 15 130/75 99 12/28/20 12:07 97.6 F 72 18 110/68 99 12/28/20 10:16 97.6 F 79 18 118/79 99 12/28/20 09:13 97.9 F 88 18 117/74 98 Intake and Output 12/27/20 12/28/20 12/28/20 22:59 06:59 14:59 Other: Weight 66.224 kg - Constitutional General appearance: average body habitus, cooperative, no acute distress - EENT Eyes: anicteric sclerae, EOMI ENT: hearing grossly normal, normal oropharynx - Respiratory Respiratory: bilateral: CTA - Cardiovascular Rhythm: regular Heart sounds: normal: S1, S2 Abnormal Heart Sounds: no systolic murmur, no diastolic murmur, no rub, no S3 Gallop, no S4 Gallop, no click, no other leg Peripheral Edema: bilateral: Trace - Gastrointestinal General gastrointestinal: no absent bowel sounds, no decreased bowel sounds, no distended, no hepatomegaly, no hyperactive bowel sounds, normal bowel sounds, no organomegaly, no rigid, no scaphoid, soft, no splenomegaly, no tenderness, no umbilical hernia, no ventral hernia - Neurologic Neurologic: CNII-XII intact - Musculoskeletal Musculoskeletal: strength equal bilaterally - Psychiatric Psychiatric: A&O x's 3, appropriate affect, intact judgment & insight Results CBC & Chem 7: 12/28/20 09:40 12/28/20 09:40 Labs: Abnormal Lab Results - Last 24 Hours (Table) 12/28/20 12/28/20 Range/Units 09:40 09:40 APTT 32.4 H (22.0-30.0) sec Glucose 102 H (74-99) mg/dL AST 58 H (14-36) U/L ALT 51 H (4-34) U/L Venous US: report reviewed (reviewed 6mo of doppler reports) Assessment and Plan (1) Factor V Leiden Current Visit: Yes Status: Chronic Priority: Medium Code(s): D68.51 - ACTIVATED PROTEIN C RESISTANCE SNOMED Code(s): 093556654 (2) Deep vein thrombosis (DVT) of lower extremity Current Visit: No Status: Chronic Priority: Medium Code(s): I82.409 - ACUTE EMBOLISM AND THOMBOS UNSP DEEP VN UNSP LOWER EXTREMITY SNOMED Code(s): 280994747 Plan: Reviewed chart: 05/02/20-left lower extremity negative for DVT. 09/12/20-left lower extremity superficial thrombus in the greater saphenous vein. 10/08/20- left lower extremity no DVT, previous GSV thrombus not seen. 11/01/20-no right upper extremity thrombus/DVT. 11/18/20 left upper extremity negative for DVT or SVT. 12/10/20-right lower extremity positive for DVT in the femoral vein, non- occluding. Left lower extremity positive for the greater saphenous vein clot non-occluding. 12/24/20-DVT in the right femoral can't exclude acute on chronic. 12/26/20-DVT right femoral non-occluding left SVT GSV non-occluding. So, it does not appear that currently patient has an acute component to her BLE DVTs. But, she is intolerant to Lovenox. She is now on a heparin drip. She will take Coumadin until she has a therapeutic INR. Based on her history INR is going to be to be therapeutic between 2.5 and 3.5. Cont baby ASA. Bleeding risk reviewed.
[2020-12-28 14:36] VITALS: BMI 24.3
[2020-12-28] MEDS ORDERED: WARFARIN 7.5 MG TAB PO ONE (18:00)
[2020-12-29 07:01] LABS: INR 1.1 (<1.2); Partial Thromboplastin Time 45.4 sec (22.0-30.0); Prothrombin Time 11.5 sec (9.0-12.0)
--- NOTE | 2020-12-29 09:34 | P.PN ---
Subjective Progress Note Date: 12/29/20 Principal diagnosis: DVTs, intolerance to lovenox treatment, factor V leiden In f/u pt states less discomfort in her legs, swelling is stable, no bleeding, had mild HORN managed with tylenol Objective - Vital Signs Vital signs: Vital Signs Temp 97.6 F 12/29/20 04:12 Pulse 78 12/29/20 04:12 Resp 16 12/29/20 04:12 BP 111/67 12/29/20 04:12 Pulse Ox 99 12/29/20 04:12 Intake & Output 12/28/20 12/29/20 12/29/20 18:59 06:59 18:59 Intake Total 156.291 Balance 156.291 Weight 66.224 kg Intake: Intake, IV Titration 156.291 Amount Heparin Sod,Pork in 0.45% 156.291 NaCl 25,000 unit In 0.45 % NaCl 1 250ml.bag @ 12 UNITS/KG/HR 7.947 mls/hr IV .Q24H [facility] Rx#: [id number] Other: Voiding Method Toilet Toilet # Voids 2 2 - Constitutional General appearance: Present: average body habitus, cooperative, no acute distress - EENT Eyes: Present: anicteric sclerae, EOMI ENT: Present: hearing grossly normal - Respiratory Respiratory: bilateral: CTA - Cardiovascular Heart sounds: normal: S1, S2 - Peripheral edema leg Peripheral Edema: right: 1+ - Gastrointestinal General gastrointestinal: Present: normal bowel sounds, soft - Integumentary Integumentary: Present: normal - Neurologic Neurologic: Present: CNII-XII intact - Musculoskeletal Musculoskeletal: Present: strength equal bilaterally - Psychiatric Psychiatric: Present: A&O x's 3, appropriate affect, intact judgment & insight - Labs CBC & Chem 7: 12/28/20 09:40 12/28/20 09:40 Labs: Abnormal Lab Results - Last 24 Hours (Table) 12/28/20 12/28/20 12/28/20 Range/Units 09:40 09:40 17:04 APTT 32.4 H 45.5 H (22.0-30.0) sec Glucose 102 H (74-99) mg/dL AST 58 H (14-36) U/L ALT 51 H (4-34) U/L 12/29/20 Range/Units 06:07 APTT 45.4 H (22.0-30.0) sec Glucose (74-99) mg/dL AST (14-36) U/L ALT (4-34) U/L - Imaging and Cardiology Abdominal x-ray: report reviewed Assessment and Plan (1) Factor V Leiden Current Visit: Yes Status: Chronic Priority: Medium Code(s): D68.51 - ACTIVATED PROTEIN C RESISTANCE SNOMED Code(s): 583149965 (2) Deep vein thrombosis (DVT) of lower extremity Current Visit: No Status: Chronic Priority: Medium Code(s): I82.409 - ACUTE EMBOLISM AND THOMBOS UNSP DEEP VN UNSP LOWER EXTREMITY SNOMED Code(s): 442635388 Plan: Reviewed chart: 05/02/20-left lower extremity negative for DVT. 09/12/20-left lower extremity superficial thrombus in the greater saphenous vein. 10/08/20- left lower extremity no DVT, previous GSV thrombus not seen. 11/01/20-no right upper extremity thrombus/DVT. 11/18/20 left upper extremity negative for DVT or SVT. 12/10/20-right lower extremity positive for DVT in the femoral vein, non- occluding. Left lower extremity positive for the greater saphenous vein clot non-occluding. 12/24/20-DVT in the right femoral can't exclude acute on chronic. 12/26/20-DVT right femoral non-occluding left SVT GSV non-occluding. So, it does not appear that currently patient has an acute component to her BLE DVTs. But, she is intolerant to Lovenox. She is now on a heparin drip. She will take Coumadin until she has a therapeutic INR. Based on her history INR is going to be to be therapeutic between 2.5 and 3.5. Baby ASA was discontinued.
[2020-12-29 12:18] LABS: Basophils # (A) 0.05 X 10*3/uL (0.00-0.10); Eosinophils # (A) 0.28 X 10*3/uL (0.04-0.35); Eosinophils % (A) 5.4 %; HCT 40.8 % (37.2-46.3); HGB 13.3 g/dL (12.0-15.0); Lymphocytes # (A) 2.09 X 10*3/uL (0.90-5.00); MCH 31.4 pg (27.0-32.0); MCHC 32.6 g/dL (32.0-37.0); MCV 96.5 fL (80.0-97.0); Mean Platelet Volume 10.4 fL (9.5-12.2); Monocytes # (A) 0.56 X 10*3/uL (0.20-1.00); Monocytes % (A) 10.7 %; Neutrophils # (A) 2.23 X 10*3/uL (1.80-7.70); Neutrophils % (A) 42.5 %; Platelet Count 321 X 10*3/uL (140-440); RBC 4.23 X 10*6/uL (4.10-5.20); RDW 12.7 % (11.5-14.5); WBC 5.23 X 10*3/uL (4.50-10.00)
[2020-12-29] MEDS: HEPARIN SOD,PORK IN 0.45% NACL 25,000 UNIT in 0.45% NACL 1 250ML.BAG IV SCH (14:59)
[2020-12-29] MEDS ORDERED: FAMOTIDINE 20 MG TAB PO SCH (17:00)
[2020-12-29] MEDS ORDERED: WARFARIN 5 MG TAB PO ONE (18:00)
--- NOTE | 2020-12-29 18:07 | P.PN ---
Subjective Progress Note Date: 12/29/20 This is a 40-year-old female patient of Dr. Hogler Farmer with past medical history of heterzygous for factor V leiden mutation under the care of Dr. Atwood with initial bilateral DVT in 2014 after having . That was followed by a right lower extremity DVT and bilateral PE in 2018. She was last admitted in April 2020 for right lower extremity DVT. She was seen by oncology at that time and was on Xarelto 10 mg daily and was considered a failed Xarelto, subsequently started on Pradaxa 150. Patient complains of pressure pain in the left leg in the pretibial area and proximal calf area fall of 2019. She denies having any significant edema or erythema. Last 12/24/2020 with right thigh pain in her groin She is currently on Xarelto 10 mg daily for which she was hospitalized December 24 Patient has had one and one live via . No miscarriages.. 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 Was seen by oncology, for which she was advised to be on long-term anticoagulation with Lovenox, and discontinue factor X a inhibition. Dr. Ball thinks that this is more advantageous than Coumadin, and was discharged on Lovenox at 1 mg/kg every 12 hours. Patient now comes in the emergency room secondary to nausea, foggy brain, has difficulty in focusing, denies any significant upper abdominal pain, no blood in stool, no hematuria, patient does not have any unusual anxiety, she has spoken to the nurse practitioner at Dr. Ravi's office, and recommended that she be bridged to Coumadin and discontinue Lovenox, IV heparin, rather than the bridge as an outpatient. Patient's also agreeable and workup of the nausea, with gallbladder test, HIDA scan, lipase she is still to keep the appointment with Dr. Castillo as scheduled from last week, her appointments coming up this coming week consult with oncology while here, vascular surgeon for eval as an outpatie nt 12/29, patient currently has no new symptoms, INR is controlled by primary see, 7.5 given yesterday, 5 mg given today, INR 1.1, oncology is following, with no new current recommendations, ultrasound discussed with the patient, still need a HIDA scan CCK, patient did not get this done as she refuses anything that's related to IV, she does have contrast iodinated ALLERGY, however Kinevac is a no n-odinated cholecystotomy kinetic drug. Review of Systems Constitutional: Reports as per HPI, Denies anorexia, Denies chills, Denies chronic headaches, Denies chronic pain, Denies daytime sleepiness, Denies fatigue, Denies fever, Denies lethargy, Denies malaise, Denies night sweats, Denies poor appetite, Denies sweats, Denies weakness, Denies weight gain, Denies weight loss Ears, nose, mouth and throat: Reports as per HPI, Denies ant. neck pain, Denies bleeding gums, Denies dental pain, Denies dysphagia, Denies epistaxis, Denies headache, Denies hoarseness, Denies mouth pain, Denies nasal congestion, Denies nasal discharge, Denies neck fullness/pressure, Denies neck lump, Denies nose pain, Denies odynophagia, Denies post-nasal drip, Denies sinus pain, Denies sinus pressure, Denies swelling in mouth, Denies swelling in throat, Denies sore throat, Denies vertigo, Denies voice changes Breasts: Reports as per HPI Cardiovascular: Reports as per HPI, Denies chest pain, Denies claudication, Denies decreased exercise tolerance, Denies dyspnea on exertion, Denies edema, Denies high blood pressure, Denies irregular heart beat, Denies leg edema, Denies lightheadedness, Denies orthopnea, Denies palpitations, Denies paroxysmal nocturnal dyspnea, Denies phlebitis, Denies rapid heart beat, Denies shortness of breath, Denies syncope Respiratory: Reports as per HPI Genitourinary: Reports as per HPI, Denies abnormal vaginal bleeding, Denies decreased libido, Denies difficulty conceiving, Denies difficulty voiding, Denies dysmenorrhea, Denies dyspareunia, Denies dysuria, Denies flank pain, Denies genital sores, Denies hematuria, Denies hot flashes, Denies incomplete emptying, Denies kidney stones, Denies menorrhagia, Denies mixed incontinence, Denies nocturia, Denies pelvic pain, Denies post void dribbling, Denies pregna nt, Denies prolapse symptoms, Denies stress incontinence, Denies urge incontinence, Denies urgency, Denies urinary frequency, Denies vaginal discharge, Denies vaginal dryness, Denies vaginal itching, Denies vaginal odor Menstruation: Reports as per HPI, Denies amenorrhea, Denies amenorrhea on BC, Denies currently menstrual, Denies cycle < 21 days, Denies cycle > 35 days, D enies cycle variable, Denies menses 1-7 days, Denies menses 8 or > days, Denies menses variable, Denies period heavy, Denies period light, Denies period normal, Denies period spotting, Denies post hysterectomy, Denies postmenopausal, Denies premenarcheal Musculoskeletal: Reports as per HPI, Denies arm numbness/tingling, Denies atrophy, Denies fractures, Denies frequent falls, Denies gait dysfunction, Denies hot joints, Denies leg numbness/tingling, Denies limitation of motion, Denies loss of height, Denies low back pain, Denies morning stiffness, Denies muscle cramps, Denies muscle weakness, Denies myalgias, Denies neck pain, Denies neck stiffness, Denies prior amputations, Denies redness of joints, Denies shooting arm pain, Denies shooting leg pain Integumentary: Reports as per HPI Neurological: Reports as per HPI, Reports gait dysfunction Psychiatric: Denies as per HPI, Denies anhedonia, Denies anxiety, Denies anxiety attacks, Denies change in appetite, Denies change in libido, Denies change in sleep habits, Denies confusion, Denies depression, Denies difficulty concentrating, Denies disorientation, Denies hallucinations, Denies hopelessness, Denies hypersomnia, Denies insomnia, Denies irritability, Denies memory loss, Denies mood swings, Denies paranoia, Denies sadness/tearfulness, Denies sleep disturbances, Denies suicidal ideation Endocrine: Reports as per HPI, Denies cold intolerance, Denies deepening of the voice, Denies excessive sweating, Denies excessive thirst, Denies fatigue, Denies flushing, Denies heat intolerance, Denies high blood sugars, Denies increase in ring/shoe/hat size, Denies low blood sugars, Denies nocturia, Denies palpitations, Denies polydipsia, Denies polyphagia, Denies polyuria, Denies proptosis, Denies recent glucocorticoid use, Denies thyroid mass, Denies weight change Hematologic/Lymphatic: Reports as per HPI, Denies easy bleeding, Denies easy bruising, Denies lymphadenopathy, Denies lymphedema, Denies thrombophilia Allergic/Immunologic: Reports as per HPI, Denies allergic rhinitis, Denies anaphylaxis, Denies angioedema, Denies gluten intolerance, Denies persistent infections, Denies seasonal allergies, Denies urticaria, Denies wheezing Objective - Vital Signs Vital signs: Vital Signs Temp 98.0 F 12/29/20 11:48 Pulse 69 12/29/20 11:48 Resp 16 12/29/20 11:48 BP 133/74 12/29/20 11:48 Pulse Ox 100 12/29/20 11:48 Intake & Output 12/28/20 12/29/20 12/29/20 18:59 06:59 18:59 Intake Total 156.291 Balance 156.291 Weight 66.224 kg Intake: Intake, IV Titration 156.291 Amount Heparin Sod,Pork in 0.45% 156.291 NaCl 25,000 unit In 0.45 % NaCl 1 250ml.bag @ 12 UNITS/KG/HR 7.947 mls/hr IV .Q24H [facility] Rx#: [id number] Other: Voiding Method Toilet Toilet # Voids 2 2 - Constitutional General appearance: Present: cooperative, no acute distress - EENT Eyes: Present: anicteric sclerae, EOMI, dentition normal, normal appearance ENT: Present: NA/AT, normal oropharynx - Neck Neck: Present: normal ROM - Respiratory Respiratory: bilateral: CTA, negative: diminished, dullness, rales - Cardiovascular Rhythm: regular Heart sounds: normal: S1, S2 - Gastrointestinal General gastrointestinal: Present: normal bowel sounds, soft - Integumentary Integumentary: Present: decreased turgor, normal - Neurologic Neurologic: Present: CNII-XII intact - Musculoskeletal Musculoskeletal: Present: gait normal, strength equal bilaterally - Psychiatric Psychiatric: Present: A&O x's 3, appropriate affect, intact judgment & insight - Labs CBC & Chem 7: 12/29/20 06:07 12/28/20 09:40 Labs: Abnormal Lab Results - Last 24 Hours (Table) 12/28/20 12/29/20 Range/Units 17:04 06:07 APTT 45.5 H 45.4 H (22.0-30.0) sec Assessment and Plan Plan: ASSESSMENT AND PLAN 1. Nausea, episodic with right upper quadrant pain, patient thinks it is related to Lovenox, however with the treatment of her DVT, per the oncology office, Lovenox would need to be discontinued, and would transition and bridged to Coumadin, check for HIDA scan, CCK, last CT was done of the abdomen that was negative. IV heparin for now, Coumadin 7.5 mg tonight,, PTT -55-65, Coumadin titration, dietitian to see for Coumadin diet Inr goal 2.5-3.5 ultrasound gallbladder pancreas normal, need HIDA scan patient is refusing.. 1 DVT, right femoral vein chronic unknown whether with acute component, right thigh pain, also with chronic nonocclusive Ssuperficial VT in the greater saphenous vein nonoccluding with the current DVT PE in past Patient was placed on heparin now. tried pradaxa and xarelto in past with failures Dr. Castillo to see over the next week for Dopplers in the leg, to see whether this is acute or chronic, discussed with Dr. Castillo during her last admission. 2. Previous episodes of DVT including pulmonary embolism. Continue anticoagulation. Patient is under the care of oncology. 3. History of heterzygous for factor V leiden mutation. 4. History of IV contrast ALLERGY 5. GI prophylaxis. Pepcid. 6 DVT prophylaxis. Patient is on heparin drip.
[2020-12-29] MEDS: ACETAMINOPHEN TAB 325 MG TAB PO PRN (22:07)
[2020-12-30 05:43] LABS: INR 1.2 (<1.2); Partial Thromboplastin Time 57.5 sec (22.0-30.0); Prothrombin Time 12.6 sec (9.0-12.0)
[2020-12-30 10:00] LABS: Basophils # (A) 0.04 X 10*3/uL (0.00-0.10); Basophils % (A) 0.8 %; Eosinophils # (A) 0.27 X 10*3/uL (0.04-0.35); Eosinophils % (A) 5.3 %; HCT 40.8 % (37.2-46.3); HGB 13.2 g/dL (12.0-15.0); Lymphocytes # (A) 2.36 X 10*3/uL (0.90-5.00); Lymphocytes % (A) 46.6 %; MCH 31.4 pg (27.0-32.0); MCHC 32.4 g/dL (32.0-37.0); MCV 96.9 fL (80.0-97.0); Mean Platelet Volume 10.6 fL (9.5-12.2); Monocytes % (A) 9.9 %; Neutrophils # (A) 1.88 X 10*3/uL (1.80-7.70); Neutrophils % (A) 37.2 %; Platelet Count 314 X 10*3/uL (140-440); RBC 4.21 X 10*6/uL (4.10-5.20); RDW 12.5 % (11.5-14.5); WBC 5.06 X 10*3/uL (4.50-10.00)
--- NOTE | 2020-12-30 12:26 | P.PN ---
Subjective Progress Note Date: 12/30/20 Principal diagnosis: DVTs, intolerance to lovenox treatment, factor V leiden In f/u pt states feeling good, no SE r/t heparin or coumadin. Objective - Vital Signs Vital signs: Vital Signs Temp 97.7 F 12/30/20 11:40 Pulse 65 12/30/20 11:40 Resp 18 12/30/20 11:40 BP 111/71 12/30/20 11:40 Pulse Ox 100 12/30/20 11:40 Intake & Output 12/29/20 12/30/20 12/30/20 18:59 06:59 18:59 Intake Total 335.496 237.616 Balance 335.496 237.616 Intake: IV 120 120 0.9 120 120 Intake, IV Titration 215.496 117.616 Amount Heparin Sod,Pork in 0.45% 215.496 117.616 NaCl 25,000 unit In 0.45 % NaCl 1 250ml.bag @ 12 UNITS/KG/HR 7.947 mls/hr IV .Q24H [facility] Rx#: [id number] Other: Voiding Method Toilet Toilet # Voids 1 - Constitutional General appearance: Present: average body habitus, cooperative, no acute distress - EENT Eyes: Present: anicteric sclerae, EOMI ENT: Present: hearing grossly normal - Respiratory Details: resp even and unlabored - Neurologic Neurologic: Present: CNII-XII intact - Musculoskeletal Musculoskeletal: Present: strength equal bilaterally - Psychiatric Psychiatric: Present: A&O x's 3, appropriate affect, intact judgment & insight - Labs CBC & Chem 7: 12/30/20 04:45 12/28/20 09:40 Labs: Abnormal Lab Results - Last 24 Hours (Table) 12/30/20 Range/Units 04:45 PT 12.6 H (9.0-12.0) sec INR 1.2 H (<1.2) APTT 57.5 H (22.0-30.0) sec Assessment and Plan (1) Factor V Leiden Current Visit: Yes Status: Chronic Priority: Medium Code(s): D68.51 - ACTIVATED PROTEIN C RESISTANCE SNOMED Code(s): 641709540 (2) Deep vein thrombosis (DVT) of lower extremity Current Visit: No Status: Chronic Priority: Medium Code(s): I82.409 - ACUTE EMBOLISM AND THOMBOS UNSP DEEP VN UNSP LOWER EXTREMITY SNOMED Code(s): 626264560 Plan: Reviewed chart: 05/02/20-left lower extremity negative for DVT. 09/12/20-left lower extremity superficial thrombus in the greater saphenous vein. 10/08/20- left lower extremity no DVT, previous GSV thrombus not seen. 11/01/20-no right upper extremity thrombus/DVT. 11/18/20 left upper extremity negative for DVT or SVT. 12/10/20-right lower extremity positive for DVT in the femoral vein, non- occluding. Left lower extremity positive for the greater saphenous vein clot non-occluding. 12/24/20-DVT in the right femoral can't exclude acute on chronic. 12/26/20-DVT right femoral non-occluding left SVT GSV non-occluding. So, it does not appear that currently patient has an acute component to her BLE DVTs. But, she is intolerant to Lovenox. She is now on a heparin drip. She will take Coumadin until she has a therapeutic INR. Discussed case with [employer]ished Goods Inspector, INR 2-3 adequate, no asa. Cont heparin drip untiol INR>2, f/u in ofc for INR checks
[2020-12-30] MEDS: HEPARIN SOD,PORK IN 0.45% NACL 25,000 UNIT in 0.45% NACL 1 250ML.BAG IV SCH (14:59)
--- NOTE | 2020-12-30 15:27 | P.PN ---
Subjective Progress Note Date: 12/30/20 This is a 40-year-old female patient of Dr. Holger Farmer with past medical history of heterzygous for factor V leiden mutation under the care of Dr. Atwood with initial bilateral DVT in 2014 after having . That was followed by a right lower extremity DVT and bilateral PE in 2018. She was last admitted in April 2020 for right lower extremity DVT. She was seen by oncology at that time and was on Xarelto 10 mg daily and was considered a failed Xarelto, subsequently started on Pradaxa 150. Patient complains of pressure pain in the left leg in the pretibial area and proximal calf area fall of 2019. She denies having any significant edema or erythema. Last 12/24/2020 with right thigh pain in her groin She is currently on Xarelto 10 mg daily for which she was hospitalized December 24 Patient has had one and one live via . No miscarriages.. 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 Was seen by oncology, for which she was advised to be on long-term anticoagulation with Lovenox, and discontinue factor X a inhibition. Dr. Ball thinks that this is more advantageous than Coumadin, and was discharged on Lovenox at 1 mg/kg every 12 hours. Patient now comes in the emergency room secondary to nausea, foggy brain, has difficulty in focusing, denies any significant upper abdominal pain, no blood in stool, no hematuria, patient does not have any unusual anxiety, she has spoken to the nurse practitioner at Dr. Ravi's office, and recommended that she be bridged to Coumadin and discontinue Lovenox, IV heparin, rather than the bridge as an outpatient. Patient's also agreeable and workup of the nausea, with gallbladder test, HIDA scan, lipase she is still to keep the appointment with Dr. Castillo as scheduled from last week, her appointments coming up this coming week consult with oncology while here, vascular surgeon for eval as an outpatie nt 12/29, patient currently has no new symptoms, INR is controlled by primary see, 7.5 given yesterday, 5 mg given today, INR 1.1, oncology is following, with no new current recommendations, ultrasound discussed with the patient, still need a HIDA scan CCK, patient did not get this done as she refuses anything that's related to IV, she does have contrast iodinated ALLERGY, however Kinevac is a no n-odinated cholecystotomy kinetic drug. 12/30, INR today at 1.7, no further nausea, has headache last night , Coumadin at 10 mg to be given today by pharmacy, pharmacy is dosing Coumadin for INRs of INR 2 -3 . Oncology seemed to recommend that no further aspirin is needed while on Coumadin. No nausea no vomiting, no epistaxis, no GI intolerance is noted Review of Systems Constitutional: Reports as per HPI, Denies anorexia, Denies chills, Denies chronic headaches, Denies chronic pain, Denies daytime sleepiness, Denies fatigue, Denies fever, Denies lethargy, Denies malaise, Denies night sweats, Denies poor appetite, Denies sweats, Denies weakness, Denies weight gain, Denies weight loss Ears, nose, mouth and throat: Reports as per HPI, Denies ant. neck pain, Denies bleeding gums, Denies dental pain, Denies dysphagia, Denies epistaxis, Denies headache, Denies hoarseness, Denies mouth pain, Denies nasal congestion, Denies nasal discharge, Denies neck fullness/pressure, Denies neck lump, Denies nose pain, Denies odynophagia, Denies post-nasal drip, Denies sinus pain, Denies sinus pressure, Denies swelling in mouth, Denies swelling in throat, Denies sore throat, Denies vertigo, Denies voice changes Breasts: Reports as per HPI Cardiovascular: Reports as per HPI, Denies chest pain, Denies claudication, Denies decreased exercise tolerance, Denies dyspnea on exertion, Denies edema, Denies high blood pressure, Denies irregular heart beat, Denies leg edema, Denies lightheadedness, Denies orthopnea, Denies palpitations, Denies paroxysmal nocturnal dyspnea, Denies phlebitis, Denies rapid heart beat, Denies shortness of breath, Denies syncope Respiratory: Reports as per HPI Genitourinary: Reports as per HPI, Denies abnormal vaginal bleeding, Denies decreased libido, Denies difficulty conceiving, Denies difficulty voiding, Denies dysmenorrhea, Denies dyspareunia, Denies dysuria, Denies flank pain, Denies genital sores, Denies hematuria, Denies hot flashes, Denies incomplete emptying, Denies kidney stones, Denies menorrhagia, Denies mixed incontinence, Denies nocturia, Denies pelvic pain, Denies post void dribbling, Denies , Denies prolapse symptoms, Denies stress incontinence, Denies urge incontinence, Denies urgency, Denies urinary frequency, Denies vaginal discharge, Denies vaginal dryness, Denies vaginal itching, Denies vaginal odor Menstruation: Reports as per HPI, Denies amenorrhea, Denies amenorrhea on BC, Denies currently menstrual, Denies cycle < 21 days, Denies cycle > 35 days, Denies cycle variable, Denies menses 1-7 days, Denies menses 8 or > days, Denies menses variable, Denies period heavy, Denies period light, Denies period normal, Denies period spotting, Denies post hysterectomy, Denies postmenopausal, Denies premenarcheal Musculoskeletal: Reports as per HPI, Denies arm numbness/tingling, Denies atrophy, Denies fractures, Denies frequent falls, Denies gait dysfunction, Denies hot joints, Denies leg numbness/tingling, Denies limitation of motion, Denies loss of height, Denies low back pain, Denies morning stiffness, Denies muscle cramps, Denies muscle weakness, Denies myalgias, Denies neck pain, Denies neck stiffness, Denies prior amputations, Denies redness of joints, Denies shooting arm pain, Denies shooting leg pain Integumentary: Reports as per HPI Neurological: Reports as per HPI, Reports gait dysfunction Psychiatric: Denies as per HPI, Denies anhedonia, Denies anxiety, Denies anxiety attacks, Denies change in appetite, Denies change in libido, Denies change in sleep habits, Denies confusion, Denies depression, Denies difficulty c oncentrating, Denies disorientation, Denies hallucinations, Denies hopelessness, Denies hypersomnia, Denies insomnia, Denies irritability, Denies memory loss, Denies mood swings, Denies paranoia, Denies sadness/tearfulness, Denies sleep disturbances, Denies suicidal ideation Endocrine: Reports as per HPI, Denies cold intolerance, Denies deepening of the voice, Denies excessive sweating, Denies excessive thirst, Denies fatigue, Denies flushing, Denies heat intolerance, Denies high blood sugars, Denies increase in ring/shoe/hat size, Denies low blood sugars, Denies nocturia, Denies palpitations, Denies polydipsia, Denies polyphagia, Denies polyuria, Denies proptosis, Denies recent glucocorticoid use, Denies thyroid mass, Denies weight change Hematologic/Lymphatic: Reports as per HPI, Denies easy bleeding, Denies easy bruising, Denies lymphadenopathy, Denies lymphedema, Denies thrombophilia Allergic/Immunologic: Reports as per HPI, Denies allergic rhinitis, Denies anaphylaxis, Denies angioedema, Denies gluten intolerance, Denies persistent infections, Denies seasonal allergies, Denies urticaria, Denies wheezing Objective - Vital Signs Vital signs: Vital Signs Temp 97.6 F 12/30/20 05:00 Pulse 73 12/30/20 05:00 Resp 18 12/30/20 05:00 BP 120/76 12/30/20 05:00 Pulse Ox 100 12/30/20 05:00 Intake & Output 12/29/20 12/30/20 12/30/20 18:59 06:59 18:59 Intake Total 335.496 237.616 Balance 335.496 237.616 Intake: IV 120 120 0.9 120 120 Intake, IV Titration 215.496 117.616 Amount Heparin Sod,Pork in 0.45% 215.496 117.616 NaCl 25,000 unit In 0.45 % NaCl 1 250ml.bag @ 12 UNITS/KG/HR 7.947 mls/hr IV .Q24H MICAELA Rx#: [id number] Other: Voiding Method Toilet Toilet # Voids 1 - Constitutional General appearance: Present: cooperative, no acute distress - EENT Eyes: Present: anicteric sclerae, EOMI, PERRLA, dentition normal, normal appea homer ENT: Present: NA/AT, normal oropharynx - Neck Neck: Present: normal ROM - Respiratory Respiratory: bilateral: CTA, negative: diminished, dullness, rales - Cardiovascular Rhythm: regular Heart sounds: normal: S1, S2 Abnormal Heart Sounds: Absent: systolic murmur, diastolic murmur, rub, S3 Gallop, S4 Gallop, click, other - Gastrointestinal General gastrointestinal: Present: organomegaly, soft - Integumentary Integumentary: Present: decreased turgor, normal - Neurologic Neurologic: Present: CNII-XII intact - Musculoskeletal Musculoskeletal: Present: gait normal, strength equal bilaterally - Labs CBC & Chem 7: 12/30/20 04:45 12/28/20 09:40 Labs: Abnormal Lab Results - Last 24 Hours (Table) 12/30/20 Range/Units 04:45 PT 12.6 H (9.0-12.0) sec INR 1.2 H (<1.2) APTT 57.5 H (22.0-30.0) sec Assessment and Plan Plan: ASSESSMENT AND PLAN 1. Nausea, episodic with right upper quadrant pain, patient thinks it is related to Lovenox, however with the treatment of her DVT, per the oncology office, Lovenox would need to be discontinued, and would transition and bridged to Coumadin, check for HIDA scan, CCK, last CT was done of the abdomen that was negative. IV heparin for now, Coumadin 7.5 mg tonight,, PTT -55-65, Coumadin titration, dietitian to see for Coumadin diet Inr goal 2.5-3.5 ultrasound gallbladder pancreas normal, need HIDA scan patient is refusing.. 1 DVT, right femoral vein chronic unknown whether with acute component, right thigh pain, also with chronic nonocclusive Ssuperficial VT in the greater saphenous vein nonoccluding with the current DVT PE in past Patient was placed on heparin now. tried pradaxa and xarelto in past with failures Dr. Castillo to see over the next week for Dopplers in the leg, to see whether this is acute or chronic, discussed with Dr. Castillo during her last admission. 2. Previous episodes of DVT including pulmonary embolism. Continue anticoagulation. Patient is under the care of oncology. 3. History of heterzygous for factor V leiden mutation. 4. History of IV contrast ALLERGY 5. GI prophylaxis. Pepcid. 6 DVT prophylaxis. Patient is on heparin drip.
[2020-12-30] MEDS: FAMOTIDINE 20 MG TAB PO SCH (17:30)
[2020-12-30] MEDS ORDERED: WARFARIN 10 MG TAB PO ONE (18:00)
[2020-12-31 06:43] LABS: INR 1.4 (<1.2); Partial Thromboplastin Time 65.9 sec (22.0-30.0); Prothrombin Time 14.6 sec (9.0-12.0)
[2020-12-31] MEDS ORDERED: ERGOCALCIFEROL 1,250 MCG (50,000 IU) CAPSULE PO SCH (09:00)
[2020-12-31 09:24] LABS: Basophils # (A) 0.04 X 10*3/uL (0.00-0.10); Basophils % (A) 0.9 %; Eosinophils # (A) 0.19 X 10*3/uL (0.04-0.35); Eosinophils % (A) 4.4 %; HCT 39.6 % (37.2-46.3); HGB 12.8 g/dL (12.0-15.0); Lymphocytes # (A) 1.78 X 10*3/uL (0.90-5.00); Lymphocytes % (A) 41.6 %; MCH 31.2 pg (27.0-32.0); MCHC 32.3 g/dL (32.0-37.0); MCV 96.6 fL (80.0-97.0); Mean Platelet Volume 10.5 fL (9.5-12.2); Monocytes # (A) 0.43 X 10*3/uL (0.20-1.00); Neutrophils # (A) 1.83 X 10*3/uL (1.80-7.70); Neutrophils % (A) 42.9 %; Platelet Count 312 X 10*3/uL (140-440); RDW 12.4 % (11.5-14.5); WBC 4.28 X 10*3/uL (4.50-10.00)
--- NOTE | 2020-12-31 12:25 | P.PN ---
Subjective Progress Note Date: 12/31/20 Principal diagnosis: DVTs, intolerance to lovenox treatment, factor V leiden In f/u pt states feeling good, no SE r/t heparin or coumadin. Objective - Vital Signs Vital signs: Vital Signs Temp 97.9 F 12/31/20 04:43 Pulse 70 12/31/20 04:43 Resp 18 12/31/20 04:43 BP 107/70 12/31/20 04:43 Pulse Ox 99 12/31/20 04:43 Intake & Output 12/30/20 12/31/20 12/31/20 18:59 06:59 18:59 Intake Total 193.112 840 154.702 Balance 193.112 840 154.702 Intake: IV 120 0.9 120 Intake, IV Titration 73.112 154.702 Amount Heparin Sod,Pork in 0.45% 73.112 154.702 NaCl 25,000 unit In 0.45 % NaCl 1 250ml.bag @ 12 UNITS/KG/HR 7.947 mls/hr IV .Q24H MICAELA Rx#: [id number] Oral 840 Other: Voiding Method Toilet Toilet # Voids 2 2 - Constitutional General appearance: Present: average body habitus, cooperative, no acute distress - EENT Eyes: Present: anicteric sclerae, EOMI ENT: Present: hearing grossly normal - Respiratory Details: resp even and unlabored - Peripheral edema leg Peripheral Edema: bilateral: Trace - Integumentary Integumentary: Present: normal - Neurologic Neurologic: Present: CNII-XII intact - Musculoskeletal Musculoskeletal: Present: strength equal bilaterally - Psychiatric Psychiatric: Present: A&O x's 3, appropriate affect, intact judgment & insight - Labs CBC & Chem 7: 12/31/20 05:27 12/28/20 09:40 Labs: Abnormal Lab Results - Last 24 Hours (Table) 12/31/20 12/31/20 Range/Units 05:27 05:27 WBC 4.28 L (4.50-10.00) X 10*3/uL PT 14.6 H (9.0-12.0) sec INR 1.4 H (<1.2) APTT 65.9 H (22.0-30.0) sec Assessment and Plan (1) Factor V Leiden Current Visit: Yes Status: Chronic Priority: Medium Code(s): D68.51 - ACTIVATED PROTEIN C RESISTANCE SNOMED Code(s): 973072564 (2) Deep vein thrombosis (DVT) of lower extremity Current Visit: No Status: Chronic Priority: Medium Code(s): I82.409 - ACUTE EMBOLISM AND THOMBOS UNSP DEEP VN UNSP LOWER EXTREMITY SNOMED Code(s): 253138191 Plan: Reviewed chart: 04/27/20-rt femoral DVT. 05/02/20-left lower extremity negative for DVT. 09/12/20-left lower extremity superficial thrombus in the greater saphenous vein. 10/08/20-left lower extremity no DVT, previous GSV thrombus not seen. 11/01/20-no right upper extremity thrombus/DVT. 11/18/20 left upper extremity negative for DVT or SVT. 12/10/20-right lower extremity positive for DVT in the femoral vein, non-occluding. Left lower extremity positive for the greater saphenous vein clot, non-occluding. 12/24/20-DVT in the right femoral can't exclude acute on chronic-anticoagulation changed to lovenox. 12/26/20-DVT right femoral non-occluding, left SVT GSV non-occluding. So, it does not appear that currently patient has an acute component to her BLE DVTs but, she is intolerant to Lovenox. Changed to coumadin. Cont heparin drip, INR 1.4 today. Cont heparin drip untiol INR>2, f/u in ofc for INR checks appt sched and documented in discharge plan Orders sent for home INR monitoring
[2020-12-31] MEDS: HEPARIN SOD,PORK IN 0.45% NACL 25,000 UNIT in 0.45% NACL 1 250ML.BAG IV SCH ×2 (13:38→23:21)
[2020-12-31] MEDS: FAMOTIDINE 20 MG TAB PO SCH (17:25)
[2020-12-31] MEDS ORDERED: WARFARIN 10 MG TAB PO ONE (18:00)
[2021-01-01 07:18] LABS: INR 2.1 (<1.2); Partial Thromboplastin Time 54.3 sec (22.0-30.0); Prothrombin Time 20.8 sec (9.0-12.0)
--- NOTE | 2021-01-01 08:45 | P.PN ---
Subjective Progress Note Date: 12/31/20 HISTORY OF PRESENT ILLNESS This is a 40-year-old female patient of Dr. Holger Farmer with past medical history of heterzygous for factor V leiden mutation under the care of Dr. Atwood with initial bilateral DVT in 2014 after having . That was followed by a right lower extremity DVT and bilateral PE in 2018. She was last admitted in April 2020 for right lower extremity DVT. She was seen by oncology at that time and was on Xarelto 10 mg daily and was considered a failed Xarelto, subsequently started on Pradaxa 150. Patient complains of pressure pain in the left leg in the pretibial area and proximal calf area fall of 2019. She denies having any significant edema or erythema. Last 12/24/2020 with right thigh pain in her groin She is currently on Xarelto 10 mg daily for which she was hospitalized December 24 Patient has had one and one live via . No miscarriages.. 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 Was seen by oncology, for which she was advised to be on long-term anticoagulation with Lovenox, and discontinue factor X a inhibition. Dr. Ball thinks that this is more advantageous than Coumadin, and was discharged on Lovenox at 1 mg/kg every 12 hours. Patient now comes in the emergency room secondary to nausea, foggy brain, has difficulty in focusing, denies any significant upper abdominal pain, no blood in stool, no hematuria, patient does not have any unusual anxiety, she has spoken to the nurse practitioner at Dr. Ravi's office, and recommended that she be bridged to Coumadin and discontinue Lovenox, IV heparin, rather than the bridge as an outpatient. Patient's also agreeable and workup of the nausea, with gallbladder test, HIDA scan, lipase she is still to keep the appointment with Dr. Castillo as scheduled from last week, her appointments coming up this coming week consult with oncology while here, vascular surgeon for eval as an outpatient 12/29, patient currently has no new symptoms, INR is controlled by primary see, 7.5 given yesterday, 5 mg given today, INR 1.1, oncology is following, with no new current recommendations, ultrasound discussed with the patient, still need a HIDA scan CCK, patient did not get this done as she refuses anything that's related to IV, she does have contrast iodinated ALLERGY, however Kinevac is a non-odinated cholecystotomy kinetic drug. 12/30, INR today at 1.2, no further nausea, has headache last night , Coumadin at 10 mg to be given today by pharmacy, pharmacy is dosing Coumadin for INRs of INR 2 -3 . Oncology seemed to recommend that no further aspirin is needed while on Coumadin. No nausea no vomiting, no epistaxis, no GI intolerance is noted 12/31: Repeat INR is 1.4. Last evening. She is scheduled for another 10 mg tonight. If INR is within therapeutic range tomorrow, patient will be discharged home. She remains on heparin drip. She's been afebrile, heart rate 70, blood pressure 107/70, pulse ox 99% on room air. REVIEW OF SYSTEMS Constitutional: No fever, no chills, no night sweats. No weight change. No weakness, fatigue or lethargy. No daytime sleepiness. EENT: No headache. No blurred vision or double vision, no loss of vision. No loss of Hearing, no ringing in the ears, no dizziness. No nasal drainage or congestion. No epistaxis. No sore throat. Lungs: No shortness of breath, cough, no sputum production. No wheezing. Cardiovascular: No chest pain, no lower extremity edema. No palpitations. No paroxysmal nocturnal dyspnea. No orthopnea. No lightheadedness or dizziness. No syncopal episodes. Abdominal: No abdominal pain. No nausea, vomiting. No diarrhea. No constipa tion. No bloody or tarry stools.. No loss of appetite. Genitourinary: No dysuria, increased frequency, urgency. No urinary retention. Musculoskeletal: No myalgias. No muscle weakness, no gait dysfunction, no frequent falls. No back pain. No neck pain. Integumentary: No wounds, no lesions. No rash or pruritus. No unusual bruising. No change in hair or nails. Neurologic: No aphasia. No facial droop. No change in mentation. No head injury. No headache. No paralysis. No paresthesia. Psychiatric: No depression. No anxiety. No mood swings. Endocrine: No abnormal blood sugars. No weight change. No excessive sweating or thirst. No cold intolerance. PHYSICAL EXAMINATION Gen: This is a 40-year-old female. Patient is resting in bed and appears to be comfortable at rest. HEENT: Head is atraumatic, normocephalic. Pupils equal, round. Sclerae is ani cteric. NECK: Supple. No JVD. No lymphadenopathy. No thyromegaly. LUNGS: Clear to auscultation. No wheezes or rhonchi. No intercostal retractions. HEART: Regular rate and rhythm. No murmur. ABDOMEN: Soft. Bowel sounds are present. No masses. No tenderness. EXTREMITIES: No pedal edema. No calf tenderness. NEUROLOGICAL: Patient is awake, alert and oriented x3. Cranial nerves 2 through 12 are grossly intact. ASSESSMENT AND PLAN 1. Nausea, episodic with right upper quadrant pain, patient thinks it is related to Lovenox. Lovenox discontinued. 1 DVT, right femoral vein chronic unknown whether with acute component, right thigh pain, also with chronic nonocclusive Ssuperficial VT in the greater saphenous vein nonoccluding with the current DVT PE in past Patient was placed on heparin now. tried pradaxa and xarelto in past with failures Dr. Castillo to see over the next week for Dopplers in the leg, to see whether this is acute or chronic, discussed with Dr. Castillo during her last admission. 2. Previous episodes of DVT including pulmonary embolism. Continue anticoagulation. Patient is under the care of oncology. 3. History of heterzygous for factor V leiden mutation. 4. History of IV contrast ALLERGY 5. GI prophylaxis. Pepcid. 6 DVT prophylaxis. Patient is on heparin drip. DISCHARGE PLAN Home once INR is therapeutic. Impression and plan of care have been directed as dictated by the signing physician. Heather Marinelli nurse practitioner acting as scribe for signing physician. Objective - Vital Signs Vital signs: Vital Signs Temp 97.9 F 12/31/20 04:43 Pulse 70 12/31/20 04:43 Resp 18 12/31/20 04:43 BP 107/70 12/31/20 04:43 Pulse Ox 99 12/31/20 04:43 Intake & Output 12/30/20 12/31/20 12/31/20 18:59 06:59 18:59 Intake Total 193.112 840 Balance 193.112 840 Intake: IV 120 0.9 120 Intake, IV Titration 73.112 Amount Heparin Sod,Pork in 0.45% 73.112 NaCl 25,000 unit In 0.45 % NaCl 1 250ml.bag @ 12 UNITS/KG/HR 7.947 mls/hr IV .Q24H MICAELA Rx#: [id number] Oral 840 Other: Voiding Method Toilet Toilet # Voids 2 - Labs CBC & Chem 7: 12/31/20 05:27 12/28/20 09:40 Labs: Abnormal Lab Results - Last 24 Hours (Table) 12/31/20 Range/Units 05:27 PT 14.6 H (9.0-12.0) sec INR 1.4 H (<1.2) APTT 65.9 H (22.0-30.0) sec
--- NOTE | 2021-01-01 10:27 | P.PN ---
Subjective Progress Note Date: 01/01/21 Principal diagnosis: DVTs, intolerance to lovenox treatment, factor V leiden In f/u pt states feeling good, no SE r/t heparin or coumadin. Objective - Vital Signs Vital signs: Vital Signs Temp 97.7 F 01/01/21 05:00 Pulse 74 01/01/21 05:00 Resp 16 01/01/21 05:00 BP 114/69 01/01/21 05:00 Pulse Ox 99 01/01/21 05:00 Intake & Output 12/31/20 01/01/21 01/01/21 18:59 06:59 18:59 Intake Total 1114.702 675.424 Balance 1114.702 675.424 Intake: Intake, IV Titration 154.702 85.424 Amount Heparin Sod,Pork in 0.45% 154.702 85.424 NaCl 25,000 unit In 0.45 % NaCl 1 250ml.bag @ 12 UNITS/KG/HR 7.947 mls/hr IV .Q24H MICAELA Rx#: [id number] Oral 960 590 Other: Voiding Method Toilet Toilet # Voids 3 2 1 - Constitutional General appearance: Present: average body habitus, cooperative, no acute distress - EENT Eyes: Present: anicteric sclerae, EOMI ENT: Present: hearing grossly normal - Respiratory Respiratory: bilateral: CTA - Cardiovascular Rhythm: regular Heart sounds: normal: S1, S2 Abnormal Heart Sounds: Absent: systolic murmur, diastolic murmur, rub, S3 Ernst p, S4 Gallop, click, other - Peripheral edema leg Peripheral Edema: bilateral: Trace - Gastrointestinal General gastrointestinal: Present: normal bowel sounds, soft - Integumentary Integumentary: Present: normal - Neurologic Neurologic: Present: CNII-XII intact - Musculoskeletal Musculoskeletal: Present: strength equal bilaterally - Psychiatric Psychiatric: Present: A&O x's 3, appropriate affect, intact judgment & insight - Labs CBC & Chem 7: 12/31/20 05:27 12/28/20 09:40 Labs: Abnormal Lab Results - Last 24 Hours (Table) 12/31/20 01/01/21 Range/Units 16:59 06:50 PT 20.8 H (9.0-12.0) sec INR 2.1 H (<1.2) APTT 50.2 H 54.3 H (22.0-30.0) sec Assessment and Plan (1) Factor V Leiden Current Visit: Yes Status: Chronic Priority: Medium Code(s): D68.51 - ACTIVATED PROTEIN C RESISTANCE SNOMED Code(s): 200007511 (2) Deep vein thrombosis (DVT) of lower extremity Current Visit: No Status: Chronic Priority: Medium Code(s): I82.409 - ACUTE EMBOLISM AND THOMBOS UNSP DEEP VN UNSP LOWER EXTREMITY SNOMED Code(s): 093887477 Plan: Reviewed chart: 04/27/20-rt femoral DVT. 05/02/20-left lower extremity negative for DVT. 09/12/20-left lower extremity superficial thrombus in the greater saphenous vein. 10/08/20-left lower extremity no DVT, previous GSV thrombus not seen. 11/01/20-no right upper extremity thrombus/DVT. 11/18/20 left upper extremity negative for DVT or SVT. 12/10/20-right lower extremity positive for DVT in the femoral vein, non-occluding. Left lower extremity positive for the greater saphenous vein clot, non-occluding. 12/24/20-DVT in the right femoral can't exclude acute on chronic-anticoagulation changed to lovenox. 12/26/20-DVT right femoral non-occluding, left SVT GSV non-occluding. So, it does not appear that currently patient has an acute component to her BLE DVTs but, she is intolerant to Lovenox. Changed to coumadin. Cont heparin drip, INR 2.[address] Ball would like pt INR 2.5 or higher before DC of heparin drip. F/U appt in chart Orders sent for home INR monitoring, pending response Doctor attests: I performed a history and physical examination of this patient, developed impression and plan of care, discussed with dictator. I agree with dictators note, documented as a scribe.
--- NOTE | 2021-01-01 14:12 | US ---
EXAMINATION TYPE: US venous doppler duplex UE RT DATE OF EXAM: 01/01/2021 COMPARISON: US 2019 CLINICAL HISTORY: r/o DVT. Right arm pain, patient has factor 5, on blood thinners SIDE PERFORMED: Right Right Arm: Appears negative for DVT IMPRESSION: 1. Right upper extremity ultrasound negative for deep venous thrombosis
--- NOTE | 2021-01-01 16:15 | P.PN ---
Subjective Progress Note Date: 01/01/21 This is a 40-year-old female patient of Dr. Holger Farmer with past medical history of heterzygous for factor V leiden mutation under the care of Dr. Atwood with initial bilateral DVT in 2014 after having . That was followed by a right lower extremity DVT and bilateral PE in 2018. She was last admitted in April 2020 for right lower extremity DVT. She was seen by oncology at that time and was on Xarelto 10 mg daily and was considered a failed Xarelto, subsequently started on Pradaxa 150. Patient complains of pressure pain in the left leg in the pretibial area and proximal calf area fall of 2019. She denies having any significant edema or erythema. Last 12/24/2020 with right thigh pain in her groin She is currently on Xarelto 10 mg daily for which she was hospitalized December 24 Patient has had one and one live via . No miscarriages.. 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 Was seen by oncology, for which she was advised to be on long-term anticoagulation with Lovenox, and discontinue factor X a inhibition. Dr. Ball thinks that this is more advantageous than Coumadin, and was discharged on Lovenox at 1 mg/kg every 12 hours. Patient now comes in the emergency room secondary to nausea, foggy brain, has difficulty in focusing, denies any significant upper abdominal pain, no blood in stool, no hematuria, patient does not have any unusual anxiety, she has spoken to the nurse practitioner at Dr. Ravi's office, and recommended that she be bridged to Coumadin and discontinue Lovenox, IV heparin, rather than the bridge as an outpatient. Patient's also agreeable and workup of the nausea, with gallbladder test, HIDA scan, lipase she is still to keep the appointment with Dr. Castillo as scheduled from last week, her appointments coming up this coming week consult with oncology while here, vascular surgeon for eval as an outpatie nt 12/29, patient currently has no new symptoms, INR is controlled by primary see, 7.5 given yesterday, 5 mg given today, INR 1.1, oncology is following, with no new current recommendations, ultrasound discussed with the patient, still need a HIDA scan CCK, patient did not get this done as she refuses anything that's related to IV, she does have contrast iodinated ALLERGY, however Kinevac is a no n-odinated cholecystotomy kinetic drug. 12/30, INR today at 1.2, no further nausea, has headache last night , Coumadin at 10 mg to be given today by pharmacy, pharmacy is dosing Coumadin for INRs of INR 2 -3 . Oncology seemed to recommend that no further aspirin is needed while on Coumadin. No nausea no vomiting, no epistaxis, no GI intolerance is noted 12/31: Repeat INR is 1.4. Last evening. She is scheduled for another 10 mg tonight. If INR is within therapeutic range tomorrow, patient will be discharged home. She remains on heparin drip. She's been afebrile, heart rate 70, blood pressure 107/70, pulse ox 99% on room air. 01/01 patient examined bedside complains of right upper extremity pain. She did have IV line in this extremity which was switched to the other arm. Some tende rness noted in the forearm. Would recommend ice pack and elevating the arm to help with swelling. Ultrasound upper extremity of the right is ordered to rule out DVT. INR 2.1 today plan to discontinue heparin drip once INR above 2.5 REVIEW OF SYSTEMS Constitutional: No fever, no chills, no night sweats. No weight change. No weakness, fatigue or lethargy. No daytime sleepiness. EENT: No headache. No blurred vision or double vision, no loss of vision. No loss of Hearing, no ringing in the ears, no dizziness. No nasal drainage or congestion. No epistaxis. No sore throat. Lungs: No shortness of breath, cough, no sputum production. No wheezing. Cardiovascular: No chest pain, no lower extremity edema. No palpitations. No paroxysmal nocturnal dyspnea. No orthopnea. No lightheadedness or dizziness. No syncopal episodes. Abdominal: No abdominal pain. No nausea, vomiting. No diarrhea. No constipation. No bloody or tarry stools.. No loss of appetite. Genitourinary: No dysuria, increased frequency, urgency. No urinary retention. Musculoskeletal: No myalgias. No muscle weakness, no gait dysfunction, no frequent falls. No back pain. No neck pain. No right upper arm extremity pain associated with swelling Integumentary: No wounds, no lesions. No rash or pruritus. No unusual bruising. No change in hair or nails. Neurologic: No aphasia. No facial droop. No change in mentation. No head injury. No headache. No paralysis. No paresthesia. Psychiatric: No depression. No anxiety. No mood swings. Endocrine: No abnormal blood sugars. No weight change. No excessive sweating or thirst. No cold intolerance. Objective - Vital Signs Vital signs: Vital Signs Temp 98.2 F 01/01/21 12:41 Pulse 70 01/01/21 12:41 Resp 17 01/01/21 12:41 BP 105/68 01/01/21 12:41 Pulse Ox 97 01/01/21 12:41 Intake & Output 12/31/20 01/01/21 01/01/21 18:59 06:59 18:59 Intake Total 1114.702 675.424 Balance 1114.702 675.424 Intake: Intake, IV Titration 154.702 85.424 Amount Heparin Sod,Pork in 0.45% 154.702 85.424 NaCl 25,000 unit In 0.45 % NaCl 1 250ml.bag @ 12 UNITS/KG/HR 7.947 mls/hr IV .Q24H MICAELA Rx#: [id number] Oral [id number] 590 Other: Voiding Method Toilet Toilet # Voids 3 2 1 - Exam PHYSICAL EXAMINATION Gen: This is a 40-year-old female. Patient is resting in bed and appears to be comfortable at rest. HEENT: Head is atraumatic, normocephalic. Pupils equal, round. Sclerae is anicteric. NECK: Supple. No JVD. No lymphadenopathy. No thyromegaly. LUNGS: Clear to auscultation. No wheezes or rhonchi. No intercostal retractions. HEART: Regular rate and rhythm. No murmur. ABDOMEN: Soft. Bowel sounds are present. No masses. No tenderness. EXTREMITIES: No pedal edema. No calf tenderness. Right upper forearm appears tender on touch with minimal swelling NEUROLOGICAL: Patient is awake, alert and oriented x3. Cranial nerves 2 through 12 are grossly intact. - Labs CBC & Chem 7: 12/31/20 05:27 12/28/20 09:40 Labs: Abnormal Lab Results - Last 24 Hours (Table) 12/31/20 01/01/21 Range/Units 16:59 06:50 PT 20.8 H (9.0-12.0) sec INR 2.1 H (<1.2) APTT 50.2 H 54.3 H (22.0-30.0) sec Assessment and Plan Plan: ASSESSMENT AND PLAN 1. Nausea, episodic with right upper quadrant pain, patient thinks it is related to Lovenox. Lovenox discontinued. 1 DVT, right femoral vein chronic unknown whether with acute component, right thigh pain, also with chronic nonocclusive Ssuperficial VT in the greater saphenous vein nonoccluding with the current DVT PE in past Patient was placed on heparin now. tried pradaxa and xarelto in past with failures Dr. Castillo to see over the next week for Dopplers in the leg, to see whether this is acute or chronic, discussed with Dr. Castillo during her last admission. 2. Previous episodes of DVT including pulmonary embolism. Continue antic oagulation. Patient is under the care of oncology. 3. History of heterzygous for factor V leiden mutation. 4. History of IV contrast ALLERGY 5. GI prophylaxis. Pepcid. 6 DVT prophylaxis. Patient is on heparin drip. 7. Right arm pain rule out DVT ultrasound of the arm ordered encourage keeping the arm elevated with cold compressions DISCHARGE PLAN Home once INR is therapeutic.
[2021-01-01] MEDS ORDERED: WARFARIN 5 MG TAB PO ONE (18:00)
[2021-01-01] MEDS: FAMOTIDINE 20 MG TAB PO SCH (18:13)
[2021-01-01] MEDS: DOCUSATE 100 MG CAP PO SCH (21:53)
[2021-01-01] MEDS: HEPARIN SOD,PORK IN 0.45% NACL 25,000 UNIT in 0.45% NACL 1 250ML.BAG IV SCH (23:58)
[2021-01-02 06:31] LABS: INR 2.3 (<1.2); Partial Thromboplastin Time 61.3 sec (22.0-30.0); Prothrombin Time 22.2 sec (9.0-12.0)
[2021-01-02] MEDS: DOCUSATE 100 MG CAP PO SCH (09:29)
--- NOTE | 2021-01-02 10:16 | P.PN ---
Subjective Progress Note Date: 01/02/21 Principal diagnosis: DVTs, intolerance to lovenox treatment, factor V leiden In f/u pt states feeling good, no SE r/t heparin or coumadin. Objective - Vital Signs Vital signs: Vital Signs Temp 97.7 F 01/02/21 09:34 Pulse 78 01/02/21 09:34 Resp 17 01/02/21 09:34 BP 109/70 01/02/21 09:34 Pulse Ox 99 01/02/21 09:34 Intake & Output 01/01/21 01/02/21 01/02/21 18:59 06:59 18:59 Intake Total 1100 753.012 59.157 Balance 1100 753.012 59.157 Intake: Intake, IV Titration 163.012 59.157 Amount Heparin Sod,Pork in 0.45% 163.012 59.157 NaCl 25,000 unit In 0.45 % NaCl 1 250ml.bag @ 12 UNITS/KG/HR 7.947 mls/hr IV .Q24H MICAELA Rx#: [id number] Oral 1100 590 Other: Voiding Method Toilet Toilet # Voids 3 2 - Constitutional General appearance: Present: average body habitus, cooperative, no acute distress - EENT Eyes: Present: anicteric sclerae, EOMI ENT: Present: hearing grossly normal - Respiratory Details: resp even and unlabored - Neurologic Neurologic: Present: CNII-XII intact - Musculoskeletal Musculoskeletal Comment(s): ambulating at will, independently Musculoskeletal: Present: strength equal bilaterally - Psychiatric Psychiatric: Present: A&O x's 3, appropriate affect, intact judgment & insight - Labs CBC & Chem 7: 12/31/20 05:27 12/28/20 09:40 Labs: Abnormal Lab Results - Last 24 Hours (Table) 01/02/21 Range/Units 05:44 PT 22.2 H (9.0-12.0) sec INR 2.3 H (<1.2) APTT 61.3 H (22.0-30.0) sec Assessment and Plan (1) Factor V Leiden Current Visit: Yes Status: Chronic Priority: Medium Code(s): D68.51 - ACTIVATED PROTEIN C RESISTANCE SNOMED Code(s): 522744553 (2) Deep vein thrombosis (DVT) of lower extremity Current Visit: No Status: Chronic Priority: Medium Code(s): I82.409 - ACUTE EMBOLISM AND THOMBOS UNSP DEEP VN UNSP LOWER EXTREMITY SNOMED Code(s): 115569345 Plan: Reviewed chart: 04/27/20-rt femoral DVT. 05/02/20-left lower extremity negative for DVT. 09/12/20-left lower extremity superficial thrombus in the greater saphenous vein. 10/08/20-left lower extremity no DVT, previous GSV thrombus not seen. 11/01/20-no right upper extremity thrombus/DVT. 11/18/20 left upper extremity negative for DVT or SVT. 12/10/20-right lower extremity positive for DVT in the femoral vein, non-occluding. Left lower extremity positive for the g reater saphenous vein clot, non-occluding. 12/24/20-DVT in the right femoral can't exclude acute on chronic-anticoagulation changed to lovenox. 12/26/20-DVT right femoral non-occluding, left SVT GSV non-occluding. So, it does not appear that currently patient has an acute component to her BLE DVTs but, she is intolerant to Lovenox. Changed to coumadin. Cont heparin drip, INR 2.[address] Ball would like pt INR 2.5 or higher before DC of heparin drip. F/U appt in chart-changed to reflect being inpt still Orders sent for home INR monitoring, pending appeal
--- NOTE | 2021-01-02 13:52 | P.PN ---
Subjective Progress Note Date: 01/02/21 HISTORY OF PRESENT ILLNESS This is a 40-year-old female patient of Dr. Holger Farmer with past medical history of heterzygous for factor V leiden mutation under the care of Dr. Atwood with initial bilateral DVT in 2014 after having . That was followed by a right lower extremity DVT and bilateral PE in 2018. She was last admitted in April 2020 for right lower extremity DVT. She was seen by oncology at that time and was on Xarelto 10 mg daily and was considered a failed Xarelto, subsequently started on Pradaxa 150. Patient complains of pressure pain in the left leg in the pretibial area and proximal calf area fall of 2019. She denies having any significant edema or erythema. Last 12/24/2020 with right thigh pain in her groin She is currently on Xarelto 10 mg daily for which she was hospitalized December 24 Patient has had one and one live via . No miscarriages.. 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 Was seen by oncology, for which she was advised to be on long-term anticoagulation with Lovenox, and discontinue factor X a inhibition. Dr. Ball thinks that this is more advantageous than Coumadin, and was discharged on Lovenox at 1 mg/kg every 12 hours. Patient now comes in the emergency room secondary to nausea, foggy brain, has difficulty in focusing, denies any significant upper abdominal pain, no blood in stool, no hematuria, patient does not have any unusual anxiety, she has spoken to the nurse practitioner at Dr. Ravi's office, and recommended that she be bridged to Coumadin and discontinue Lovenox, IV heparin, rather than the bridge as an outpatient. Patient's also agreeable and workup of the nausea, with gallbladder test, HIDA scan, lipase she is still to keep the appointment with Dr. Castillo as scheduled from last week, her appointments coming up this coming week consult with oncology while here, vascular surgeon for eval as an outpatient 12/29, patient currently has no new symptoms, INR is controlled by primary see, 7.5 given yesterday, 5 mg given today, INR 1.1, oncology is following, with no new current recommendations, ultrasound discussed with the patient, still need a HIDA scan CCK, patient did not get this done as she refuses anything that's related to IV, she does have contrast iodinated ALLERGY, however Kinevac is a non-odinated cholecystotomy kinetic drug. 12/30, INR today at 1.2, no further nausea, has headache last night , Coumadin at 10 mg to be given today by pharmacy, pharmacy is dosing Coumadin for INRs of INR 2 -3 . Oncology seemed to recommend that no further aspirin is needed while on Coumadin. No nausea no vomiting, no epistaxis, no GI intolerance is noted 12/31: Repeat INR is 1.4. Last evening. She is scheduled for another 10 mg tonight. If INR is within therapeutic range tomorrow, patient will be discharged home. She remains on heparin drip. She's been afebrile, heart rate 70, blood pressure 107/70, pulse ox 99% on room air. 01/01 patient examined bedside complains of right upper extremity pain. She did have IV line in this extremity which was switched to the other arm. Some tenderness noted in the forearm. Would recommend ice pack and elevating the arm to help with swelling. Ultrasound upper extremity of the right is ordered to rule out DVT. INR 2.1 today plan to discontinue heparin drip once INR above 2.5 01/02: Ultrasound of the right upper extremity is negative for DVT. Patient states the pain is better today and I seem to help. Her INR today is at 2.3 and oncology has been clear that they do not with a heparin drip discontinued until INR is 2.5 or above. Anticipate probable discharge tomorrow. REVIEW OF SYSTEMS Constitutional: No fever, no chills, no night sweats. No weight change. No weakness, fatigue or lethargy. No daytime sleepiness. EENT: No headache. No blurred vision or double vision, no loss of vision. No loss of Hearing, no ringing in the ears, no dizziness. No nasal drainage or congestion. No epistaxis. No sore throat. Lungs: No shortness of breath, cough, no sputum production. No wheezing. Cardiovascular: No chest pain, no lower extremity edema. No palpitations. No paroxysmal nocturnal dyspnea. No orthopnea. No lightheadedness or dizziness. No syncopal episodes. Abdominal: No abdominal pain. No nausea, vomiting. No diarrhea. No constipation. No bloody or tarry stools.. No loss of appetite. Genitourinary: No dysuria, increased frequency, urgency. No urinary retention. Musculoskeletal: No myalgias. No muscle weakness, no gait dysfunction, no frequent falls. No back pain. No neck pain. Integumentary: No wounds, no lesions. No rash or pruritus. No unusual bruising. No change in hair or nails. Neurologic: No aphasia. No facial droop. No change in mentation. No head injury. No headache. No paralysis. No paresthesia. Psychiatric: No depression. No anxiety. No mood swings. Endocrine: No abnormal blood sugars. No weight change. No excessive sweating or thirst. No cold intolerance. PHYSICAL EXAMINATION Gen: This is a 40-year-old female. Patient is relating in her room and appears to be comfortable. HEENT: Head is atraumatic, normocephalic. Pupils equal, round. Sclerae is anicteric. NECK: Supple. No JVD. No lymphadenopathy. No thyromegaly. LUNGS: Clear to auscultation. No wheezes or rhonchi. No intercostal retractions. HEART: Regular rate and rhythm. No murmur. ABDOMEN: Soft. Bowel sounds are present. No masses. No tenderness. EXTREMITIES: No pedal edema. No calf tenderness. NEUROLOGICAL: Patient is awake, alert and oriented x3. Cranial nerves 2 through 12 are grossly intact. ASSESSMENT AND PLAN 1. Nausea, episodic with right upper quadrant pain, patient thinks it is related to Lovenox. Lovenox discontinued. 1 DVT, right femoral vein chronic unknown whether with acute component, right thigh pain, also with chronic nonocclusive Ssuperficial VT in the greater saphenous vein nonoccluding with the current DVT PE in past Patient was placed on heparin now. tried pradaxa and xarelto in past with failures Dr. Castillo to see over the next week for Dopplers in the leg, to see whether this is acute or chronic, discussed with Dr. Castillo during her last admission. Continue heparin until INR is 2.5 or above. 2. Previous episodes of DVT including pulmonary embolism. Continue anticoagulation. Patient is under the care of oncology. 3. History of heterzygous for factor V leiden mutation. 4. History of IV contrast ALLERGY 5. GI prophylaxis. Pepcid. 6 DVT prophylaxis. Patient is on heparin drip. DISCHARGE PLAN Home once INR is 2.5 or above. Impression and plan of care have been directed as dictated by the signing physician. Heather Marinelli nurse practitioner acting as scribe for signing phys ician. Objective - Vital Signs Vital signs: Vital Signs Temp 98.1 F 01/02/21 05:07 Pulse 78 01/02/21 05:07 Resp 16 01/02/21 05:07 BP 106/67 01/02/21 05:07 Pulse Ox 99 01/02/21 05:07 Intake & Output 01/01/21 01/02/21 01/02/21 18:59 06:59 18:59 Intake Total 1100 753.012 Balance 1100 753.012 Intake: Intake, IV Titration 163.012 Amount Heparin Sod,Pork in 0.45% 163.012 NaCl 25,000 unit In 0.45 % NaCl 1 250ml.bag @ 12 UNITS/KG/HR 7.947 mls/hr IV .Q24H MICAELA Rx#: [id number] Oral 1100 590 Other: Voiding Method Toilet # Voids 3 2 - Labs CBC & Chem 7: 12/31/20 05:27 12/28/20 09:40 Labs: Abnormal Lab Results - Last 24 Hours (Table) 01/02/21 Range/Units 05:44 PT 22.2 H (9.0-12.0) sec INR 2.3 H (<1.2) APTT 61.3 H (22.0-30.0) sec
[2021-01-02] MEDS: FAMOTIDINE 20 MG TAB PO SCH (17:42)
[2021-01-02] MEDS ORDERED: WARFARIN 7.5 MG TAB PO ONE (18:00)
[2021-01-02 22:48] VITALS: TEMP 97.9
[2021-01-03] MEDS: HEPARIN SOD,PORK IN 0.45% NACL 25,000 UNIT in 0.45% NACL 1 250ML.BAG IV SCH (03:57)
[2021-01-03 05:33] VITALS: BP 103/67; PULSE 73; RESP 16
[2021-01-03 06:17] LABS: INR 2.3 (<1.2); Prothrombin Time 22.3 sec (9.0-12.0)
[2021-01-03 06:18] LABS: Partial Thromboplastin Time 62.5 sec (22.0-30.0)
[2021-01-03] MEDS: DOCUSATE 100 MG CAP PO SCH (09:28)
--- NOTE | 2021-01-03 11:07 | P.PN ---
Subjective Progress Note Date: 01/03/21 Principal diagnosis: DVTs, intolerance to lovenox treatment, factor V leiden In f/u pt states feeling good, no SE r/t heparin or coumadin, no bleeding to report. Objective - Vital Signs Vital signs: Vital Signs Temp 97.9 F 01/03/21 05:33 Pulse 73 01/03/21 05:33 Resp 16 01/03/21 05:33 BP 103/67 01/03/21 05:33 Pulse Ox 97 01/03/21 05:33 Intake & Output 01/02/21 01/03/21 01/03/21 18:59 06:59 18:59 Intake Total 138.557 716.149 29.468 Balance 138.557 716.149 29.468 Intake: IV 79.4 Heparin Sod,Pork in 0.45% 79.4 NaCl 25,000 unit In 0.45 % NaCl 1 250ml.bag @ 12 UNITS/KG/HR 7.947 mls/hr IV .Q24H MICAELA Rx#: [id number] Intake, IV Titration 59.157 126.149 29.468 Amount Heparin Sod,Pork in 0.45% 59.157 126.149 29.468 NaCl 25,000 unit In 0.45 % NaCl 1 250ml.bag @ 12 UNITS/KG/HR 7.947 mls/hr IV .Q24H MICAELA Rx#: [id number] Oral 590 Other: Voiding Method Toilet Toilet Toilet # Voids 2 - Constitutional General appearance: Present: average body habitus, cooperative, no acute distress - EENT Eyes: Present: anicteric sclerae, EOMI ENT: Present: hearing grossly normal - Respiratory Details: resp even and unlabored - Integumentary Integumentary: Present: normal - Neurologic Neurologic: Present: CNII-XII intact - Musculoskeletal Musculoskeletal Comment(s): Pt ambulates independently Musculoskeletal: Present: strength equal bilaterally - Psychiatric Psychiatric: Present: A&O x's 3, appropriate affect, intact judgment & insight - Labs CBC & Chem 7: 12/31/20 05:27 12/28/20 09:40 Labs: Abnormal Lab Results - Last 24 Hours (Table) 01/03/21 Range/Units 05:10 PT 22.3 H (9.0-12.0) sec INR 2.3 H (<1.2) APTT 62.5 H (22.0-30.0) sec Assessment and Plan (1) Factor V Leiden Current Visit: Yes Status: Chronic Priority: Medium Code(s): D68.51 - ACTIVATED PROTEIN C RESISTANCE SNOMED Code(s): 696438344 (2) Deep vein thrombosis (DVT) of lower extremity Current Visit: No Status: Chronic Priority: Medium Code(s): I82.409 - ACUTE EMBOLISM AND THOMBOS UNSP DEEP VN UNSP LOWER EXTREMITY SNOMED Code(s): 406080391 Plan: Reviewed chart: 04/27/20-rt femoral DVT. 05/02/20-left lower extremity negative for DVT. 09/12/20-left lower extremity superficial thrombus in the greater saphenous vein. 10/08/20-left lower extremity no DVT, previous GSV thrombus not seen. 11/01/20-no right upper extremity thrombus/DVT. 11/18/20 left upper extremity negative for DVT or SVT. 12/10/20-right lower extremity positive for DVT in the femoral vein, non-occluding. Left lower extremity positive for the greater saphenous vein clot, non-occluding. 12/24/20-DVT in the right femoral can't exclude acute on chronic-anticoagulation changed to lovenox. 12/26/20-DVT right femoral non-occluding, left SVT GSV non-occluding. So, it does not appear that currently patient has an acute component to her BLE DVTs but, she is intolerant to Lovenox. Changed to coumadin. INR same at 2.[address] Ball ok with INR stable and bigger dose of coumadin (5mg to 7.5mg). INR should not go down. Ok to DC heparin and discharge. Pt will cont on 7.5mg daily. Pt appt for Thursday INR draw. She verbalized understanding Pt is not to take asa anymore. She verbalized understanding Reviewed higher INR recommendations with pt. Orders were sent for home INR monitoring, still pending appeal Doctor attests: I performed a history and physical examination of this patient, developed impression and plan of care, discussed with dictator. I agree with dictators note, documented as a scribe
--- NOTE | 2021-01-03 13:16 | P.DS ---
Providers Date of admission: 12/28/20 11:12 Attending physician: Diana Starks Consults: 12/28/20 11:12 Consult Physician Routine Consulting Provider: Yeison Atwood Consult Reason/Comments: DVT Do you want consulting provider notified?: Yes Primary care physician: Holger Farmer [facility] Course: This is a 40-year-old female patient of Dr. Holger Farmer with past medical history of heterzygous for factor V leiden mutation under the care of Dr. Atwood with initial bilateral DVT in 2014 after having . That was followed by a right lower extremity DVT and bilateral PE in 2018. She was last admitted in April 2020 for right lower extremity DVT. She was seen by oncology at that time and was on Xarelto 10 mg daily and was considered a failed Xarelto, subsequently started on Pradaxa 150. Patient complains of pressure pain in the left leg in the pretibial area and proximal calf area fall of 2019. She denies having any significant edema or erythema. Last 12/24/2020 with right thigh pain in her groin She is currently on Xarelto 10 mg daily for which she was hospitalized December 24 Patient has had one and one live via . No miscarriages.. 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 Was seen by oncology, for which she was advised to be on long-term anticoagulation with Lovenox, and discontinue factor X a inhibition. Dr. Ball thinks that this is more advantageous than Coumadin, and was discharged on Lovenox at 1 mg/kg every 12 hours. Patient now comes in the emergency room secondary to nausea, foggy brain, has difficulty in focusing, denies any significant upper abdominal pain, no blood in stool, no hematuria, patient does not have any unusual anxiety, she has spoken to the nurse practitioner at Dr. Ravi's office, and recommended that she be bridged to Coumadin and discontinue Lovenox, IV heparin, rather than the bridge as an outpatient. Patient's also agreeable and workup of the nausea, with gallbladder test, HIDA scan, lipase she is still to keep the appointment with Dr. Castillo as scheduled from last week, her appointments coming up this coming week consult with oncology while here, vascular surgeon for eval as an outpati ent 12/29, patient currently has no new symptoms, INR is controlled by primary see, 7.5 given yesterday, 5 mg given today, INR 1.1, oncology is following, with no new current recommendations, ultrasound discussed with the patient, still need a HIDA scan CCK, patient did not get this done as she refuses anything that's related to IV, she does have contrast iodinated ALLERGY, however Kinevac is a n on-odinated cholecystotomy kinetic drug. 12/30, INR today at 1.2, no further nausea, has headache last night , Coumadin at 10 mg to be given today by pharmacy, pharmacy is dosing Coumadin for INRs of INR 2 -3 . Oncology seemed to recommend that no further aspirin is needed while on Coumadin. No nausea no vomiting, no epistaxis, no GI intolerance is noted 12/31: Repeat INR is 1.4. Last evening. She is scheduled for another 10 mg tonight. If INR is within therapeutic range tomorrow, patient will be discharged home. She remains on heparin drip. She's been afebrile, heart rate 70, blood pressure 107/70, pulse ox 99% on room air. 01/01 patient examined bedside complains of right upper extremity pain. She did have IV line in this extremity which was switched to the other arm. Some tende rness noted in the forearm. Would recommend ice pack and elevating the arm to help with swelling. Ultrasound upper extremity of the right is ordered to rule out DVT. INR 2.1 today plan to discontinue heparin drip once INR above 2.5 01/02: Ultrasound of the right upper extremity is negative for DVT. Patient states the pain is better today and I seem to help. Her INR today is at 2.3 and oncology has been clear that they do not with a heparin drip discontinued until INR is 2.5 or above. Anticipate probable discharge tomorrow. 01/03 patient was admitted bedside. Denies any pain in the upper extremity or lower extremity. Denies any chest pain or shortness of breath. Patient's lab evaluated today INR continues to be at 2.3. Oncology has evaluated the patient and continues to hold Lovenox and heparin. Patient's Coumadin dose increased to 7.5 mg with close follow-up as outpatient. The patient will be discharged on the new dose of 7.5 mg daily. REVIEW OF SYSTEMS Constitutional: No fever, no chills, no night sweats. No weight change. No weakness, fatigue or lethargy. No daytime sleepiness. EENT: No headache. No blurred vision or double vision, no loss of vision. No loss of Hearing, no ringing in the ears, no dizziness. No nasal drainage or congestion. No epistaxis. No sore throat. Lungs: No shortness of breath, cough, no sputum production. No wheezing. Cardiovascular: No chest pain, no lower extremity edema. No palpitations. No paroxysmal nocturnal dyspnea. No orthopnea. No lightheadedness or dizziness. No syncopal episodes. Abdominal: No abdominal pain. No nausea, vomiting. No diarrhea. No constipation. No bloody or tarry stools.. No loss of appetite. Genitourinary: No dysuria, increased frequency, urgency. No urinary retention. Musculoskeletal: No myalgias. No muscle weakness, no gait dysfunction, no frequent falls. No back pain. No neck pain. PHYSICAL EXAMINATION Gen: This is a 40-year-old female. Patient is relating in her room and appears to be comfortable. HEENT: Head is atraumatic, normocephalic. Pupils equal, round. Sclerae is anicteric. NECK: Supple. No JVD. No lymphadenopathy. No thyromegaly. LUNGS: Clear to auscultation. No wheezes or rhonchi. No intercostal retractions. HEART: Regular rate and rhythm. No murmur. ABDOMEN: Soft. Bowel sounds are present. No masses. No tenderness. EXTREMITIES: No pedal edema. No calf tenderness. NEUROLOGICAL: Patient is awake, alert and oriented x3. Cranial nerves 2 through 12 are grossly intact. ASSESSMENT AND PLAN 1 DVT, right femoral vein chronic unknown whether with acute component, right thigh pain, also with chronic nonocclusive Ssuperficial VT in the greater saphenous vein nonoccluding with the current DVT PE in past 2. Previous episodes of DVT including pulmonary embolism. 3. History of heterzygous for factor V leiden mutation. 4. History of IV contrast ALLERGY Disposition home with self-care Patient Condition at Discharge: Stable Plan - Discharge Summary Discharge Rx Participant: No New Discharge Prescriptions: New Docusate [Colace] 100 mg PO DAILY cap Warfarin [Coumadin] 7.5 mg PO DAILY #30 tab Continue Famotidine [Pepcid] 20 mg PO HS Albuterol Sulfate [Proventil Hfa] 1 puff INHALATION RT-Q4H PRN PRN Reason: Wheezing Ergocalciferol [Vitamin D2 (1250 Mcg = 76620 Iu)] 1,250 mcg PO [place] Acetaminophen Tab [Tylenol] 1,000 mg PO Q6H PRN PRN Reason: Pain HYDROcodone/APAP 5-325MG [[place] 5-325] 1 tab PO Q6HR PRN #12 tab PRN Reason: Pain Discontinued Aspirin 81 mg PO DAILY chew Discharge Medication List Famotidine [Pepcid] 20 mg PO HS 11/18/20 [History] Albuterol Sulfate [Proventil Hfa] 1 puff INHALATION RT-Q4H PRN 12/24/20 [History] Ergocalciferol [Vitamin D2 (1250 Mcg = 80978 Iu)] 1,250 mcg PO [place] 12/24/20 [History] Acetaminophen Tab [Tylenol] 1,000 mg PO Q6H PRN 12/26/20 [History] HYDROcodone/APAP 5-325MG [[place] 5-325] 1 tab PO Q6HR PRN #12 tab 12/26/20 [Rx] Docusate [Colace] 100 mg PO DAILY cap 01/03/21 [Rx] Warfarin [Coumadin] 7.5 mg PO DAILY #30 tab 01/03/21 [Rx] Follow up Appointment(s)/Referral(s): Meghan Amaral NPC [Nurse Practitioner] - 01/07/21 1:30 pm (Hematology Office will arrange for Coumadin monitor(please remind them at time of follow-up appt.). ) Holger Farmer MD [Primary Care Provider] - 01/11/21 1:15 pm Patient Instructions/Handouts: Warfarin (By mouth), Deep Vein Thrombosis (DC), Vitamin K in Foods (DC) Activity/Diet/Wound Care/Special Instructions: Activity limited until follow-up Discharge Disposition: HOME SELF-CARE
[2021-01-03] MEDS ORDERED: WARFARIN 7.5 MG TAB PO ONE (18:00)
== END 2021-01-03 12:24 | disposition home or self-care (01) | DRG 392 ==
LOC: EC 09:12 → 5NMEDONC 11:12
PROVIDERS: ADMIT Family Medicine; ATTEND Family Medicine
DX: R11.0 Nausea (principal); I82.411 Acute embolism and thrombosis of right femoral vein; D68.51 Activated protein C resistance; F40.240 Claustrophobia; T45.515A Adverse effect of anticoagulants, initial encounter; Z20.822 Contact with and (suspected) exposure to COVID-19; J45.909 Unspecified asthma, uncomplicated; Z86.711 Personal history of pulmonary embolism; Z86.718 Personal history of other venous thrombosis and embolism; Z80.8 Family history of malignant neoplasm of other organs or systems; Z82.61 Family history of arthritis; Z87.891 Personal history of nicotine dependence; Z90.89 Acquired absence of other organs; Z98.51 Tubal ligation status; Z87.01 Personal history of pneumonia (recurrent); Z87.19 Personal history of other diseases of the digestive system; Z79.899 Other long term (current) drug therapy; Z88.8 Allergy status to other drugs, medicaments and biological substances; Z91.041 Radiographic dye allergy status; Z79.01 Long term (current) use of anticoagulants
CPT/HCPCS: 36415; 76700; 80053; 83690; 85025; 85610; 85730; 87635; 96374; 99285

== ENCOUNTER → 2021-01-16 | Outpatient (CLI) | payer BC ==
--- NOTE | 2021-01-22 14:25 | MM ---
Reason for exam: screening (asymptomatic). Last mammogram was performed 8 years and 3 months ago. History: Patient had first child at age 35. Benign excisional biopsy, 2010. Physical Findings: A clinical breast exam by your physician is recommended on an annual basis and results should be correlated with mammographic findings. MG 3D Screening Mammo W/Cad Bilateral CC and MLO view(s) were taken. Prior study comparison: November 02, 2012, mammogram, performed at [facility]. The breast tissue is heterogeneously dense. This may lower the sensitivity of mammography. Asymmetric breast tissue 12 o'clock right breast. Motion right CC view. ASSESSMENT: Incomplete: need additional imaging evaluation, BI-RAD 0 RECOMMENDATION: Special view mammogram and ultrasound of the right breast. [facility] will attempt to contact patient to return for supplemental views and ultrasound.
== END ==
LOC: RADMAMWWP 16:03
PROVIDERS: ATTEND Obstetrics & Gynecology
DX: Z12.31 Encounter for screening mammogram for malignant neoplasm of breast (principal)
CPT/HCPCS: 77063; 77067

== ENCOUNTER 2021-01-21 18:21 | Emergency (ER) | payer BC ==
[2021-01-21 18:34] VITALS: TEMP 98.2
[2021-01-21 20:20] LABS: Basophils # (A) 0.1 k/uL (0-0.2); Basophils % (A) 1 %; Eosinophils # (A) 0.3 k/uL (0-0.7); Eosinophils % (A) 4 %; HCT 39.8 % (34.0-46.0); HGB 14.1 gm/dL (11.4-16.0); Lymphocytes # (A) 2.3 k/uL (1.0-4.8); Lymphocytes % (A) 31 %; MCH 32.9 pg (25.0-35.0); MCHC 35.5 g/dL (31.0-37.0); MCV 92.9 fL (80.0-100.0); Mean Platelet Volume 7.2; Monocytes # (A) 0.4 k/uL (0-1.0); Monocytes % (A) 6 %; Neutrophils # (A) 4.2 k/uL (1.3-7.7); Neutrophils % (A) 57 %; Platelet Count 299 k/uL (150-450); RBC 4.29 m/uL (3.80-5.40); RDW 12.2 % (11.5-15.5); WBC 7.3 k/uL (3.8-10.6)
[2021-01-21 20:37] LABS: ALT 15 U/L (4-34); AST 24 U/L (14-36); African American GFR (CKD) >90 (>60 ml/min/1.73 sqM); Albumin 4.3 g/dL (3.5-5.0); Alkaline Phosphatase 50 U/L (38-126); Anion Gap 6 mmol/L; Blood Urea Nitrogen 12 mg/dL (7-17); Calcium 8.7 mg/dL (8.4-10.2); Carbon Dioxide 25 mmol/L (22-30); Chloride 105 mmol/L (98-107); Glucose 96 mg/dL (74-99); Non-African American GFR(CKD) >90 (>60 ml/min/1.73 sqM); Sodium 136 mmol/L (137-145); Total Bilirubin 0.5 mg/dL (0.2-1.3); Total Protein 6.8 g/dL (6.3-8.2)
[2021-01-21 20:38] LABS: INR 2.5 (<1.2); Partial Thromboplastin Time 33.3 sec (22.0-30.0); Prothrombin Time 23.8 sec (9.0-12.0)
[2021-01-21 20:43] LABS: Potassium 4.1 mmol/L (3.5-5.1)
--- NOTE | 2021-01-21 21:04 | US ---
EXAMINATION TYPE: US venous doppler duplex LE LT DATE OF EXAM: 01/21/2021 8:56 PM COMPARISON: US CLINICAL HISTORY: blood clotting disorder. Hx blood clotting disorder-Factor 5. Hx DVT, PE. Patient o n coumadin. SIDE PERFORMED: Left TECHNIQUE: The lower extremity deep venous system is examined utilizing real time linear array sonog irais with graded compression, doppler sonography and color-flow sonography. VESSELS IMAGED: Common Femoral Vein Deep Femoral Vein Greater Saphenous Vein * Femoral Vein Popliteal Vein Small Saphenous Vein * Proximal Calf Veins (* superficial vessels) Left Leg: There appear to be internal echoes within the greater saphenous vein in the groin. Color d efect is seen, and vessel does not appear to completely compress at this level. At upper-mid thigh a nd in segments inferiorly, the GSV does appear to compress and show color flow. No evidence of DVT in veins imaged at this time. IMPRESSION: 1. No evidence of deep venous thrombosis. 2. Internal echoes seen in the greater saphenous superficial veins could represent chronic or residua l thrombus.
--- NOTE | 2021-01-21 21:46 | ED ---
Extremity Problem HPI - General Chief complaint: Extremity Problem,Nontraumatic Stated complaint: possible blood clot/leg pain Time Seen by Provider: 01/21/21 19:36 Source: patient Mode of arrival: ambulatory Limitations: no limitations - History of Present Illness Initial comments: 40-year-old female presenting today for chief complaint of left mid upper thigh pain. Patient states she's had the mid-upper thigh pain for the past day. She states it began yesterday evening. Patient states she has factor V is concerned with her history of blood clots she states she has failed treatment on novel therapy and has been placed on Coumadin. Patient denies any chest pain shortness of breath. Deep inspiration she denies any right leg pain or swelling. She states the thigh appears slightly swollen swollen. She denies any swelling of the calf or ankles. Patient denies additional complaints upon arrival she appears well nontoxic distress. - Related Data Home Medications Medication Instructions Recorded Confirmed Famotidine [Pepcid] 20 mg PO HS 11/18/20 12/28/20 Albuterol Sulfate [Proventil Hfa] 1 puff INHALATION RT-Q4H PRN 12/24/20 12/28/20 Ergocalciferol [Vitamin D2 (1250 1,250 mcg PO [place] 12/24/20 12/28/20 Mcg = 80379 Iu)] Acetaminophen Tab [Tylenol] 1,000 mg PO Q6H PRN 12/26/20 12/28/20 Previous Rx's Medication Instructions Recorded HYDROcodone/APAP 5-325MG [[place] 1 tab PO Q6HR PRN #12 tab 12/26/20 5-325] Docusate [Colace] 100 mg PO DAILY cap 01/03/21 Warfarin [Coumadin] 7.5 mg PO DAILY #30 tab 01/03/21 Cephalexin [Keflex] 500 mg PO Q6HR 7 Days #28 cap 01/21/21 Allergies Allergy/AdvReac Type Severity Reaction Status Date / Time cyclobenzaprine AdvReac Nausea & Verified 01/21/21 18:34 [From Flexeril] Vomiting & Diarrhea Iodinated Contrast Media AdvReac Nausea & Verified 01/21/21 18:34 lightheaded Review of Systems ROS Statement: Those systems with pertinent positive or pertinent negative responses have been documented in the HPI. ROS Other: All systems not noted in ROS Statement are negative. 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 leg + for DVT in lower femoral vein and Lt. leg + for chronic SVT of left greater saphenous vein History of Any Multi-Drug Resistant Organisms: None Reported Past Surgical History: Breast Surgery, Section, Hernia Repair, Tonsillectomy, Tubal Ligation Additional Past Surgical History / Comment(s): EGDs, umbilical hernia with mesh/then mesh removed, benign breast lumpectomy-pt cannot recall laterallity, hysteroscopy/D&C, bilateral eye lasik surgery for vision correction. Past Anesthesia/Blood Transfusion Reactions: Postoperative Nausea & Vomiting (PONV) Additional Past Anesthesia/Blood Transfusion Reaction / Comment(s): Pt has clausterphobia. Past Psychological History: Anxiety Smoking Status: Former smoker Past Alcohol Use History: None Reported Past Drug Use History: None Reported - Past Family History Father Family Medical History: Cancer Additional Family Medical History / Comment(s): Father from cancer a t the age of 54yrs, pt believes it was an endocrine type cancer. Mother Family Medical History: Osteoarthritis (OA) Additional Family Medical History / Comment(s): Mother has had multiple joint replacements. General Exam - General Exam Comments Initial Comments: General: The patient is awake and alert, in no distress Eye: Pupils are equal, round and reactive to light, extra-ocular movements are intact. No nystagmus. There is normal conjunctiva bilaterally. No signs of icterus. Ears, nose, mouth and throat: There are moist mucous membranes and no oral lesions. Neck: The neck is supple, there is no tenderness or JVD. Cardiovascular: There is a regular rate and rhythm. No murmur, rub or gallop is appreciated. Respiratory: Lungs are clear to auscultation, respirations are non-labored, breath sounds are equal. No wheezes, stridor, rales, or rhonchi. Gastrointestinal: Soft, non-distended, non-tender abdomen without masses or organomegaly noted. There is no rebound or guarding present Musculoskeletal: No swelling on gross examination of the thighs ankles and feet bilaterally. No pitting edema. Or some very slight redness along the inner left thigh as well as tenderness. Normal ROM, no tenderness. Strength 5/5. Sensation intact. Radial and DP pulses equal bilaterally 2+. Neurological: A&O x 3. CN II-XII intact grossly, There are no obvious motor or sensory deficits. Coordination appears grossly intact. Speech is normal. Skin: Skin is warm and dry and no rashes or lesions are noted. Psychiatric: Cooperative, appropriate mood & affect, normal judgment. Limitations: no limitations Course Vital Signs 01/21/21 01/21/21 18:31 22:04 Temperature 98.2 F Pulse Rate 97 86 Respiratory 18 19 Rate Blood Pressure 128/91 121/74 O2 Sat by Pulse 98 98 Oximetry Medical Decision Making - Medical Decision Making Exam no swelling appreciated. There is some mild redness of the left inner thigh. Ultrasound revealed a chronic/old thrombus in superficial saphenous, no DVT. Patient denies chest pain, dyspnea, or pain with deep inspiration. patient complaint with coumadin with INR of 2.5. Discussed pateint hx the case and US findings with my attrending Dr Galan who is agreeable to discharge with close monitoring for worsening pain/swelling or any chest pain, dyspnea. Recommended vascular f/u as well as hematology oncology as well as repeat US in 1 week. She verbalized understanding is agreeable to this care plan as well as discharge. - Lab Data Result diagrams: 01/21/21 19:40 01/21/21 19:40 Lab Results 01/21/21 01/21/21 01/21/21 Range/Units 19:40 19:40 19:40 WBC 7.3 (3.8-10.6) k/uL RBC 4.29 (3.80-5.40) m/uL Hgb 14.1 (11.4-16.0) gm/dL Hct 39.8 (34.0-46.0) % MCV 92.9 (80.0-100.0) fL MCH 32.9 (25.0-35.0) pg MCHC 35.5 (31.0-37.0) g/dL RDW 12.2 (11.5-15.5) % Plt Count 299 (150-450) k/uL MPV 7.2 Neutrophils % 57 % Lymphocytes % 31 % Monocytes % 6 % Eosinophils % 4 % Basophils % 1 % Neutrophils # 4.2 (1.3-7.7) k/uL Lymphocytes # 2.3 (1.0-4.8) k/uL Monocytes # 0.4 (0-1.0) k/uL Eosinophils # 0.3 (0-0.7) k/uL Basophils # 0.1 (0-0.2) k/uL PT 23.8 H (9.0-12.0) sec INR 2.5 H (<1.2) APTT 33.3 H (22.0-30.0) sec Sodium 136 L (137-145) mmol/L Potassium 4.1 (3.5-5.1) mmol/L Chloride 105 (98-107) mmol/L Carbon Dioxide 25 (22-30) mmol/L Anion Gap 6 mmol/L BUN 12 (7-17) mg/dL Creatinine 0.77 (0.52-1.04) mg/dL Est GFR (CKD-EPI)AfAm >90 (>60 ml/min/1.73 sqM) Est GFR (CKD-EPI)NonAf >90 (>60 ml/min/1.73 sqM) Glucose 96 (74-99) mg/dL Calcium 8.7 (8.4-10.2) mg/dL Total Bilirubin 0.5 (0.2-1.3) mg/dL AST 24 (14-36) U/L ALT 15 (4-34) U/L Alkaline Phosphatase 50 (38-126) U/L Total Protein 6.8 (6.3-8.2) g/dL Albumin 4.3 (3.5-5.0) g/dL Disposition Clinical Impression: Left leg pain Disposition: HOME SELF-CARE Condition: Good Instructions (If sedation given, give patient instructions): Superficial Thrombophlebitis (ED) Additional Instructions: Please use medication as discussed. Please follow-up with family doctor in the next 2 days. Please return to emergency room if the symptoms increase or worsen or for any other concerns. Prescriptions: Cephalexin [Keflex] 500 mg PO Q6HR 7 Days #28 cap Is patient prescribed a controlled substance at d/c from ED?: No Referrals: Holger Farmer MD [Primary Care Provider] - 1-2 days Time of Disposition: 21:45
[2021-01-21 22:05] VITALS: BP 121/74; PULSE 86; RESP 19
== END 2021-01-21 22:05 | disposition home or self-care (01) ==
LOC: EC 18:21
DX: M79.652 Pain in left thigh (principal); J45.909 Unspecified asthma, uncomplicated; F41.9 Anxiety disorder, unspecified; Z86.711 Personal history of pulmonary embolism; Z79.01 Long term (current) use of anticoagulants; Z87.891 Personal history of nicotine dependence
CPT/HCPCS: 36415; 80053; 85025; 85610; 85730; 99284

== ENCOUNTER → 2021-01-28 | Outpatient (CLI) | payer BC ==
--- NOTE | 2021-01-28 15:53 | US ---
EXAMINATION TYPE: US venous doppler duplex LE BI DATE OF EXAM: 01/28/2021 1:52 PM COMPARISON: 01/21/2021, 12/26/2020, 12/10/2020 CLINICAL HISTORY: 40-year-old female R22.42 Swelling of left lower limb R22.41. SIDE PERFORMED: Bilateral TECHNIQUE: The lower extremity deep venous system is examined utilizing real time linear array sonog irais with graded compression, doppler sonography and color-flow sonography. FINDINGS: VESSELS IMAGED: Common Femoral Vein Deep Femoral Vein Greater Saphenous Vein * Femoral Vein Popliteal Vein Small Saphenous Vein * Proximal Calf Veins (* superficial vessels) Patient on Coumadin. Right Leg: Positive for DVT, this seems to be chronic, it was seen previously, it is non-occluding. Left Leg: Negative for DVT Previous area of superficial clot scanned in thigh, no SVT noted on today's study at that area. IMPRESSION: 1. Interval clearance of the previous residual clot/SVT within the left greater saphenous vein. 2. Exam remains positive for chronic, nonocclusive DVT within the lower femoral vein of the right low er extremity. No new or progressive clot identified.
== END ==
LOC: RADUSWWP 13:05
PROVIDERS: ATTEND Internal Medicine Hematology & Oncology
DX: I82.5Z1 Chronic embolism and thrombosis of unspecified deep veins of right distal lower extremity (principal); R22.41 Localized swelling, mass and lump, right lower limb
CPT/HCPCS: 93970

== ENCOUNTER → 2021-01-29 | Outpatient (CLI) | payer BC ==
--- NOTE | 2021-02-04 12:51 | MM ---
Reason for exam: additional evaluation requested from abnormal screening. Last mammogram was performed less than 1 month ago. History: Patient had first child at age 35. Benign excisional biopsy of the right breast, 2010. Physical Findings: Nurse did not find any significant physical abnormalities on exam. MG 3D Work Up W/Cad RT Spot compression CC, spot compression MLO, and LM view(s) were taken of the right breast. Prior study comparison: January 16, 2021, bilateral MG 3d screening mammo w/cad. The breast tissue is heterogeneously dense. This may lower the sensitivity of mammography. There is no discrete abnormality including area of concern. No significant new findings when compared with previous films. These results were verbally communicated with the patient and result sheet given to the patient on 01/29/21. ASSESSMENT: Benign, BI-RAD 2 RECOMMENDATION: Ultrasound core biopsy of the right breast.
--- NOTE | 2021-02-04 12:54 | USB ---
Reason for exam: additional evaluation requested from abnormal screening. History: Patient had first child at age 35. Benign excisional biopsy of the right breast, 2010. US Breast Workup Limited RT Right limited breast ultrasound including focal area of concern, retroareolar and axilla demonstrates a 3 x 2 x 3mm oval, cystic lesion at 12 o'clock, a 3 x 2 x 3mm oval, cystic lesion at 1 o'clock and a 6 x 4 x 7mm oval, hypoechoic lesion at the posterior nipple for which a biopsy is recommended. These results were verbally communicated with the patient and result sheet given to the patient on 01/29/21. ASSESSMENT: Suspicious, BI-RAD 4 RECOMMENDATION: Ultrasound core biopsy of the right breast. Called office with mammographic findings and has scheduled an appointment for the patient with Dr. Garcia. Biopsy scheduled for 02/22/21 at 10:30. PRELIMINARY REPORT CALLED AND FAXED TO DR. GARCIA ON 02/04/21.
== END ==
LOC: RADMAMWWP 13:05
PROVIDERS: ATTEND Obstetrics & Gynecology
DX: R92.8 Other abnormal and inconclusive findings on diagnostic imaging of breast (principal)
CPT/HCPCS: 77061; 77065

== ENCOUNTER 2021-02-01 22:02 | Emergency (ER) | payer BC ==
[2021-02-01 22:16] VITALS: RESP 18; TEMP 97.4
[2021-02-01] MEDS ORDERED: SODIUM CHLORIDE 0.9% 1,000 ML IV STA (22:33)
--- NOTE | 2021-02-01 22:34 | ED ---
Chest Pain HPI - General Chief Complaint: Chest Pain Stated Complaint: Chest Pain, Hx PE Time Seen by Provider: 02/01/21 22:28 Source: patient, RN notes reviewed, old records reviewed Mode of arrival: ambulatory Limitations: no limitations - History of Present Illness Initial Comments: This is a 32-year-old female DF for evaluation patient Dese for evaluation regards to not feeling well. Patient states that she has history of chest pain body pain back 8 pain. Patient is concern for PE with history of PE. No recent fevers cough or congestion, no travel history. Patient also having some epigastric abdominal pain and tenderness MD Complaint: chest pain, other (Epigastric abdominal pain) -: days(s) Onset: during rest Pain Location: substernal, epigastric Pain Radiation: none Severity: mild Severity scale (1-10): 2 Quality: aching Consistency: intermittent Improves With: nothing Worsens With: nothing Context: other (none) Anginal Symptoms: nausea, dyspnea Other Symptoms: palpitations Treatments Prior to Arrival: none - Related Data Home Medications Medication Instructions Recorded Confirmed Famotidine [Pepcid] 20 mg PO HS 11/18/20 02/08/21 Albuterol Sulfate [Proventil Hfa] 1 puff INHALATION RT-Q4H PRN 12/24/20 02/08/21 Ergocalciferol [Vitamin D2 (1250 1,250 mcg PO WEEKLY 12/24/20 02/08/21 Mcg = 86292 Iu)] Acetaminophen [Tylenol] 1,000 mg PO DAILY PRN 02/08/21 02/08/21 Previous Rx's Medication Instructions Recorded Docusate [Colace] 100 mg PO DAILY cap 01/03/21 Warfarin [Coumadin] 7.5 mg PO DAILY #30 tab 01/03/21 Allergies Allergy/AdvReac Type Severity Reaction Status Date / Time cyclobenzaprine AdvReac Nausea & Verified 02/08/21 12:19 [From Flexeril] Vomiting & Diarrhea Iodinated Contrast Media AdvReac Nausea & Verified 02/08/21 12:19 lightheaded Review of Systems ROS Statement: Those systems with pertinent positive or pertinent negative responses have been documented in the HPI. ROS Other: All systems not noted in ROS Statement are negative. 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 leg + for DVT in lower femoral vein and Lt. leg + for chronic SVT of left greater saphenous vein History of Any Multi-Drug Resistant Organisms: None Reported Past Surgical History: Breast Surgery, Section, Hernia Repair, Tonsillectomy, Tubal Ligation Additional Past Surgical History / Comment(s): EGDs, umbilical hernia with mesh/then mesh removed, benign breast lumpectomy-pt cannot recall laterallity, hysteroscopy/D&C, bilateral eye lasik surgery for vision correction. Past Anesthesia/Blood Transfusion Reactions: Postoperative Nausea & Vomiting (PONV) Additional Past Anesthesia/Blood Transfusion Reaction / Comment(s): Pt has clausterphobia. Past Psychological History: Anxiety Smoking Status: Former smoker Past Alcohol Use History: None Reported Past Drug Use History: None Reported - Past Family History Father Family Medical History: Cancer Additional Family Medical History / Comment(s): Father from cancer at the age of 54yrs, pt believes it was an endocrine type cancer. Mother Family Medical History: Osteoarthritis (OA) Additional Family Medical History / Comment(s): Mother has had multiple joint replacements. General Exam Limitations: no limitations General appearance: alert, in no apparent distress Head exam: Present: atraumatic, normocephalic, normal inspection Eye exam: Present: normal appearance, PERRL, EOMI. Absent: scleral icterus, conjunctival injection, periorbital swelling ENT exam: Present: normal exam, mucous membranes moist Neck exam: Present: normal inspection. Absent: tenderness, meningismus, lymphadenopathy Respiratory exam: Present: normal lung sounds bilaterally. Absent: respiratory distress, wheezes, rales, rhonchi, stridor Cardiovascular Exam: Present: regular rate, normal rhythm, normal heart sounds. Absent: systolic murmur, diastolic murmur, rubs, gallop, clicks GI/Abdominal exam: Present: soft, normal bowel sounds. Absent: distended, tenderness, guarding, rebound, rigid Extremities exam: Present: normal inspection, full ROM, normal capillary refill. Absent: tenderness, pedal edema, joint swelling, calf tenderness Back exam: Present: normal inspection Neurological exam: Present: alert, oriented X3, CN II-XII intact Psychiatric exam: Present: normal affect, normal mood Skin exam: Present: warm, dry, intact, normal color. Absent: rash Course Vital Signs 02/01/21 02/02/21 02/02/21 22:13 00:00 00:35 Temperature 97.4 F L Pulse Rate 64 64 64 Respiratory 18 18 18 Rate Blood Pressure 124/77 113/74 119/76 O2 Sat by Pulse 97 100 100 Oximetry 02/02/21 01:29 Temperature Pulse Rate 79 Respiratory 18 Rate Blood Pressure 128/88 O2 Sat by Pulse 98 Oximetry - Reevaluation(s) Reevaluation #1: Medical record is reviewed Patient symptoms are significantly improved at this point Patient informed of results and questions are answered Patient symptoms are resolved he feels good for discharge Chest Pain MDM - MDM 40 female DF for evaluation chest pain history of PE. At this point patient's chest pain symptoms are resolved and she can be discharged home CT negative for PE Disposition Clinical Impression: Chest pain, Nausea Disposition: HOME SELF-CARE Condition: Good Instructions (If sedation given, give patient instructions): Chest Pain (ED), Gastritis (ED) Is patient prescribed a controlled substance at d/c from ED?: No Referrals: Holger Farmer MD [Primary Care Provider] - 1-2 days
[2021-02-01 23:00] LABS: Basophils # (A) 0.1 k/uL (0-0.2); Basophils % (A) 1 %; Eosinophils # (A) 0.3 k/uL (0-0.7); Eosinophils % (A) 3 %; HGB 13.4 gm/dL (11.4-16.0); Lymphocytes # (A) 2.8 k/uL (1.0-4.8); Lymphocytes % (A) 34 %; MCH 30.9 pg (25.0-35.0); MCHC 33.4 g/dL (31.0-37.0); MCV 92.5 fL (80.0-100.0); Mean Platelet Volume 7.2; Monocytes # (A) 0.5 k/uL (0-1.0); Monocytes % (A) 7 %; Neutrophils # (A) 4.3 k/uL (1.3-7.7); Neutrophils % (A) 53 %; Platelet Count 333 k/uL (150-450); RBC 4.33 m/uL (3.80-5.40); RDW 12.7 % (11.5-15.5); WBC 8.1 k/uL (3.8-10.6)
[2021-02-01 23:16] LABS: INR 3.7 (<1.2); Partial Thromboplastin Time 37.1 sec (22.0-30.0); Prothrombin Time 35.5 sec (9.0-12.0)
[2021-02-01 23:17] LABS: ALT 11 U/L (4-34); AST 19 U/L (14-36); African American GFR (CKD) >90 (>60 ml/min/1.73 sqM); Albumin 4.2 g/dL (3.5-5.0); Alkaline Phosphatase 58 U/L (38-126); Anion Gap 8 mmol/L; Blood Urea Nitrogen 16 mg/dL (7-17); Calcium 8.9 mg/dL (8.4-10.2); Carbon Dioxide 25 mmol/L (22-30); Chloride 102 mmol/L (98-107); Creatine Kinase 90 U/L (30-135); Glucose 93 mg/dL (74-99); Lipase 171 U/L (23-300); Magnesium 2.3 mg/dL (1.6-2.3); Non-African American GFR(CKD) >90 (>60 ml/min/1.73 sqM); Sodium 135 mmol/L (137-145); Total Bilirubin 0.4 mg/dL (0.2-1.3); Total Protein 6.8 g/dL (6.3-8.2)
--- NOTE | 2021-02-01 23:30 | XR ---
EXAMINATION TYPE: XR chest 2V DATE OF EXAM: 02/01/2021 COMPARISON: 12/05/2020 HISTORY: Chest pain TECHNIQUE: FINDINGS: Heart and mediastinum are normal. Lungs are clear. Diaphragm is normal. Bony thorax appears normal. There are chest leads. IMPRESSION: Normal chest. No change.
--- NOTE | 2021-02-02 00:33 | US ---
EXAM: US Abdomen Limited, Gallbladder CLINICAL HISTORY: ITS.REASON US Reason: pain TECHNIQUE: Real-time ultrasound of the right upper quadrant with image documentation. COMPARISON: 12/25/2020. FINDINGS: Liver: Liver measures 15.8 cm. Gallbladder: The gallbladder is unremarkable. No gallstones. Common bile duct: Common bile duct measures 0.24 cm. No stones. No dilation. Pancreas: The pancreas is unremarkable. Right kidney: Right kidney measures 10.6 x 4.3 x 4.5 cm without hydronephrosis. Aorta: Abdominal aorta and inferior vena cava are unremarkable. IMPRESSION: 1. The gallbladder is unremarkable. 2. Common bile duct is within normal in his. 3. No hydronephrosis of the right kidney.
[2021-02-02 01:30] VITALS: BP 128/88; PULSE 79
== END 2021-02-02 01:28 | disposition home or self-care (01) ==
LOC: EC 22:02
DX: R07.2 Precordial pain (principal); R11.0 Nausea; R10.13 Epigastric pain; J45.909 Unspecified asthma, uncomplicated; Z88.8 Allergy status to other drugs, medicaments and biological substances; Z91.041 Radiographic dye allergy status; Z87.891 Personal history of nicotine dependence; Z90.89 Acquired absence of other organs; Z90.710 Acquired absence of both cervix and uterus; Z98.51 Tubal ligation status; Z86.711 Personal history of pulmonary embolism
CPT/HCPCS: 36415; 71046; 76705; 80053; 82550; 83690; 83735; 83880; 84484; 85025; 85379; 85610; 85730; 93005; 96360; 96361; 99285

== ENCOUNTER → 2021-02-13 | Outpatient (CLI) | payer BC | END | disposition home or self-care (01) | LOC: LABWHC1 15:56 | PROVIDERS: ATTEND Internal Medicine Hematology & Oncology | DX: Z20.822 Contact with and (suspected) exposure to COVID-19 (principal) | CPT/HCPCS: U0003; C9803; U0005 ==

== ENCOUNTER → 2021-02-27 | Day surgery (SDC) | payer BC ==
[2021-02-27 10:18] VITALS: RESP 16; TEMP 97.9
[2021-02-27 10:24] LABS: INR 1.3 (<1.2); Partial Thromboplastin Time 27.7 sec (22.0-30.0); Prothrombin Time 13.3 sec (9.0-12.0)
[2021-02-27 11:56] VITALS: BP 138/79; PULSE 76
--- NOTE | 2021-02-27 12:43 | USB ---
EXAMINATION TYPE: US biopsy breast VAD RT DATE OF EXAM: 02/27/2021 CLINICAL HISTORY: R92.8 Abnormal mammogram. TECHNIQUE: Ultrasound guided vaccuum assisted core biopsy of right breast. COMPARISON: 01/29/2021 FINDINGS: The ultrasound guided core biopsy procedure was explained to the patient. The risks, benef its, alternatives were discussed. Slight increased risk of bleeding was discussed with the patient's lab results. An informed consent was then obtained. Timeout was performed. The patient was placed in supine positioning for imaging and for the procedure. The overlying skin w as prepped with betadine and sterilely draped in usual sterile fashion. Lidocaine 1% without epineph rine was used as anesthetic into the skin and deeper breast tissue up to area of concern in the breas t. A small skin sofiya was made with surgical scalpel. Under ultrasound guidance, a 12-gauge vacuum assisted biopsy device was used to obtain 2 core samples . Color flow sonography suggest the next sample with transect the vessels adjacent to the lesion, no additional samples were obtained this time.. A biopsy clip was left in lesion. A clip was placed. Good hemostasis was obtained with direct pressure. Discharge instructions were discussed with the iman soliman. All questions were answered. The patient will follow up with the referring physician for resu lts. Postprocedure mammogram: The patient was transferred to mammography for physician ordered post proced ure mammogram for clip placement verification. The clip is in the expected region of the biopsy. The patient tolerated the procedure well without any immediate complication. No significant bleeding . The patient was discharged to home in stable condition. IMPRESSION: 1. Successful ultrasound guided biopsy right breast. Recommendations: 1. Recommendations are pending pathology results.
== END ==
LOC: RADUSWWP 09:54
PROVIDERS: ATTEND Obstetrics & Gynecology
DX: N60.11 Diffuse cystic mastopathy of right breast (principal); R92.8 Other abnormal and inconclusive findings on diagnostic imaging of breast; N62 Hypertrophy of breast; N60.21 Fibroadenosis of right breast; Z91.048 Other nonmedicinal substance allergy status
CPT/HCPCS: 88305; 85610; 85730; 88342; 77065; 19083; A4648; J2001

== ENCOUNTER 2021-03-04 22:39 | Emergency (ER) | payer BC ==
[2021-03-04] MEDS ORDERED: ACETAMINOPHEN TAB 325 MG TAB PO STA (23:04)
--- NOTE | 2021-03-04 23:07 | ED ---
Abdominal Pain HPI - General Chief Complaint: Abdominal Pain Stated Complaint: Abd Pain Time Seen by Provider: 03/04/21 22:41 Source: patient, EMS Mode of arrival: EMS Limitations: no limitations - History of Present Illness Initial Comments: Patient is a 40-year-old woman who presents with pain in the right lower quadrant abdomen and also the right groin. Patient had been having some mild pains going back a week but then it became severe tonight. She has noted that it is better when she applies a heating pad to it. Pain is somewhat worse with palpation of the right groin and right lower quadrant. MD Complaint: abdominal pain -: days(s) Location: RLQ Radiation: other (R groin) Migration to: no migration Severity: severe Quality: aching Consistency: constant Improves With: nothing Associated Symptoms: denies other symptoms - Related Data Home Medications Medication Instructions Recorded Confirmed Famotidine [Pepcid] 20 mg PO HS 11/18/20 02/27/21 Albuterol Sulfate [Proventil Hfa] 1 puff INHALATION RT-Q4H PRN 12/24/20 02/27/21 Ergocalciferol [Vitamin D2 (1250 1,250 mcg PO WEEKLY 12/24/20 02/27/21 Mcg = 50854 Iu)] Acetaminophen [Tylenol] 1,000 mg PO DAILY PRN 02/08/21 02/27/21 Previous Rx's Medication Instructions Recorded Docusate [Colace] 100 mg PO DAILY cap 01/03/21 Warfarin [Coumadin] 7.5 mg PO DAILY #30 tab 01/03/21 Methocarbamol [Robaxin-750] 750 mg PO TID PRN #30 tablet 03/05/21 Allergies Allergy/AdvReac Type Severity Reaction Status Date / Time cyclobenzaprine AdvReac Nausea & Verified 03/04/21 22:57 [From Flexeril] Vomiting & Diarrhea Iodinated Contrast Media AdvReac Nausea & Verified 03/04/21 22:57 lightheaded Review of Systems ROS Statement: Those systems with pertinent positive or pertinent negative responses have been documented in the HPI. ROS Other: All systems not noted in ROS Statement are negative. Constitutional: Denies: fever, chills Respiratory: Denies: cough, dyspnea Cardiovascular: Denies: chest pain, palpitations, edema Gastrointestinal: Reports: abdominal pain. 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 leg + for DVT in lower femoral vein and Lt. leg + for chronic SVT of left greater saphenous vein History of Any Multi-Drug Resistant Organisms: None Reported Past Surgical History: Breast Surgery, Section, Hernia Repair, Tonsillectomy, Tubal Ligation Additional Past Surgical History / Comment(s): EGDs, umbilical hernia with mesh/then mesh removed, benign breast lumpectomy-pt cannot recall laterallity, hysteroscopy/D&C, bilateral eye lasik surgery for vision correction. Past Anesthesia/Blood Transfusion Reactions: Postoperative Nausea & Vomiting (PONV) Additional Past Anesthesia/Blood Transfusion Reaction / Comment(s): Pt has clausterphobia. Past Psychological History: Anxiety Smoking Status: Former smoker Past Alcohol Use History: None Reported Past Drug Use History: None Reported - Past Family History Father Family Medical History: Cancer Additional Family Medical History / Comment(s): Father from cancer at the age of 54yrs, pt believes it was an endocrine type cancer. Mother Family Medical History: Osteoarthritis (OA) Additional Family Medical History / Comment(s): Mother has had multiple joint replacements. General Exam Limitations: no limitations General appearance: alert, in no apparent distress Head exam: Present: atraumatic, normocephalic Eye exam: Present: normal appearance. Absent: scleral icterus, conjunctival injection Neck exam: Present: normal inspection Respiratory exam: Present: normal lung sounds bilaterally. Absent: respiratory distress, wheezes, rales, rhonchi, stridor Cardiovascular Exam: Present: regular rate, normal rhythm, normal heart sounds. Absent: systolic murmur, diastolic murmur, rubs, gallop GI/Abdominal exam: Present: soft, tenderness, normal bowel sounds. Absent: distended, guarding, rebound, rigid, mass, pulsatile mass, hernia Extremities exam: Present: normal inspection, full ROM, tenderness, normal capillary refill, other (There is tenderness palpation of the right groin. The pain is also worsened with raising the leg). Absent: pedal edema, calf tenderness Back exam: Present: normal inspection. Absent: CVA tenderness (R), CVA tenderness (L) Neurological exam: Present: alert Skin exam: Present: warm, dry, intact, normal color. Absent: rash Course Vital Signs 03/04/21 03/05/21 22:43 00:53 Temperature 97.8 F Pulse Rate 73 69 Respiratory 18 18 Rate Blood Pressure 124/82 109/66 O2 Sat by Pulse 100 98 Oximetry Medical Decision Making - Lab Data Result diagrams: 03/04/21 23:44 03/04/21 23:44 Lab Results 03/04/21 03/04/21 03/04/21 Range/Units 23:44 23:44 23:44 WBC 8.3 (3.8-10.6) k/uL RBC 4.14 (3.80-5.40) m/uL Hgb 13.2 (11.4-16.0) gm/dL Hct 38.2 (34.0-46.0) % MCV 92.2 (80.0-100.0) fL MCH 31.9 (25.0-35.0) pg MCHC 34.7 (31.0-37.0) g/dL RDW 12.5 (11.5-15.5) % Plt Count 309 (150-450) k/uL MPV 7.1 Neutrophils % 68 % Lymphocytes % 22 % Monocytes % 5 % Eosinophils % 2 % Basophils % 1 % Neutrophils # 5.6 (1.3-7.7) k/uL Lymphocytes # 1.9 (1.0-4.8) k/uL Monocytes # 0.4 (0-1.0) k/uL Eosinophils # 0.2 (0-0.7) k/uL Basophils # 0.0 (0-0.2) k/uL PT 16.7 H (9.0-12.0) sec INR 1.7 H (<1.2) APTT 31.0 H (22.0-30.0) sec D-Dimer <0.17 (<0.60) mg/L FEU Sodium 135 L (137-145) mmol/L Potassium 4.1 (3.5-5.1) mmol/L Chloride 105 (98-107) mmol/L Carbon Dioxide 23 (22-30) mmol/L Anion Gap 7 mmol/L BUN 14 (7-17) mg/dL Creatinine 0.75 (0.52-1.04) mg/dL Est GFR (CKD-EPI)AfAm >90 (>60 ml/min/1.73 sqM) Est GFR (CKD-EPI)NonAf >90 (>60 ml/min/1.73 sqM) Glucose 105 H (74-99) mg/dL Calcium 8.7 (8.4-10.2) mg/dL Total Bilirubin 0.4 (0.2-1.3) mg/dL AST 21 (14-36) U/L ALT 12 (4-34) U/L Alkaline Phosphatase 50 (38-126) U/L C-Reactive Protein 0.8 (<1.0) mg/dL Total Protein 6.2 L (6.3-8.2) g/dL Albumin 3.8 (3.5-5.0) g/dL Amylase 39 (30-110) U/L Lipase 117 (23-300) U/L Urine Color Urine Appearance (Clear) Urine pH (5.0-8.0) Ur Specific [place] (1.001-1.035) Urine Protein (Negative) Urine Glucose (UA) (Negative) Urine Ketones (Negative) Urine Blood (Negative) Urine Nitrite (Negative) Urine Bilirubin (Negative) Urine Urobilinogen (<2.0) mg/dL Ur Leukocyte Esterase (Negative) Urine HCG, Qual (Not Detectd) 03/05/21 03/05/21 Range/Units 00:48 00:48 WBC (3.8-10.6) k/uL RBC (3.80-5.40) m/uL Hgb (11.4-16.0) gm/dL Hct (34.0-46.0) % MCV (80.0-100.0) fL MCH (25.0-35.0) pg MCHC (31.0-37.0) g/dL RDW (11.5-15.5) % Plt Count (150-450) k/uL MPV Neutrophils % % Lymphocytes % % Monocytes % % Eosinophils % % Basophils % % Neutrophils # (1.3-7.7) k/uL Lymphocytes # (1.0-4.8) k/uL Monocytes # (0-1.0) k/uL Eosinophils # (0-0.7) k/uL Basophils # (0-0.2) k/uL PT (9.0-12.0) sec INR (<1.2) APTT (22.0-30.0) sec D-Dimer (<0.60) mg/L FEU Sodium (137-145) mmol/L Potassium (3.5-5.1) mmol/L Chloride (98-107) mmol/L Carbon Dioxide (22-30) mmol/L Anion Gap mmol/L BUN (7-17) mg/dL Creatinine (0.52-1.04) mg/dL Est GFR (CKD-EPI)AfAm (>60 ml/min/1.73 sqM) Est GFR (CKD-EPI)NonAf (>60 ml/min/1.73 sqM) Glucose (74-99) mg/dL Calcium (8.4-10.2) mg/dL Total Bilirubin (0.2-1.3) mg/dL AST (14-36) U/L ALT (4-34) U/L Alkaline Phosphatase (38-126) U/L C-Reactive Protein (<1.0) mg/dL Total Protein (6.3-8.2) g/dL Albumin (3.5-5.0) g/dL Amylase (30-110) U/L Lipase (23-300) U/L Urine Color Light Yellow Urine Appearance Clear (Clear) Urine pH 6.5 (5.0-8.0) Ur Specific [place] 1.004 (1.001-1.035) Urine Protein Negative (Negative) Urine Glucose (UA) Negative (Negative) Urine Ketones Negative (Negative) Urine Blood Negative (Negative) Urine Nitrite Negative (Negative) Urine Bilirubin Negative (Negative) Urine Urobilinogen <2.0 (<2.0) mg/dL Ur Leukocyte Esterase Negative (Negative) Urine HCG, Qual Not Detected (Not Detectd) Disposition Clinical Impression: Abdominal pain Disposition: HOME SELF-CARE Condition: Good Instructions (If sedation given, give patient instructions): Abdominal Pain (ED) Prescriptions: Methocarbamol [Robaxin-750] 750 mg PO TID PRN #30 tablet PRN Reason: pain Is patient prescribed a controlled substance at d/c from ED?: No Referrals: Holger Farmer MD [Primary Care Provider] - 1-2 days
[2021-03-05 00:03] LABS: Basophils % (A) 1 %; Eosinophils # (A) 0.2 k/uL (0-0.7); Eosinophils % (A) 2 %; HCT 38.2 % (34.0-46.0); HGB 13.2 gm/dL (11.4-16.0); Lymphocytes # (A) 1.9 k/uL (1.0-4.8); Lymphocytes % (A) 22 %; MCH 31.9 pg (25.0-35.0); MCHC 34.7 g/dL (31.0-37.0); MCV 92.2 fL (80.0-100.0); Mean Platelet Volume 7.1; Monocytes # (A) 0.4 k/uL (0-1.0); Monocytes % (A) 5 %; Neutrophils # (A) 5.6 k/uL (1.3-7.7); Neutrophils % (A) 68 %; Platelet Count 309 k/uL (150-450); RBC 4.14 m/uL (3.80-5.40); RDW 12.5 % (11.5-15.5); WBC 8.3 k/uL (3.8-10.6)
[2021-03-05 00:19] LABS: ALT 12 U/L (4-34); AST 21 U/L (14-36); African American GFR (CKD) >90 (>60 ml/min/1.73 sqM); Albumin 3.8 g/dL (3.5-5.0); Alkaline Phosphatase 50 U/L (38-126); Amylase 39 U/L (30-110); Anion Gap 7 mmol/L; Blood Urea Nitrogen 14 mg/dL (7-17); C Reactive Protein 0.8 mg/dL (<1.0); Calcium 8.7 mg/dL (8.4-10.2); Carbon Dioxide 23 mmol/L (22-30); Chloride 105 mmol/L (98-107); Glucose 105 mg/dL (74-99); Lipase 117 U/L (23-300); Non-African American GFR(CKD) >90 (>60 ml/min/1.73 sqM); Potassium 4.1 mmol/L (3.5-5.1); Sodium 135 mmol/L (137-145); Total Bilirubin 0.4 mg/dL (0.2-1.3); Total Protein 6.2 g/dL (6.3-8.2)
[2021-03-05 00:32] LABS: D-Dimer <0.17 mg/L FEU (<0.60); INR 1.7 (<1.2); Prothrombin Time 16.7 sec (9.0-12.0)
[2021-03-05 01:21] LABS: Appearance,Urine Clear (Clear); Bilirubin,Urine Negative (Negative); Blood,Urine Negative (Negative); Color,Urine Light Yellow; Glucose,Urine (UA) Negative (Negative); Ketones,Urine Negative (Negative); Leukocyte Esterase,Urine Negative (Negative); Nitrite,Urine Negative (Negative); PH, Urine 6.5 (5.0-8.0); Protein,Urine Negative (Negative); Specific Gravity,Urine 1.004 (1.001-1.035); Urobilinogen,Urine <2.0 mg/dL (<2.0)
--- NOTE | 2021-03-05 01:52 | CT ---
EXAM: CT Abdomen and Pelvis Without Intravenous Contrast CLINICAL HISTORY: ITS.REASON CT Reason: stone protocol TECHNIQUE: Axial computed tomography images of the abdomen and pelvis without intravenous contrast. CTDI is 7.67 mGy and DLP is 390.3 mGy-cm. This CT exam was performed using one or more of the following dose reduction techniques: automated exposure control, adjustment of the mA and/or kV according to patient size, and/or use of iterative reconstruction technique. COMPARISON: 08/15/2020 FINDINGS: Lung bases: Unremarkable. Heart: Trace pericardial effusion. ABDOMEN: Liver: Unremarkable. Gallbladder and bile ducts: Unremarkable. Pancreas: Unremarkable. Spleen: No millimeters cystic structure seen within the spleen, which is nonspecific. Adrenals: Unremarkable. Kidneys and ureters: Unremarkable. Stomach and bowel: Unremarkable. PELVIS: Appendix: Appendix is unremarkable. Bladder: Unremarkable. Reproductive: Left ovarian cyst measuring up to 3.8 cm. ABDOMEN and PELVIS: Intraperitoneal space: Unremarkable. Bones/joints: No acute fracture. No dislocation. Soft tissues: Unremarkable. Vasculature: Unremarkable. Lymph nodes: Unremarkable. Tubes, lines and devices: Tubal occlusion device is noted. IMPRESSION: Left ovarian cyst measuring up to 3.8 cm.
[2021-03-05 02:39] VITALS: BP 116/82; PULSE 66; RESP 16; TEMP 97.9
== END 2021-03-05 02:39 | disposition home or self-care (01) ==
LOC: EC 22:39
DX: R10.31 Right lower quadrant pain (principal); J45.909 Unspecified asthma, uncomplicated; D68.51 Activated protein C resistance; F41.9 Anxiety disorder, unspecified; Z86.718 Personal history of other venous thrombosis and embolism; Z86.711 Personal history of pulmonary embolism; Z87.891 Personal history of nicotine dependence; Z79.01 Long term (current) use of anticoagulants
CPT/HCPCS: 36415; 74176; 80053; 81003; 81025; 82150; 83690; 85025; 85379; 85610; 85730; 86140; 99284

== ENCOUNTER 2021-03-21 18:04 | Emergency (ER) | payer BC ==
[2021-03-21] MEDS ORDERED: diphenhydrAMINE 50 MG/ML 1 ML VIAL IVP STA (19:37)
[2021-03-21] MEDS ORDERED: methylPREDNISolone SOD SUCCI 125 MG/2 ML VIAL IV STA (19:37)
[2021-03-21] MEDS ORDERED: FAMOTIDINE 20 MG/2 ML VIAL IV STA (19:37)
[2021-03-21] MEDS ORDERED: SODIUM CHLORIDE 0.9% 1,000 ML IV STA (19:38)
--- NOTE | 2021-03-21 19:40 | ED ---
Neck Injury/Pain HPI - General Mode of arrival: ambulatory Limitations: no limitations <Arthur Justin - Last Filed: 03/21/21 22:34> <Stephanie Cristobal - Last Filed: 03/22/21 23:05> - General Chief Complaint: Neck Pain/Injury Stated Complaint: Back & Neck pain - History of Present Illness Initial Comments: 40-year-old female with history of factor V Leiden, DVT, PE and currently on Coumadin presents to the emergency department with a chief complaint of upper back and neck pain. Patient reports she woke up with the pain earlier this morning and continues to increase in severity. She also reports associated lightheadedness but denies any dizziness. States the pain is exacerbated with movement but she also feels it radiating down the right upper extremity. She denies any chest pain or shortness of breath at this time. She denies one-sided weakness or paresthesias. Patient is concerned for a repeat PE. She has been on the Coumadin for his the past 2 months. Prior to that she was on no anticoagulants but had repeated episodes of PEs and DVTs. (Arthur Justin) - Related Data Home Medications Medication Instructions Recorded Confirmed Acetaminophen [Tylenol] 1,000 mg PO DAILY PRN 02/08/21 03/21/21 Albuterol Sulfate [Ventolin HFA] 2 puff INHALATION RT-QID PRN 03/21/21 03/21/21 Omeprazole 40 mg PO DAILY 03/21/21 03/21/21 Warfarin [Coumadin] 7.5 mg PO SUTUWETHFRSA@1800 03/21/21 03/21/21 Warfarin [Coumadin] 10 mg PO MO@1800 03/21/21 03/21/21 Previous Rx's Medication Instructions Recorded methocarbamoL [Robaxin] 500 mg PO TID PRN #15 tab 03/21/21 Allergies Allergy/AdvReac Type Severity Reaction Status Date / Time cyclobenzaprine AdvReac Nausea & Verified 03/21/21 21:54 [From Flexeril] Vomiting & Diarrhea enoxaparin [From Lovenox] AdvReac Nausea & Verified 03/21/21 21:54 Vomiting Iodinated Contrast Media AdvReac Nausea & Verified 03/21/21 21:54 lightheaded Review of Systems ROS Other: All systems not noted in ROS Statement are negative. <Arthur Justin - Last Filed: 03/21/21 22:34> ROS Other: All systems not noted in ROS Statement are negative. <Donny Cristobalah Charity - Last Filed: 03/22/21 23:05> ROS Statement: Those systems with pertinent positive or pertinent negative responses have been documented in the HPI. 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 leg + for DVT in lower femoral vein and Lt. leg + for chronic SVT of left greater saphenous vein History of Any Multi-Drug Resistant Organisms: None Reported Past Surgical History: Breast Surgery, Section, Hernia Repair, Tonsillectomy, Tubal Ligation Additional Past Surgical History / Comment(s): EGDs, umbilical hernia with mesh/then mesh removed, benign breast lumpectomy-pt cannot recall laterallity, hysteroscopy/D&C, bilateral eye lasik surgery for vision correction. Past Anesthesia/Blood Transfusion Reactions: Postoperative Nausea & Vomiting (PO NV) Additional Past Anesthesia/Blood Transfusion Reaction / Comment(s): Pt has clausterphobia. Past Psychological History: Anxiety Smoking Status: Former smoker Past Alcohol Use History: None Reported Past Drug Use History: None Reported - Past Family History Father Family Medical History: Cancer Additional Family Medical History / Comment(s): Father from cancer at the age of 54yrs, pt believes it was an endocrine type cancer. Mother Family Medical History: Osteoarthritis (OA) Additional Family Medical History / Comment(s): Mother has had multiple joint replacements. <Arthur Justin - Last Filed: 03/21/21 22:34> General Exam Limitations: no limitations General appearance: alert, in no apparent distress Head exam: Present: atraumatic, normocephalic, normal inspection Eye exam: Present: normal appearance, PERRL, EOMI Pupils: Present: normal accommodation ENT exam: Present: normal exam, normal oropharynx, mucous membranes moist, TM's normal bilaterally, normal external ear exam Neck exam: Present: normal inspection, full ROM. Absent: tenderness Respiratory exam: Present: normal lung sounds bilaterally. Absent: respiratory distress Cardiovascular Exam: Present: regular rate, normal rhythm, normal heart sounds. Absent: systolic murmur GI/Abdominal exam: Present: soft. Absent: distended, tenderness, guarding, rebo und Extremities exam: Present: normal inspection, full ROM, normal capillary refill, other (Palpable ulnar and radial pulses laterally.). Absent: tenderness, pedal edema, joint swelling, calf tenderness Back exam: Present: normal inspection, full ROM, tenderness, paraspinal tenderness (Right-sided paraspinal tenderness of the right upper back.). Absent: CVA tenderness (R), CVA tenderness (L), muscle spasm, vertebral tenderness, rash noted, other Neurological exam: Present: alert, oriented X3, CN II-XII intact, normal gait Psychiatric exam: Present: normal affect, normal mood Skin exam: Present: warm, dry, intact, normal color <Arthur Justin - Last Filed: 03/21/21 22:34> Course Vital Signs 03/21/21 03/21/21 03/21/21 18:18 20:35 21:59 Temperature 97.9 F 98.2 F Pulse Rate 80 82 72 Respiratory 18 16 14 Rate Blood Pressure 120/79 121/84 112/80 O2 Sat by Pulse 99 99 98 Oximetry 03/21/21 22:55 Temperature 98.3 F Pulse Rate 71 Respiratory 14 Rate Blood Pressure 124/88 O2 Sat by Pulse 98 Oximetry Medical Decision Making - Lab Data Result diagrams: 03/21/21 20:14 03/21/21 20:14 <Arthur Justin - Last Filed: 03/21/21 22:34> - Lab Data Result diagrams: 03/21/21 20:14 03/21/21 20:14 <Stephanie Cristobal - Last Filed: 03/22/21 23:05> - Medical Decision Making 40-year-old female with history of factor V Leiden, DVT, PE and currently on Coumadin presents to the emergency department with a chief complaint of upper back and neck pain. On physical examination, patient has localized tenderness to the right upper back and the right side of neck. There is no mid vertebral tenderness. Due to her history of a coagulopathy, imaging was performed to rule out a pulmonary embolism. CT angios chest and neck shows no acute findings. She has an INR of 2.7 which is within therapeutic range for her Coumadin. Rest of the laboratory work is unremarkable. At this point, I suspect the pain is likely musculoskeletal in nature. Visors take Tylenol for the pain. We will also prescribed a muscle relaxer. She was advised to follow with the primary care physician. Return parameters were discussed with patient was resting and agreeable. Case discussed with (Arthur Justin) I was available for consultation in the emergency department. The history and physical exam were done by the midlevel provider. I was consulted for this patients care. I reviewed the case with the midlevel provider and based on thei r presentation of the patient, I agree with the assessment, medical decision making and plan of care as documented. Chart was dictated using [employer] dictation software. Attempts were made to correct any dictation errors however some typographical errors may persist. Patient was seen during a national state of emergency due to the Covid-19 pandemic. (Stephanie Cristobal) - Lab Data Lab Results 03/21/21 03/21/21 03/21/21 Range/Units 20:14 20:14 20:14 WBC 9.7 (3.8-10.6) k/uL RBC 4.67 (3.80-5.40) m/uL Hgb 14.7 (11.4-16.0) gm/dL Hct 43.7 (34.0-46.0) % MCV 93.6 (80.0-100.0) fL MCH 31.5 (25.0-35.0) pg MCHC 33.7 (31.0-37.0) g/dL RDW 12.6 (11.5-15.5) % Plt Count 311 (150-450) k/uL MPV 7.2 Neutrophils % 58 % Lymphocytes % 29 % Monocytes % 7 % Eosinophils % 4 % Basophils % 1 % Neutrophils # 5.6 (1.3-7.7) k/uL Lymphocytes # 2.8 (1.0-4.8) k/uL Monocytes # 0.7 (0-1.0) k/uL Eosinophils # 0.4 (0-0.7) k/uL Basophils # 0.1 (0-0.2) k/uL PT 26.0 H (9.0-12.0) sec INR 2.7 H (<1.2) APTT 32.4 H (22.0-30.0) sec Sodium 137 (137-145) mmol/L Potassium 3.9 (3.5-5.1) mmol/L Chloride 103 (98-107) mmol/L Carbon Dioxide 26 (22-30) mmol/L Anion Gap 8 mmol/L BUN 20 H (7-17) mg/dL Creatinine 0.82 (0.52-1.04) mg/dL Est GFR (CKD-EPI)AfAm >90 (>60 ml/min/1.73 sqM) Est GFR (CKD-EPI)NonAf >90 (>60 ml/min/1.73 sqM) Glucose 90 (74-99) mg/dL Calcium 9.2 (8.4-10.2) mg/dL Total Bilirubin 0.4 (0.2-1.3) mg/dL AST 21 (14-36) U/L ALT 13 (4-34) U/L Alkaline Phosphatase 62 (38-126) U/L Troponin I (0.000-0.034) ng/mL Total Protein 7.6 (6.3-8.2) g/dL Albumin 4.9 (3.5-5.0) g/dL Urine HCG, Qual (Not Detectd) 03/21/21 03/21/21 Range/Units 20:14 20:14 WBC (3.8-10.6) k/uL RBC (3.80-5.40) m/uL Hgb (11.4-16.0) gm/dL Hct (34.0-46.0) % MCV (80.0-100.0) fL MCH (25.0-35.0) pg MCHC (31.0-37.0) g/dL RDW (11.5-15.5) % Plt Count (150-450) k/uL MPV Neutrophils % % Lymphocytes % % Monocytes % % Eosinophils % % Basophils % % Neutrophils # (1.3-7.7) k/uL Lymphocytes # (1.0-4.8) k/uL Monocytes # (0-1.0) k/uL Eosinophils # (0-0.7) k/uL Basophils # (0-0.2) k/uL PT (9.0-12.0) sec INR (<1.2) APTT (22.0-30.0) sec Sodium (137-145) mmol/L Potassium (3.5-5.1) mmol/L Chloride (98-107) mmol/L Carbon Dioxide (22-30) mmol/L Anion Gap mmol/L BUN (7-17) mg/dL Creatinine (0.52-1.04) mg/dL Est GFR (CKD-EPI)AfAm (>60 ml/min/1.73 sqM) Est GFR (CKD-EPI)NonAf (>60 ml/min/1.73 sqM) Glucose (74-99) mg/dL Calcium (8.4-10.2) mg/dL Total Bilirubin (0.2-1.3) mg/dL AST (14-36) U/L ALT (4-34) U/L Alkaline Phosphatase (38-126) U/L Troponin I <0.012 (0.000-0.034) ng/mL Total Protein (6.3-8.2) g/dL Albumin (3.5-5.0) g/dL Urine HCG, Qual Not Detected (Not Detectd) - EKG Data EKG Comments: Sinus arrhythmia next ventricular rate 74, UT 120, QRS 90, QTc 428. (Arthur Justin) Disposition Is patient prescribed a controlled substance at d/c from ED?: No Time of Disposition: 22:33 <Arthur Justin - Last Filed: 03/21/21 22:34> <Stephanie Cristobal - Last Filed: 03/22/21 23:05> Clinical Impression: Strain of neck muscle, Strain of back Disposition: HOME SELF-CARE Condition: Stable Instructions (If sedation given, give patient instructions): Cervical Strain (ED) Additional Instructions: Take prescribed medication as directed. Follow up with her primary care physician. Return to emergency department if symptoms worsen. Prescriptions: methocarbamoL [Robaxin] 500 mg PO TID PRN #15 tab PRN Reason: muscle spasms Referrals: Holger Farmer MD [Primary Care Provider] - 1-2 days
[2021-03-21 20:25] LABS: Basophils # (A) 0.1 k/uL (0-0.2); Basophils % (A) 1 %; Eosinophils # (A) 0.4 k/uL (0-0.7); Eosinophils % (A) 4 %; HCT 43.7 % (34.0-46.0); HGB 14.7 gm/dL (11.4-16.0); Lymphocytes # (A) 2.8 k/uL (1.0-4.8); Lymphocytes % (A) 29 %; MCH 31.5 pg (25.0-35.0); MCHC 33.7 g/dL (31.0-37.0); MCV 93.6 fL (80.0-100.0); Mean Platelet Volume 7.2; Monocytes # (A) 0.7 k/uL (0-1.0); Monocytes % (A) 7 %; Neutrophils # (A) 5.6 k/uL (1.3-7.7); Neutrophils % (A) 58 %; Platelet Count 311 k/uL (150-450); RBC 4.67 m/uL (3.80-5.40); RDW 12.6 % (11.5-15.5); WBC 9.7 k/uL (3.8-10.6)
[2021-03-21 20:38] LABS: INR 2.7 (<1.2); Partial Thromboplastin Time 32.4 sec (22.0-30.0)
[2021-03-21 20:44] LABS: ALT 13 U/L (4-34); AST 21 U/L (14-36); African American GFR (CKD) >90 (>60 ml/min/1.73 sqM); Albumin 4.9 g/dL (3.5-5.0); Alkaline Phosphatase 62 U/L (38-126); Anion Gap 8 mmol/L; Blood Urea Nitrogen 20 mg/dL (7-17); Calcium 9.2 mg/dL (8.4-10.2); Carbon Dioxide 26 mmol/L (22-30); Chloride 103 mmol/L (98-107); Glucose 90 mg/dL (74-99); Non-African American GFR(CKD) >90 (>60 ml/min/1.73 sqM); Potassium 3.9 mmol/L (3.5-5.1); Sodium 137 mmol/L (137-145); Total Bilirubin 0.4 mg/dL (0.2-1.3); Total Protein 7.6 g/dL (6.3-8.2)
[2021-03-21 22:00] VITALS: RESP 14
--- NOTE | 2021-03-21 22:06 | CT ---
EXAMINATION TYPE: CT chest angio for PE DATE OF EXAM: 03/21/2021 COMPARISON: 11/01/2020 HISTORY: Chest pain, PE suspected. Hs Factor V Leiden, asthma CT DLP: 278.1 mGycm Automated exposure control for dose reduction was used. CONTRAST: Performed with IV Contrast, patient injected with 50 mL of Isovue 370. There are 3-D post processed images. There is some mild peripheral reticular nodular interstitial pulmonary posterior infiltrates. There i s no pleural effusion. There is no pericardial effusion. Heart size is normal. There is no mediastinal adenopathy. There are no hilar masses. Thoracic aorta is intact. There is no aneurysm or dissection. There is normal contrast opacification of the pulmonary arteries. There are no filling defects. The t horacic spine is intact. There is no compression fracture. Sternum is intact. IMPRESSION: Mild reticular posterior pulmonary interstitial infiltrates. No adverse change compared to old exam. No evidence of pulmonary embolism.
--- NOTE | 2021-03-21 22:12 | CT ---
EXAMINATION TYPE: CT angio neck DATE OF EXAM: 03/21/2021 COMPARISON: None HISTORY: Neck pain, factor V Leiden. CT DLP: 376.1 mGycm Automated exposure control for dose reduction was used. CONTRAST: Performed with IV Contrast, patient injected with 50 mL of Isovue 370. Images were obtained from the aortic arch to the skull base with IV contrast. There are 3-D post proc essed images. There is normal branching pattern of the great vessels on the aortic arch. There is bilateral arteria l flow in the subclavian arteries. Thyroid gland is intact. There is arterial flow in the common inte rnal and external carotid arteries bilaterally. There is wide patency of the carotid artery bifurcati ons. There is arterial flow in both vertebral arteries. There is arterial flow in the vertebrobasilar artery system. There is no evidence of carotid or vertebral artery aneurysm or dissection. I see no sign of stenosis. The remainder of exam is unremarkable. IMPRESSION: Normal CT angiogram of the neck.
[2021-03-22 00:25] VITALS: BP 124/88; PULSE 71; TEMP 98.3
== END 2021-03-21 22:55 | disposition home or self-care (01) ==
LOC: EC 18:04
DX: S16.1XXA Strain of muscle, fascia and tendon at neck level, initial encounter (principal); S39.012A Strain of muscle, fascia and tendon of lower back, initial encounter; J45.909 Unspecified asthma, uncomplicated; Z79.01 Long term (current) use of anticoagulants; Z86.711 Personal history of pulmonary embolism; Z86.718 Personal history of other venous thrombosis and embolism; Z87.891 Personal history of nicotine dependence; X58.XXXA Exposure to other specified factors, initial encounter
CPT/HCPCS: 96375 ×3; 96361 ×2; 96374 ×2; 99284 ×2; 36415; 93005; 80053; 84484; 85025; 85610; 85730; 81025; 70498; 71275; J1200; J2930; Q9967

== ENCOUNTER 2021-05-02 09:02 | Emergency (ER) | payer BC ==
[2021-05-02 09:07] VITALS: BP 128/77; PULSE 78; RESP 18
[2021-05-02] MEDS ORDERED: predniSONE 50 MG TAB PO STA (09:33)
--- NOTE | 2021-05-02 09:39 | ED ---
Upper Extremity HPI - General Chief Complaint: Extremity Injury, Upper Stated Complaint: Lt Arm Pain Time Seen by Provider: 05/02/21 09:14 Source: patient Mode of arrival: ambulatory Limitations: no limitations - History of Present Illness Initial Comments: This is a 32-year-old female who was getting physical therapy for neck pain issues who states she went to physical therapy yesterday and had ultrasound treatment done and since that time she's had numbness and some pain and tingling type sensation going down her left arm. Patient does say she has arthritic changes in her neck that she knows about already. No focal weakness no reports of increased neck or head pain she is on Coumadin because a Clotting disorder. She denies any other complaints or modifying factors this time. No heavy lifting reported no other injury MD Complaint: Injury to:: left, shoulder, arm - Related Data Home Medications Medication Instructions Recorded Confirmed Acetaminophen [Tylenol] 1,000 mg PO DAILY PRN 02/08/21 03/21/21 Albuterol Sulfate [Ventolin HFA] 2 puff INHALATION RT-QID PRN 03/21/21 03/21/21 Omeprazole 40 mg PO DAILY 03/21/21 03/21/21 Warfarin [Coumadin] 7.5 mg PO SUTUWETHFRSA@1800 03/21/21 03/21/21 Warfarin [Coumadin] 10 mg PO MO@1800 03/21/21 03/21/21 Previous Rx's Medication Instructions Recorded methocarbamoL [Robaxin] 500 mg PO TID PRN #15 tab 03/21/21 methylPREDNISolone Dose Pack 4 mg PO DIRECTED #21 package 05/02/21 [Medrol Dose Pack] Allergies Allergy/AdvReac Type Severity Reaction Status Date / Time cyclobenzaprine AdvReac Nausea & Verified 05/02/21 09:07 [From Flexeril] Vomiting & Diarrhea enoxaparin [From Lovenox] AdvReac Nausea & Verified 05/02/21 09:07 Vomiting Iodinated Contrast Media AdvReac Nausea & Verified 05/02/21 09:07 lightheaded Review of Systems ROS Statement: Those systems with pertinent positive or pertinent negative responses have been documented in the HPI. ROS Other: All systems not noted in ROS Statement are negative. 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 leg + for DVT in lower femoral vein and Lt. leg + for chronic SVT of left greater saphenous vein History of Any Multi-Drug Resistant Organisms: None Reported Past Surgical History: Breast Surgery, Section, Hernia Repair, Tonsillectomy, Tubal Ligation Additional Past Surgical History / Comment(s): EGDs, umbilical hernia with mesh/then mesh removed, benign breast lumpectomy-pt cannot recall laterallity, hysteroscopy/D&C, bilateral eye lasik surgery for vision correction. Past Anesthesia/Blood Transfusion Reactions: Postoperative Nausea & Vomiting (PONV) Additional Past Anesthesia/Blood Transfusion Reaction / Comment(s): Pt has clausterphobia. Past Psychological History: Anxiety Smoking Status: Former smoker Past Alcohol Use History: None Reported Past Drug Use History: None Reported - Past Family History Father Family Medical History: Cancer Additional Family Medical History / Comment(s): Father from cancer at the age of 54yrs, pt believes it was an endocrine type cancer. Mother Family Medical History: Osteoarthritis (OA) Additional Family Medical History / Comment(s): Mother has had multiple joint replacements. General Exam - General Exam Comments Initial Comments: This is a well-developed well-nourished awake alert oriented x 3 female Limitations: no limitations General appearance: alert Eye exam: Present: normal appearance ENT exam: Present: normal external ear exam Neck exam: Present: normal inspection, tenderness, full ROM, other (Tenderness palpation of the left lateral neck musculature no spinous process tenderness. Palpation does reproduce the patient's discomfort). Absent: meningismus, lymphadenopathy Respiratory exam: Present: normal lung sounds bilaterally. Absent: respiratory distress, wheezes, rales, rhonchi, stridor Cardiovascular Exam: Present: regular rate, normal rhythm, normal heart sounds. Absent: systolic murmur, diastolic murmur, rubs, gallop, clicks Extremities exam: Present: normal inspection, full ROM, normal capillary refill. Absent: tenderness, pedal edema, joint swelling, calf tenderness Back exam: Present: full ROM (Tennis palpation of the left trapezius musculature as well as left paraspinous with some rhomboid tenderness noted.) Neurological exam: Present: alert, oriented X3, CN II-XII intact Psychiatric exam: Present: normal affect, normal mood Skin exam: Present: warm, dry, intact, normal color. Absent: rash Course Vital Signs 05/02/21 09:04 Pulse Rate 78 Respiratory 18 Rate Blood Pressure 128/77 O2 Sat by Pulse 97 Oximetry Medical Decision Making - Medical Decision Making No further evaluation indicated at this time patient demonstrates evidence of radicular discomfort she already has muscle relaxers and her neurologist gave her the last several days. We placed on a short course of oral steroids I did recommend stretching exercises as well as massage therapy and warm compresses. Patient is in agreement with this. Disposition Clinical Impression: Radiculopathy affecting upper extremity, Myofascial pain on left side Disposition: HOME SELF-CARE Condition: Good Instructions (If sedation given, give patient instructions): Cervical Radiculopathy (ED), Musculoskeletal Pain (ED) Prescriptions: methylPREDNISolone Dose Pack [Medrol Dose Pack] 4 mg PO DIRECTED #21 package Is patient prescribed a controlled substance at d/c from ED?: No Referrals: Holger Farmer MD [Primary Care Provider] - 1-2 days
== END 2021-05-02 09:43 | disposition home or self-care (01) ==
LOC: EC 09:02
DX: M54.10 Radiculopathy, site unspecified (principal); M79.18 Myalgia, other site; M54.2 Cervicalgia; J45.909 Unspecified asthma, uncomplicated; Z79.01 Long term (current) use of anticoagulants; Z86.711 Personal history of pulmonary embolism; Z86.718 Personal history of other venous thrombosis and embolism; Z87.891 Personal history of nicotine dependence; Z88.8 Allergy status to other drugs, medicaments and biological substances; Z91.041 Radiographic dye allergy status
CPT/HCPCS: 99283; J7512

== ENCOUNTER 2021-06-28 07:53 | Emergency (ER) | payer BC ==
[2021-06-28 08:04] VITALS: RESP 16
--- NOTE | 2021-06-28 08:41 | ED ---
Extremity Problem HPI - General Chief complaint: Extremity Problem,Nontraumatic Stated complaint: Left leg pain Time Seen by Provider: 06/28/21 08:05 Source: patient, RN notes reviewed Mode of arrival: ambulatory Limitations: no limitations - History of Present Illness Initial comments: This a 41-year-old female presents emergency Department with chief complaint of left leg pain. Patient states that she has a known clotting disorders states that she's been going off her Coumadin for procedure she is being transitioned to Lovenox by her passport application examiner Dr. Atwood. Patient states that she woke up with left leg pain and was concerned. No chest pain or shortness of breath. Patient states she checks her INR at home states she woke up this morning nose 1.8. Patient did not give herself Lovenox. - Related Data Home Medications Medication Instructions Recorded Confirmed Acetaminophen [Tylenol] 1,000 mg PO DAILY PRN 02/08/21 03/21/21 Albuterol Sulfate [Ventolin HFA] 2 puff INHALATION RT-QID PRN 03/21/21 03/21/21 Omeprazole 40 mg PO DAILY 03/21/21 03/21/21 Warfarin [Coumadin] 7.5 mg PO SUTUWETHFRSA@1800 03/21/21 03/21/21 Warfarin [Coumadin] 10 mg PO MO@1800 03/21/21 03/21/21 Previous Rx's Medication Instructions Recorded methocarbamoL [Robaxin] 500 mg PO TID PRN #15 tab 03/21/21 methylPREDNISolone Dose Pack 4 mg PO DIRECTED #21 package 05/02/21 [Medrol Dose Pack] Allergies Allergy/AdvReac Type Severity Reaction Status Date / Time cyclobenzaprine AdvReac Nausea & Verified 06/28/21 08:04 [From Flexeril] Vomiting & Diarrhea enoxaparin [From Lovenox] AdvReac Nausea & Verified 06/28/21 08:04 Vomiting Iodinated Contrast Media AdvReac Nausea & Verified 06/28/21 08:04 lightheaded Review of Systems ROS Statement: Those systems with pertinent positive or pertinent negative responses have been documented in the HPI. ROS Other: All systems not noted in ROS Statement are negative. 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 leg + for DVT in lower femoral vein and Lt. leg + for chronic SVT of left greater saphenous vein History of Any Multi-Drug Resistant Organisms: None Reported Past Surgical History: Breast Surgery, Section, Hernia Repair, Tonsillectomy, Tubal Ligation Additional Past Surgical History / Comment(s): EGDs, umbilical hernia with mesh/then mesh removed, benign breast lumpectomy-pt cannot recall laterallity, hysteroscopy/D&C, bilateral eye lasik surgery for vision correction. Past Anesthesia/Blood Transfusion Reactions: Postoperative Nausea & Vomiting (PONV) Additional Past Anesthesia/Blood Transfusion Reaction / Comment(s): Pt has salomon terphobia. Past Psychological History: Anxiety Smoking Status: Former smoker Past Alcohol Use History: None Reported Past Drug Use History: None Reported - Past Family History Father Family Medical History: Cancer Additional Family Medical History / Comment(s): Father from cancer at the age of 54yrs, pt believes it was an endocrine type cancer. Mother Family Medical History: Osteoarthritis (OA) Additional Family Medical History / Comment(s): Mother has had multiple joint replacements. General Exam Limitations: no limitations General appearance: alert, in no apparent distress Head exam: Present: atraumatic, normocephalic, normal inspection Respiratory exam: Present: normal lung sounds bilaterally. Absent: respiratory distress, wheezes, rales, rhonchi, stridor Cardiovascular Exam: Present: regular rate, normal rhythm, normal heart sounds. Absent: systolic murmur, diastolic murmur, rubs, gallop, clicks Extremities exam: Present: other (Pulses are equal bilaterally lower extremity equal color equal warmth) Skin exam: Present: warm, dry, intact, normal color. Absent: rash Course Vital Signs 06/28/21 08:01 Pulse Rate 91 Respiratory 16 Rate Blood Pressure 119/73 O2 Sat by Pulse 98 Oximetry Medical Decision Making - Medical Decision Making Ultrasound is negative for acute DVT. Patient has left leg pain will be discharged in stable condition. Patient is neurovascularly intact. Disposition Clinical Impression: Left leg pain Disposition: HOME SELF-CARE Condition: Stable Instructions (If sedation given, give patient instructions): Leg Pain (ED) Additional Instructions: Please return to the Emergency Department if symptoms worsen or any other concerns. Is patient prescribed a controlled substance at d/c from ED?: No Referrals: None,Stated [Primary Care Provider] - 1-2 days Time of Disposition: 09:28
--- NOTE | 2021-06-28 08:52 | US ---
EXAMINATION TYPE: US venous doppler duplex LE LT DATE OF EXAM: 06/28/2021 8:45 AM COMPARISON: NONE CLINICAL HISTORY: pain. Factor 5 pt who has been off thinners pending surgery, h/o chronic DVT on the right, new pain around knee today on the left, no swelling seen SIDE PERFORMED: Left TECHNIQUE: The lower extremity deep venous system is examined utilizing real time linear array sonog irais with graded compression, doppler sonography and color-flow sonography. VESSELS IMAGED: Common Femoral Vein Deep Femoral Vein Greater Saphenous Vein * Femoral Vein Popliteal Vein Small Saphenous Vein * Proximal Calf Veins (* superficial vessels) Left Leg: Negative for DVT IMPRESSION: 1. Left lower extremity ultrasound negative for deep venous thrombosis.
[2021-06-28 09:37] VITALS: BP 135/78; PULSE 78; TEMP 98.2
== END 2021-06-28 09:35 | disposition home or self-care (01) ==
LOC: EC 07:53
DX: M79.605 Pain in left leg (principal); J45.909 Unspecified asthma, uncomplicated; Z79.01 Long term (current) use of anticoagulants; Z79.899 Other long term (current) drug therapy; Z86.711 Personal history of pulmonary embolism; Z86.718 Personal history of other venous thrombosis and embolism; Z87.891 Personal history of nicotine dependence
CPT/HCPCS: 99283

== ENCOUNTER → 2021-07-03 | Outpatient (CLI) | payer BC ==
--- NOTE | 2021-07-03 15:40 | US ---
EXAMINATION TYPE: US venous doppler duplex LE RT DATE OF EXAM: 07/03/2021 3:31 PM COMPARISON: US bilateral lower extremity 01/28/2021 CLINICAL HISTORY: RLE Swelling R22.41 Pain RLE M79.661. History of chronic DVT rt leg SIDE PERFORMED: Right TECHNIQUE: The lower extremity deep venous system is examined utilizing real time linear array sonog irais with graded compression, doppler sonography and color-flow sonography. VESSELS IMAGED: Common Femoral Vein Deep Femoral Vein Greater Saphenous Vein * Femoral Vein Popliteal Vein Small Saphenous Vein * Proximal Calf Veins (* superficial vessels) Right Leg: Negative for DVT Grayscale, color doppler, spectral doppler imaging performed of the deep veins of the right lower ext remity. There is normal flow, compressibility, vascular waveforms. Patent vessel with tortuous bloo d flow upper calf at site of palpable noted. IMPRESSION: No new acute DVT in the right lower extremity.
== END | disposition home or self-care (01) ==
LOC: RADUSWWP 15:12
PROVIDERS: ATTEND Internal Medicine Hematology & Oncology
DX: R22.41 Localized swelling, mass and lump, right lower limb (principal); M79.661 Pain in right lower leg

== ENCOUNTER 2021-09-03 09:59 | Emergency (ER) | payer BC ==
[2021-09-03 10:06] VITALS: BP 124/79; PULSE 79; RESP 16; TEMP 97.6
--- NOTE | 2021-09-03 10:25 | ED ---
General Adult HPI - General Chief complaint: Head Injury Stated complaint: hit head Time Seen by Provider: 09/03/21 10:07 Source: patient, RN notes reviewed Mode of arrival: ambulatory Limitations: no limitations - History of Present Illness Initial comments: Patient is a 41-year-old female presented ED after hitting head on Thursday. Patient reports she was bending over to scrap picker her daughter and hit forehead against dining room table. Patient reports she was sent by her hatchery attendant being that she is on Coumadin. Patient reports no loss consciousness nausea vomiting, headache related to event. Patient reports checked INR daily at home with last check being 2.5. Patient reports that INR is stable and well controlled at this time. Patient reports she is otherwise well with no complaints. - Related Data Home Medications Medication Instructions Recorded Confirmed Acetaminophen [Tylenol] 1,000 mg PO DAILY PRN 02/08/21 03/21/21 Albuterol Sulfate [Ventolin HFA] 2 puff INHALATION RT-QID PRN 03/21/21 03/21/21 Omeprazole 40 mg PO DAILY 03/21/21 03/21/21 Warfarin [Coumadin] 7.5 mg PO SUTUWETHFRSA@1800 03/21/21 03/21/21 Warfarin [Coumadin] 10 mg PO MO@1800 03/21/21 03/21/21 Previous Rx's Medication Instructions Recorded methocarbamoL [Robaxin] 500 mg PO TID PRN #15 tab 03/21/21 methylPREDNISolone Dose Pack 4 mg PO DIRECTED #21 package 05/02/21 [Medrol Dose Pack] Allergies Allergy/AdvReac Type Severity Reaction Status Date / Time cyclobenzaprine AdvReac Nausea & Verified 09/03/21 10:06 [From Flexeril] Vomiting & Diarrhea enoxaparin [From Lovenox] AdvReac Nausea & Verified 09/03/21 10:06 Vomiting Iodinated Contrast Media AdvReac Nausea & Verified 09/03/21 10:06 lightheaded Review of Systems ROS Statement: Those systems with pertinent positive or pertinent negative responses have been documented in the HPI. ROS Other: All systems not noted in ROS Statement are negative. 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 leg + for DVT in lower femoral vein and Lt. leg + for chronic SVT of left greater saphenous vein History of Any Multi-Drug Resistant Organisms: None Reported Past Surgical History: Breast Surgery, Section, Hernia Repair, Tonsillectomy, Tubal Ligation Additional Past Surgical History / Comment(s): EGDs, umbilical hernia with mesh/then mesh removed, benign breast lumpectomy-pt cannot recall laterallity, hysteroscopy/D&C, bilateral eye lasik surgery for vision correction. Past Anesthesia/Blood Transfusion Reactions: Postoperative Nausea & Vomiting (PONV) Additional Past Anesthesia/Blood Transfusion Reaction / Comment(s): Pt has cl austerphobia. Past Psychological History: Anxiety Smoking Status: Former smoker Past Alcohol Use History: None Reported Past Drug Use History: None Reported - Past Family History Father Family Medical History: Cancer Additional Family Medical History / Comment(s): Father from cancer at the age of 54yrs, pt believes it was an endocrine type cancer. Mother Family Medical History: Osteoarthritis (OA) Additional Family Medical History / Comment(s): Mother has had multiple joint replacements. General Exam Limitations: no limitations General appearance: alert, in no apparent distress Eye exam: Present: normal appearance, PERRL, EOMI. Absent: scleral icterus, conjunctival injection, periorbital swelling Respiratory exam: Present: normal lung sounds bilaterally. Absent: respiratory distress, wheezes, rales, rhonchi, stridor Cardiovascular Exam: Present: regular rate, normal rhythm, normal heart sounds. Absent: systolic murmur, diastolic murmur, rubs, gallop, clicks Neurological exam: Present: alert, oriented X3 Skin exam: Present: warm, dry, intact, normal color. Absent: rash Course Vital Signs 09/03/21 10:03 Temperature 97.6 F Pulse Rate 79 Respiratory 16 Rate Blood Pressure 124/79 O2 Sat by Pulse 98 Oximetry Medical Decision Making - Medical Decision Making CT is unremarkable. Patient discharged in stable condition. Patient does have a therapeutic INR. Return parameters were discussed. Disposition Clinical Impression: Head contusion Disposition: HOME SELF-CARE Condition: Stable Instructions (If sedation given, give patient instructions): Head Injury (ED) Additional Instructions: Please return to the Emergency Department if symptoms worsen or any other concerns. Is patient prescribed a controlled substance at d/c from ED?: No Referrals: Zach Kruse MD [Primary Care Provider] - 1-2 days Time of Disposition: 11:00
--- NOTE | 2021-09-03 10:50 | CT ---
EXAMINATION TYPE: CT brain wo con DATE OF EXAM: 09/03/2021 COMPARISON: 11/24/2020 HISTORY: Frontal injury with headache. No LOC or visual disturbance. Patient on blood thinners CT DLP: 1113.4 mGycm. Automated Exposure Control for Dose Reduction was Utilized. TECHNIQUE: CT scan of the head is performed without contrast. FINDINGS: There is no acute intracranial hemorrhage, mass effect, or midline shift identified. The ventricles and sulci are within normal limits in size. The cerebellar tonsils are well below the foramen magnum is compatible with Chiari malformation. The globes are intact and changes of chronic sinusitis noted.. IMPRESSION: 1. No acute intracranial hemorrhage, mass effect, or midline shift is seen. 2. The cerebellar tonsils are well below the level of foramen magnum compatible with Chiari I malform ation. Recommend MRI of the brain.
== END 2021-09-03 11:11 | disposition home or self-care (01) ==
LOC: EC 09:59
DX: S00.93XA Contusion of unspecified part of head, initial encounter (principal); J45.909 Unspecified asthma, uncomplicated; F41.9 Anxiety disorder, unspecified; Z79.01 Long term (current) use of anticoagulants; Z88.1 Allergy status to other antibiotic agents; Z86.718 Personal history of other venous thrombosis and embolism; Z86.711 Personal history of pulmonary embolism; Z90.89 Acquired absence of other organs; Z98.51 Tubal ligation status; Z87.891 Personal history of nicotine dependence; W22.8XXA Striking against or struck by other objects, initial encounter
CPT/HCPCS: 70450; 99284

== ENCOUNTER 2021-11-19 21:01 | Inpatient (IN) | payer BC ==
[2021-11-19] MEDS ORDERED: HEPARIN SODIUM 1,000 UN/ML (10ML VL) IV ONE (22:48)
[2021-11-19] MEDS ORDERED: HEPARIN SODIUM 1,000 UN/ML (10ML VL) IV PRN (22:48)
[2021-11-19] MEDS ORDERED: NALOXONE 0.4 MG/ML 1 ML VIAL IV PRN (22:50)
[2021-11-19] MEDS ORDERED: MAG HYDROX/AL HYDROX/SIMETH 30 ML CUP PO PRN (22:50)
[2021-11-19] MEDS ORDERED: ACETAMINOPHEN TAB 325 MG TAB PO PRN (22:50)
--- NOTE | 2021-11-19 22:57 | ED ---
General Adult HPI - General Chief complaint: Recheck/Abnormal Lab/Rx Stated complaint: Sent by -medication Time Seen by Provider: 11/19/21 22:32 Source: patient Mode of arrival: ambulatory Limitations: no limitations - History of Present Illness Initial comments: This patient is a 41-year-old woman who presents with complaint that she has been taking Lovenox and is making her very sick. The patient states that she usually takes Coumadin but that this was held 3 days ago so that she could prepare for a surgical procedure. The patient had been using Lovenox as an anticoagulant but she states that the injections are making her terribly sick. Patient has factor V Leiden and uses the Coumadin for that reason. She states that after discussion with her physician Dr. Atwood, she was told to come in and be admitted to go back on heparin as a bridge to her Coumadin. The patient is denying symptoms of DVT/PE, including no leg pain or swelling, chest pain, palpitations, dyspnea, hemoptysis, syncope -: days(s) Radiation: non-radiation Severity scale (1-10): 0 Improves with: none Worsens with: none - Related Data Home Medications Medication Instructions Recorded Confirmed Acetaminophen [Tylenol] 1,000 mg PO DAILY PRN 02/08/21 03/21/21 Albuterol Sulfate [Ventolin HFA] 2 puff INHALATION RT-QID PRN 03/21/21 03/21/21 Omeprazole 40 mg PO DAILY 03/21/21 03/21/21 Warfarin [Coumadin] 7.5 mg PO SUTUWETHFRSA@1800 03/21/21 03/21/21 Warfarin [Coumadin] 10 mg PO MO@1800 03/21/21 03/21/21 Previous Rx's Medication Instructions Recorded methocarbamoL [Robaxin] 500 mg PO TID PRN #15 tab 03/21/21 methylPREDNISolone Dose Pack 4 mg PO DIRECTED #21 package 05/02/21 [Medrol Dose Pack] Allergies Allergy/AdvReac Type Severity Reaction Status Date / Time cyclobenzaprine AdvReac Nausea & Verified 11/19/21 22:29 [From Flexeril] Vomiting & Diarrhea enoxaparin [From Lovenox] AdvReac Nausea & Verified 11/19/21 22:29 Vomiting Iodinated Contrast Media AdvReac Nausea & Verified 11/19/21 22:29 lightheaded Review of Systems ROS Statement: Those systems with pertinent positive or pertinent negative responses have been documented in the HPI. ROS Other: All systems not noted in ROS Statement are negative. Constitutional: Denies: fever, chills Respiratory: Denies: cough, dyspnea Cardiovascular: Denies: chest pain, palpitations, edema Gastrointestinal: Reports: abdominal pain, nausea, vomiting. 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 leg + for DVT in lower femoral vein and Lt. leg + for chronic SVT of left greater saphenous vein History of Any Multi-Drug Resistant Organisms: None Reported Past Surgical History: Breast Surgery, Section, Hernia Repair, Tonsillectomy, Tubal Ligation Additional Past Surgical History / Comment(s): EGDs, umbilical hernia with mesh/then mesh removed, benign breast lumpectomy-pt cannot recall laterallity, hysteroscopy/D&C, bilateral eye lasik surgery for vision correction. Past Anesthesia/Blood Transfusion Reactions: Postoperative Nausea & Vomiting (PONV) Additional Past Anesthesia/Blood Transfusion Reaction / Comment(s): Pt has clausterphobia. Past Psychological History: Anxiety Smoking Status: Former smoker Past Alcohol Use History: None Reported Past Drug Use History: None Reported - Past Family History Father Family Medical History: Cancer Additional Family Medical History / Comment(s): Father from cancer at the age of 54yrs, pt believes it was an endocrine type cancer. Mother Family Medical History: Osteoarthritis (OA) Additional Family Medical History / Comment(s): Mother has had multiple joint replacements. General Exam Limitations: no limitations General appearance: alert, in no apparent distress Head exam: Present: atraumatic, normocephalic Eye exam: Present: normal appearance. Absent: scleral icterus, conjunctival injection Neck exam: Present: normal inspection Respiratory exam: Present: normal lung sounds bilaterally. Absent: respiratory distress, wheezes, rales, rhonchi, stridor Cardiovascular Exam: Present: regular rate, normal rhythm, normal heart sounds. Absent: systolic murmur, diastolic murmur, rubs, gallop GI/Abdominal exam: Present: soft. Absent: distended, tenderness, guarding, rebound, rigid, mass Extremities exam: Present: normal inspection, normal capillary refill. Absent: pedal edema, calf tenderness Back exam: Present: normal inspection Neurological exam: Present: alert Skin exam: Present: warm, dry, intact, normal color. Absent: rash Course Vital Signs 11/19/21 22:25 Temperature 98.3 F Pulse Rate 88 Respiratory 18 Rate Blood Pressure 121/81 O2 Sat by Pulse 97 Oximetry Disposition Clinical Impression: Factor V Leiden Disposition: ADMITTED IP TO THIS HOSP Condition: Fair Is patient prescribed a controlled substance at d/c from ED?: No Referrals: Zach Kruse MD [Primary Care Provider] - 1-2 days
[2021-11-19 23:09] LABS: Basophils % (A) 1 %; Eosinophils # (A) 0.2 k/uL (0-0.7); Eosinophils % (A) 3 %; HCT 39.3 % (34.0-46.0); Lymphocytes # (A) 2.5 k/uL (1.0-4.8); Lymphocytes % (A) 32 %; MCH 31.4 pg (25.0-35.0); MCV 95.3 fL (80.0-100.0); Mean Platelet Volume 7.6; Monocytes # (A) 0.5 k/uL (0-1.0); Monocytes % (A) 7 %; Neutrophils # (A) 4.5 k/uL (1.3-7.7); Neutrophils % (A) 56 %; Platelet Count 278 k/uL (150-450); RBC 4.12 m/uL (3.80-5.40); RDW 12.5 % (11.5-15.5)
[2021-11-19 23:23] LABS: African American GFR (CKD) >90 (>60 ml/min/1.73 sqM); Carbon Dioxide 23 mmol/L (22-30); Glucose 105 mg/dL (74-99); Non-African American GFR(CKD) 86 (>60 ml/min/1.73 sqM)
[2021-11-19 23:26] LABS: Partial Thromboplastin Time 25.1 sec (22.0-30.0); Prothrombin Time 10.8 sec (9.0-12.0)
[2021-11-19 23:27] LABS: Anion Gap 10 mmol/L; Blood Urea Nitrogen 18 mg/dL (7-17); Calcium 8.9 mg/dL (8.4-10.2); Chloride 105 mmol/L (98-107); Sodium 138 mmol/L (137-145)
[2021-11-19] MEDS: HEPARIN SOD,PORK IN 0.45% NACL 25,000 UNIT in 0.45% NACL 1 250ML.BAG IV SCH (23:43)
[2021-11-19] MEDS: SODIUM CHLORIDE 0.9% 1,000 ML IV SCH (23:44)
[2021-11-20] MEDS ORDERED: WARFARIN 5 MG TAB PO STA (00:15)
[2021-11-20 05:52] LABS: Basophils % (A) 1 %; Eosinophils # (A) 0.3 k/uL (0-0.7); Eosinophils % (A) 4 %; HCT 37.6 % (34.0-46.0); HGB 12.1 gm/dL (11.4-16.0); Lymphocytes # (A) 2.7 k/uL (1.0-4.8); Lymphocytes % (A) 38 %; MCH 31.2 pg (25.0-35.0); MCHC 32.2 g/dL (31.0-37.0); MCV 96.8 fL (80.0-100.0); Mean Platelet Volume 7.6; Monocytes # (A) 0.5 k/uL (0-1.0); Monocytes % (A) 7 %; Neutrophils # (A) 3.3 k/uL (1.3-7.7); Neutrophils % (A) 48 %; Platelet Count 254 k/uL (150-450); RBC 3.88 m/uL (3.80-5.40); RDW 12.7 % (11.5-15.5)
[2021-11-20] MEDS: FAMOTIDINE 20 MG TAB PO SCH ×2 (09:36→21:29)
[2021-11-20] MEDS ORDERED: ALBUTEROL NEBULIZED 2.5 MG/3 ML INHALATION PRN (10:57)
--- NOTE | 2021-11-20 11:36 | P.CONS ---
History of Present Illness - Reason for Consult Consult date: 11/20/21 bridging to Warfarin - History of Present Illness Cecy is an incredibly anxious female who follows with Dr. Atwood for history of DVT/PE. She is on lifelong anticoagulation and apparently failed treatment with xarelto/DOAC (This is not definitive as she was found to SVT on DOAC, however in the picture with hypercoagulable state baseline Factor V and limited data with DOAC it was felt that she would do best on Warfarin. She has very generalized and non specific symptoms and apparently following with [facility] [employer] [facility] for a hyste[facility]. When asked why she is having hysterectomy she states her periods are long and she is in a lot of pain. There does not seem to be nay significant blood loss based of her CBC, however I have ran iron studies for tissue iron deficiency. She has been scheduled for hysterectomy a few times but something always seems to come up. She has multiple ER visits in the past 3 years. patient denies feeling anxious, however she also complains of severe necck pain and when examine this appears to be musculoskeletal tension. Patient has most recently been on lovenox injections in preparation for hysterectomy next week, however she called the office stating that she could not tolerate the lovenox injections, she is "too sick" on them. When asked to be more specific she states the injection pineda (I did explain this to be expected) and then she stated she feels nauseated and gets headache and makes her body hurt. She states zofran did not work. She was advised to try benadryl although did not. She also was advised to call [facility] to see if the option to admit on heparin drip prior t o surgery was an option and unfortunetely she said [facility] refused this option. 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 leg + for DVT in lower femoral vein and Lt. leg + for chronic SVT of left greater saphenous vein History of Any Multi-Drug Resistant Organisms: None Reported Past Surgical History: Breast Surgery, Section, Hernia Repair, Tonsillectomy, Tubal Ligation Additional Past Surgical History / Comment(s): EGDs, umbilical hernia with mesh/then mesh removed, benign breast lumpectomy-pt cannot recall laterallity, hysteroscopy/D&C, bilateral eye lasik surgery for vision correction. Past Anesthesia/Blood Transfusion Reactions: Postoperative Nausea & Vomiting (PONV) Additional Past Anesthesia/Blood Transfusion Reaction / Comm: Pt has clausterphobia. Past Psychological History: Anxiety Smoking Status: Former smoker Past Alcohol Use History: None Reported Past Drug Use History: None Reported - Past Family History Father Family Medical History: Cancer Additional Family Medical History / Comment(s): Father from cancer at the age of 54yrs, pt believes it was an endocrine type cancer. Mother Family Medical History: Osteoarthritis (OA) Additional Family Medical History / Comment(s): Mother has had multiple joint replacements. Medications and Allergies Home Medications Medication Instructions Recorded Confirmed Type Albuterol Sulfate [Ventolin HFA] 2 puff INHALATION RT-QID PRN 03/21/21 11/19/21 History Omeprazole 40 mg PO HS 03/21/21 11/19/21 History Warfarin [Coumadin] 7.5 mg PO SUTUWETHFRSA@1800 03/21/21 11/19/21 History Warfarin [Coumadin] 10 mg PO MO@1800 03/21/21 11/19/21 History Allergies Allergy/AdvReac Type Severity Reaction Status Date / Time cyclobenzaprine AdvReac Nausea & Verified 11/19/21 23:19 [From Flexeril] Vomiting & Diarrhea enoxaparin [From Lovenox] AdvReac Nausea & Verified 11/19/21 23:19 Vomiting Iodinated Contrast Media AdvReac Nausea & Verified 11/19/21 23:19 lightheaded Physical Exam Vitals: Vital Signs Temp Pulse Resp BP Pulse Ox 11/20/21 10:00 18 11/20/21 07:55 98.4 F 76 18 112/75 98 11/20/21 01:00 76 16 123/86 98 11/19/21 22:25 98.3 F 88 18 121/81 97 Intake and Output 11/19/21 11/20/21 11/20/21 22:59 06:59 14:59 Intake Total 82.704 0 Balance 82.704 0 Intake: Intake, IV Titration 82.704 0 Amount Heparin Sod,Pork in 0.45% 82.704 0 NaCl 25,000 unit In 0.45 % NaCl 1 250ml.bag @ 18 UNITS/KG/HR 11.594 mls/hr IV .[id number] MICAELA Rx#: [id number] Other: Weight 64.41 kg HIghly anxious Flat affect NAD Tenderness to abdomen No edema HR RRR Lungs CTA Results CBC & Chem 7: 11/20/21 05:30 11/19/21 23:01 Labs: Abnormal Lab Results - Last 24 Hours (Table) 11/19/21 11/20/21 Range/Units 23:01 05:30 APTT 119.5 H* (22.0-30.0) sec BUN 18 H (7-17) mg/dL Glucose 105 H (74-99) mg/dL Assessment and Plan (1) Anxiety Narrative/Plan: - Long discussion today with patient, she has had 14 ER visits in 2013 alone, secondary to her anxiety and worry. She continued to present concerned she had more thrombolic events when it appeared during trend this is likely the original and chronic. - She remains of anticoagulation Current Visit: Yes Status: Acute Code(s): F41.9 - ANXIETY DISORDER, UNSPECIFIED SNOMED Code(s): 90086872 (2) Chronic deep vein thrombosis (DVT) of femoral vein of right lower extremity Narrative/Plan: Bridge to INR 2.5 with heparin and warfarin prior to discharge. Current Visit: Yes Status: Acute Code(s): I82.511 - CHRONIC EMBOLISM AND THROMBOSIS OF RIGHT FEMORAL VEIN SNOMED Code(s): 286487988698086 (3) History of pulmonary embolus (PE) Current Visit: Yes Status: Acute Code(s): Z86.711 - PERSONAL HISTORY OF PULMONARY EMBOLISM SNOMED Code(s): 620993707 Plan: Mother at bedside during evaluation, patient with many random, non-specific complaints, concerns. We discussed the high recommendation of seeing psychiatry as she is highly anxious and this is not concerned. She admits to not having any ways to control stress other then coming to ER and undergoing more and more tests to show her that she is ok.
[2021-11-20] MEDS: SODIUM CHLORIDE 0.9% 1,000 ML IV SCH (12:17)
[2021-11-20] MEDS: DOCUSATE 100 MG CAP PO PRN ×2 (12:17→21:26)
[2021-11-20] MEDS: WARFARIN 7.5 MG TAB PO SCH (17:56)
[2021-11-20] MEDS ORDERED: WARFARIN 10 MG TAB PO ONE (18:00)
--- NOTE | 2021-11-20 18:34 | P.HPIM ---
History of Present Illness H&P Date: 11/20/21 Chief Complaint: Possible side effect of Lovenox History of presenting complaint as documented by Shannan ortega NP from oncology Cecy is an incredibly anxious female who follows with Dr. Atwood for history of DVT/PE. She is on lifelong anticoagulation and apparently failed treatment with xarelto/DOAC (This is not definitive as she was found to SVT on DOAC, however in the picture with hypercoagulable state baseline Factor V and limited data with DOAC it was felt that she would do best on Warfarin. 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 When asked why she is having hysterectomy she states her periods are long and she is in a lot of pain. There does not seem to be nay significant blood loss based of her CBC, however I have ran iron studies for tissue iron deficiency. She has been scheduled for hysterectomy a few times but something always seems to come up. She has multiple ER visits in the past 3 years. patient denies feeling anxious, however she also complains of severe necck pain and when examine this appears to be musculoskeletal tension. Patient has most recently been on lovenox injections in preparation for hysterectomy next week, however she called the office stating that she could not tolerate the lovenox injections, she is "too sick" on them. When asked to be more specific she states the injection pineda (I did explain this to be expected) and then she stated she feels nauseated and gets headache and makes her body hurt. She states zofran did not work. She was advised to try benadryl although did not. She also was advised to call [facility] to see if the option to admit on heparin drip prior to surgery was an option and unfortunetely she said [facility] refused this option. When asked patient what she would like to do she stated shecannot take lovenox and feels she is allergic, therefore the only option would be to advise her to ER for bridging with heparin until therapeutic again. Patient had her hysterectomy scheduled for next Thursday that was canceled as. She could not tolerate 7 more days off Lovenox. She started IV heparin. She is concerned if she is getting a cellulitis had a previous IV site. No fever no chills. Appetite is fair. She does have sometimes bleeding hemorrhoids. He does get pelvic pain from her uterus. That is the reason for her hysterectomy. 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 She smoked for 13 years stopped in 2009. No alcohol. No recreational drugs. Family history: Father from cancer at age of 54 possible endocrine type cancer Physical examination: VITAL SIGNS: 98.4, 96, 16, 111/73, 98% room air GENERAL: BMI 24.4, sitting up in bed, slightly anxious appearing. EYES: Pupils equal. Conjunctiva normal. HEENT: External appearance of nose and ears normal, oral cavity grossly normal. NECK: JVD not raised; masses not palpable. HEART: First and second heart sounds are normal; no edema. LUNGS: Respiratory rate normal; clear to auscultation. ABDOMEN: Soft, nontender, liver spleen not palpable, no masses palpable. PSYCH: Alert and oriented x3; mood and affect anxiousl. NEUROLOGICAL: Cranial nerves grossly intact; no facial asymmetry, power and sensation grossly intact. 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 Currently surgery postponed -Exercise-induced asthma Albuterol when necessary I did explained to the patient is a highly doubt his symptoms were from Lovenox. Also did tell her the importance of getting hysterectomy done because at any point she'll have to go through this cycle again. IV heparin, Coumadin, omeprazole. 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 leg + for DVT in lower femoral vein and Lt. leg + for chronic SVT of left greater saphenous vein History of Any Multi-Drug Resistant Organisms: None Reported Past Surgical History: Breast Surgery, Section, Hernia Repair, Tonsillectomy, Tubal Ligation Additional Past Surgical History / Comment(s): EGDs, umbilical hernia with mesh/then mesh removed, benign breast lumpectomy-pt cannot recall laterallity, hysteroscopy/D&C, bilateral eye lasik surgery for vision correction. Past Anesthesia/Blood Transfusion Reactions: Postoperative Nausea & Vomiting (PONV) Additional Past Anesthesia/Blood Transfusion Reaction / Comment(s): Pt has clausterphobia. Past Psychological History: Anxiety Smoking Status: Former smoker Past Alcohol Use History: None Reported Past Drug Use History: None Reported - Past Family History Father Family Medical History: Cancer Additional Family Medical History / Comment(s): Father from cancer at the age of 54yrs, pt believes it was an endocrine type cancer. Mother Family Medical History: Osteoarthritis (OA) Additional Family Medical History / Comment(s): Mother has had multiple joint replacements. Medications and Allergies Home Medications Medication Instructions Recorded Confirmed Type Albuterol Sulfate [Ventolin HFA] 2 puff INHALATION RT-QID PRN 03/21/21 11/19/21 History Omeprazole 40 mg PO HS 03/21/21 11/19/21 History Warfarin [Coumadin] 7.5 mg PO SUTUWETHFRSA@1800 03/21/21 11/19/21 History Warfarin [Coumadin] 10 mg PO MO@1800 03/21/21 11/19/21 History Allergies Allergy/AdvReac Type Severity Reaction Status Date / Time cyclobenzaprine AdvReac Nausea & Verified 11/19/21 23:19 [From Flexeril] Vomiting & Diarrhea enoxaparin [From Lovenox] AdvReac Nausea & Verified 11/19/21 23:19 Vomiting Iodinated Contrast Media AdvReac Nausea & Verified 11/19/21 23:19 lightheaded Physical Exam Vitals: Vital Signs Temp Pulse Resp BP Pulse Ox 11/20/21 10:00 18 11/20/21 07:55 98.4 F 76 18 112/75 98 11/20/21 01:00 76 16 123/86 98 11/19/21 22:25 98.3 F 88 18 121/81 97 Intake and Output 11/19/21 11/20/21 11/20/21 22:59 06:59 14:59 Intake Total 82.704 0 Balance 82.704 0 Intake: Intake, IV Titration 82.704 0 Amount Heparin Sod,Pork in 0.45% 82.704 0 NaCl 25,000 unit In 0.45 % NaCl 1 250ml.bag @ 18 UNITS/KG/HR 11.594 mls/hr IV .[id number] [facility] Rx#: [id number] Other: Weight 64.41 kg Results CBC & Chem 7: 11/20/21 05:30 11/19/21 23:01 Labs: Abnormal Lab Results - Last 24 Hours (Table) 11/19/21 11/20/21 Range/Units 23:01 05:30 APTT 119.5 H* (22.0-30.0) sec BUN 18 H (7-17) mg/dL Glucose 105 H (74-99) mg/dL
[2021-11-20] MEDS: PANTOPRAZOLE 40 MG TABLET PO SCH (21:26)
[2021-11-20] MEDS: HEPARIN SOD,PORK IN 0.45% NACL 25,000 UNIT in 0.45% NACL 1 250ML.BAG IV SCH (21:29)
[2021-11-20 23:34] LABS: Ferritin 97.7 ng/mL (10.0-291.0); Iron 79 ug/dL (50-170)
[2021-11-21 00:01] LABS: % Iron Saturation 20.54 (12.00-45.00); C Reactive Protein <0.30 mg/dL (0.00-0.80); Total Iron Binding Capacity 382 ug/dL (228-460)
[2021-11-21] MEDS: FAMOTIDINE 20 MG TAB PO SCH ×2 (08:42→20:45)
--- NOTE | 2021-11-21 08:46 | P.PN ---
Subjective Progress Note Date: 11/21/21 Principal diagnosis: bridging to warfarin Continues on Heparin drip to bridge to therapeutic INR. Objective - Vital Signs Vital signs: Vital Signs Temp 98.6 F 11/21/21 07:00 Pulse 73 11/21/21 07:00 Resp 18 11/21/21 07:00 BP 117/71 11/21/21 07:00 Pulse Ox 98 11/21/21 07:00 Intake & Output 11/20/21 11/21/21 11/21/21 18:59 06:59 18:59 Intake Total 65.863 65.541 Balance 65.863 65.541 Weight 64.41 kg Intake: Intake, IV Titration 65.863 65.541 Amount Heparin Sod,Pork in 0.45% 65.863 65.541 NaCl 25,000 unit In 0.45 % NaCl 1 250ml.bag @ 18 UNITS/KG/HR 11.594 mls/hr IV .[id number] [facility] Rx#: [id number] Other: # Voids 2 - Exam Flat Affect Anxious Non specific and random complaints of pain Lungs CTA Heart RRR Abdomen BSx4 No edema - Labs CBC & Chem 7: 11/20/21 05:30 11/19/21 23:01 Labs: Abnormal Lab Results - Last 24 Hours (Table) 11/20/21 11/20/21 Range/Units 14:06 14:06 APTT 56.0 H (22.0-30.0) sec Vitamin D 25-Hydroxy 16.9 L (30.0-100.0) ng/mL Assessment and Plan (1) Anxiety Narrative/Plan: - Long discussion today with patient, she has had 14 ER visits in 2013 alone, secondary to her anxiety and worry. She continued to present concerned she had more thrombolic events when it appeared during trend this is likely the original and chronic. - She remains of anticoagulation - Highly recommended psychiatric follow-up due to 14 ER admission in past 12 months and many Normal CT scans, explained the risks of this but received a flat effect non responsive reaction, unclear if she recognizes the danger of not finding self coping despite the extensive discussion Current Visit: Yes Status: Acute Code(s): F41.9 - ANXIETY DISORDER, UNSPECIFIED SNOMED Code(s): 26442579 (2) Chronic deep vein thrombosis (DVT) of femoral vein of right lower extremity Narrative/Plan: Bridge to INR 2.5 with heparin and warfarin prior to discharge. Current Visit: Yes Status: Acute Code(s): I82.511 - CHRONIC EMBOLISM AND THROMBOSIS OF RIGHT FEMORAL VEIN SNOMED Code(s): 253544074448261 (3) History of pulmonary embolus (PE) Current Visit: Yes Status: Acute Code(s): Z86.711 - PERSONAL HISTORY OF PULMONARY EMBOLISM SNOMED Code(s): 895921330 Plan: Mother at bedside during evaluation, patient with many random, non-specific complaints, concerns. We discussed the high recommendation of seeing psychiatry as she is highly anxious and this is not concerned. She admits to not having any ways to control stress other then coming to ER and undergoing more and more tests to show her that she is ok. Reviewed her Iron studies which are completely normal! Therefore her reasoning for hyssterectomy of long menses and "over bleeding" is not objectively shown VItamin D is critical low and this has been supplemented B12 mid range and awaiting MMA
[2021-11-21 09:34] LABS: INR 1.14 (0.90-1.11); Prothrombin Time 12.5 sec (9.9-11.9)
[2021-11-21] MEDS: CHOLECALCIFEROL 125 MCG (5000 IU) TABLET PO SCH (11:43)
[2021-11-21] MEDS: DOCUSATE 100 MG CAP PO PRN (16:52)
[2021-11-21] MEDS: WARFARIN 7.5 MG TAB PO SCH (18:28)
--- NOTE | 2021-11-21 20:26 | P.PN ---
Progress Note - Text Progress Note Date: 11/21/21 Chief Complaint: Possible side effect of Lovenox History of presenting complaint as documented by Shannan ortega NP from oncology Cecy is an incredibly anxious female who follows with Dr. Atwood for history of DVT/PE. She is on lifelong anticoagulation and apparently failed treatment with xarelto/DOAC (This is not definitive as she was found to SVT on DOAC, however in the picture with hypercoagulable state baseline Factor V and limited data with DOAC it was felt that she would do best on Warfarin. 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 When asked why she is having hysterectomy she states her periods are long and she is in a lot of pain. There does not seem to be nay significant blood loss based of her CBC, however I have ran iron studies for tissue iron deficiency. She has been scheduled for hysterectomy a few times but something always seems to come up. She has multiple ER visits in the past 3 years. patient denies feeling anxious, however she also complains of severe necck pain and when examine this appears to be musculoskeletal tension. Patient has most recently been on lovenox injections in preparation for hysterectomy next week, however she called the office stating that she could not tolerate the lovenox injections, she is "too sick" on them. When asked to be more specific she states the injection pineda (I did explain this to be expected) and then she stated she feels nauseated and gets headache and makes her body hurt. She states zofran did not work. She was advised to try benadryl although did not. She also was advised to call [facility] to see if the option to admit on heparin drip prior to surgery was an option and unfortunetely she said [facility] refused this option. When asked patient what she would like to do she stated shecannot take lovenox and feels she is allergic, therefore the only option would be to advise her to ER for bridging with heparin until therapeutic again. Patient had her hysterectomy scheduled for next Thursday that was canceled as. She could not tolerate 7 more days off Lovenox. She started IV heparin. She is concerned if she is getting a cellulitis had a previous IV site. No fever no chills. Appetite is fair. She does have sometimes bleeding hemorrhoids. He does get pelvic pain from her uterus. That is the reason for her hysterectomy. October 21: IV heparin. Doing well. Up and about in the room. Oral intake fair. Review of systems: Was done for constitutional, cardiovascular, GI, pulmonary. relevant finding as above Active Medications Acetaminophen (Acetaminophen Tab 325 Mg Tab) 650 mg PO Q6HR PRN PRN Reason: Mild Pain or Fever > 100.5 Al Hydroxide/Mg Hydroxide (Mag Hydrox/Al Hydrox/Simeth 30 Ml Cup) 15 ml PO Q6HR PRN PRN Reason: Indigestion Albuterol Sulfate (Albuterol Nebulized 2.5 Mg/3 Ml) 2.5 mg INHALATION RT-QID PRN PRN Reason: Shortness Of Breath Cholecalciferol (Cholecalciferol 125 Mcg (5000 Iu) Tablet) 125 mcg PO DAILY [facility] Last Admin: 11/21/21 11:43 Dose: 125 mcg Documented by: Docusate Sodium (Docusate 100 Mg Cap) 100 mg PO BID PRN PRN Reason: Constipation Last Admin: 11/21/21 16:52 Dose: 100 mg Documented by: Famotidine (Famotidine 20 Mg Tab) 20 mg PO BID [facility] Last Admin: 11/21/21 08:42 Dose: 20 mg Documented by: Heparin Sodium (Porcine) (Heparin Sodium 1,000 Un/Ml (10ml Vl)) 0 unit IV PER PROTOCOL PRN; Protocol PRN Reason: Low PTT Heparin Sodium/Sodium Chloride (25,000 unit/ Sodium Chloride) 250 mls @ 11.594 mls/hr IV .[id number] [facility]; Protocol Last Admin: 11/20/21 21:29 Dose: 15 units/kg/hr, 9.662 mls/hr Documented by: Sodium Chloride (Saline 0.9%) 1,000 mls @ 20 mls/hr IV .Q24H [facility] Last Admin: 11/20/21 12:17 Dose: 20 mls/hr Documented by: Miscellaneous Information (Warfarin Per Pharmacy) 0 each MISCELLANE DIRECTED PRN PRN Reason: PER PROTOCOL Naloxone HCl (Naloxone 0.4 Mg/Ml 1 Ml Vial) 0.2 mg IV Q2M PRN PRN Reason: Opioid Reversal Pantoprazole Sodium (Pantoprazole 40 Mg Tablet) 40 mg PO HS [facility] Last Admin: 11/20/21 21:26 Dose: 40 mg Documented by: Warfarin Sodium (Warfarin 7.5 Mg Tab) 7.5 mg PO SUTUWETHFRSA@1800 [facility]; Protocol Last Admin: 11/21/21 18:28 Dose: 7.5 mg Documented by: Warfarin Sodium (Warfarin 10 Mg Tab) 10 mg PO MO@1800 [facility]; Protocol Past medical history to include: Asthma, DVT, PE, 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 She smoked for 13 years stopped in 2009. No alcohol. No recreational drugs. Family history: Father from cancer at age of 54 possible endocrine type cancer Physical examination: VITAL SIGNS: 98.3, 90, 18, 12/06/1978, 99% room air GENERAL: Sitting up in a chair, awake, comfortable EYES: Pupils equal. Conjunctiva normal. HEENT: External appearance of nose and ears normal, oral cavity grossly normal. NECK: JVD not raised; masses not palpable. HEART: First and second heart sounds are normal; no edema. LUNGS: Respiratory rate normal; clear to auscultation. ABDOMEN: Soft, nontender, liver spleen not palpable, no masses palpable. PSYCH: Alert and oriented x3; mood and affect normal. 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 Currently surgery postponed -Exercise-induced asthma Albuterol when necessary Continue current medication treatment plan. Activity as tolerated. IV heparin and Coumadin.
[2021-11-21] MEDS: HEPARIN SOD,PORK IN 0.45% NACL 25,000 UNIT in 0.45% NACL 1 250ML.BAG IV SCH (20:44)
[2021-11-21] MEDS: PANTOPRAZOLE 40 MG TABLET PO SCH (20:45)
[2021-11-21] MEDS: SODIUM CHLORIDE 0.9% 1,000 ML IV SCH (23:30)
[2021-11-22 07:37] LABS: INR 1.3 (<1.2); Partial Thromboplastin Time 73.3 sec (22.0-30.0); Prothrombin Time 13.5 sec (9.0-12.0)
[2021-11-22] MEDS: CHOLECALCIFEROL 125 MCG (5000 IU) TABLET PO SCH (08:12)
[2021-11-22] MEDS: FAMOTIDINE 20 MG TAB PO SCH ×2 (08:13→20:02)
[2021-11-22] MEDS: DOCUSATE 100 MG CAP PO PRN ×2 (08:13→20:06)
--- NOTE | 2021-11-22 14:19 | P.PN ---
Subjective Progress Note Date: 11/22/21 Principal diagnosis: bridging to warfarin Continues to bridge on heparin to INR goal 2.5 INR 1.3 today Objective - Vital Signs Vital signs: Vital Signs Temp 97.6 F 11/22/21 07:00 Pulse 75 11/22/21 07:00 Resp 18 11/22/21 07:00 BP 127/83 11/22/21 07:00 Pulse Ox 100 11/22/21 07:00 Intake & Output 11/21/21 11/22/21 11/22/21 18:59 06:59 18:59 Intake Total 476 224.642 228.469 Balance 476 224.642 228.469 Intake: Intake, IV Titration 224.642 110.469 Amount Heparin Sod,Pork in 0.45% 224.642 110.469 NaCl 25,000 unit In 0.45 % NaCl 1 250ml.bag @ 18 UNITS/KG/HR 11.594 mls/hr IV .[id number] [facility] Rx#: [id number] Oral 476 118 Other: Voiding Method Toilet Toilet Toilet # Voids 3 1 # Bowel Movements 2 - Exam Flat Affect Anxious Non specific and random complaints of pain Lungs CTA Heart RRR Abdomen BSx4 No edema - Labs CBC & Chem 7: 11/20/21 05:30 11/19/21 23:01 Labs: Abnormal Lab Results - Last 24 Hours (Table) 11/22/21 Range/Units 06:39 PT 13.5 H (9.0-12.0) sec INR 1.3 H (<1.2) APTT 73.3 H (22.0-30.0) sec Assessment and Plan (1) Anxiety Narrative/Plan: - Long discussion today with patient, she has had 14 ER visits in 2013 alone, secondary to her anxiety and worry. She continued to present concerned she had more thrombolic events when it appeared during trend this is likely the original and chronic. - She remains of anticoagulation - Highly recommended psychiatric follow-up due to 14 ER admission in past 12 months and many Normal CT scans, explained the risks of this but received a flat effect non responsive reaction, unclear if she recognizes the danger of not finding self coping despite the extensive discussion - Vitamin D supplemented as well as B vitamins Current Visit: Yes Status: Acute Code(s): F41.9 - ANXIETY DISORDER, UNSPECIFIED SNOMED Code(s): 04166591 (2) Chronic deep vein thrombosis (DVT) of femoral vein of right lower extremity Narrative/Plan: Bridge to INR 2.5 with heparin and warfarin prior to discharge. INR 1.3 today Continue on bridge Current Visit: Yes Status: Acute Code(s): I82.511 - CHRONIC EMBOLISM AND THROMBOSIS OF RIGHT FEMORAL VEIN SNOMED Code(s): 621416432855778 (3) History of pulmonary embolus (PE) Current Visit: Yes Status: Acute Code(s): Z86.711 - PERSONAL HISTORY OF PULMONARY EMBOLISM SNOMED Code(s): 792290667
--- NOTE | 2021-11-22 16:32 | P.PN ---
Progress Note - Text Progress Note Date: 11/22/21 Chief Complaint: Possible side effect of Lovenox History of presenting complaint as documented by Shannan ortega NP from oncology Cecy is an incredibly anxious female who follows with Dr. Atwood for history of DVT/PE. She is on lifelong anticoagulation and apparently failed treatment with xarelto/DOAC (This is not definitive as she was found to SVT on DOAC, however in the picture with hypercoagulable state baseline Factor V and limited data with DOAC it was felt that she would do best on Warfarin. She has very generalized and non specific symptoms and apparently following with [facility] eradic[facility] for a hysterectomy. When asked why she is having hysterectomy she states her periods are long and she is in a lot of pain. There does not seem to be nay significant blood loss based of her CBC, however I have ran iron studies for tissue iron deficiency. She has been scheduled for hysterectomy a few times but something always seems to come up. She has multiple ER visits in the past 3 years. patient denies feeling anxious, however she also complains of severe necck pain and when examine this appears to be musculoskeletal tension. Patient has most recently been on lovenox injections in preparation for hysterectomy next week, however she called the office stating that she could not tolerate the lovenox injections, she is "too sick" on them. When asked to be more specific she states the injection pineda (I did explain this to be expected) and then she stated she feels nauseated and gets headache and makes her body hurt. She states zofran did not work. She was advised to try benadryl although did not. She also was advised to call [facility] to see if the option to admit on heparin drip prior to surgery was an option and unfortunetely she said [facility] refused this option. When asked patient what she would like to do she stated shecannot take lovenox and feels she is allergic, therefore the only option would be to advise her to ER for bridging with heparin until therapeutic again. Patient had her hysterectomy scheduled for next Thursday that was canceled as. She could not tolerate 7 more days off Lovenox. She started IV heparin. She is concerned if she is getting a cellulitis had a previous IV site. No fever no chills. Appetite is fair. She does have sometimes bleeding hemorrhoids. He does get pelvic pain from her uterus. That is the reason for her hysterectomy. October 21: IV heparin. Doing well. Up and about in the room. Oral intake fair. October 22: Receiving IV heparin. No new issues. Ambulating in the room. Discussed with patient. Review of systems: Was done for constitutional, cardiovascular, GI, pulmonary. relevant finding as above Active Medications Acetaminophen (Acetaminophen Tab 325 Mg Tab) 650 mg PO Q6HR PRN PRN Reason: Mild Pain or Fever > 100.5 Last Admin: 11/22/21 14:38 Dose: 650 mg Documented by: Al Hydroxide/Mg Hydroxide (Mag Hydrox/Al Hydrox/Simeth 30 Ml Cup) 15 ml PO Q6HR PRN PRN Reason: Indigestion Albuterol Sulfate (Albuterol Nebulized 2.5 Mg/3 Ml) 2.5 mg INHALATION RT-QID PRN PRN Reason: Shortness Of Breath Cholecalciferol (Cholecalciferol 125 Mcg (5000 Iu) Tablet) 125 mcg PO DAILY [facility] Last Admin: 11/22/21 08:12 Dose: 125 mcg Documented by: Docusate Sodium (Docusate 100 Mg Cap) 100 mg PO BID PRN PRN Reason: Constipation Last Admin: 11/22/21 08:13 Dose: 100 mg Documented by: Famotidine (Famotidine 20 Mg Tab) 20 mg PO BID [facility] Last Admin: 11/22/21 08:13 Dose: 20 mg Documented by: Heparin Sodium (Porcine) (Heparin Sodium 1,000 Un/Ml (10ml Vl)) 0 unit IV PER PROTOCOL PRN; Protocol PRN Reason: Low PTT Heparin Sodium/Sodium Chloride (25,000 unit/ Sodium Chloride) 250 mls @ 11.594 mls/hr IV .[id number] [facility]; Protocol Last Titration: 11/22/21 08:10 Dose: 11.89 units/kg/hr, 7.66 mls/hr Documented by: Sodium Chloride (Saline 0.9%) 1,000 mls @ 20 mls/hr IV .Q24H [facility] Last Admin: 11/21/21 23:30 Dose: Not Given Documented by: Miscellaneous Information (Warfarin Per Pharmacy) 0 each MISCELLANE DIRECTED PRN PRN Reason: PER PROTOCOL Naloxone HCl (Naloxone 0.4 Mg/Ml 1 Ml Vial) 0.2 mg IV Q2M PRN PRN Reason: Opioid Reversal Pantoprazole Sodium (Pantoprazole 40 Mg Tablet) 40 mg PO HS [facility] Last Admin: 11/21/21 20:45 Dose: Not Given Documented by: Warfarin Sodium (Warfarin 10 Mg Tab) 10 mg PO ONCE@1800 ONE Stop: 11/22/21 18:01 Past medical history to include: Asthma, DVT, PE, factor V [place] mutation, duodenal ulcer, benign gastric polyp, exercise-induced asthma,, anxiety Social history: This is her , 6-year-old daughter. 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 She smoked for 13 years stopped in 2009. No alcohol. No recreational drugs. Family history: Father from cancer at age of 54 possible endocrine type cancer Physical examination: VITAL SIGNS: 98.3, 87, 18, 120/78, 99% room air GENERAL: Sitting up in a chair,comfortable EYES: Pupils equal. Conjunctiva normal. HEENT: External appearance of nose and ears normal, oral cavity grossly normal. NECK: JVD not raised; masses not palpable. HEART: First and second heart sounds are normal; no edema. LUNGS: Respiratory rate normal; clear to auscultation. ABDOMEN: Soft, nontender, liver spleen not palpable, no masses palpable. PSYCH: Alert and oriented x3; mood and affect normal. 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 Currently surgery postponed -Exercise-induced asthma Albuterol when necessary Discussed with patient. IV heparin and Coumadin. Follow INR
[2021-11-22] MEDS ORDERED: WARFARIN 10 MG TAB PO ONE (18:00)
[2021-11-22] MEDS: HEPARIN SOD,PORK IN 0.45% NACL 25,000 UNIT in 0.45% NACL 1 250ML.BAG IV SCH (18:25)
[2021-11-22] MEDS: PANTOPRAZOLE 40 MG TABLET PO SCH (20:12)
[2021-11-23] MEDS: SODIUM CHLORIDE 0.9% 1,000 ML IV SCH ×2 (00:54→20:08)
[2021-11-23] MEDS: HEPARIN SOD,PORK IN 0.45% NACL 25,000 UNIT in 0.45% NACL 1 250ML.BAG IV SCH (04:42)
[2021-11-23] MEDS: FAMOTIDINE 20 MG TAB PO SCH ×2 (07:42→20:00)
[2021-11-23] MEDS: CHOLECALCIFEROL 125 MCG (5000 IU) TABLET PO SCH (07:42)
[2021-11-23 07:53] LABS: INR 1.5 (<1.2); Partial Thromboplastin Time 50.4 sec (22.0-30.0); Prothrombin Time 15.5 sec (9.0-12.0)
[2021-11-23] MEDS ORDERED: WARFARIN 10 MG TAB PO ONE (18:00)
--- NOTE | 2021-11-23 18:13 | P.PN ---
Progress Note - Text Progress Note Date: 11/23/21 Chief Complaint: Possible side effect of Lovenox History of presenting complaint as documented by Shannan ortega NP from oncology Cecy is an incredibly anxious female who follows with Dr. Atwood for history of DVT/PE. She is on lifelong anticoagulation and apparently failed treatment with xarelto/DOAC (This is not definitive as she was found to SVT on DOAC, however in the picture with hypercoagulable state baseline Factor V and limited data with DOAC it was felt that she would do best on Warfarin. She has very generalized and non specific symptoms and apparently following with landscape drafter [facility] for a hysterectomy. When asked why she is having hysterectomy she states her periods are long and she is in a lot of pain. There does not seem to be nay significant blood loss based of her CBC, however I have ran iron studies for tissue iron deficiency. She has been scheduled for hysterectomy a few times but something always seems to come up. She has multiple ER visits in the past 3 years. patient denies feeling anxious, however she also complains of severe necck pain and when examine this appears to be musculoskeletal tension. Patient has most recently been on lovenox injections in preparation for hysterectomy next week, however she called the office stating that she could not tolerate the lovenox injections, she is "too sick" on them. When asked to be more specific she states the injection pineda (I did explain this to be expected) and then she stated she feels nauseated and gets headache and makes her body hurt. She states zofran did not work. She was advised to try benadryl although did not. She also was advised to call [facility] to see if the option to admit on heparin drip prior to surgery was an option and unfortunetely she said [facility] refused this option. When asked patient what she would like to do she stated shecannot take lovenox and feels she is allergic, therefore the only option would be to advise her to ER for bridging with heparin until therapeutic again. Patient had her hysterectomy scheduled for next Thursday that was canceled as. She could not tolerate 7 more days off Lovenox. She started IV heparin. She is concerned if she is getting a cellulitis had a previous IV site. No fever no chills. Appetite is fair. She does have sometimes bleeding hemorrhoids. He does get pelvic pain from her uterus. That is the reason for her hysterectomy. October 21: IV heparin. Doing well. Up and about in the room. Oral intake fair. October 22: Receiving IV heparin. No new issues. Ambulating in the room. Discussed with patient. October 23: Sitting up in a chair. Mother visiting. No new symptoms. Getting IV heparin. Review of systems: Was done for constitutional, cardiovascular, GI, pulmonary. relevant finding as above Active Medications Acetaminophen (Acetaminophen Tab 325 Mg Tab) 650 mg PO Q6HR PRN PRN Reason: Mild Pain or Fever > 100.5 Last Admin: 11/22/21 14:38 Dose: 650 mg Documented by: Al Hydroxide/Mg Hydroxide (Mag Hydrox/Al Hydrox/Simeth 30 Ml Cup) 15 ml PO Q6HR PRN PRN Reason: Indigestion Albuterol Sulfate (Albuterol Nebulized 2.5 Mg/3 Ml) 2.5 mg INHALATION RT-QID PRN PRN Reason: Shortness Of Breath Cholecalciferol (Cholecalciferol 125 Mcg (5000 Iu) Tablet) 125 mcg PO DAILY [facility] Last Admin: 11/23/21 07:42 Dose: 125 mcg Documented by: Docusate Sodium (Docusate 100 Mg Cap) 100 mg PO BID PRN PRN Reason: Constipation Last Admin: 11/22/21 20:06 Dose: 100 mg Documented by: Famotidine (Famotidine 20 Mg Tab) 20 mg PO BID [facility] Last Admin: 11/23/21 07:42 Dose: 20 mg Documented by: Heparin Sodium (Porcine) (Heparin Sodium 1,000 Un/Ml (10ml Vl)) 0 unit IV PER PROTOCOL PRN; Protocol PRN Reason: Low PTT Heparin Sodium/Sodium Chloride (25,000 unit/ Sodium Chloride) 250 mls @ 11.594 mls/hr IV .[id number] [facility]; Protocol Last Admin: 11/23/21 04:42 Dose: 11.89 units/kg/hr, 7.66 mls/hr Documented by: Sodium Chloride (Saline 0.9%) 1,000 mls @ 20 mls/hr IV .Q24H [facility] Last Admin: 11/23/21 00:54 Dose: 20 mls/hr Documented by: Miscellaneous Information (Warfarin Per Pharmacy) 0 each MISCELLANE DIRECTED PRN PRN Reason: PER PROTOCOL Naloxone HCl (Naloxone 0.4 Mg/Ml 1 Ml Vial) 0.2 mg IV Q2M PRN PRN Reason: Opioid Reversal Pantoprazole Sodium (Pantoprazole 40 Mg Tablet) 40 mg PO HS [facility] Last Admin: 11/22/21 20:12 Dose: Not Given Documented by: Past medical history to include: Asthma, DVT, PE, factor V [place] mutation, duodenal ulcer, benign gastric polyp, exercise-induced asthma,, anxiety Social history: This is her , 6-year-old daughter. 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 No alcohol. No recreational drugs. Family history: Father from cancer at age of 54 possible endocrine type cancer Physical examination: VITAL SIGNS: On 7, 69, 18, 111/71, 99% room air GENERAL: Sitting up,comfortable EYES: Pupils equal. Conjunctiva normal. HEENT: External appearance of nose and ears normal, oral cavity grossly normal. NECK: JVD not raised; masses not palpable. HEART: First and second heart sounds are normal; no edema. LUNGS: Respiratory rate normal; clear to auscultation. ABDOMEN: Soft, nontender, liver spleen not palpable, no masses palpable. PSYCH: Alert and oriented x3; mood and affect normal. 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 Currently surgery postponed -Exercise-induced asthma Albuterol when necessary Continue current medications. IV heparin and Coumadin. Follow INR
[2021-11-23] MEDS: DOCUSATE 100 MG CAP PO PRN (20:00)
[2021-11-23] MEDS: PANTOPRAZOLE 40 MG TABLET PO SCH (20:03)
[2021-11-24] MEDS: HEPARIN SOD,PORK IN 0.45% NACL 25,000 UNIT in 0.45% NACL 1 250ML.BAG IV SCH ×2 (04:06→16:16)
[2021-11-24] MEDS: CHOLECALCIFEROL 125 MCG (5000 IU) TABLET PO SCH (08:29)
[2021-11-24] MEDS: FAMOTIDINE 20 MG TAB PO SCH ×2 (08:29→20:49)
[2021-11-24 08:41] LABS: INR 1.8 (<1.2); Partial Thromboplastin Time 50.4 sec (22.0-30.0); Prothrombin Time 17.9 sec (9.0-12.0)
--- NOTE | 2021-11-24 16:47 | P.PN ---
Progress Note - Text Progress Note Date: 11/24/21 Chief Complaint: Possible side effect of Lovenox History of presenting complaint as documented by Shannan ortega NP from oncology Cecy is an incredibly anxious female who follows with Dr. Atwood for history of DVT/PE. She is on lifelong anticoagulation and apparently failed treatment with xarelto/DOAC (This is not definitive as she was found to SVT on DOAC, however in the picture with hypercoagulable state baseline Factor V and limited data with DOAC it was felt that she would do best on Warfarin. She has very generalized and non specific symptoms and apparently following with certified green building engineer [facility] for a hysterectomy. When asked why she is having hysterectomy she states her periods are long and she is in a lot of pain. There does not seem to be nay significant blood loss based of her CBC, however I have ran iron studies for tissue iron deficiency. She has been scheduled for hysterectomy a few times but something always seems to come up. She has multiple ER visits in the past 3 years. patient denies feeling anxious, however she also complains of severe necck pain and when examine this appears to be musculoskeletal tension. Patient has most recently been on lovenox injections in preparation for hysterectomy next week, however she called the office stating that she could not tolerate the lovenox injections, she is "too sick" on them. When asked to be more specific she states the injection pineda (I did explain this to be expected) and then she stated she feels nauseated and gets headache and makes her body hurt. She states zofran did not work. She was advised to try benadryl although did not. She also was advised to call [facility] to see if the option to admit on heparin drip prior to surgery was an option and unfortunetely she said [facility] refused this option. When asked patient what she would like to do she stated shecannot take lovenox and feels she is allergic, therefore the only option would be to advise her to ER for bridging with heparin until therapeutic again. Patient had her hysterectomy scheduled for next Thursday that was canceled as. She could not tolerate 7 more days off Lovenox. She started IV heparin. She is concerned if she is getting a cellulitis had a previous IV site. No fever no chills. Appetite is fair. She does have sometimes bleeding hemorrhoids. He does get pelvic pain from her uterus. That is the reason for her hysterectomy. October 21: IV heparin. Doing well. Up and about in the room. Oral intake fair. October 22: Receiving IV heparin. No new issues. Ambulating in the room. Discussed with patient. October 23: Sitting up in a chair. Mother visiting. No new symptoms. Getting IV heparin. October 24: Comfortable. Very anxious to go home. Mother is visiting. No new symptoms. Oral intake well. Up and about. IV heparin. Explained in detail, the rash reinforced staying here with regards to the INR levels. Review of systems: Was done for constitutional, cardiovascular, GI, pulmonary. relevant finding as above Active Medications Acetaminophen (Acetaminophen Tab 325 Mg Tab) 650 mg PO Q6HR PRN PRN Reason: Mild Pain or Fever > 100.5 Last Admin: 11/22/21 14:38 Dose: 650 mg Documented by: Al Hydroxide/Mg Hydroxide (Mag Hydrox/Al Hydrox/Simeth 30 Ml Cup) 15 ml PO Q6HR PRN PRN Reason: Indigestion Albuterol Sulfate (Albuterol Nebulized 2.5 Mg/3 Ml) 2.5 mg INHALATION RT-QID PRN PRN Reason: Shortness Of Breath Cholecalciferol (Cholecalciferol 125 Mcg (5000 Iu) Tablet) 125 mcg PO DAILY [facility] Last Admin: 11/24/21 08:29 Dose: 125 mcg Documented by: Docusate Sodium (Docusate 100 Mg Cap) 100 mg PO BID PRN PRN Reason: Constipation Last Admin: 11/23/21 20:00 Dose: 100 mg Documented by: Famotidine (Famotidine 20 Mg Tab) 20 mg PO BID [facility] Last Admin: 11/24/21 08:29 Dose: 20 mg Documented by: Heparin Sodium (Porcine) (Heparin Sodium 1,000 Un/Ml (10ml Vl)) 0 unit IV PER PROTOCOL PRN; Protocol PRN Reason: Low PTT Heparin Sodium/Sodium Chloride (25,000 unit/ Sodium Chloride) 250 mls @ 11.594 mls/hr IV .[id number] [facility]; Protocol Last Admin: 11/24/21 16:16 Dose: Not Given Documented by: Sodium Chloride (Saline 0.9%) 1,000 mls @ 20 mls/hr IV .Q24H [facility] Last Admin: 11/23/21 20:08 Dose: 20 mls/hr Documented by: Miscellaneous Information (Warfarin Per Pharmacy) 0 each MISCELLANE DIRECTED PRN PRN Reason: PER PROTOCOL Naloxone HCl (Naloxone 0.4 Mg/Ml 1 Ml Vial) 0.2 mg IV Q2M PRN PRN Reason: Opioid Reversal Pantoprazole Sodium (Pantoprazole 40 Mg Tablet) 40 mg PO HS [facility] Last Admin: 11/23/21 20:03 Dose: Not Given Documented by: Warfarin Sodium (Warfarin 10 Mg Tab) 10 mg PO ONCE@1800 ONE Stop: 11/24/21 18:01 Past medical history to include: Asthma, DVT, PE, factor V Clem[place] mutation, duodenal ulcer, benign gastric polyp, exercise-induced asthma,, anxiety Social history: This is her , 6-year-old daughter. 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 No alcohol. No recreational drugs. Family history: Father from cancer at age of 54 possible endocrine type cancer Physical examination: VITAL SIGNS: 98.6, 94, 18, 115/80, 98% room air GENERAL: Sitting up,comfortable EYES: Pupils equal. Conjunctiva normal. HEENT: External appearance of nose and ears normal, oral cavity grossly normal. NECK: JVD not raised; masses not palpable. HEART: First and second heart sounds are normal; no edema. LUNGS: Respiratory rate normal; clear to auscultation. ABDOMEN: Soft, nontender, liver spleen not palpable, no masses palpable. PSYCH: Alert and oriented x3; mood and affect normal. 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 Currently surgery postponed -Exercise-induced asthma Albuterol when necessary Discussed at length with the patient. Regarding INR levels, IV heparin, overload when INR is therapeutic. Did explain that this is being done for her safety. Did also explain at length and my viewpoint patient is not ALLERGIC to Lovenox and this should be further discussed with Dr. Atwood.
[2021-11-24] MEDS ORDERED: WARFARIN 10 MG TAB PO ONE (18:00)
[2021-11-24] MEDS: PANTOPRAZOLE 40 MG TABLET PO SCH (20:44)
[2021-11-24] MEDS: DOCUSATE 100 MG CAP PO PRN (20:49)
[2021-11-25] MEDS: SODIUM CHLORIDE 0.9% 1,000 ML IV SCH (03:04)
[2021-11-25 07:35] LABS: INR 2.2 (<1.2); Partial Thromboplastin Time 55.6 sec (22.0-30.0); Prothrombin Time 21.7 sec (9.0-12.0)
[2021-11-25] MEDS: FAMOTIDINE 20 MG TAB PO SCH (08:10)
[2021-11-25] MEDS: CHOLECALCIFEROL 125 MCG (5000 IU) TABLET PO SCH (08:10)
[2021-11-25 08:23] VITALS: BP 119/80; PULSE 81; RESP 20; TEMP 97.4
[2021-11-25] MEDS: HEPARIN SOD,PORK IN 0.45% NACL 25,000 UNIT in 0.45% NACL 1 250ML.BAG IV SCH (10:29)
[2021-11-25] MEDS ORDERED: ENOXAPARIN 100 MG/ML SYRINGE SQ STA (11:59)
[2021-11-25] MEDS ORDERED: WARFARIN 10 MG TAB PO SCH (18:00)
[2021-11-25] MEDS ORDERED: WARFARIN 7.5 MG TAB PO ONE (18:00)
--- NOTE | 2021-11-25 22:04 | P.DS ---
Providers Date of admission: 11/22/21 11:57 Expected date of discharge: 11/25/21 Attending physician: Eugene Wang Consults: 11/19/21 22:51 Consult Physician Routine Consulting Provider: Yeison Atwood Consult Reason/Comments: Coagulopathy patient Do you want consulting provider notified?: Yes Primary care physician: [facility] Course: Chief Complaint: Possible side effect of Lovenox History of presenting complaint as documented by Shannan ortega NP from oncology Cecy is an incredibly anxious female who follows with Dr. Atwood for history of DVT/PE. She is on lifelong anticoagulation and apparently failed treatment with xarelto/DOAC (This is not definitive as she was found to SVT on DOAC, however in the picture with hypercoagulable state baseline Factor V and limited data with DOAC it was felt that she would do best on Warfarin. She has very generalized and non specific symptoms and apparently following with [facility]. When asked why she is having hysterectomy she states her periods are long and she is in a lot of pain. There does not seem to be nay significant blood loss based of her CBC, however I have ran iron studies for tissue iron deficiency. She has been scheduled for hysterectomy a few times but something always seems to come up. She has multiple ER visits in the past 3 years. patient denies feeling anxious, however she also complains of severe necck pain and when examine this appears to be musculoskeletal tension. Patient has most recently been on lovenox injections in preparation for hysterectomy next week, however she called the office stating that she could not tolerate the lovenox injections, she is "too sick" on them. When asked to be more specific she states the injection pineda (I did explain this to be expected) and then she stated she feels nauseated and gets headache and makes her body hurt. She states zofran did not work. She was advised to try benadryl although did not. She also was advised to call [facility] to see if the option to admit on heparin drip prior to surgery was an option and unfortunetely she said [facility] refused this option. When asked patient what she would like to do she stated shecannot take lovenox and feels she is allergic, therefore the only option would be to advise her to ER for bridging with heparin until therapeutic again. Patient had her hysterectomy scheduled for next Thursday that was canceled as. She could not tolerate 7 more days off Lovenox. She started IV heparin. She is concerned if she is getting a cellulitis had a previous IV site. No fever no chills. Appetite is fair. She does have sometimes bleeding hemorrhoids. He does get pelvic pain from her uterus. That is the reason for her hysterectomy. October 21: IV heparin. Doing well. Up and about in the room. Oral intake fair. October 22: Receiving IV heparin. No new issues. Ambulating in the room. Discussed with patient. October 23: Sitting up in a chair. Mother visiting. No new symptoms. Getting IV heparin. October 24: Comfortable. Very anxious to go home. Mother is visiting. No new symptoms. Oral intake well. Up and about. IV heparin. Explained in detail, the rash reinforced staying here with regards to the INR levels. October 25: Yesterday evening I spoke to Dr. Atwood. He agrees that the patient did not have an ALLERGY to Lovenox. I again spoke at length with the patient today and the mother. Patient agrees to take the Lovenox. She takes 100 mg daily. IV heparin be discontinued. She'll get a dose of Lovenox. She has a home testing kit for INR at home. Walk to do with more tolerable INR was discussed. She'll also follow with Dr. Atwood. All questions were answered. Also spoke to the pharmacist to discontinue Lovenox as ALLERGY medications. Questions answered. Otherwise patient doing well. Discussion and discharge planning more than 35 minutes Consultation: Dr. Ball from oncology Past medical history to include: Asthma, DVT, PE, factor V Safford mutation, duodenal ulcer, benign gastric polyp, exercise-induced asthma,, anxiety Social history: This is her , 6-year-old daughter. 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 She smoked for 13 years stopped in 2009. No alcohol. No recreational drugs. Family history: Father from cancer at age of 54 possible endocrine type cancer Physical examination: VITAL SIGNS: 97.4, 81, 20, 119/80, 98% room air GENERAL: Sitting up,comfortable EYES: Pupils equal. Conjunctiva normal. HEENT: External appearance of nose and ears normal, oral cavity grossly normal. NECK: JVD not raised; masses not palpable. HEART: First and second heart sounds are normal; no edema. LUNGS: Respiratory rate normal; clear to auscultation. ABDOMEN: Soft, nontender, liver spleen not palpable, no masses palpable. PSYCH: Alert and oriented x3; mood and affect normal. 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 Currently surgery postponed -Exercise-induced asthma Albuterol when necessary Disposition: Home Patient Condition at Discharge: Fair Plan - Discharge Summary Discharge Rx Participant: No New Discharge Prescriptions: New Cholecalciferol [Vitamin D3 (125 Mcg = 5000 Iu)] 125 mcg PO DAILY tablet Acetaminophen Tab [Tylenol] 650 mg PO Q6HR PRN tab PRN Reason: Mild Pain Or Fever > 100.5 Continue Albuterol Sulfate [Ventolin HFA] 2 puff INHALATION RT-QID PRN PRN Reason: Shortness Of Breath Warfarin [Coumadin] 7.5 mg PO SUTUWETHFRSA@1800 Warfarin [Coumadin] 10 mg PO MO@1800 Omeprazole 40 mg PO HS Discharge Medication List Albuterol Sulfate [Ventolin HFA] 2 puff INHALATION RT-QID PRN 03/21/21 [History] Omeprazole 40 mg PO HS 03/21/21 [History] Warfarin [Coumadin] 7.5 mg PO SUTUWETHFRSA@1800 03/21/21 [History] Warfarin [Coumadin] 10 mg PO MO@1800 03/21/21 [History] Acetaminophen Tab [Tylenol] 650 mg PO Q6HR PRN tab 11/25/21 [Rx] Cholecalciferol [Vitamin D3 (125 Mcg = 5000 Iu)] 125 mcg PO DAILY tablet 11/25/21 [Rx] Follow up Appointment(s)/Referral(s): Zach Kruse MD [Primary Care Provider] - 1-2 days Yeison Atwood MD [STAFF PHYSICIAN] - 1 Week Discharge Disposition: HOME SELF-CARE
== END 2021-11-25 12:33 | disposition home or self-care (01) | DRG 815 ==
LOC: EC 21:01 → 6NMEDSUR 22:50 → OBSVTOIN 11-22 11:57
PROVIDERS: ADMIT Hospitalist; ATTEND Hospitalist
DX: D68.51 Activated protein C resistance (principal); I82.511 Chronic embolism and thrombosis of right femoral vein; J45.909 Unspecified asthma, uncomplicated; F41.9 Anxiety disorder, unspecified; Z86.718 Personal history of other venous thrombosis and embolism; Z79.01 Long term (current) use of anticoagulants; Z86.711 Personal history of pulmonary embolism; J45.990 Exercise induced bronchospasm; R10.2 Pelvic and perineal pain; N92.0 Excessive and frequent menstruation with regular cycle; K64.9 Unspecified hemorrhoids; Z87.11 Personal history of peptic ulcer disease; Z87.891 Personal history of nicotine dependence; Z90.710 Acquired absence of both cervix and uterus; Z80.8 Family history of malignant neoplasm of other organs or systems; Z82.61 Family history of arthritis; Z87.19 Personal history of other diseases of the digestive system; Z98.51 Tubal ligation status; Z98.890 Other specified postprocedural states; Z90.89 Acquired absence of other organs; Z20.822 Contact with and (suspected) exposure to COVID-19; Z88.8 Allergy status to other drugs, medicaments and biological substances; Z91.041 Radiographic dye allergy status
CPT/HCPCS: 36415; 80048; 82306; 82525; 82533; 82607; 82728; 82746; 83540; 83550; 83921; 84207; 84443; 85025; 85610; 85730; 86140; 87635; 99284

== ENCOUNTER 2022-01-05 15:25 | Emergency (ER) | payer BC ==
[2022-01-05] MEDS ORDERED: ONDANSETRON 4 MG/2 ML VIAL IVP STA (16:21)
[2022-01-05] MEDS ORDERED: SODIUM CHLORIDE 0.9% 1,000 ML IV STA (16:21)
[2022-01-05 16:39] LABS: Basophils % (A) 0 %; Eosinophils # (A) 0.2 k/uL (0-0.7); Eosinophils % (A) 3 %; HCT 43.1 % (34.0-46.0); Lymphocytes # (A) 1.3 k/uL (1.0-4.8); Lymphocytes % (A) 20 %; MCH 31.3 pg (25.0-35.0); MCHC 32.6 g/dL (31.0-37.0); MCV 96.1 fL (80.0-100.0); Mean Platelet Volume 7.3; Monocytes # (A) 0.3 k/uL (0-1.0); Monocytes % (A) 5 %; Neutrophils # (A) 4.3 k/uL (1.3-7.7); Neutrophils % (A) 69 %; Platelet Count 333 k/uL (150-450); RBC 4.48 m/uL (3.80-5.40); RDW 12.9 % (11.5-15.5); WBC 6.2 k/uL (3.8-10.6)
[2022-01-05 16:52] LABS: Partial Thromboplastin Time 36.1 sec (22.0-30.0)
[2022-01-05 16:57] LABS: ALT 71 U/L (4-34); AST 60 U/L (14-36); African American GFR (CKD) >90 (>60 ml/min/1.73 sqM); Albumin 4.4 g/dL (3.5-5.0); Alkaline Phosphatase 46 U/L (38-126); Anion Gap 6 mmol/L; Blood Urea Nitrogen 9 mg/dL (7-17); Calcium 8.7 mg/dL (8.4-10.2); Carbon Dioxide 25 mmol/L (22-30); Chloride 105 mmol/L (98-107); Glucose 152 mg/dL (74-99); Lipase 127 U/L (23-300); Non-African American GFR(CKD) 84 (>60 ml/min/1.73 sqM); Sodium 136 mmol/L (137-145); Total Bilirubin 0.9 mg/dL (0.2-1.3); Total Protein 7.3 g/dL (6.3-8.2)
--- NOTE | 2022-01-05 16:58 | ED ---
General Adult HPI - General Chief complaint: Nausea/Vomiting/Diarrhea Stated complaint: Abd pain Time Seen by Provider: 01/05/22 15:44 Source: patient Mode of arrival: ambulatory Limitations: no limitations - History of Present Illness Initial comments: This 41-year-old female with a past medical history factor V Leiden presents emergency Department with cough, congestion, abdominal discomfort x1 week. She states her diarrhea and nausea began a couple days ago. Patient states on January 01 she began to have a head cold with nasal congestion, cough, runny nose and mild sore throat. Patient states she saw her primary care provider on January 03 and was given metronidazole and ciprofloxacin and was diagnosed with diverticulitis. Patient states her primary care provider did not draw any labs or any imaging for this and her diagnosis solely diagnosed on physical exam. Patient states she has been taking this medication since January 03 and has been experiencing diarrhea, cough and nausea still but no longer has congestion or runny nose. Patient denies any vomiting, hemoptysis, hematochezia. Patient states she does have episodic abdominal pain and describes as generalized. Patient states she does take Coumadin due to her clotting disorder, however she denies taking any pain medication and has only been taking her prescribed antibi otics. Patient states she has been staying hydrated, drinking lots of water and has been able to eat as usual. Patient denies any chest pain, shortness of breath, fever, change in bladder, dizziness, headaches, lightheadedness, change in vision, weakness. - Related Data Home Medications Medication Instructions Recorded Confirmed Albuterol Sulfate [Ventolin HFA] 2 puff INHALATION RT-QID PRN 03/21/21 11/19/21 Omeprazole 40 mg PO HS 03/21/21 11/19/21 Warfarin [Coumadin] 7.5 mg PO SUTUWETHFRSA@1800 03/21/21 11/19/21 Warfarin [Coumadin] 10 mg PO MO@1800 03/21/21 11/19/21 Previous Rx's Medication Instructions Recorded Acetaminophen Tab [Tylenol] 650 mg PO Q6HR PRN tab 11/25/21 Cholecalciferol [Vitamin D3 (125 125 mcg PO DAILY tablet 11/25/21 Mcg = 5000 Iu)] Ondansetron Odt [Zofran ODT] 4 mg PO Q8HR PRN #10 tab 01/05/22 Allergies Allergy/AdvReac Type Severity Reaction Status Date / Time cyclobenzaprine AdvReac Nausea & Verified 01/05/22 15:29 [From Flexeril] Vomiting & Diarrhea Iodinated Contrast Media AdvReac Nausea & Verified 01/05/22 15:29 lightheaded Review of Systems ROS Statement: Those systems with pertinent positive or pertinent negative responses have been documented in the HPI. ROS Other: All systems not noted in ROS Statement are negative. 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 leg + for DVT in lower femoral vein and Lt. leg + for chronic SVT of left greater saphenous vein History of Any Multi-Drug Resistant Organisms: None Reported Past Surgical History: Breast Surgery, Section, Hernia Repair, Tonsillectomy, Tubal Ligation Additional Past Surgical History / Comment(s): EGDs, umbilical hernia with mesh/then mesh removed, benign breast lumpectomy-pt cannot recall laterallity, hysteroscopy/D&C, bilateral eye lasik surgery for vision correction. Past Anesthesia/Blood Transfusion Reactions: Postoperative Nausea & Vomiting (PONV) Additional Past Anesthesia/Blood Transfusion Reaction / Comment(s): Pt has clausterphobia. Past Psychological History: Anxiety Smoking Status: Former smoker Past Alcohol Use History: None Reported Past Drug Use History: None Reported - Past Family History Father Family Medical History: Cancer Additional Family Medical History / Comment(s): Father from cancer at the age of 54yrs, pt believes it was an endocrine type cancer. Mother Family Medical History: Osteoarthritis (OA) Additional Family Medical History / Comment(s): Mother has had multiple joint replacements. General Exam Limitations: no limitations General appearance: alert, in no apparent distress Head exam: Present: atraumatic, normocephalic Eye exam: Present: normal appearance, PERRL, EOMI Pupils: Present: normal accommodation ENT exam: Present: mucous membranes moist Neck exam: Present: full ROM Respiratory exam: Present: normal lung sounds bilaterally. Absent: respiratory distress, wheezes, rales, rhonchi, stridor Cardiovascular Exam: Present: regular rate, normal rhythm, normal heart sounds. Absent: systolic murmur, diastolic murmur, rubs, gallop, clicks GI/Abdominal exam: Present: soft, normal bowel sounds, other (Patient with diffuse discomfort in all quadrants. No pain to palpation.). Absent: distended, tenderness, guarding, rebound, rigid Extremities exam: Present: full ROM Back exam: Present: normal inspection, full ROM. Absent: tenderness, CVA tenderness (R), CVA tenderness (L), paraspinal tenderness, vertebral tenderness Neurological exam: Present: alert, oriented X3, CN II-XII intact, normal gait Psychiatric exam: Present: normal affect, normal mood Skin exam: Present: warm, dry, intact, normal color. Absent: rash Course Vital Signs 01/05/22 01/05/22 01/05/22 15:26 16:02 18:12 Temperature 97.5 F L 97.9 F 96.8 F L Pulse Rate 102 H 105 H 96 Respiratory 20 14 16 Rate Blood Pressure 127/79 117/83 133/91 O2 Sat by Pulse 99 99 97 Oximetry 01/05/22 19:36 Temperature Pulse Rate 85 Respiratory 16 Rate Blood Pressure 122/79 O2 Sat by Pulse 99 Oximetry - Reevaluation(s) Reevaluation #1: 01/05/22 19:06 Due to patient's diagnosis of diverticulitis and abdominal discomfort to palpation, I did recommend a CT scan of her abdomen, however patient refused computed tomography scan and states she does not know any more radiation. Patient also refused abdominal x-ray when commanded after she stated she did not want a computed tomography scan. I did offer computed tomography scan without contrast and she states she still does not want this scan and she will present back to the emergency department if she does get significant abdominal pain. Medical Decision Making - Medical Decision Making This 41-year-old female presents emergency Department with nausea, diarrhea, abdominal discomfort. Patient was diagnosed with COVID-19. Patient's INR was slightly elevated, however she does take Coumadin due to factor V Leiden disorder and stated this was her baseline. Chest x-ray without any acute abnormalities. All other labs unremarkable. After Zofran, patient states she is only slightly nauseous and states she does not have any abdominal pain at this time. Informed patient to take her dose of antibiotics tonight and to call her primary care provider in the morning to see if she wants to change medication or have her stop her antibiotic due to her refusing any imaging. I did inform patient that computed tomography scan is recommended for diagnosis of diverticulitis. Zofran was given to patient as a prescription. Strict return precautions were discussed. Patient verbally agreed to plan. Patient stated she would return if she does get any abdominal pain or is unable to keep down any fluids or solids. Patient sent home in stable condition. Patient was not vaccinated for COVID-19 and not qualify for the antibody infusion. Discussed case with my attending, . - Lab Data Result diagrams: 01/05/22 16:29 01/05/22 16:29 Lab Results 01/05/22 01/05/22 01/05/22 Range/Units 16:29 16:29 16:29 WBC 6.2 (3.8-10.6) k/uL RBC 4.48 (3.80-5.40) m/uL Hgb 14.0 (11.4-16.0) gm/dL Hct 43.1 (34.0-46.0) % MCV 96.1 (80.0-100.0) fL MCH 31.3 (25.0-35.0) pg MCHC 32.6 (31.0-37.0) g/dL RDW 12.9 (11.5-15.5) % Plt Count 333 (150-450) k/uL MPV 7.3 Neutrophils % 69 % Lymphocytes % 20 % Monocytes % 5 % Eosinophils % 3 % Basophils % 0 % Neutrophils # 4.3 (1.3-7.7) k/uL Lymphocytes # 1.3 (1.0-4.8) k/uL Monocytes # 0.3 (0-1.0) k/uL Eosinophils # 0.2 (0-0.7) k/uL Basophils # 0.0 (0-0.2) k/uL PT (9.0-12.0) sec INR (<1.2) APTT (22.0-30.0) sec Sodium 136 L (137-145) mmol/L Potassium 4.0 (3.5-5.1) mmol/L Chloride 105 (98-107) mmol/L Carbon Dioxide 25 (22-30) mmol/L Anion Gap 6 mmol/L BUN 9 (7-17) mg/dL Creatinine 0.87 (0.52-1.04) mg/dL Est GFR (CKD-EPI)AfAm >90 (>60 ml/min/1.73 sqM) Est GFR (CKD-EPI)NonAf 84 (>60 ml/min/1.73 sqM) Glucose 152 H (74-99) mg/dL Plasma Lactic Acid Dave 0.7 (0.7-2.0) mmol/L Calcium 8.7 (8.4-10.2) mg/dL Total Bilirubin 0.9 (0.2-1.3) mg/dL AST 60 H (14-36) U/L ALT 71 H (4-34) U/L Alkaline Phosphatase 46 (38-126) U/L Total Protein 7.3 (6.3-8.2) g/dL Albumin 4.4 (3.5-5.0) g/dL Lipase 127 (23-300) U/L Urine Color Urine Appearance (Clear) Urine pH (5.0-8.0) Ur Specific [place] (1.001-1.035) Urine Protein (Negative) Urine Glucose (UA) (Negative) Urine Ketones (Negative) Urine Blood (Negative) Urine Nitrite (Negative) Urine Bilirubin (Negative) Urine Urobilinogen (<2.0) mg/dL Ur Leukocyte Esterase (Negative) Urine RBC (0-5) /hpf Urine WBC (0-5) /hpf Ur Squamous Epith Cells (0-4) /hpf Urine Bacteria (None) /hpf Urine Mucus (None) /hpf Urine HCG, Qual (Not Detectd) Coronavirus (PCR) (Not Detectd) 01/05/22 01/05/22 01/05/22 Range/Units 16:29 16:30 16:44 WBC (3.8-10.6) k/uL RBC (3.80-5.40) m/uL Hgb (11.4-16.0) gm/dL Hct (34.0-46.0) % MCV (80.0-100.0) fL MCH (25.0-35.0) pg MCHC (31.0-37.0) g/dL RDW (11.5-15.5) % Plt Count (150-450) k/uL MPV Neutrophils % % Lymphocytes % % Monocytes % % Eosinophils % % Basophils % % Neutrophils # (1.3-7.7) k/uL Lymphocytes # (1.0-4.8) k/uL Monocytes # (0-1.0) k/uL Eosinophils # (0-0.7) k/uL Basophils # (0-0.2) k/uL PT 30.0 H (9.0-12.0) sec INR 3.0 H (<1.2) APTT 36.1 H (22.0-30.0) sec Sodium (137-145) mmol/L Potassium (3.5-5.1) mmol/L Chloride (98-107) mmol/L Carbon Dioxide (22-30) mmol/L Anion Gap mmol/L BUN (7-17) mg/dL Creatinine (0.52-1.04) mg/dL Est GFR (CKD-EPI)AfAm (>60 ml/min/1.73 sqM) Est GFR (CKD-EPI)NonAf (>60 ml/min/1.73 sqM) Glucose (74-99) mg/dL Plasma Lactic Acid Dave (0.7-2.0) mmol/L Calcium (8.4-10.2) mg/dL Total Bilirubin (0.2-1.3) mg/dL AST (14-36) U/L ALT (4-34) U/L Alkaline Phosphatase (38-126) U/L Total Protein (6.3-8.2) g/dL Albumin (3.5-5.0) g/dL Lipase (23-300) U/L Urine Color Yellow Urine Appearance Clear (Clear) Urine pH 5.5 (5.0-8.0) Ur Specific [place] 1.011 (1.001-1.035) Urine Protein Negative (Negative) Urine Glucose (UA) Negative (Negative) Urine Ketones 1+ H (Negative) Urine Blood Trace H (Negative) Urine Nitrite Negative (Negative) Urine Bilirubin Negative (Negative) Urine Urobilinogen <2.0 (<2.0) mg/dL Ur Leukocyte Esterase Trace H (Negative) Urine RBC 1 (0-5) /hpf Urine WBC 1 (0-5) /hpf Ur Squamous Epith Cells 1 (0-4) /hpf Urine Bacteria Occasional H (None) /hpf Urine Mucus Occasional H (None) /hpf Urine HCG, Qual (Not Detectd) Coronavirus (PCR) Detected A (Not Detectd) 01/05/22 Range/Units 16:44 WBC (3.8-10.6) k/uL RBC (3.80-5.40) m/uL Hgb (11.4-16.0) gm/dL Hct (34.0-46.0) % MCV (80.0-100.0) fL MCH (25.0-35.0) pg MCHC (31.0-37.0) g/dL RDW (11.5-15.5) % Plt Count (150-450) k/uL MPV Neutrophils % % Lymphocytes % % Monocytes % % Eosinophils % % Basophils % % Neutrophils # (1.3-7.7) k/uL Lymphocytes # (1.0-4.8) k/uL Monocytes # (0-1.0) k/uL Eosinophils # (0-0.7) k/uL Basophils # (0-0.2) k/uL PT (9.0-12.0) sec INR (<1.2) APTT (22.0-30.0) sec Sodium (137-145) mmol/L Potassium (3.5-5.1) mmol/L Chloride (98-107) mmol/L Carbon Dioxide (22-30) mmol/L Anion Gap mmol/L BUN (7-17) mg/dL Creatinine (0.52-1.04) mg/dL Est GFR (CKD-EPI)AfAm (>60 ml/min/1.73 sqM) Est GFR (CKD-EPI)NonAf (>60 ml/min/1.73 sqM) Glucose (74-99) mg/dL Plasma Lactic Acid Dave (0.7-2.0) mmol/L Calcium (8.4-10.2) mg/dL Total Bilirubin (0.2-1.3) mg/dL AST (14-36) U/L ALT (4-34) U/L Alkaline Phosphatase (38-126) U/L Total Protein (6.3-8.2) g/dL Albumin (3.5-5.0) g/dL Lipase (23-300) U/L Urine Color Urine Appearance (Clear) Urine pH (5.0-8.0) Ur Specific [place] (1.001-1.035) Urine Protein (Negative) Urine Glucose (UA) (Negative) Urine Ketones (Negative) Urine Blood (Negative) Urine Nitrite (Negative) Urine Bilirubin (Negative) Urine Urobilinogen (<2.0) mg/dL Ur Leukocyte Esterase (Negative) Urine RBC (0-5) /hpf Urine WBC (0-5) /hpf Ur Squamous Epith Cells (0-4) /hpf Urine Bacteria (None) /hpf Urine Mucus (None) /hpf Urine HCG, Qual Not Detected (Not Detectd) Coronavirus (PCR) (Not Detectd) Disposition Clinical Impression: COVID-19, Nausea, Diarrhea Disposition: HOME SELF-CARE Condition: Stable Instructions (If sedation given, give patient instructions): Coronavirus Disease 2019 (COVID-19) Additional Instructions: Please return to the emergency department with any new, worsening, or concerning symptoms. Please up with her primary care provider next 24-48 hours. Take Zofr an as directed. Continue your antibiotic treatment until you talk to your primary care provider tomorrow morning. Take Tylenol and Motrin for symptomatic relief as directed. Prescriptions: Ondansetron Odt [Zofran ODT] 4 mg PO Q8HR PRN #10 tab PRN Reason: Nausea Is patient prescribed a controlled substance at d/c from ED?: No Referrals: Zach Kruse MD [Primary Care Provider] - 1-2 days Time of Disposition: 18:38
[2022-01-05 18:13] VITALS: RESP 16; TEMP 96.8
[2022-01-05 18:59] LABS: Appearance,Urine Clear (Clear); Bacteria,Urine Occasional /hpf; Bilirubin,Urine Negative (Negative); Blood,Urine Trace (Negative); Color,Urine Yellow; Glucose,Urine (UA) Negative (Negative); Ketones,Urine 1+ (Negative); Leukocyte Esterase,Urine Trace (Negative); Mucus,Urine Occasional /hpf; Nitrite,Urine Negative (Negative); PH, Urine 5.5 (5.0-8.0); Protein,Urine Negative (Negative); RBC,Urine 1 /hpf (0-5); Specific Gravity,Urine 1.011 (1.001-1.035); Squamous Epithelial Cell,Urine 1 /hpf (0-4); Urobilinogen,Urine <2.0 mg/dL (<2.0); WBC,Urine 1 /hpf (0-5)
--- NOTE | 2022-01-05 19:18 | XR ---
EXAMINATION TYPE: XR chest 2V DATE OF EXAM: 01/05/2022 COMPARISON: 02/01/2021 HISTORY: Abdominal pain. Chest pain. TECHNIQUE: FINDINGS: Heart and mediastinum are normal. Lungs are clear. Diaphragm is normal. Bony thorax appears normal. IMPRESSION: Normal chest. No change.
[2022-01-05 19:37] VITALS: BP 122/79; PULSE 85
[2022-01-05] MEDS ORDERED: ONDANSETRON 4 MG TAB PO STA (19:37)
== END 2022-01-05 19:40 | disposition home or self-care (01) ==
LOC: EC 15:25
DX: U07.1 COVID-19 (principal); J45.909 Unspecified asthma, uncomplicated; F41.9 Anxiety disorder, unspecified; Z79.01 Long term (current) use of anticoagulants; Z86.718 Personal history of other venous thrombosis and embolism; Z86.711 Personal history of pulmonary embolism; Z87.891 Personal history of nicotine dependence; Z98.51 Tubal ligation status
CPT/HCPCS: 36415; 71046; 80053; 81001; 81025; 83605; 83690; 85025; 85610; 85730; 87635; 96360; 99284

== ENCOUNTER → 2022-01-30 | Outpatient (CLI) | payer BC ==
--- NOTE | 2022-01-30 14:40 | MM ---
Reason for exam: additional evaluation requested from prior study. Last mammogram was performed 11 months ago. History: Patient had first child at age 35. Benign US biopsy breast VAD RT of the right breast, February 27, 2021. Benign excisional biopsy of the right breast, 2010. Physical Findings: A clinical breast exam by your physician is recommended on an annual basis and results should be correlated with mammographic findings. MG 3D Diag Mammo W/Cad ELIE Bilateral CC and MLO view(s) were taken. LM view(s) were taken of the right breast. Prior study comparison: February 27, 2021, right breast MG diagnostic mammo RT wo CAD. January 29, 2021, right breast MG 3d work up w/cad RT. The breast tissue is heterogeneously dense. This may lower the sensitivity of mammography. Previous mammotome biopsy in the right breast. These results were verbally communicated with the patient and result sheet given to the patient on 01/30/22. ASSESSMENT: Incomplete: need additional imaging evaluation, BI-RAD 0 RECOMMENDATION: Ultrasound of the right breast. Manage patient on a clinical basis.
--- NOTE | 2022-01-30 14:42 | USB ---
Reason for exam: additional evaluation requested from abnormal screening. History: Patient had first child at age 35. Benign US biopsy breast VAD RT of the right breast, February 27, 2021. Benign excisional biopsy of the right breast, 2010. US Breast Limited RT Right limited breast ultrasound including focal area of concern, retroareolar and axilla demonstrates a 0.6 x 0.5 x 0.4cm oval, lobular, hypoechoic lesion at the posterior nipple, 7 o'clock prior biopsy site, previously biopsied and a 1.6 x 2.0 x 0.6cm lymph node at the axilla. These results were verbally communicated with the patient and result sheet given to the patient on 01/30/22. ASSESSMENT: Benign, BI-RAD 2 RECOMMENDATION: Routine screening mammogram of both breasts in 1 year. Manage patient on a clinical basis.
== END | disposition home or self-care (01) ==
LOC: RADMAMWWP 12:18
PROVIDERS: ATTEND Obstetrics & Gynecology
DX: R92.8 Other abnormal and inconclusive findings on diagnostic imaging of breast (principal)
CPT/HCPCS: 77062; 77066

== ENCOUNTER 2022-03-06 16:27 | Emergency (ER) | payer BC ==
[2022-03-06 16:52] VITALS: TEMP 98
--- NOTE | 2022-03-06 17:54 | US ---
EXAMINATION TYPE: US venous doppler duplex LE RT DATE OF EXAM: 03/06/2022 5:29 PM COMPARISON: 07/03/2021 CLINICAL HISTORY: right leg pain, clotting issues. Patient has hx of DVT and PE. Patient has factor 5 clotting disorder. Patient had [facility] ultrasound done today at [facility] in [place] and report states positive for chronic DVT in the right distal femoral vein. SIDE PERFORMED: Right TECHNIQUE: The lower extremity deep venous system is examined utilizing real time linear array sonog irais with graded compression, doppler sonography and color-flow sonography. VESSELS IMAGED: Common Femoral Vein Deep Femoral Vein Greater Saphenous Vein * Femoral Vein Popliteal Vein Small Saphenous Vein * Proximal Calf Veins (* superficial vessels) DESCRIPTION: Grayscale, color doppler, spectral doppler imaging performed of the deep veins of the lo wer extremities. There is normal flow, compressibility, vascular waveforms - except for the distal s uperficial femoral vein where there is partial compressibility, consistent with chronic thrombus mariee ges. IMPRESSION: 1. NO ACUTE DEEP VENOUS CIRRHOSIS. 2. HOWEVER, CHRONIC THROMBUS NOTED IN DISTAL RIGHT SUPERFICIAL FEMORAL VEIN.
[2022-03-06 19:29] VITALS: BP 138/83; PULSE 92; RESP 16
--- NOTE | 2022-03-06 19:39 | ED ---
Recheck HPI - General Chief Complaint: Recheck/Abnormal Lab/Rx Stated Complaint: Irregular US-Sent by Time Seen by Provider: 03/06/22 19:08 Source: patient Mode of arrival: ambulatory Limitations: no limitations - History of Present Illness Initial Comments: Patient is a 41-year-old female with past medical history of multiple DVTs and PE who presents with chief complaint of right thigh pain. She reports the pain started a couple days ago and is mild in the inner thigh. Patient states she got ultrasound of the right lower extremity at her primary care in [place], [place] however medical investigator Dr. Atwood stated that he could not obtain ultrasound and that he would like a repeat ultrasound at a local medical center. Patient states she takes Coumadin daily. Patient has no other concerns at this time including fever, chills, headache, shortness of breath, cough, chest pain, abdominal pain, nausea, and vomiting. - Related Data Home Medications Medication Instructions Recorded Confirmed Albuterol Sulfate [Ventolin HFA] 2 puff INHALATION RT-QID PRN 03/21/21 11/19/21 Omeprazole 40 mg PO HS 03/21/21 11/19/21 Warfarin [Coumadin] 7.5 mg PO SUTUWETHFRSA@1800 03/21/21 11/19/21 Warfarin [Coumadin] 10 mg PO MO@1800 03/21/21 11/19/21 Previous Rx's Medication Instructions Recorded Acetaminophen Tab [Tylenol] 650 mg PO Q6HR PRN tab 11/25/21 Cholecalciferol [Vitamin D3 (125 125 mcg PO DAILY tablet 11/25/21 Mcg = 5000 Iu)] Ondansetron Odt [Zofran ODT] 4 mg PO Q8HR PRN #10 tab 01/05/22 Allergies Allergy/AdvReac Type Severity Reaction Status Date / Time cyclobenzaprine AdvReac Nausea & Verified 03/06/22 16:51 [From Flexeril] Vomiting & Diarrhea Iodinated Contrast Media AdvReac Nausea & Verified 03/06/22 16:51 lightheaded Review of Systems ROS Statement: Those systems with pertinent positive or pertinent negative responses have been documented in the HPI. ROS Other: All systems not noted in ROS Statement are negative. 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 leg + for DVT in lower femoral vein and Lt. leg + for chronic SVT of left greater saphenous vein History of Any Multi-Drug Resistant Organisms: None Reported Past Surgical History: Breast Surgery, Section, Hernia Repair, Tonsillectomy, Tubal Ligation Additional Past Surgical History / Comment(s): EGDs, umbilical hernia with mesh/then mesh removed, benign breast lumpectomy-pt cannot recall laterallity, hysteroscopy/D&C, bilateral eye lasik surgery for vision correction. Past Anesthesia/Blood Transfusion Reactions: Postoperative Nausea & Vomiting (PONV) Additional Past Anesthesia/Blood Transfusion Reaction / Comment(s): Pt has clausterphobia. Past Psychological History: Anxiety Smoking Status: Former smoker Past Alcohol Use History: None Reported Past Drug Use History: None Reported - Past Family History Father Family Medical History: Cancer Additional Family Medical History / Comment(s): Father from cancer at the age of 54yrs, pt believes it was an endocrine type cancer. Mother Family Medical History: Osteoarthritis (OA) Additional Family Medical History / Comment(s): Mother has had multiple joint replacements. General Exam Limitations: no limitations General appearance: alert, in no apparent distress Head exam: Present: atraumatic, normocephalic, normal inspection Neck exam: Present: normal inspection, full ROM Respiratory exam: Present: normal lung sounds bilaterally. Absent: respiratory distress, wheezes, rales, rhonchi, stridor Cardiovascular Exam: Present: regular rate, normal rhythm, normal heart sounds. Absent: systolic murmur, diastolic murmur, rubs, gallop, clicks, JVD GI/Abdominal exam: Present: soft, normal bowel sounds. Absent: distended, tenderness, guarding, rebound, rigid Right Upper Leg exam: Present: normal inspection. Absent: tenderness, swelling, erythema Knee exam: Present: normal inspection, full ROM Lower Leg exam: Present: tenderness (Right calf). Absent: normal inspection (Swelling of the right calf with no surrounding erythema), Homans' sign Ankle exam: Present: normal inspection, full ROM. Absent: tenderness, swelling Neurovascular tendon exam: Present: no vascular compromise. Absent: pulse deficit, pallor Neurological exam: Present: alert, oriented X3, CN II-XII intact Psychiatric exam: Present: normal affect, normal mood Skin exam: Present: warm, dry, intact, normal color. Absent: rash Course Vital Signs 03/06/22 03/06/22 16:48 19:17 Temperature 98.0 F Pulse Rate 93 92 Respiratory 18 16 Rate Blood Pressure 116/87 138/83 O2 Sat by Pulse 97 95 Oximetry Medical Decision Making - Medical Decision Making This is a 41-year-old female with DVT and PE history who presents with right thigh pain. Thorough history and examination were performed. The right eye is normal in skin color without erythema or swelling, and tenderness to palpation. There is some swelling of the right calf with no overlying erythema. There is tenderness tenderness with right calf palpation. Negative Homans sign. Venous Doppler of the lower extremity was obtained which showed no acute deep vein thrombosis. There is chronic thrombus noted in the distal right superficial femoral vein. Case discussed with Dr. Dougherty who is covering for Dr. Atwood. He recommends patient continues Coumadin at home with outpatient follow-up in his office. Results discussed with patient who verbalizes understanding and will continue with Coumadin at home. Return parameters discussed. She verbalizes understanding and is agreeable to this plan. Dr. Izaguirre is my attending. Disposition Clinical Impression: Chronic thromboembolism of right femoral vein Disposition: HOME SELF-CARE Condition: Good Additional Instructions: Please continue to take Coumadin. Follow-up with Dr. Atwood in 1 to 2 days. Return to the emergency department if you experience new, concerning, or worsening symptoms. Is patient prescribed a controlled substance at d/c from ED?: No Referrals: Zach Kruse MD [Primary Care Provider] - 1-2 days Time of Disposition: 19:38
== END 2022-03-06 19:54 | disposition home or self-care (01) ==
LOC: EC 16:27
DX: I82.511 Chronic embolism and thrombosis of right femoral vein (principal); J45.909 Unspecified asthma, uncomplicated; F41.9 Anxiety disorder, unspecified; Z79.01 Long term (current) use of anticoagulants; Z88.1 Allergy status to other antibiotic agents; Z86.711 Personal history of pulmonary embolism; Z98.51 Tubal ligation status; Z87.891 Personal history of nicotine dependence
CPT/HCPCS: 99283

== ENCOUNTER 2022-05-03 12:35 | Emergency (ER) | payer BC ==
[2022-05-03 12:43] VITALS: RESP 18
--- NOTE | 2022-05-03 13:33 | ED ---
General Adult HPI - General Chief complaint: Extremity Problem,Nontraumatic Stated complaint: Left leg pain Time Seen by Provider: 05/03/22 13:15 Source: patient, RN notes reviewed, old records reviewed Mode of arrival: ambulatory Limitations: no limitations - History of Present Illness Initial comments: This is a pleasant 41-year-old female who presents to the emergency room with complaints of 3 days of left leg pain behind her knee and left calf. She states that pain is also in her left thigh at times. She states that today she also started to have pain in her left arm. Patient does have a history of factor V Leiden. She does have a history of PE and DVT and is currently taking Coumadin. She is concerned for a blood clot and is requesting ultrasounds. Patient appears anxious. She denies any other medical history. She is a nonsmoker. She denies any fevers, nausea vomiting diarrhea, chest pain or cough. -: days(s) (3) Location: left, lower extremity (calf pain) Severity scale (1-10): 7 Quality: constant Consistency: constant Improves with: none Worsens with: other (palpation) Associated Symptoms: other (left arm pain and numbness today) Treatments Prior to Arrival: other (coumadin) - Related Data Home Medications Medication Instructions Recorded Confirmed Albuterol Sulfate [Ventolin HFA] 2 puff INHALATION RT-QID PRN 03/21/21 11/19/21 Omeprazole 40 mg PO HS 03/21/21 11/19/21 Warfarin [Coumadin] 7.5 mg PO SUTUWETHFRSA@1800 03/21/21 11/19/21 Warfarin [Coumadin] 10 mg PO MO@1800 03/21/21 11/19/21 Previous Rx's Medication Instructions Recorded Acetaminophen Tab [Tylenol] 650 mg PO Q6HR PRN tab 11/25/21 Cholecalciferol [Vitamin D3 (125 125 mcg PO DAILY tablet 11/25/21 Mcg = 5000 Iu)] Ondansetron Odt [Zofran ODT] 4 mg PO Q8HR PRN #10 tab 01/05/22 Allergies Allergy/AdvReac Type Severity Reaction Status Date / Time cyclobenzaprine AdvReac Nausea & Verified 05/03/22 12:43 [From Flexeril] Vomiting & Diarrhea Iodinated Contrast Media AdvReac Nausea & Verified 05/03/22 12:43 lightheaded Review of Systems ROS Statement: Those systems with pertinent positive or pertinent negative responses have been documented in the HPI. ROS Other: All systems not noted in ROS Statement are negative. 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 leg + for DVT in lower femoral vein and Lt. leg + for chronic SVT of left greater saphenous vein History of Any Multi-Drug Resistant Organisms: None Reported Past Surgical History: Breast Surgery, Section, Hernia Repair, Tonsillectomy, Tubal Ligation Additional Past Surgical History / Comment(s): EGDs, umbilical hernia with mesh/then mesh removed, benign breast lumpectomy-pt cannot recall laterallity, hysteroscopy/D&C, bilateral eye lasik surgery for vision correction. Past Anesthesia/Blood Transfusion Reactions: Postoperative Nausea & Vomiting (PONV) Additional Past Anesthesia/Blood Transfusion Reaction / Comment(s): Pt has clausterphobia. Past Psychological History: Anxiety Smoking Status: Former smoker Past Alcohol Use History: None Reported Past Drug Use History: None Reported - Past Family History Father Family Medical History: Cancer Additional Family Medical History / Comment(s): Father from cancer at the age of 54yrs, pt believes it was an endocrine type cancer. Mother Family Medical History: Osteoarthritis (OA) Additional Family Medical History / Comment(s): Mother has had multiple joint replacements. General Exam Limitations: no limitations General appearance: alert, in no apparent distress Head exam: Present: atraumatic, normocephalic Eye exam: Present: normal appearance. Absent: scleral icterus, conjunctival injection ENT exam: Present: normal exam, normal oropharynx, mucous membranes moist Neck exam: Present: normal inspection, full ROM. Absent: tenderness, meningismus, lymphadenopathy Respiratory exam: Present: normal lung sounds bilaterally. Absent: respiratory distress, accessory muscle use Cardiovascular Exam: Present: regular rate, normal heart sounds GI/Abdominal exam: Present: soft. Absent: distended, tenderness, rigid Extremities exam: Present: normal inspection, full ROM, normal capillary refill, calf tenderness (left ). Absent: pedal edema Left Upper Arm exam: Present: normal inspection, full ROM. Absent: tenderness, swelling Elbow exam: Present: normal inspection, full ROM. Absent: tenderness, swelling Forearm Wrist exam: Present: normal inspection, full ROM. Absent: tenderness, swelling Hand Wrist exam: Present: normal inspection, full ROM. Absent: tenderness, swelling Vascular: Present: normal capillary refill, radial pulse. Absent: vascular compromise Left Upper Leg exam: Present: normal inspection, full ROM. Absent: swelling, ecchymosis Knee exam: Present: normal inspection, full ROM. Absent: tenderness, swelling Lower Leg exam: Present: normal inspection, full ROM, tenderness (calf). Ab sent: swelling Ankle exam: Present: normal inspection, full ROM Foot/Toe exam: Present: normal inspection, full ROM Neurovascular tendon exam: Present: no vascular compromise. Absent: abnormal cap refill, extremity cold to touch, pallor, foot drop Neurological exam: Present: alert, oriented X3 Psychiatric exam: Present: anxious Skin exam: Present: warm, dry, normal color. Absent: cyanosis, diaphoretic, erythema Course Vital Signs 05/03/22 05/03/22 12:40 16:06 Temperature 97.9 F 98.7 F Pulse Rate 71 75 Respiratory 18 18 Rate Blood Pressure 125/83 113/80 O2 Sat by Pulse 100 99 Oximetry Medical Decision Making - Medical Decision Making Patient presents with concerns for DVT in her left lower extremity and left upper extremity. She has history of PE and DVT and is currently taking Coumadin. Shows no evidence of swelling to her left leg or her left arm. Pulses are present, capillary refill less than 2 seconds. She is no focal neurological deficits. She is ambulatory with steady gait. Ultrasound of the left lower extremity shows some thrombus in a long saphenous vein no evidence of DVT. Ultrasound of the left arm shows no evidence of DVT. Patient appears anxious and was reassured that treatment for DVT is Coumadin. She is also concerned that this may just be a pulled muscle and she was encouraged to take Tylenol and increase her fluid intake. She was directed to follow up with her primary care doctor on Thursday. Return to the emergency room with any new or concerning symptoms. She is agreeable to this plan of care. Disposition Clinical Impression: Leg pain, left, Left arm pain Disposition: HOME SELF-CARE Condition: Good Instructions (If sedation given, give patient instructions): Leg Pain (ED), Arm Pain (ED) Additional Instructions: There is no evidence of DVT in your left leg or left arm. You are currently being treated with Coumadin for your history of DVT. Follow-up with the primary care doctor on Thursday. Return to the emergency room with any new or concerning symptoms. Is patient prescribed a controlled substance at d/c from ED?: No Referrals: Zach Kruse MD [Primary Care Provider] - 1-2 days
--- NOTE | 2022-05-03 15:27 | US ---
EXAMINATION TYPE: US venous doppler duplex LE LT DATE OF EXAM: 05/03/2022 2:52 PM COMPARISON: US CLINICAL HISTORY: pain hx of dvt. Pain. Hx of DVT. Factor 5. Pt is on coumadin. SIDE PERFORMED: Left TECHNIQUE: The lower extremity deep venous system is examined utilizing real time linear array sonog irais with graded compression, doppler sonography and color-flow sonography. VESSELS IMAGED: Common Femoral Vein Deep Femoral Vein Greater Saphenous Vein * Femoral Vein Popliteal Vein Small Saphenous Vein * Proximal Calf Veins (* superficial vessels) Left Leg: There appear to be internal echoes within the GSV up to the junction with the CFV. Color d efect noted. Compressions deferred at this level due to echoes seen. GSV does not compress at upper t high. Color flow seen in remaining veins at this time. IMPRESSION: There is some thrombus in the long saphenous vein. No evidence of deep vein thrombosis.
--- NOTE | 2022-05-03 15:29 | US ---
EXAMINATION TYPE: US venous doppler duplex UE LT DATE OF EXAM: 05/03/2022 COMPARISON: US CLINICAL HISTORY: pain hx dvt. Pain. Hx DVT. Patient is on coumadin. Factor 5. SIDE PERFORMED: Left Left Arm: No evidence of DVT at this time. Radial and ulnar veins appear separate above the elbow. IMPRESSION: No evidence of deep vein thrombosis in the left arm.
[2022-05-03 16:09] VITALS: BP 113/80; PULSE 75; TEMP 98.7
== END 2022-05-03 16:08 | disposition home or self-care (01) ==
LOC: EC 12:35
DX: M79.605 Pain in left leg (principal); M79.602 Pain in left arm; J45.909 Unspecified asthma, uncomplicated; Z87.891 Personal history of nicotine dependence; Z86.718 Personal history of other venous thrombosis and embolism; Z88.1 Allergy status to other antibiotic agents; Z91.041 Radiographic dye allergy status; Z79.01 Long term (current) use of anticoagulants
CPT/HCPCS: 99284

== ENCOUNTER → 2022-06-03 | Outpatient (CLI) | payer BC ==
[2022-06-03 17:57] LABS: HCT 42.1 % (37.2-46.3); HGB 13.1 g/dL (12.0-15.0); MCH 29.3 pg (27.0-32.0); MCHC 31.1 g/dL (32.0-37.0); MCV 94.2 fL (80.0-97.0); Mean Platelet Volume 10.4 fL (9.5-12.2); NRBC Per 100 WBC 0 /100 WBCS (0.0-0.0); Platelet Count 323 X 10*3/uL (140-440); RBC 4.47 X 10*6/uL (4.10-5.20); RDW 13.4 % (11.5-14.5); WBC 6.22 X 10*3/uL (4.50-10.00)
[2022-06-03 18:00] LABS: African American GFR (CKD) 83.1 (60.0-200.0); Anion Gap 9.6 mmol/L (10.00-18.00); BUN/Creat Ratio 15.03 Ratio (12.00-20.00); Blood Urea Nitrogen 14.8 mg/dL (9.0-27.0); Calcium 8.9 mg/dL (8.7-10.3); Carbon Dioxide 25.1 mmol/L (20.0-27.5); Non-African American GFR(CKD) 71.7 (60.0-200.0); Potassium 4.3 mmol/L (3.5-5.5)
== END | disposition home or self-care (01) ==
LOC: LABWHC1 11:30
PROVIDERS: ATTEND Internal Medicine Hematology & Oncology
DX: N93.9 Abnormal uterine and vaginal bleeding, unspecified (principal)
CPT/HCPCS: 36415; 80048; 85027